=== PATIENT | female | born 1945 | race Caucasian/White ===

== ENCOUNTER 2020-05-13 07:32 | Outpatient (REF) | payer MEDICARE, SELFPAY ==
[2020-05-13 11:50] LABS: Alanine Aminotransferase 13 U/L (0-31); Aspartate Amino Transferase 20 U/L (5-31); Cholesterol 216 mg/dL; Glucose Fasting 92 mg/dL (60-99); HDL Cholesterol 52 mg/dL; LDL Cholesterol Calculated 129 mg/dl; Triglycerides 178 mg/dL
== END 2020-05-13 07:33 | disposition home or self-care (01) ==
LOC: HO.HMGCLDS 07:32
PROVIDERS: PCP Internal Medicine; Visit Provider Internal Medicine
DX: R73.01 Impaired fasting glucose (principal); E78.2 Mixed hyperlipidemia
CPT/HCPCS: 80061; 82550; 82947; 84450; 84460

== ENCOUNTER → 2020-09-23 15:00 | Outpatient (BNVA) | payer MEDICARE, SELFPAY | PROVIDERS: PCP Internal Medicine; Visit Provider Internal Medicine Gastroenterology | DX: Z13.89 Encounter for screening for other disorder (principal) | CPT/HCPCS: Q3014 ==

== ENCOUNTER 2020-10-18 08:41 | Outpatient (REF) | payer MEDICARE, SELFPAY ==
[2020-10-18 11:30] LABS: Blood Urea Nitrogen 16 mg/dL (9-16); Lipase 42 U/L (8-78)
[2020-10-18 12:03] LABS: Alanine Aminotransferase 11 U/L (0-31); Anion Gap 17 (12-20); Aspartate Amino Transferase 18 U/L (5-31); Blood Urea Nitrogen 16 mg/dL (9-16); C Reactive Protein 0.22 mg/dL (< or = 0.50); Calcium 9.9 mg/dL (8.4-10.2); Carbon Dioxide 30 mmol/L (22-29); Chloride 98 mmol/L (96-108); Cholesterol 197 mg/dL; Estimated Glomerular Filt Rate > 60; Glucose Fasting 96 mg/dL (60-99); HDL Cholesterol 55 mg/dL; LDL Cholesterol Calculated 111 mg/dl; Potassium 3.9 mmol/L (3.3-5.1); Sodium 141 mmol/L (135-145); Triglycerides 158 mg/dL
[2020-10-18 12:11] LABS: Vitamin D 25-OH Total 55.2 ng/mL (>30)
== END 2020-10-18 08:42 | disposition home or self-care (01) ==
LOC: HO.HMGCLDS 08:41
PROVIDERS: PCP Internal Medicine; Visit Provider Internal Medicine Gastroenterology
DX: R93.5 Abnormal findings on diagnostic imaging of other abdominal regions, including retroperitoneum (principal); R10.11 Right upper quadrant pain; E78.2 Mixed hyperlipidemia; I10 Essential (primary) hypertension; M81.0 Age-related osteoporosis without current pathological fracture; Z78.0 Asymptomatic menopausal state
CPT/HCPCS: 36415; 80048; 80061; 82306; 83690; 84450; 84460; 84520; 86140

== ENCOUNTER 2020-10-18 09:37 | Emergency (ER) | payer MEDICARE, SELFPAY ==
--- NOTE | 2020-10-18 | ECG_ITS ---
Test Reason : CP Blood Pressure : / mmHG Vent. Rate : 069 BPM Atrial Rate : 069 BPM P-R Int : 166 ms QRS Dur : 096 ms QT Int : 416 ms P-R-T Axes : 032 007 -10 degrees QTc Int : 445 ms Normal sinus rhythm ST & T wave abnormality, consider anterolateral ischemia Abnormal ECG When compared with ECG of 01-FEB-2006 09:32, Inverted T waves have replaced nonspecific T wave abnormality in Anterolateral leads Referred By: Generic ED Physician Electronically Signed By:HALI VALADEZ MD
--- NOTE | ~2020-10-18 | XR_ITS ---
EXAMINATION: XR CHEST CLINICAL INFORMATION: Chest pain COMPARISON: None TECHNIQUE: Frontal view of the chest was obtained. FINDINGS: The cardiac and mediastinal contours are normal. The lungs are clear. There is no pleural effusion or pneumothorax. There is curvature of the lower thoracic spine to the right. There are degenerative changes at the left shoulder. XR/XR chest 1V IMPRESSION: No evidence for acute disease in the chest.
[2020-10-18 10:01] VITALS: BP 180/79; PULSE 71; RESP 16; TEMP 36.7; O2SAT 99; BMI 26.4
--- NOTE | 2020-10-18 11:02 | ED_ITS ---
HPI - Chest Pain General Chief Complaint: Chest Pain Stated Complaint: chest pain Time Seen by Provider: 10/18/20 09:41 Source: patient Mode of arrival: ambulatory Limitations: no limitations History of Present Illness HPI narrative: 75 y/o female with history of HTN, HLD, IBD, anxiety, diverticulitis who presents to the ED from Urgent Care for evaluation of abnormal EKG and non-radiating, reproducible left sided chest pain that started last night. Patient states she was in the bathroom last night getting ready for a shower when she developed chest pains on the left side after getting undressed. She states it is aching in nature worse with palpation. No SOB, nausea, vomiting, diaphoresis, fever, chills. She was seen at the lab this morning for routine blood work and then went to Urgent care for a quick EKG. EKG there showed T-wave inversions that were not present on her prior EKG from 16 years prior. She was sent to the ER for further evaluation. MD complaint: chest pain Onset (ago): day(s) (1) Timing of current episode: constant Prior episodes: No Onset: during rest Pain location: left chest Pain radiation: none Severity: mild Quality: aching Relieving factors: nothing Exacerbating factors: palpation and movement Treatment prior to arrival: none Risk Factors Coronary artery disease risk factors: hyperlipidemia and hypertension Thoracic aortic dissection risk factors: none Related Data On Oral Contraceptives: No Home Medications Medication Instructions Recorded Confirmed cholecalciferol (vitamin D3) 50 50 mcg PO DAILY 05/15/20 09/23/20 mcg (2,000 unit) capsule coenzyme Q10 100 mg capsule 100 mg PO DAILY 05/15/20 09/23/20 naproxen 500 mg tablet mg PO 05/15/20 09/23/20 omega-3 fatty acids 1,000 mg 1,000 mg PO DAILY 05/15/20 09/23/20 capsule Previous Rx's Medication Instructions Recorded diclofenac sodium 1 % topical gel 2 g TOPICAL QID PRN #100 g 05/15/20 pravastatin 80 mg tablet 80 mg PO BEDTIME #90 tab 08/15/20 metoprolol tartrate 25 mg tablet 25 mg PO BID 90 Days #180 tab 09/10/20 triamterene 75 1 tab PO DAILY #90 tab 09/10/20 mg-hydrochlorothiazide 50 mg tablet Allergies Allergy/AdvReac Type Severity Reaction Status Date / Time No Known Allergies Allergy Verified 09/23/20 15:04 Review of Systems Review of Systems: Constitutional: No Fever, No Chills ENT/Mouth: No sore throat, No Rhinorrhea, No Swallowing Difficulty Cardiovascular: + Chest Pain, No SOB, No Orthopnea, No Edema Respiratory: No Cough, No Sputum, No Wheezing, No dyspnea Gastrointestinal: No Nausea, No Vomiting, No Diarrhea, No abdominal Pain Musculoskeletal: No joint pain, No Myalgias Skin: No Skin Lesions, No rash Neuro: No Weakness, No Numbness, No Dizziness, No Headache Psych: + Anxiety/Panic, No Depression Heme/Lymph: No Bruising, No Lymphadenopathy Endocrine: No Polyuria, No Polydipsia PMFSH Past Medical History Attestation statement: The following information was validated with the patient. Medical History Anxiety disorder Essential hypertension IBS (irritable bowel syndrome) Mixed dyslipidemia Osteoporosis Surgical History History of section History of laparoscopic cholecystectomy History of partial colectomy History of tonsillectomy Family History Family History Father No problems noted. Mother Depression HTN (hypertension) CHF (congestive heart failure) CVD (cardiovascular disease) Sister No problems noted. Sister No problems noted. Daughter No problems noted. Social History Social History (Updated 09/23/20 @ 15:03 by Valeria Anderson [facility]) Household Members: Spouse and Children Alcohol intake: never Smoking Status: Former smoker Advance Directives: No Advance Directives Information Provided: No Current occupational status: retired Physical Exam Vital Signs: Vital Signs: Last Vital Signs Temp 98.1 F 10/18/20 10:01 Pulse 61 10/18/20 12:00 Resp 18 10/18/20 12:00 BP 132/60 10/18/20 12:13 Pulse Ox 100 10/18/20 12:00 Body Mass Index 26.4 Appearance: Alert. Oriented X3. No acute distress. Eyes: Pupils equal, round and reactive to light. ENT: Pharynx normal. Neck: Normal inspection. Neck supple. CVS: Normal heart rate and rhythm. Pulses normal. Left sided chest wall tenderness Respiratory: No respiratory distress. Breath sounds normal. Abdomen: Soft and nontender. +BS x4 Skin: Skin warm and dry. Normal skin color. Normal skin turgor. No rashes. Extremities: No lower extremity edema. Negative Joana's sign Neuro: Oriented X 3. No motor deficit. No sensory deficit. Course Course Course Narrative: 75 y/o female presenting with reproducible left sided chest pain and abnormal EKG. Exam is reassuring. She appears well, pain only with palpation. Likely muscular in nature. Given her age and history of HTN and HLD will repeat EKG, get lab workup including troponin and electrolytes. Doubt ACS or PE. Reevaluation(s) Reevaluation #1: Lab workup is unremarkable. Troponin is negative. EKG reviewed and is unchanged from prior EKG in 2006. Very highly doubt that her chest discomfort is cardiac in etiology. Will refer to Cardiology for abnormal EKG. Will treat for muscular chest wall pain with NSAID. Results reviewed with patient who agrees with plan. Stable for discharge. MDM - Chest Pain Medical Records Data Attestation: I reviewed the patient's medical records. Lab Data Attestation: I reviewed the patient's lab results. Result diagrams: 10/18/20 11:37 10/18/20 11:37 Labs: Lab Results 10/18/20 10/18/20 10/18/20 Range/Units 11:36 11:36 11:37 WBC 6.1 (4.8-10.8) X10*3/uL RBC 5.07 (4.20-5.50) X10*6/uL Hgb 15.4 (12.0-16.0) g/dl Hct 45.9 (37-47) % MCV 90.5 (80-98) fL MCH 30.4 (27.0-33.0) pg MCHC 33.6 (31.0-35.0) g/dl RDW 13.2 (11.0-16.0) % Plt Count 257 (160-400) X10*3/uL MPV 10.4 (9.4-12.3) fL Immature Gran % (Auto) 0.3 (0.0-0.4) % Neut % (Auto) 62.3 (45-73) % Lymph % (Auto) 26.9 (20-40) % [place] % (Auto) 7.7 (2-11) % Eos % (Auto) 2.3 (0-4) % Baso % (Auto) 0.5 (0-2) % Lymph # (Auto) 1.6 (1.2-4.9) X10*3/uL [place] # (Auto) 0.5 (0.1-1.2) X10*3/uL Eos # (Auto) 0.1 (0.0-0.4) X10*3/uL Baso # (Auto) 0.0 (0.0-0.2) X10*3/uL Abs Immat Gran (auto) 0.02 (0.00-0.03) X10*3/uL Absolute Neuts (auto) 3.8 (2.0-8.3) X10*3/uL Absolute Nucleated RBC 0.000 (0.0-0.012) X10*3/uL Nucleated RBC % (auto) 0.0 (0.0-0.2) /100WBC Hold Blue Top Sodium (135-145) mmol/L Potassium (3.3-5.1) mmol/L Chloride (96-108) mmol/L Carbon Dioxide (22-29) mmol/L Anion Gap (12-20) BUN (9-16) mg/dL Creatinine (0.5-1.4) mg/dL Estim Creat Clear Calc Estimated GFR Random Glucose (60-115) mg/dL Calcium (8.4-10.2) mg/dL Magnesium (1.6-2.6) mg/dL Total Bilirubin (0.0-1.0) mg/dL Direct Bilirubin (0.0-0.5) mg/dL AST (5-31) U/L ALT (0-31) U/L Alkaline Phosphatase (39-117) U/L Troponin I High Sens (<3.5-17.0) ng/L Total Protein (6.5-8.0) g/dL Albumin (3.5-5.0) g/dL TSH 2.98 (0.32-4.0) uIU/mL Urine Color YELLOW Urine Appearance CLEAR Urine pH 6.0 (5.0-8.0) Ur Specific [place] <= 1.005 (1.005-1.025) Urine Protein NEG (NEG-TRACE) MG/DL Urine Glucose (UA) NEG (NEG) MG/DL Urine Ketones NEG (NEG) MG/DL Urine Blood NEG (NEG) Urine Nitrite NEG (NEG) Ur Leukocyte Esterase NEG (NEG) 10/18/20 10/18/20 10/18/20 Range/Units 11:37 11:37 11:37 WBC (4.8-10.8) X10*3/uL RBC (4.20-5.50) X10*6/uL Hgb (12.0-16.0) g/dl Hct (37-47) % MCV (80-98) fL MCH (27.0-33.0) pg MCHC (31.0-35.0) g/dl RDW (11.0-16.0) % Plt Count (160-400) X10*3/uL MPV (9.4-12.3) fL Immature Gran % (Auto) (0.0-0.4) % Neut % (Auto) (45-73) % Lymph % (Auto) (20-40) % [place] % (Auto) (2-11) % Eos % (Auto) (0-4) % Baso % (Auto) (0-2) % Lymph # (Auto) (1.2-4.9) X10*3/uL [place] # (Auto) (0.1-1.2) X10*3/uL Eos # (Auto) (0.0-0.4) X10*3/uL Baso # (Auto) (0.0-0.2) X10*3/uL Abs Immat Gran (auto) (0.00-0.03) X10*3/uL Absolute Neuts (auto) (2.0-8.3) X10*3/uL Absolute Nucleated RBC (0.0-0.012) X10*3/uL Nucleated RBC % (auto) (0.0-0.2) /100WBC Hold Blue Top SEE NOTE Sodium 140 (135-145) mmol/L Potassium 4.0 (3.3-5.1) mmol/L Chloride 99 (96-108) mmol/L Carbon Dioxide 30 H (22-29) mmol/L Anion Gap 15 (12-20) BUN 16 (9-16) mg/dL Creatinine 0.81 (0.5-1.4) mg/dL Estim Creat Clear Calc 44.9 Estimated GFR > 60 Random Glucose 103 (60-115) mg/dL Calcium 10.0 (8.4-10.2) mg/dL Magnesium 2.3 (1.6-2.6) mg/dL Total Bilirubin 0.3 (0.0-1.0) mg/dL Direct Bilirubin 0.2 (0.0-0.5) mg/dL AST 20 (5-31) U/L ALT 14 (0-31) U/L Alkaline Phosphatase 91 (39-117) U/L Troponin I High Sens 3.6 (<3.5-17.0) ng/L Total Protein 7.8 (6.5-8.0) g/dL Albumin 4.9 (3.5-5.0) g/dL TSH (0.32-4.0) uIU/mL Urine Color Urine Appearance Urine pH (5.0-8.0) Ur Specific [place] (1.005-1.025) Urine Protein (NEG-TRACE) MG/DL Urine Glucose (UA) (NEG) MG/DL Urine Ketones (NEG) MG/DL Urine Blood (NEG) Urine Nitrite (NEG) Ur Leukocyte Esterase (NEG) ECG Data ECG #1: Attestation: I personally reviewed and interpreted this ECG as follows: ECG interpretation date: 10/18/20 ECG interpretation time: 12:52 Prior ECG tracings: available for review Interpretation: normal sinus rhythm, HR 69 bpm, normal VA interval, normal QTC, t-wave inversions in leads III, V1-V6. no significant change from 2006 Scores Heart Score History: -0- slightly suspicious ECG: -1- non specific repolarization disturbance Age: -2- > or = 65 Risk factory: -1- 1 or 2 risk factors Troponin: -0- < or = normal limit Score: 4 Risk: 16.6% Critical Care Time Critical Care Time Critical Care Time: No Discharge Plan Discharge Clinical Impression: Anterior chest wall pain Patient Disposition: Home, Self-Care Instructions: Chest Wall Pain (ED) Additional Instructions: Your lab workup today was unremarkable. Your chest x-ray was normal. Your EKG was unchanged from 2006. Your blood work did not show any evidence of acute stress on your heart. Recommend following up with your primary care doctor. Follow up with Cardiology for evaluation of abnormal EKG. If you develop worsening or change in your chest discomfort call 911 or come back to the ER for further evaluation. Prescriptions: No Action pravastatin 80 mg tablet 80 mg PO BEDTIME Qty: 90 RF: 1 triamterene-hydrochlorothiazid 75-50 mg tablet 1 tab PO DAILY Qty: 90 RF: 1 metoprolol tartrate 25 mg tablet 25 mg PO BID 90 Days Qty: 180 RF: 1 naproxen 500 mg tablet PO RF: 0 omega-3 fatty acids [Fish Oil Concentrate] 1,000 mg capsule 1,000 mg PO DAILY RF: 0 cholecalciferol (vitamin D3) 50 mcg (2,000 unit) capsule 50 mcg PO DAILY RF: 0 coenzyme Q10 [CoQ-10] 100 mg capsule 100 mg PO DAILY RF: 0 diclofenac sodium 1 % gel 2 g topical QID PRN (Reason: joint pain) Qty: 100 RF: 0 Referrals: Ivan Schuster MD [Physician] - 2 days (abnormal EKG)
[2020-10-18 11:47] LABS: MANUAL DIFF FLAG NO
[2020-10-18 11:52] LABS: Basophils Percent Auto 0.5 % (0-2); Eosinophils Absolute Auto 0.1 X10*3/uL (0.0-0.4); Eosinophils Percent Auto 2.3 % (0-4); Hematocrit 45.9 % (37-47); Hemoglobin 15.4 g/dl (12.0-16.0); Imm Gran Abs Auto 0.02 X10*3/uL (0.00-0.03); Imm Gran Pct Auto 0.3 % (0.0-0.4); Lymphocytes Absolute Auto 1.6 X10*3/uL (1.2-4.9); Lymphocytes Percent Auto 26.9 % (20-40); Mean Corpuscular HGB Conc 33.6 g/dl (31.0-35.0); Mean Corpuscular Hemoglobin 30.4 pg (27.0-33.0); Mean Corpuscular Volume 90.5 fL (80-98); Mean Platelet Volume 10.4 fL (9.4-12.3); Monocytes Absolute Auto 0.5 X10*3/uL (0.1-1.2); Monocytes Percent Auto 7.7 % (2-11); Neutrophils Absolute Auto 3.8 X10*3/uL (2.0-8.3); Neutrophils Percent Auto 62.3 % (45-73); Platelet Count 257 X10*3/uL (160-400); Red Blood Count 5.07 X10*6/uL (4.20-5.50); Red Cell Distribution Width 13.2 % (11.0-16.0); White Blood Count 6.1 X10*3/uL (4.8-10.8)
[2020-10-18 11:54] LABS: Glucose Urine UA NEG (NEG); Leukocyte Esterase Urine NEG (NEG); Nitrite Urine NEG (NEG); Specific Gravity - Urine <= 1.005 (1.005-1.025); Urine Blood NEG (NEG); Urine Ketones NEG (NEG); Urine Protein NEG (NEG-TRACE)
[2020-10-18 11:56] LABS: Appearance Urine CLEAR; Color Urine YELLOW
[2020-10-18 12:00] VITALS: BP 171/68; PULSE 61; RESP 18; O2SAT 100
[2020-10-18 12:13] VITALS: BP 132/60
[2020-10-18 12:19] LABS: Alanine Aminotransferase 14 U/L (0-31); Albumin Level 4.9 g/dL (3.5-5.0); Alkaline Phosphatase 91 U/L (39-117); Anion Gap 15 (12-20); Aspartate Amino Transferase 20 U/L (5-31); Bilirubin Direct 0.2 mg/dL (0.0-0.5); Bilirubin Total 0.3 mg/dL (0.0-1.0); Blood Urea Nitrogen 16 mg/dL (9-16); Carbon Dioxide 30 mmol/L (22-29); Chloride 99 mmol/L (96-108); Creatinine Clr Calc Pharmacy 44.9; Estimated Glomerular Filt Rate > 60; Glucose Random 103 mg/dL (60-115); Magnesium 2.3 mg/dL (1.6-2.6); Sodium 140 mmol/L (135-145); Total Protein 7.8 g/dL (6.5-8.0)
[2020-10-18 12:24] LABS: Troponin-I High Sensitivity 3.6 ng/L (<3.5-17.0)
[2020-10-18 12:41] LABS: TSH reflex Free T4 2.98 uIU/mL (0.32-4.0)
== END 2020-10-18 12:57 | disposition home or self-care (01) ==
PROVIDERS: Physician Assistant; Emergency Provider Emergency Medicine; PCP Internal Medicine
DX: R07.89 Other chest pain (principal); I10 Essential (primary) hypertension; E78.5 Hyperlipidemia, unspecified; F41.9 Anxiety disorder, unspecified; Z87.891 Personal history of nicotine dependence; Z79.899 Other long term (current) drug therapy; Z79.02 Long term (current) use of antithrombotics/antiplatelets
CPT/HCPCS: 36415; 71045; 80048; 80076; 81003; 83735; 84443; 84484; 85025; 93005; 99283; 99284

== ENCOUNTER 2020-10-23 09:37 | Outpatient (REF) | payer MEDICARE, SELFPAY ==
--- NOTE | ~2020-10-23 | CT_ITS ---
EXAMINATION: CT ABDOMEN AND PELVIS WITH CONTRAST CLINICAL INFORMATION: Follow-up pancreas lesion COMPARISON: Previous CT scan of the abdomen and pelvis most recent May 2018 and abdominal MRI most recent January 2020 TECHNIQUE: Multidetector volumetric images were obtained from the superior aspect of the liver through the pubic symphysis following administration 85 mL of Omnipaque 350 intravenous contrast. Sagittal and coronal reformatted images were obtained on the technologist's workstation. Oral contrast: Yes This CT examination was performed using dose optimization techniques as appropriate, variously including the following: *Automated exposure control *Adjustment of mA and/or kV according to patient size (this includes techniques or standardized protocols for targeted exams where dose is matched to indication/reason for exam; i.e. extremities or head) *Use of iterative reconstruction technique DLP: 302 mGy-cm FINDINGS: LUNG BASES: The visualized lung bases are unremarkable. LIVER, GALLBLADDER, AND BILIARY TREE: The liver is normal in size and shape. The liver is slightly low in attenuation suggestive of mild fatty infiltration. No focal hepatic lesion or biliary ductal dilatation is present. The gallbladder has been removed. PANCREAS: There is a 7 mm fatty lesion in the body of the pancreas that is stable and likely represents a benign lipoma. The pancreas is otherwise unremarkable. SPLEEN: Unremarkable. ADRENAL GLANDS: Unremarkable. KIDNEYS AND URETERS: There is an 8 mm low-attenuation lesion in the lower pole of the left kidney probably representing a cyst. The kidneys are otherwise unremarkable. BLADDER: Unremarkable. GASTROINTESTINAL TRACT: There is been previous right colectomy. There is severe diverticulosis of the distal colon. Small and large bowel is otherwise unremarkable. The stomach is unremarkable. ABDOMINAL WALL: No there is a small umbilical hernia containing fat. LYMPH NODES: Normal. VASCULAR: There is evidence of severe atherosclerotic disease. No aneurysm is seen. PELVIC VISCERA: Unremarkable. OSSEOUS STRUCTURES: There is scoliosis and degenerative change of the spine. CT/CT abdomen pelvis w con IMPRESSION: Stable 7 mm fatty lesion in the pancreas suggestive of a benign lipoma. Postsurgical changes following right colectomy. Severe diverticulosis of the distal colon. No evidence of diverticulitis.
[2020-10-23] MEDS: Barium Sulfate Oral (Vanilla) 450 ML ORAL.SUSP 900 ML PO (15:45)
== END 2020-10-23 09:38 | disposition home or self-care (01) ==
LOC: HO.CT 09:37
PROVIDERS: Visit Provider Internal Medicine Gastroenterology
DX: R10.11 Right upper quadrant pain (principal); R93.5 Abnormal findings on diagnostic imaging of other abdominal regions, including retroperitoneum
CPT/HCPCS: 74177; Q9967

== ENCOUNTER 2020-10-30 08:31 | Outpatient (REF) | payer MEDICARE, SELFPAY ==
--- NOTE | ~2020-10-30 | MM_ITS ---
EXAMINATION: MM SCREENING DIGITAL BREAST TOMOSYNTHESIS, BILATERAL CLINICAL INFORMATION: Screening. Asymptomatic. The lifetime risk of breast cancer based on the Tyrer-Cuzick Model is 2.8%. COMPARISON: Mammography: September 07, 2019 and studies dating back to March 27, 2010 TECHNIQUE: Digital breast tomosynthesis is performed in both the craniocaudal and mediolateral oblique views along with computer-aided detection (CAD). Synthesized 2D images are generated from the tomosynthesis. FINDINGS: The breasts are heterogeneously dense, which may obscure small masses (ACR BI-RADS breast composition Category c). There are no significant masses, abnormal calcifications, or other abnormalities. MM/MM tomosynthesis screening BI IMPRESSION: There are no significant changes from prior study. ASSESSMENT: BI-RADS 1: Negative RECOMMENDATION: Routine annual mammography screening. This patient's information was entered into a reminder system with a target due date for their next mammogram.
== END 2020-10-30 08:32 | disposition home or self-care (01) ==
LOC: HO.MAMMO 08:31
PROVIDERS: Visit Provider Internal Medicine
DX: Z12.31 Encounter for screening mammogram for malignant neoplasm of breast (principal)
CPT/HCPCS: 77063; 77067

== ENCOUNTER → 2020-11-07 09:13 | Outpatient (BNVA) | payer MEDICARE, SELFPAY | PROVIDERS: PCP Internal Medicine; Visit Provider Internal Medicine Gastroenterology | CPT/HCPCS: Q3014 ==

== ENCOUNTER → 2021-05-01 10:33 | Outpatient (BNVA) | payer MEDICARE, SELFPAY | PROVIDERS: Referring Provider Internal Medicine; Visit Provider Internal Medicine Gastroenterology | DX: K57.92 Diverticulitis of intestine, part unspecified, without perforation or abscess without bleeding (principal); K58.2 Mixed irritable bowel syndrome; R93.5 Abnormal findings on diagnostic imaging of other abdominal regions, including retroperitoneum; R10.11 Right upper quadrant pain; E03.9 Hypothyroidism, unspecified; E78.2 Mixed hyperlipidemia; I10 Essential (primary) hypertension; M85.80 Other specified disorders of bone density and structure, unspecified site; Z90.49 Acquired absence of other specified parts of digestive tract; Z79.899 Other long term (current) drug therapy | CPT/HCPCS: 99212; Q3014 ==

== ENCOUNTER 2021-11-04 08:14 | Outpatient (REF) | payer MEDICARE, SELFPAY ==
[2021-11-04 12:30] LABS: Alanine Aminotransferase 9 U/L (0-31); Anion Gap 17 (12-20); Aspartate Amino Transferase 20 U/L (5-31); Blood Urea Nitrogen 16 mg/dL (9-16); Calcium 9.7 mg/dL (8.4-10.2); Carbon Dioxide 23 mmol/L (22-29); Chloride 102 mmol/L (96-108); Cholesterol 180 mg/dL; Estimated Glomerular Filt Rate > 60; Glucose Fasting 98 mg/dL (60-99); HDL Cholesterol 47 mg/dL; LDL Cholesterol Calculated 100 mg/dl; Potassium 4.3 mmol/L (3.3-5.1); Sodium 138 mmol/L (135-145); Triglycerides 166 mg/dL
== END 2021-11-04 08:15 | disposition home or self-care (01) ==
LOC: HO.HMGCLDS 08:14
PROVIDERS: PCP Internal Medicine; Visit Provider Internal Medicine
DX: Z00.01 Encounter for general adult medical examination with abnormal findings (principal); E78.2 Mixed hyperlipidemia; F41.1 Generalized anxiety disorder; I10 Essential (primary) hypertension; K58.2 Mixed irritable bowel syndrome; M81.0 Age-related osteoporosis without current pathological fracture; Z78.0 Asymptomatic menopausal state
CPT/HCPCS: 36415; 80048; 80061; 82306; 84450; 84460

== ENCOUNTER → 2022-01-29 08:58 | Outpatient (BNVA) | payer MEDICARE, SELFPAY | PROVIDERS: PCP Internal Medicine; Visit Provider Internal Medicine Gastroenterology | DX: K57.90 Diverticulosis of intestine, part unspecified, without perforation or abscess without bleeding (principal); R93.5 Abnormal findings on diagnostic imaging of other abdominal regions, including retroperitoneum; K52.9 Noninfective gastroenteritis and colitis, unspecified; K58.2 Mixed irritable bowel syndrome | CPT/HCPCS: 99212 ==

== ENCOUNTER 2022-03-17 06:26 | Outpatient (REF) | payer MEDICARE, SELFPAY ==
[2022-03-17 11:28] LABS: MANUAL DIFF FLAG NO
[2022-03-17 11:44] LABS: Hematocrit 46.1 % (37.0-47.0); Hemoglobin 15.5 g/dl (12.0-16.0); Mean Corpuscular HGB Conc 33.6 g/dl (31.0-35.0); Mean Corpuscular Hemoglobin 30.5 pg (27.0-33.0); Mean Corpuscular Volume 90.6 fL (80.0-98.0); Red Blood Count 5.09 X10*6/uL (4.20-5.50); White Blood Count 6.6 X10*3/uL (4.8-10.8)
[2022-03-17 11:45] LABS: Basophils Percent Auto 0.6 % (0-2); Eosinophils Absolute Auto 0.2 X10*3/uL (0.0-0.4); Eosinophils Percent Auto 2.6 % (0-4); Imm Gran Abs Auto 0.02 X10*3/uL (0.00-0.03); Imm Gran Pct Auto 0.3 % (0.0-0.4); Lymphocytes Absolute Auto 1.5 X10*3/uL (1.2-4.9); Lymphocytes Percent Auto 22.1 % (20-40); Mean Platelet Volume 10.8 fL (9.4-12.3); Monocytes Absolute Auto 0.6 X10*3/uL (0.1-1.2); Monocytes Percent Auto 9.1 % (2-11); Neutrophils Absolute Auto 4.3 x10*3/uL (2.0-8.3); Neutrophils Percent Auto 65.3 % (45-73); Platelet Count 297 X10*3/uL (160-400)
[2022-03-17 12:18] LABS: Alanine Aminotransferase 11 U/L (0-31); Albumin Level 4.5 g/dL (3.5-5.0); Alkaline Phosphatase 95 U/L (39-117); Anion Gap 16 (12-20); Aspartate Amino Transferase 18 U/L (5-31); Bilirubin Total 0.6 mg/dL (0.0-1.0); Blood Urea Nitrogen 14 mg/dL (9-16); Calcium 9.9 mg/dL (8.4-10.2); Carbon Dioxide 28 mmol/L (22-29); Chloride 100 mmol/L (96-108); Estimated Glomerular Filt Rate 59; Glucose Fasting 107 mg/dL (60-99); Potassium 3.5 mmol/L (3.3-5.1); Sodium 140 mmol/L (135-145); Total Protein 7.3 g/dL (6.5-8.0)
== END 2022-03-17 06:27 | disposition home or self-care (01) ==
LOC: HO.HMGCLDS 06:26
PROVIDERS: PCP Internal Medicine; Visit Provider Nurse Practitioner Family
DX: K57.90 Diverticulosis of intestine, part unspecified, without perforation or abscess without bleeding (principal)
CPT/HCPCS: 36415; 80053; 85025

== ENCOUNTER 2022-06-02 | Outpatient (REF) | payer MEDICARE, SELFPAY ==
--- NOTE | ~2022-06-02 | XR_ITS ---
EXAMINATION: XR SHOULDER, RIGHT XR SHOULDER, LEFT CLINICAL INFORMATION: Bilateral shoulder pain COMPARISON: Radiographs right shoulder 03/31/2016, left shoulder 12/10/2015 TECHNIQUE: Each shoulder is imaged in 3 views. There are a total of 6 views. FINDINGS: Right: No fracture, dislocation, destructive process. No visible rotator cuff calcifications. There is minor subcortical cystic changes greater tuberosity which may be associated with rotator cuff degeneration. The glenohumeral joint is normal. There are mild to moderate degenerative changes acromioclavicular joint. No acromioclavicular separation. Left: No fracture, dislocation, destructive process. There is some mineralization in distal anterior superior rotator cuff which may related to calcific tendinosis. There are minor cystic changes in the greater tuberosity and mild elevation of the humeral head which may be associated with rotator cuff degeneration. There are moderate degenerative changes acromioclavicular joint. Superior lateral spurring acromium is present. No acromioclavicular separation. XR/XR shoulder LT min 2V IMPRESSION: Right: -Degenerative changes acromioclavicular joint. -No visible rotator cuff calcifications. Left: -Degenerative changes acromioclavicular joint. Superolateral spurring acromium. -Probable calcification distal superior rotator cuff consistent with calcific tendinosis. -Mild elevation humeral head which may be associated with rotator cuff degeneration.
--- NOTE | ~2022-06-02 | XR_ITS ---
EXAMINATION: XR SHOULDER, RIGHT XR SHOULDER, LEFT CLINICAL INFORMATION: Bilateral shoulder pain COMPARISON: Radiographs right shoulder 03/31/2016, left shoulder 12/10/2015 TECHNIQUE: Each shoulder is imaged in 3 views. There are a total of 6 views. FINDINGS: Right: No fracture, dislocation, destructive process. No visible rotator cuff calcifications. There is minor subcortical cystic changes greater tuberosity which may be associated with rotator cuff degeneration. The glenohumeral joint is normal. There are mild to moderate degenerative changes acromioclavicular joint. No acromioclavicular separation. Left: No fracture, dislocation, destructive process. There is some mineralization in distal anterior superior rotator cuff which may related to calcific tendinosis. There are minor cystic changes in the greater tuberosity and mild elevation of the humeral head which may be associated with rotator cuff degeneration. There are moderate degenerative changes acromioclavicular joint. Superior lateral spurring acromium is present. No acromioclavicular separation. XR/XR shoulder RT min 2V IMPRESSION: Right: -Degenerative changes acromioclavicular joint. -No visible rotator cuff calcifications. Left: -Degenerative changes acromioclavicular joint. Superolateral spurring acromium. -Probable calcification distal superior rotator cuff consistent with calcific tendinosis. -Mild elevation humeral head which may be associated with rotator cuff degeneration.
== END 2022-06-02 00:01 | disposition home or self-care (01) ==
LOC: HO.HOSX
PROVIDERS: Visit Provider Physician Assistant
DX: M19.011 Primary osteoarthritis, right shoulder (principal); M19.012 Primary osteoarthritis, left shoulder
CPT/HCPCS: 20610; 73030; 99202; J1040

== ENCOUNTER → 2022-06-15 07:17 | Outpatient (BNVA) | payer MEDICARE, SELFPAY | PROVIDERS: PCP Internal Medicine; Referring Provider Internal Medicine; Visit Provider Internal Medicine Gastroenterology | DX: K57.90 Diverticulosis of intestine, part unspecified, without perforation or abscess without bleeding (principal); K52.9 Noninfective gastroenteritis and colitis, unspecified; K58.2 Mixed irritable bowel syndrome; R93.5 Abnormal findings on diagnostic imaging of other abdominal regions, including retroperitoneum | CPT/HCPCS: 99212 ==

== ENCOUNTER 2022-08-11 07:47 | Outpatient (REF) | payer MEDICARE, SELFPAY ==
[2022-08-11 12:31] LABS: Alanine Aminotransferase 12 U/L (0-31); Anion Gap 15 (12-20); Aspartate Amino Transferase 18 U/L (5-31); Blood Urea Nitrogen 15 mg/dL (9-16); Calcium 9.7 mg/dL (8.4-10.2); Carbon Dioxide 30 mmol/L (22-29); Chloride 102 mmol/L (96-108); Cholesterol 225 mg/dL; Estimated Glomerular Filt Rate > 60; Glucose Fasting 90 mg/dL (60-99); HDL Cholesterol 48 mg/dL; LDL Cholesterol Calculated 133 mg/dl; Potassium 4.1 mmol/L (3.3-5.1); Sodium 143 mmol/L (135-145); Triglycerides 221 mg/dL
[2022-08-11 12:46] LABS: Vitamin D 25-OH Total 27.5 ng/mL (>30)
== END 2022-08-11 07:48 | disposition home or self-care (01) ==
LOC: HO.HMGCLDS 07:47
PROVIDERS: PCP Internal Medicine; Visit Provider Internal Medicine
DX: M81.0 Age-related osteoporosis without current pathological fracture (principal); N95.9 Unspecified menopausal and perimenopausal disorder; I10 Essential (primary) hypertension
CPT/HCPCS: 36415; 80048; 80061; 82306; 84450; 84460

== ENCOUNTER 2022-08-14 12:26 | Observation (INO) | payer MEDICARE, SELFPAY ==
[2022-08-14] VITALS (9 sets, daily range): BP systolic 140–224; BP diastolic 64–110; PULSE 51–70; RESP 16–20; TEMP 36.4–36.8; O2SAT 96–100; BMI 25.4
--- NOTE | ~2022-08-14 | XR_ITS ---
EXAMINATION: XR CHEST CLINICAL INFORMATION: Chest pain COMPARISON: 10/18/2020 TECHNIQUE: 2 views of the chest were obtained. FINDINGS: Cardiac leads overlie the chest. The lungs are well expanded. There is no focal consolidation, edema, or effusion. No pneumothorax. The cardiomediastinal silhouette is within normal limits. No acute osseous abnormality. XR/XR chest 2V IMPRESSION: Clear lungs.
--- NOTE | ~2022-08-14 | CT_ITS ---
EXAMINATION: CT ANGIOGRAM CHEST CLINICAL INFORMATION: Chest pain radiating to the back/shoulder. Hypertension. COMPARISON: Chest radiograph from today. TECHNIQUE: Multiple axial images were obtained through the chest after the administration of 70 mL of Omnipaque 350 intravenous contrast. Coronal, sagittal, and three-dimensional/MIP reformatted images were obtained on the technologist workstation under concurrent radiologist supervision. This CT examination was performed using dose optimization techniques as appropriate, variously including the following: *Automated exposure control *Adjustment of mA and/or kV according to patient size (this includes techniques or standardized protocols for targeted exams where dose is matched to indication/reason for exam; i.e. extremities or head) *Use of iterative reconstruction technique DLP: 239 mGy-cm FINDINGS: Vascular: 1. 3 cusped aortic valve. Normal origins of the coronary arteries. Mild coronary artery calcification. 2. The ascending thoracic aorta is normal in course and caliber without dissection. 3. Normal caliber aortic arch without dissection. Normal 3 vessel branching configuration. 4. The descending thoracic aorta is normal in course and caliber without dissection. Mild atherosclerotic disease. 5. The visualized portion of the abdominal aorta shows moderate atherosclerotic disease. Normal caliber without dissection. 6. Although not tailored for evaluation of the pulmonary arteries, there is no central or segmental pulmonary embolism seen. LUNG: The central airways are patent. Linear atelectasis/scarring of the left upper lobe anteriorly. No consolidation. No pleural effusion. PLEURA: No pleural effusion or pneumothorax. MEDIASTINUM: Normal heart size. No pericardial effusion. No hilar or mediastinal lymphadenopathy. VASCULAR: No thoracic aortic aneurysm or dissection. Central pulmonary arteries opacify normally. CHEST WALL/AXILLA: No axillary or internal mammary lymphadenopathy. UPPER ABDOMEN: Cholecystectomy. No acute abnormalities. OSSEOUS STRUCTURES: No acute or suspicious osseous abnormality. Mild degenerative change of the spine. CT/CT angio chest aorta IMPRESSION: 1. No acute vascular abnormality. No aortic dissection. 2. No acute pulmonary finding. Fleischner guidelines were followed.
--- NOTE | 2022-08-14 12:50 | ECG_ITS ---
Test Reason : CP Blood Pressure : / mmHG Vent. Rate : 059 BPM Atrial Rate : 059 BPM P-R Int : 178 ms QRS Dur : 098 ms QT Int : 424 ms P-R-T Axes : 024 004 000 degrees QTc Int : [address] & T wave abnormality, consider anterior ischemia Abnormal ECG When compared with ECG of 18-OCT-2020 09:49, No significant change was found Referred By: Elisa Andrew Electronically Signed By:BRENDA CARRILLO
--- NOTE | 2022-08-14 13:01 | ED_ITS ---
HPI - Chest Pain General Chief Complaint: Chest Pain Stated Complaint: Chest pain per EMS Time Seen by Provider: 08/14/22 12:49 Source: patient Mode of arrival: ambulatory Limitations: no limitations History of Present Illness HPI narrative: Patient is a 76-year-old female presents to the emergency department via EMS from urgent care for evaluation of chest pain. Patient states that this morning she awoke with lower midbsternal chest/ epigastric pain. This resolved on its own after a few minutes. She states that she went to the grocery store, when she began developing pain again in the center of her chest, reportedly 8/10, radiating into her back in the bilateral shoulders. She went home, states that she had her daughter check her blood pressure which was elevated, and her daughter recommended that she go to the urgent care. Currently, she reports that she is pain free. She received aspirin from EMS. Denies headache, dizziness, lightheadedness, shortness of breath, difficulty breathing, nausea, vomiting, abdominal pain, weakness. Related Data Previous Rx's Medication Instructions Recorded pravastatin 80 mg tablet 80 mg PO BEDTIME #90 tabs 03/05/22 metoprolol tartrate 25 mg tablet 25 mg PO BID 90 days #180 tabs 03/24/22 naproxen 500 mg tablet 500 mg PO DAILY PRN pain #60 tabs 05/13/22 polyethylene glycol 3350 17 17 g PO DAILY 30 days #510 grams 06/15/22 gram/dose oral powder (Miralax) triamterene 75 1 tab PO DAILY #90 tabs 07/24/22 mg-hydrochlorothiazide 50 mg tablet Allergies Allergy/AdvReac Type Severity Reaction Status Date / Time sulfamethoxazole Allergy Mild upset Verified 08/14/22 11:46 [From Bactrim] stomach trimethoprim [From Bactrim] Allergy Mild upset Verified 08/14/22 11:46 stomach Review of Systems Review of Systems: Constitutional : No Weight loss, No Fever, No Chills ENT/Mouth :? No sore throat, No Rhinorrhea Eyes: No Eye Pain, No Swelling Cardiovascular : pos intermittent Chest Pain, no SOB, no Dyspnea on Exertion, No Orthopnea, No Edema, No Palpitations Respiratory : No Cough, No Sputum Gastrointestinal : No Nausea, No Vomiting, No Diarrhea, No abdominal Pain, No Hematochezia, No Melena Genitourinary : No Dysuria, No Urinary Frequency Musculoskeletal : No joint pain, No Myalgias, No Joint Swelling Skin : No Skin Lesions, No rash Neuro : No Weakness, No Numbness, No Dizziness, No Headache Psych : No Anxiety/Panic, No Depression Heme/Lymph: No Bruising, No Lymphadenopathy Endocrine : No Polyuria, No Polydipsia Yes all other systems are reviewed and are negative [facility] Past Medical History Attestation statement: The following information was validated with the patient. Source: old records reviewed Medical History Anxiety disorder Chronic pain of both shoulders Compound nevus Essential hypertension IBS (irritable bowel syndrome) Mixed dyslipidemia Osteoporosis Vaccination declined Surgical History History of section History of laparoscopic cholecystectomy History of partial colectomy History of tonsillectomy Family History Family History Father No problems noted. Mother Depression HTN (hypertension) CHF (congestive heart failure) CVD (cardiovascular disease) Sister No problems noted. Sister No problems noted. Daughter No problems noted. Social History Social History Household Members: Spouse and Children Housing: House Alcohol intake: never Patient Tobacco Use Status: Former Tobacco user Smoked in Last 30 Days: No e-Cigarette/Vaping Use: Never Used Advance Directives: No Advance Directives Information Provided: No service: No Current occupational status: retired Cognitive needs: No Hearing needs: No Vision needs: No Physical Exam Vital Signs: Vital Signs: Last Vital Signs Temp 98.2 F 08/14/22 12:44 Pulse 62 08/14/22 12:44 Resp 16 08/14/22 12:44 BP 178/66 H 08/14/22 16:39 Pulse Ox 100 08/14/22 12:44 O2 Del Method 08/14/22 12:44 BMI result Body Mass Index 25.4 Appearance: Alert.?Oriented to person, place and time. No acute distress.?Normal affect. Eyes: Pupils equal, round and reactive to light.? ENT: Pharynx normal.?? Neck: Normal inspection.? Neck supple.?? CVS: Heart sounds normal. Normal heart rate and rhythm.? Pulses normal.?? Respiratory: No respiratory distress.? Lung sounds clear to auscultation bilaterally?? Abdomen: Soft and non-tender. Normoactive bowel sounds. No pulsatile mass.?? Skin: Skin warm and dry.? Normal skin color.? Extremities: No lower extremity edema.? Neuro: Moves all extremities spontaneously. Sensation intact bilaterally. CN II- XII intact. No focal neuro deficits. Ambulates with normal steady gait. Course Course Course Narrative: No ST elevation, no ST depression, T-wave inversion in V1-V5 which appears consistent with prior EKG in October 2020 although more prominent in V5? Reevaluation(s) Reevaluation #1: CBC and CMP are overall unremarkable. Troponin <3.5, EKG revealing sinus bradycardia, no ST segment abnormality, T-wave inversions are present in V1-V5 she appears consistent with prior EKG in October 2020, will obtain delta troponin to evaluate for ACS. Chest x-ray without acute cardiopulmonary process. CT angio of the chest revealing no acute vascular abnormality/aortic dissection, and no acute pulmonary findings. Patient's pain has been intermittent, brief episodes. Currently she is reporting 3/10 pain, which she believes may be a hunger pain at this time. BP responded to IV labetalol currently 178/66. Given onset of symptoms, will obtain delta troponin. Time: 16:00 Reevaluation #2: Repeat troponin is 5.2. Consult with Cardiology, Dr. Jurado - recommend at this time management of hypertension with metoprolol 50 mg p.o., and trial of sublingual nitroglycerin morphine is necessary and admit to medicine service, will enter orders for complete echo to be performed, and additionally recommends repeat troponin in a few hours. Spoke with hospitalist, Dr. Bright for admission to medicine service for ACS r/o, agrees to admit patient at this time. Per cardiology if repeat troponin at 21:00 increases then patient is to be initiated on heparin drip at that time. Patient updated on plan of care. All questions answered. Time: 17:55 Medications Administered Discontinued Medications Generic Name Dose Route Start Last Admin Trade Name Freq PRN Reason Stop Dose Admin Iohexol 70 ml 08/14/22 15:47 08/14/22 15:47 Iohexol 350 Mg/Ml 75 Ml Infus..Btl IV 08/14/22 15:48 70 ml ONCE ONE Administration Labetalol HCl 5 mg 08/14/22 13:25 08/14/22 14:14 Labetalol Hcl 100 Mg/20 Ml Vial IVPUSH 08/14/22 13:26 5 mg ONCE ONE Administration Labetalol HCl 10 mg 08/14/22 15:48 08/14/22 16:04 Labetalol Hcl 100 Mg/20 Ml Vial IVPUSH 08/14/22 15:49 10 mg ONCE ONE Administration Procedures EJ/Peripheral Line Arm R: Time Out Performed: Yes Skin Cleansed in Sterile Fashion: Yes Size (gauge): 18 IV Secured and Dressing Applied: Yes Patient Tolerated Procedure: well Additional Comments: 18 gauge peripheral IV access with ultrasound guidance inserted, patient tolerated procedure well. Medical Decision Making Medical Decision Making [facility] Narrative: Patient is a 76-year-old female with past medical history of anxiety, chronic shoulder pain, hypertension, IBS, dyslipidemia presenting to emergency department for evaluation of chest pain as noted in HPI. At the time of my examination she has no chest pain or back pain. She is hypertensive, blood pressure and pulses are equal in the bilateral upper extremities. She is without tachycardia, tachypnea, or hypoxia. She is in no respiratory distress. Will obtain CBC to evaluate for leukocytosis/ anemia, CMP and lipase to evaluate for abnormal electrolytes /abnormal renal function/ abnormal hepatic/biliary function, EKG and troponin to evaluate for ischemia/ACS. Chest x-ray to evaluate for consolidation/ infiltrate/ mass/ pulmonary congestion. Will obtain CT angio of the aorta to rule out dissection, and patient to receive labetalol IV Differential Diagnosis Differential Diagnoses: The differential diagnosis associated with the p resentation includes (ACS, aortic dissection, hypertensive urgency, pulmonary embolism, chest wall pain, pulmonary embolism, pneumonia, gastritis, acid reflux) Lab Data [facility] Lab Attestation statement: I reviewed the patient's lab results. 08/14/22 13:55 08/14/22 14:20 Labs: Lab Results 08/14/22 08/14/22 08/14/22 Range/Units 13:40 13:40 13:55 WBC 6.3 (4.8-10.8) X10*3/uL RBC 5.16 (4.20-5.50) X10*6/uL Hgb 15.5 (12.0-16.0) g/dl Hct 46.0 (37.0-47.0) % MCV 89.1 (80.0-98.0) fL MCH 30.0 (27.0-33.0) pg MCHC 33.7 (31.0-35.0) g/dl RDW 13.3 (11.0-16.0) % Plt Count 276 (160-400) X10*3/uL MPV 10.1 (9.4-12.3) fL Immature Gran % (Auto) 0.3 (0.0-0.4) % Neut % (Auto) 61.8 (45-73) % Lymph % (Auto) 26.6 (20-40) % [place] % (Auto) 9.1 (2-11) % Eos % (Auto) 1.7 (0-4) % Baso % (Auto) 0.5 (0-2) % Lymph # (Auto) 1.7 (1.2-4.9) X10*3/uL [place] # (Auto) 0.6 (0.1-1.2) X10*3/uL Eos # (Auto) 0.1 (0.0-0.4) X10*3/uL Baso # (Auto) 0.0 (0.0-0.2) X10*3/uL Abs Immat Gran (auto) 0.02 (0.00-0.03) X10*3/uL Absolute Neuts (auto) 3.9 (2.0-8.3) x10*3/uL Absolute Nucleated RBC 0.000 (0.0-0.012) X10*3/uL Nucleated RBC % (auto) 0.0 (0.0-0.2) /100WBC Sodium (135-145) mmol/L Potassium (3.3-5.1) mmol/L Chloride (96-108) mmol/L Carbon Dioxide (22-29) mmol/L Anion Gap (12-20) BUN (9-16) mg/dL Creatinine (0.5-1.4) mg/dL Estim Creat Clear Calc Estimated GFR Random Glucose (60-115) mg/dL Calcium (8.4-10.2) mg/dL Magnesium (1.6-2.6) mg/dL Total Bilirubin (0.0-1.0) mg/dL AST (5-31) U/L ALT (0-31) U/L Alkaline Phosphatase (39-117) U/L Troponin I High Sens (<3.5-17.0) ng/L Total Protein (6.5-8.0) g/dL Albumin (3.5-5.0) g/dL Lipase (8-78) U/L Urine Color Urine Appearance Urine pH (5.0-9.0) Ur Specific [place] (1.005-1.025) Urine Protein (Neg-Trace) mg/dL Urine Glucose (UA) (Negative) mg/dL Urine Ketones (Negative) mg/dL Urine Blood (Negative) Urine Nitrite (Negative) Ur Leukocyte Esterase (Negative) COVID-19 (KARAN) Negative (Negative) COVID-19 Clin Com See Note Influenza Type A (DELANO) Negative (Negative) Influenza Type B (DELANO) Negative (Negative) Influenza A & B Note See Note 08/14/22 08/14/22 08/14/22 Range/Units 13:55 14:20 16:11 WBC (4.8-10.8) X10*3/uL RBC (4.20-5.50) X10*6/uL Hgb (12.0-16.0) g/dl Hct (37.0-47.0) % MCV (80.0-98.0) fL MCH (27.0-33.0) pg MCHC (31.0-35.0) g/dl RDW (11.0-16.0) % Plt Count (160-400) X10*3/uL MPV (9.4-12.3) fL Immature Gran % (Auto) (0.0-0.4) % Neut % (Auto) (45-73) % Lymph % (Auto) (20-40) % [place] % (Auto) (2-11) % Eos % (Auto) (0-4) % Baso % (Auto) (0-2) % Lymph # (Auto) (1.2-4.9) X10*3/uL [place] # (Auto) (0.1-1.2) X10*3/uL Eos # (Auto) (0.0-0.4) X10*3/uL Baso # (Auto) (0.0-0.2) X10*3/uL Abs Immat Gran (auto) (0.00-0.03) X10*3/uL Absolute Neuts (auto) (2.0-8.3) x10*3/uL Absolute Nucleated RBC (0.0-0.012) X10*3/uL Nucleated RBC % (auto) (0.0-0.2) /100WBC Sodium 143 (135-145) mmol/L Potassium 3.7 (3.3-5.1) mmol/L Chloride 104 (96-108) mmol/L Carbon Dioxide 29 (22-29) mmol/L Anion Gap 14 (12-20) BUN 17 H (9-16) mg/dL Creatinine 0.81 (0.5-1.4) mg/dL Estim Creat Clear Calc 45.5 Estimated GFR > 60 Random Glucose 93 (60-115) mg/dL Calcium 10.1 (8.4-10.2) mg/dL Magnesium 2.0 (1.6-2.6) mg/dL Total Bilirubin 0.6 (0.0-1.0) mg/dL AST 19 (5-31) U/L ALT 11 (0-31) U/L Alkaline Phosphatase 85 (39-117) U/L Troponin I High Sens < 3.5 (<3.5-17.0) ng/L Total Protein 6.3 L (6.5-8.0) g/dL Albumin 4.0 (3.5-5.0) g/dL Lipase 24 (8-78) U/L Urine Color Yellow Urine Appearance Clear Urine pH 7.5 (5.0-9.0) Ur Specific [place] <= 1.005 (1.005-1.025) Urine Protein Negative (Neg-Trace) mg/dL Urine Glucose (UA) Negative (Negative) mg/dL Urine Ketones Negative (Negative) mg/dL Urine Blood Negative (Negative) Urine Nitrite Negative (Negative) Ur Leukocyte Esterase Negative (Negative) COVID-19 (KARAN) (Negative) COVID-19 Clin Com Influenza Type A (DELANO) (Negative) Influenza Type B (DELANO) (Negative) Influenza A & B Note 08/14/22 Range/Units 16:59 WBC (4.8-10.8) X10*3/uL RBC (4.20-5.50) X10*6/uL Hgb (12.0-16.0) g/dl Hct (37.0-47.0) % MCV (80.0-98.0) fL MCH (27.0-33.0) pg MCHC (31.0-35.0) g/dl RDW (11.0-16.0) % Plt Count (160-400) X10*3/uL MPV (9.4-12.3) fL Immature Gran % (Auto) (0.0-0.4) % Neut % (Auto) (45-73) % Lymph % (Auto) (20-40) % [place] % (Auto) (2-11) % Eos % (Auto) (0-4) % Baso % (Auto) (0-2) % Lymph # (Auto) (1.2-4.9) X10*3/uL [place] # (Auto) (0.1-1.2) X10*3/uL Eos # (Auto) (0.0-0.4) X10*3/uL Baso # (Auto) (0.0-0.2) X10*3/uL Abs Immat Gran (auto) (0.00-0.03) X10*3/uL Absolute Neuts (auto) (2.0-8.3) x10*3/uL Absolute Nucleated RBC (0.0-0.012) X10*3/uL Nucleated RBC % (auto) (0.0-0.2) /100WBC Sodium (135-145) mmol/L Potassium (3.3-5.1) mmol/L Chloride (96-108) mmol/L Carbon Dioxide (22-29) mmol/L Anion Gap (12-20) BUN (9-16) mg/dL Creatinine (0.5-1.4) mg/dL Estim Creat Clear Calc Estimated GFR Random Glucose (60-115) mg/dL Calcium (8.4-10.2) mg/dL Magnesium (1.6-2.6) mg/dL Total Bilirubin (0.0-1.0) mg/dL AST (5-31) U/L ALT (0-31) U/L Alkaline Phosphatase (39-117) U/L Troponin I High Sens 5.2 (<3.5-17.0) ng/L Total Protein (6.5-8.0) g/dL Albumin (3.5-5.0) g/dL Lipase (8-78) U/L Urine Color Urine Appearance Urine pH (5.0-9.0) Ur Specific [place] (1.005-1.025) Urine Protein (Neg-Trace) mg/dL Urine Glucose (UA) (Negative) mg/dL Urine Ketones (Negative) mg/dL Urine Blood (Negative) Urine Nitrite (Negative) Ur Leukocyte Esterase (Negative) COVID-19 (KARAN) (Negative) COVID-19 Clin Com Influenza Type A (DELANO) (Negative) Influenza Type B (DELANO) (Negative) Influenza A & B Note Independent Interpretation I performed an independent interpretation of an: EKG and Plain X-Ray (I have personally interpreted chest x-ray and agree with radiologist impression) Interpretation: EKG Rate: 59 Rhythm: Sinus bradycardia? [place]:? Normal Normal P waves.? Normal KARMEN.?? Normal QRS complex.?? ST T wave :? No ST elevation, no ST depression, T-wave inversion in V1-V5 which appears consistent with prior EKG in October 2020 although more prominent in V5? qTC: 419 prior studies:? October 2020 The study has been interpreted contemporaneously by me. Radiology Impression Discussion of test interpretation with radiology: I have reviewed the radiologist's reading. Radiologist Impression: XR/XR chest 2V IMPRESSION: Clear lungs. CT/CT angio chest aorta IMPRESSION: 1.? No acute vascular abnormality. No aortic dissection. 2.? No acute pulmonary finding. Critical Care Time Critical Care Time Critical Care Time: Yes Total Critical Care Time: 45 Attestation: I personally attest to this critical care time spent taking care of the patient exclusive of all other billable procedures was approximately 45 minutes including initial evaluation of patient, ordering tests, x-ray interpretation, EKG interpretation, medical consultation, documentation, re-evaluation. Discharge Plan Discharge Clinical Impression: Chest pain, Essential hypertension Patient Disposition: Admitted As Inpatient
[2022-08-14 14:02] LABS: MANUAL DIFF FLAG NO
[2022-08-14 14:05] LABS: Basophils Percent Auto 0.5 % (0-2); Eosinophils Absolute Auto 0.1 X10*3/uL (0.0-0.4); Eosinophils Percent Auto 1.7 % (0-4); Hemoglobin 15.5 g/dl (12.0-16.0); Imm Gran Abs Auto 0.02 X10*3/uL (0.00-0.03); Imm Gran Pct Auto 0.3 % (0.0-0.4); Lymphocytes Absolute Auto 1.7 X10*3/uL (1.2-4.9); Lymphocytes Percent Auto 26.6 % (20-40); Mean Corpuscular HGB Conc 33.7 g/dl (31.0-35.0); Mean Corpuscular Volume 89.1 fL (80.0-98.0); Mean Platelet Volume 10.1 fL (9.4-12.3); Monocytes Absolute Auto 0.6 X10*3/uL (0.1-1.2); Monocytes Percent Auto 9.1 % (2-11); Neutrophils Absolute Auto 3.9 x10*3/uL (2.0-8.3); Neutrophils Percent Auto 61.8 % (45-73); Platelet Count 276 X10*3/uL (160-400); Red Blood Count 5.16 X10*6/uL (4.20-5.50); Red Cell Distribution Width 13.3 % (11.0-16.0); White Blood Count 6.3 X10*3/uL (4.8-10.8)
[2022-08-14] MEDS: Labetalol HCL 100 MG/20 ML VIAL IVPUSH (14:14)
[2022-08-14 14:16] LABS: COVID-19 Test Negative (Negative); IDNOW Serial# 6674DD1D; IDNOW Serial# 9DB6401D; Influenza A Negative (Negative); Influenza B2 Negative (Negative)
[2022-08-14 14:28] LABS: Troponin-I High Sensitivity < 3.5 ng/L (<3.5-17.0)
[2022-08-14 14:58] LABS: Alanine Aminotransferase 11 U/L (0-31); Alkaline Phosphatase 85 U/L (39-117); Anion Gap 14 (12-20); Aspartate Amino Transferase 19 U/L (5-31); Bilirubin Total 0.6 mg/dL (0.0-1.0); Blood Urea Nitrogen 17 mg/dL (9-16); Calcium 10.1 mg/dL (8.4-10.2); Carbon Dioxide 29 mmol/L (22-29); Chloride 104 mmol/L (96-108); Creatinine Clr Calc Pharmacy 45.5; Estimated Glomerular Filt Rate > 60; Glucose Random 93 mg/dL (60-115); Lipase 24 U/L (8-78); Potassium 3.7 mmol/L (3.3-5.1); Sodium 143 mmol/L (135-145); Total Protein 6.3 g/dL (6.5-8.0)
[2022-08-14] MEDS: iohexoL 350 MG/ML 75 ML INFUS..BTL 70 ML IV (15:47)
[2022-08-14] MEDS: Labetalol HCL 100 MG/20 ML VIAL 10 MG IVPUSH (16:04)
[2022-08-14 16:16] LABS: Appearance Urine Clear; Color Urine Yellow; Glucose Urine UA Negative (Negative); Leukocyte Esterase Urine Negative (Negative); Nitrite Urine Negative (Negative); PH 7.5 (5.0-9.0); Specific Gravity - Urine <= 1.005 (1.005-1.025); Urine Blood Negative (Negative); Urine Ketones Negative (Negative); Urine Protein Negative (Neg-Trace)
[2022-08-14 17:48] LABS: Troponin-I High Sensitivity 5.2 ng/L (<3.5-17.0)
--- NOTE | 2022-08-14 18:46 | PHA.MEDREC ---
MED REC COMPLETE, NO ISSUES Pharmacy Consult ? Medication Reconciliation Pharmacy has completed the medication reconciliation.
--- NOTE | 2022-08-14 18:50 | PM.IMHP ---
History of Present Illness Date of Service: 08/14/22 Attending physician on admission: Alfonzo Bright Chief Complaint: unconrtolled htn ,chest pain 76 y/o F with history of hypertension and hypercholesteremia, anxiety- came to ED from urgent care for evaluation of chest pain.? Patient states that this morning she awoke with lower midbsternal chest/ epigastric pain.? She said the pain was crampy type when she woke up this morning, intermittent, 7/10 intensity, got better with walking and drinking coffee-subsequently she went to the grocery store, when she began developing pain again in the center of her chest, reportedly 8/10, radiating into her back in the bilateral shoulders, again crampy type, intermittent resolved spontaneously.? She went home, states that she had her daughter check her blood pressure which was elevated, and her daughter recommended that she go to the urgent care.? Currently, she reports that she is pain free. In addition patient on the background also has anxiety issues she says nothing crazy but staying at home and home work makes her anxious. Denies any new complaint of chest pain or shortness of breath or abdominal pain or fever or chills or nausea or vomiting Denies any cough Denies any weakness or numbness. She received aspirin from EMS.? In the emergency room patient received metoprolol, labetalol, nitroglycerin:(initial blood pressure was 200/90) Currently not complaining of any chest pain or any new symptoms. Blood pressure is also improving 170s now Lab imaging EKG reviewed: CBC and BMP seems fine, EKG has anterior lateral T-wave inversions. Troponin x2 negative CT/CT angio chest aorta IMPRESSION: 1.? No acute vascular abnormality. No aortic dissection. 2.? No acute pulmonary finding. Chest x-ray clear lungs. Review of Systems Review of Systems: As above. Yes all other systems are reviewed and are negative [facility] Medical History Anxiety disorder Chronic pain of both shoulders Compound nevus Essential hypertension IBS (irritable bowel syndrome) Mixed dyslipidemia Osteoporosis Vaccination declined Functional capacity: independent ambulation Family History Father No problems noted. Mother Depression HTN (hypertension) CHF (congestive heart failure) CVD (cardiovascular disease) Sister No problems noted. Sister No problems noted. Daughter No problems noted. Surgical History History of section History of laparoscopic cholecystectomy History of partial colectomy History of tonsillectomy Social History Household Members: Spouse and Children Housing: House Alcohol intake: never Patient Tobacco Use Status: Former Tobacco user Smoked in Last 30 Days: No e-Cigarette/Vaping Use: Never Used Advance Directives: No Advance Directives Information Provided: No service: No Current occupational status: retired Cognitive needs: No Hearing needs: No Vision needs: No Meds Allergies Allergy/AdvReac Type Severity Reaction Status Date / Time sulfamethoxazole Allergy Mild upset Verified 08/14/22 11:46 [From Bactrim] stomach trimethoprim [From Bactrim] Allergy Mild upset Verified 08/14/22 11:46 stomach Active Medications: Current Medications Aspirin (Aspirin Enteric Coated 81 Mg Tablet.Dr) 81 mg PO DAILY ELA Enoxaparin Sodium (Enoxaparin Sodium 40 Mg/0.4 Ml Syringe) 40 mg SUBCUT Q24H ELA Metoprolol Tartrate (Metoprolol Tartrate 50 Mg Tablet) 50 mg PO DAILY ELA; Protocol Nitroglycerin (Nitroglycerin 0.4 Mg Tab.Subl) 0.4 mg SUBLINGUAL Q5MX3 PRN PRN Reason: Chest Pain Pharmacy Consult (Consult Rx Perform Med Rec) 1 each MISCELLANE ONCE PRN PRN Reason: Consult order Sodium Chloride (0.9 % Sodium Chloride Flush 3 Ml Syringe) 3 ml IVFLUSH QSHIFT ELA Physical Exam Vital Signs and Narrative: Vital Signs: Last Vital Signs Temp 98.2 F 08/14/22 12:44 Pulse 62 08/14/22 12:44 Resp 16 08/14/22 12:44 BP 178/66 H 08/14/22 16:39 Pulse Ox 100 08/14/22 12:44 O2 Del Method 08/14/22 12:44 BMI result Body Mass Index 25.4 Appearance: Alert.? Oriented X3.? not in distress.? Eyes: Pupils equal, round and reactive to light.? Sclera nonicteric.? ENT: Pharynx normal.? Moist mucous membranes. cvs: rrr, [id number] . res: clear to auscultation ,no rhonchii or wheezing abd: no rebound or guarding ,nt, bs present. ext pulses present , no cyanosis ,Gait well balanced well coordinated. neuro: axo3 , nonfocal. Results Labs 08/14/22 13:55 08/14/22 14:20 Labs: Laboratory Results - last 24 hr 08/14/22 08/14/22 08/14/22 13:40 13:40 13:55 MCV 89.1 MCH 30.0 MCHC 33.7 RDW 13.3 Plt Count 276 MPV 10.1 Immature Gran % (Auto) 0.3 Neut % (Auto) 61.8 Lymph % (Auto) 26.6 [place] % (Auto) 9.1 Eos % (Auto) 1.7 Baso % (Auto) 0.5 Lymph # (Auto) 1.7 [place] # (Auto) 0.6 Eos # (Auto) 0.1 Baso # (Auto) 0.0 Abs Immat Gran (auto) 0.02 Absolute Neuts (auto) 3.9 Absolute Nucleated RBC 0.000 Nucleated RBC % (auto) 0.0 Anion Gap Estim Creat Clear Calc Estimated GFR Random Glucose Calcium Magnesium Total Bilirubin AST ALT Alkaline Phosphatase Troponin I High Sens Total Protein Albumin Lipase Urine Color Urine Appearance Urine pH Ur Specific [place] Urine Protein Urine Glucose (UA) Urine Ketones Urine Blood Urine Nitrite Ur Leukocyte Esterase COVID-19 (KARAN) Negative COVID-19 Clin Com See Note Influenza Type A (DELANO) Negative Influenza Type B (DELANO) Negative Influenza A & B Note See Note 08/14/22 08/14/22 08/14/22 13:55 14:20 16:11 MCV MCH MCHC RDW Plt Count MPV Immature Gran % (Auto) Neut % (Auto) Lymph % (Auto) [place] % (Auto) Eos % (Auto) Baso % (Auto) Lymph # (Auto) [place] # (Auto) Eos # (Auto) Baso # (Auto) Abs Immat Gran (auto) Absolute Neuts (auto) Absolute Nucleated RBC Nucleated RBC % (auto) Anion Gap 14 Estim Creat Clear Calc 45.5 Estimated GFR > 60 Random Glucose 93 Calcium 10.1 Magnesium 2.0 Total Bilirubin 0.6 AST 19 ALT 11 Alkaline Phosphatase 85 Troponin I High Sens < 3.5 Total Protein 6.3 L Albumin 4.0 Lipase 24 Urine Color Yellow Urine Appearance Clear Urine pH 7.5 Ur Specific [place] <= 1.005 Urine Protein Negative Urine Glucose (UA) Negative Urine Ketones Negative Urine Blood Negative Urine Nitrite Negative Ur Leukocyte Esterase Negative COVID-19 (KARAN) COVID-19 Clin Com Influenza Type A (DELANO) Influenza Type B (DELANO) Influenza A & B Note 08/14/22 16:59 MCV MCH MCHC RDW Plt Count MPV Immature Gran % (Auto) Neut % (Auto) Lymph % (Auto) [place] % (Auto) Eos % (Auto) Baso % (Auto) Lymph # (Auto) [place] # (Auto) Eos # (Auto) Baso # (Auto) Abs Immat Gran (auto) Absolute Neuts (auto) Absolute Nucleated RBC Nucleated RBC % (auto) Anion Gap Estim Creat Clear Calc Estimated GFR Random Glucose Calcium Magnesium Total Bilirubin AST ALT Alkaline Phosphatase Troponin I High Sens 5.2 Total Protein Albumin Lipase Urine Color Urine Appearance Urine pH Ur Specific [place] Urine Protein Urine Glucose (UA) Urine Ketones Urine Blood Urine Nitrite Ur Leukocyte Esterase COVID-19 (KARAN) COVID-19 Clin Com Influenza Type A (DELANO) Influenza Type B (DELANO) Influenza A & B Note ECG Attestation: I personally reviewed and interpreted this ECG as follows: (NSR with the T-wave inversion in anterior lateral leads.) Imaging Radiologist's Impressions: Impressions Chest X-Ray 08/14/22 12:59 IMPRESSION: Clear lungs. Chest CTA 08/14/22 15:51 IMPRESSION: 1. No acute vascular abnormality. No aortic dissection. 2. No acute pulmonary finding. Fleischner guidelines were followed. Assessment and Plan (1) Chest pain: Status: Acute (2) Uncontrolled hypertension: Status: Acute Plan 76 y/o F with history of hypertension and hypercholesteremia, anxiety- came to ED from urgent care for evaluation of chest pain in settin of uncontrolled htn. 1. Chest pain-Unclear etiology cta -neg, has mild coronary calcifications Troponin flat, EKG has T-wave inversions in anterolateral leads. Next troponin at 21:00 Patient already received aspirin, metoprolol, continue statin,ntg. If next troponin elevated may need IV heparin If patient has chest pain again -repeat ekg also. Cardiology evaluation and echo. Telemetry monitoring 2. Uncontrolled hypertension: Continue started on metoprolol, home medical reconciliation still pending. 3.hlp: Will start atorvastatin 4. Anxiety: Currently does not want any medication, if needed we will add. DVT prophylaxis: SubQ Lovenox Above management discussed with the patient in detail length she understand and in agreement with the above plan, time spent 70 min, considering patient uncontrolled hypertension requiring IV medications intially , as well as blood pressure monitoring, in addition also need troponin and tele monitoring as well as cardiac workup and cardiology eval ,will admit . patient is full code. Time Spent With Patient Time: Total time managing care of this patient today ____ minutes. Quality Stroke Does the patient have a stroke diagnosis?: No VTE Prior VTE?: No VTE Risk Level:: Medical - moderate - high VTE Device Contraindication: N/A - Device Ordered VTE Drug Contraindication: N/A - Med Ordered
[2022-08-14] MEDS: Nitroglycerin 0.4 MG TAB.SUBL SUBLINGUAL (18:59)
[2022-08-14] MEDS: Metoprolol Tartrate 50 MG TABLET PO (19:00)
[2022-08-14] MEDS: Atorvastatin Calcium 80 MG TABLET PO (19:25)
--- NOTE | 2022-08-14 19:25 | PC.NURSE ---
assumed care of pt a&O resting quietly, visitor at bedside no apparent distress
--- NOTE | 2022-08-14 19:37 | PC.NURSE ---
called to give report at [facility] [place], RN to c/b shortly
[2022-08-14 22:31] LABS: Troponin-I High Sensitivity 4.1 ng/L (<3.5-17.0)
[2022-08-14] MEDS: Enoxaparin Sodium 40 MG/0.4 ML SYRINGE SUBCUT (22:41)
[2022-08-14] MEDS: 0.9 % Sodium Chloride Flush 3 ML SYRINGE IVFLUSH (22:42)
[2022-08-15 02:44] VITALS: BP 182/68; PULSE 50; RESP 18; TEMP 36.7; O2SAT 98
[2022-08-15 05:38] VITALS: BP 168/68
--- NOTE | 2022-08-15 07:00 | CA_ITS ---
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 The calculated ejection fraction is 70% by biplane method. - No obvious valvular pathology seen on this study. Findings Left Ventricle Normal left ventricular cavity size. There is moderately increased left ventricular wall thickness. The left ventricular systolic function is normal. The calculated ejection fraction is 70% by biplane method. There is no evidence of regional wall motion abnormalities. Diastolic function is normal for age. LV peak GLS -18.8%. Right Ventricle Normal right ventricular cavity size and systolic function. Aortic Valve There is a normal trileaflet aortic valve. There is mild calcification of the aortic valve. There is no aortic valve stenosis. There is no aortic valve regurgitation. Mitral Valve The mitral valve appears normal. There is no mitral valve regurgitation. There is no mitral valve stenosis. Pulmonic Valve The pulmonic valve is likely normal. Tricuspid Valve Normal tricuspid valve structure. There is trace tricuspid valve regurgitation. There is no evidence of pulmonary hypertension. Great Vessels The asc aorta is normal in size. Venous The inferior vena cava is normal in size and collapses greater than 50% with inspiration. Pericardium/Pleural There is a trivial pericardial effusion. Prior Study Comparison No significant change compared to prior study dated: 02/22/2004. Recommendations, Care & Conclusions No obvious valvular pathology seen on this study. Measurements 2D Linear Measurements IVSd: 1.28 0.6-0.9/0.6-1.0 cm LVIDd: 3.83 3.9-5.3/4.2-5.9 cm LVIDd Index: 2.52 2.4-3.2/2.2-3.1 cm/m2 LVIDs: 2.18 2.0-3.6 cm LVPWd: 1.25 0.7-1.1 cm LA Diam: 3.30 2.7-3.8/3.0-4.0 cm LAIDs Index: 2.17 1.5-2.3 cm/m2 LV Mass: 209.12 67-162/88-224 g LV Mass Index: 137.58 43-95/49-115 g/m2 LVOT Diam: 1.90 3.0+(-)1.3 cm 2D Systolic Function EF 4C: 64.70 >55% EF 2C: 75.40 >55% EF BiP: 70.40 >55% Mitral Valve MV Pk E: 0.60 MV PK A: 0.94 MV Decel Time: 254.00 E/A: 0.60 E'Lateral: 5.44 E'Medial: 5.00 E/E' Med: 12.00 E/E' Lat: 11.00 PHT: 74.00 MVA PHT: 2.97 Decel [place]ward: 2.37 Aortic Valve AoV Pk Mk: 1.43 AoV Pk Grad: 8.00 HEBER: 2.40 LVOT LVOT Pk Mk: 1.09 LVOT Mn Mk: 0.76 LVOT VTI: 0.25 LVOT Pk Grad: 5.00 LVOT Mn Grad: 3.00 LVOT Diam: 1.90 LVOT Area: 2.84 Diastolic Function MV Pk E: 0.60 MV Pk A: 0.94 E/A: 0.60 E'Medial: 5.00 E/E' Med: 12.00 E' Laterial: 5.44 E/E' Lat: 11.00 Right Ventricle TAPSE (mm): 17.70 TVS' Mk: 11.00 Tricuspid Valve TR Pk Mk: 2.27 TR Pk Grad: 21.00 RA Press: 8.00 RVSP: 29.00 Great Vessels Aorta Sinus of Valsalva: 2.60 2.0-3.5 cm Ao Asc: 3.20 2.1-3.4 cm Pulmonary Valve PV Pk Mk: 1.05 Peak PV Grad: 4.00 Updated in Other Vendor System with Status of Final Ethan Jurado MD electronically signed on 08/15/2022 9:01:23 AM with status of Final
[2022-08-15 07:16] LABS: Cholesterol 197 mg/dL; HDL Cholesterol 44 mg/dL; LDL Cholesterol Calculated 123 mg/dl; Triglycerides 153 mg/dL
[2022-08-15 08:00] VITALS: BP 130/60; PULSE 80; RESP 16; TEMP 36.9; O2SAT 96
--- NOTE | 2022-08-15 10:07 | PM.DS ---
DS: Providers Provider Date of Service: 08/15/22 Date of admission: 08/14/22 18:42 Date of discharge: 08/15/22 Primary care physician: Tri Richter MD Consults: 08/14/22 19:39 Consult to Cardiology Routine Consulting Provider: Ethan Jurado Reason for consultation: Uncontrolled HTN, chest pain DS: Diagnosis Discharge Diagnosis (1) Chest pain: Status: Acute (2) Uncontrolled hypertension: Status: Acute DS: Summary Hospital Course Hospital Course: 76 y/o F with history of hypertension and hypercholesteremia, anxiety- came to ED? from urgent care for evaluation of chest pain.? Patient states that this morning she awoke with lower midbsternal chest/ epigastric pain.? She said the pain was crampy type when she woke up this morning, intermittent, 7/10 intensity, got better with walking and drinking coffee-subsequently she went to the grocery store, when she began developing pain again in the center of her chest, reportedly 8/10, radiating into her back in the bilateral shoulders, again crampy type, intermittent resolved spontaneously.? She went home, states that she had her daughter check her blood pressure which was elevated, and her daughter recommended that she go to the urgent care.? Currently, she reports that she is pain free. In addition patient on the background also has anxiety issues she says nothing crazy but staying at home and home work makes her anxious. Denies any new complaint of chest pain or shortness of breath or abdominal pain or fever or chills or nausea or vomiting Denies any cough Denies any weakness or numbness. ?She received aspirin from EMS.? In the emergency room patient received metoprolol, labetalol, nitroglycerin:(initial blood pressure was 200/90) Currently not complaining of any chest pain or any new symptoms. Blood pressure is also improving 170s now. Hospital curse: Patient was admitted for chest pain and uncontrolled hypertension-patient monitor on telemetry, troponin negative, echo seems fine also, seen by Cardiology: Added amlodipine to home hypertension medication regimen for uncontrolled hypertension, and chest pain was thought to be likely GI origin possible GERD so PPI added, patient was advised to consider outpatient GI evaluation with PCP. Cardio may arrange their own appointment if needed. Above management discussed with the patient in detail length she understand and in agreement with the above plan, time spent 50 minutes and 50% time spent on counseling. Time Spent with Patient Time attestation: Total time managing care of this patient today ____ minutes. Discharge coordination time: Greater than 30 minutes Quality: Safe Use of Opioids Does Pt have an Active Cancer Diagnosis on the Problem List?: No Quality: Stroke Does the patient have a stroke diagnosis?: No Physical Exam Vital Signs: Vital Signs: Last Vital Signs Temp 98.5 F 08/15/22 08:00 Pulse 80 08/15/22 08:00 Resp 16 08/15/22 08:00 BP 130/60 08/15/22 08:00 Pulse Ox 96 08/15/22 08:00 O2 Del Method 08/15/22 08:00 BMI result Body Mass Index 25.4 ? Appearance: Alert.? Oriented X3.? not in distress.? Eyes: Pupils equal, round and reactive to light.? Sclera nonicteric.? ENT: Pharynx normal.? Moist mucous membranes. cvs: rrr, [id number] . res: clear to auscultation ,no rhonchii or wheezing abd: no rebound or guarding ,nt, bs present. ext pulses present , no cyanosis ,Gait well balanced well coordinated. neuro: axo3 , nonfocal.? DS: Data Data Completed and Pending Labs on day of discharge: Laboratory Results - last 24 hr 08/14/22 08/14/22 08/14/22 13:40 13:40 13:55 WBC 6.3 RBC 5.16 Hgb 15.5 Hct 46.0 MCV 89.1 MCH 30.0 MCHC 33.7 RDW 13.3 Plt Count 276 MPV 10.1 Immature Gran % (Auto) 0.3 Neut % (Auto) 61.8 Lymph % (Auto) 26.6 Mitchell % (Auto) 9.1 Eos % (Auto) 1.7 Baso % (Auto) 0.5 Lymph # (Auto) 1.7 Mitchell # (Auto) 0.6 Eos # (Auto) 0.1 Baso # (Auto) 0.0 Abs Immat Gran (auto) 0.02 Absolute Neuts (auto) 3.9 Absolute Nucleated RBC 0.000 Nucleated RBC % (auto) 0.0 Sodium Potassium Chloride Carbon Dioxide Anion Gap BUN Creatinine Estim Creat Clear Calc Estimated GFR Random Glucose Calcium Magnesium Total Bilirubin AST ALT Alkaline Phosphatase Troponin I High Sens Total Protein Albumin Triglycerides Cholesterol LDL Cholesterol, Calc HDL Cholesterol Lipase Urine Color Urine Appearance Urine pH Ur Specific [place] Urine Protein Urine Glucose (UA) Urine Ketones Urine Blood Urine Nitrite Ur Leukocyte Esterase COVID-19 (KARAN) Negative COVID-19 Clin Com See Note Influenza Type A (DELANO) Negative Influenza Type B (DELANO) Negative Influenza A & B Note See Note 08/14/22 08/14/22 08/14/22 13:55 14:20 16:11 WBC RBC Hgb Hct MCV MCH MCHC RDW Plt Count MPV Immature Gran % (Auto) Neut % (Auto) Lymph % (Auto) Mitchell % (Auto) Eos % (Auto) Baso % (Auto) Lymph # (Auto) Mitchell # (Auto) Eos # (Auto) Baso # (Auto) Abs Immat Gran (auto) Absolute Neuts (auto) Absolute Nucleated RBC Nucleated RBC % (auto) Sodium 143 Potassium 3.7 Chloride 104 Carbon Dioxide 29 Anion Gap 14 BUN 17 H Creatinine 0.81 Estim Creat Clear Calc 45.5 Estimated GFR > 60 Random Glucose 93 Calcium 10.1 Magnesium 2.0 Total Bilirubin 0.6 AST 19 ALT 11 Alkaline Phosphatase 85 Troponin I High Sens < 3.5 Total Protein 6.3 L Albumin 4.0 Triglycerides Cholesterol LDL Cholesterol, Calc HDL Cholesterol Lipase 24 Urine Color Yellow Urine Appearance Clear Urine pH 7.5 Ur Specific [place] <= 1.005 Urine Protein Negative Urine Glucose (UA) Negative Urine Ketones Negative Urine Blood Negative Urine Nitrite Negative Ur Leukocyte Esterase Negative COVID-19 (KARAN) COVID-19 Clin Com Influenza Type A (DELANO) Influenza Type B (DELANO) Influenza A & B Note 08/14/22 08/14/22 08/15/22 16:59 21:45 06:25 WBC RBC Hgb Hct MCV MCH MCHC RDW Plt Count MPV Immature Gran % (Auto) Neut % (Auto) Lymph % (Auto) Mitchell % (Auto) Eos % (Auto) Baso % (Auto) Lymph # (Auto) Mitchell # (Auto) Eos # (Auto) Baso # (Auto) Abs Immat Gran (auto) Absolute Neuts (auto) Absolute Nucleated RBC Nucleated RBC % (auto) Sodium Potassium Chloride Carbon Dioxide Anion Gap BUN Creatinine Estim Creat Clear Calc Estimated GFR Random Glucose Calcium Magnesium Total Bilirubin AST ALT Alkaline Phosphatase Troponin I High Sens 5.2 4.1 Total Protein Albumin Triglycerides 153 Cholesterol 197 LDL Cholesterol, Calc 123 HDL Cholesterol 44 Lipase Urine Color Urine Appearance Urine pH Ur Specific [place] Urine Protein Urine Glucose (UA) Urine Ketones Urine Blood Urine Nitrite Ur Leukocyte Esterase COVID-19 (KARAN) COVID-19 Clin Com Influenza Type A (DELANO) Influenza Type B (DELANO) Influenza A & B Note Imaging Chest x-ray: Radiologist's impression: ITS Impressions Chest X-Ray 08/14/22 12:59 IMPRESSION: Clear lungs. Chest CTA 08/14/22 15:51 IMPRESSION: 1. No acute vascular abnormality. No aortic dissection. 2. No acute pulmonary finding. Fleischner guidelines were followed. Additional Comments Additional comments: Conclusions: - The left ventricular systolic function is normal.? The ? calculated ejection fraction is 70% by biplane method. ? - No obvious valvular pathology seen on this study.? Findings Left Ventricle Normal left ventricular cavity size.? There is moderately increased left ventricular wall thickness.? The left ventricular systolic function is normal.? The calculated ejection fraction is 70% by biplane method.? There is no evidence of regional wall motion abnormalities.? Diastolic function is normal for age.? LV peak GLS -18.8%. Right Ventricle Normal right ventricular cavity size and systolic function. Aortic Valve There is a normal trileaflet aortic valve.? There is mild calcification of the aortic valve.? There is no aortic valve stenosis.? There is no aortic valve regurgitation. Mitral Valve The mitral valve appears normal.? There is no mitral valve regurgitation. There is no mitral valve stenosis. Pulmonic Valve The pulmonic valve is likely normal. Tricuspid Valve Normal tricuspid valve structure.? There is trace tricuspid valve regurgitation.? There is no evidence of pulmonary hypertension. Great Vessels The asc aorta is normal in size. Venous The inferior vena cava is normal in size and collapses greater than 50% with inspiration. Pericardium/Pleural There is a trivial pericardial effusion. Prior Study Comparison No significant change compared to prior study dated:? 02/22/2004. Recommendations, Care & Conclusions No obvious valvular pathology seen on this study. Discharge Plan Discharge Patient Disposition: Home, Self-Care Discharge Diagnosis: uncontrolled htn,chest pain -less likely cardiac, possible gerd Referrals: Tri Richter MD [Primary Care Provider] - 1 Week Discharge Medications: New omeprazole 20 mg capsule,delayed release(DR/EC) 20 mg PO BID Qty: 60 0RF amlodipine 5 mg tablet 5 mg PO DAILY Qty: 30 0RF Continued pravastatin 80 mg tablet 80 mg PO BEDTIME Qty: 90 1RF metoprolol tartrate 25 mg tablet 25 mg PO BID 90 Days Qty: 180 1RF triamterene-hydrochlorothiazid 75-50 mg tablet 1 tab PO DAILY Qty: 90 0RF Discontinued naproxen 500 mg tablet 500 mg PO DAILY PRN (Reason: pain) Qty: 60 0RF Discharge Orders: Discharge Order (Routine); Ordered 08/15/22 Ordered By: Alfonzo Bright Diet: Advance to usual diet Activity on Discharge: As tolerated Stand Alone Forms: Patient Portal Discharge page Care Plan Goals: Patient was admitted for chest pain and uncontrolled hypertension-patient monitor on telemetry, troponin negative, echo seems fine also, seen by Cardiology: Added amlodipine to home hypertension medication regimen for uncontrolled hypertension, and chest pain was thought to be likely GI origin possible GERD so PPI added, patient was advised to consider outpatient GI evaluation with PCP. Cardio may arrange their own appointment if needed. Above management discussed with the patient in detail length she understand and in agreement with above plan. Health Concerns: As above. Plan of Treatment: As above. Assessment: As above. Patient Instructions: Gastroesophageal Reflux Disease (DC)
--- NOTE | 2022-08-15 10:34 | MHC.CM.PN ---
CM met with Patient at bedside and addressed ARAUZ with her(Original given to Patient and a copy placed on the chart). Patient lives in a house with her and Daughter and she required no services nor DME [employer]. Home/self care is the goal and CM has initiated and will follow for dc planning. Patient has received no covid vax and her PCP is DR. Richter.
[2022-08-15] MEDS: Metoprolol Succinate ER 50 MG TAB.ER.24H PO (10:36)
[2022-08-15] MEDS: Aspirin Enteric Coated 81 MG TABLET.DR PO (10:36)
[2022-08-15] MEDS: Atorvastatin Calcium 80 MG TABLET PO (10:36)
[2022-08-15] MEDS: 0.9 % Sodium Chloride Flush 3 ML SYRINGE IVFLUSH (10:42)
--- NOTE | 2022-08-15 10:58 | P.CONCA_ITS ---
History of Present Illness History of Present Illness Date of Service: 08/15/22 Chief complaint: Chest pain - possible ACS Narrative: This is a cardiology consultation regarding chest pain. Patient states that she does not have any known cardiac issues. No history of any coronary artery disease or myocardial infarction or cardiomyopathy or in fact any cardiac issues whatsoever in the past. Couple of days ago, she apparently had some Pretzels with sauce. The following day, she started noticing discomfort in the epigastric area but that went all the way to her back as well as the shoulders. Then it got better but recurred. However, whenever she was walking it did not get worse. In fact with exertion no changes whatsoever. Otherwise, she states she is fairly active without any limitations. She generally does not check home blood pressures but when it was checked this time it was high. She thinks it is generally not well controlled. Review of Systems Review of Systems: Yes all other systems are reviewed and are negative Constitutional: Constitutional: Reports as per HPI Eyes: Eyes: Reports as per HPI ENT: Reports as per HPI Cardiovascular: Cardiovascular: Reports as per HPI, Denies acrocyanosis, Denies cool extremities, Denies chest pain, Denies leg edema, Denies lightheadedness, Denies palpitations and Denies dyspnea Respiratory: Respiratory: Reports as per HPI, Reports no additional respiratory complaints and Denies dyspnea Gastrointestinal: Gastrointestinal: Reports as per HPI and Reports no additional gastrointestinal complaints Genitourinary: Genitourinary: Reports as per HPI Musculoskeletal: Musculoskeletal: Reports no additional musculoskeletal complaints and Reports as per HPI Integumentary/Breasts: Skin/Breast: Reports system reviewed and no additional complaints, except as docu Neurologic: Reports system reviewed and no additional complaints, except as documented and Reports as per HPI Psychiatric: Psychiatric: Reports no additional psychiatric complaints and Reports as per HPI Endocrine: Endocrine: Reports no additional endocrine complaints, Reports as per HPI and Denies palpitations Hematologic/Lymphatic: Hematologic/Lymphatic: Reports no additional hematologic/lymphatic complaints and Reports as per HPI Allergic/Immunologic: Allergic/Immunologic: Reports no additional allergic/immunologic complaints and Reports as per HPI [facility] Past Medical History Medical History Anxiety disorder Chronic pain of both shoulders Compound nevus Essential hypertension IBS (irritable bowel syndrome) Mixed dyslipidemia Osteoporosis Vaccination declined Functional capacity: independent ambulation Family History Family History Father No problems noted. Mother Depression HTN (hypertension) CHF (congestive heart failure) CVD (cardiovascular disease) Sister No problems noted. Sister No problems noted. Daughter No problems noted. Surgical History Surgical History History of section History of laparoscopic cholecystectomy History of partial colectomy History of tonsillectomy Social History Social History Household Members: Family Housing: House Do you presently have visiting nurse or other home services: No Alcohol intake: never Patient Tobacco Use Status: Former Tobacco user e-Cigarette/Vaping Use: Never Used service: No Current occupational status: retired Cognitive needs: No Hearing needs: No Vision needs: No Meds Allergies Allergy/AdvReac Type Severity Reaction Status Date / Time sulfamethoxazole Allergy Mild upset Verified 08/14/22 11:46 [From Bactrim] stomach trimethoprim [From Bactrim] Allergy Mild upset Verified 08/14/22 11:46 stomach Active Medications: Current Medications Aspirin (Aspirin Enteric Coated 81 Mg Tablet.Dr) 81 mg PO DAILY [facility] Last Admin: 08/15/22 10:36 Dose: 81 mg Atorvastatin Calcium (Atorvastatin Calcium 80 Mg Tablet) 80 mg PO DAILY [facility] Last Admin: 08/15/22 10:36 Dose: 80 mg Enoxaparin Sodium (Enoxaparin Sodium 40 Mg/0.4 Ml Syringe) 40 mg SUBCUT Q24H [facility] Last Admin: 08/14/22 22:41 Dose: 40 mg Metoprolol Succinate (Metoprolol Succinate Er 50 Mg Tab.Er.24h) 50 mg PO DAILY [facility]; Protocol Last Admin: 08/15/22 10:36 Dose: 50 mg Nitroglycerin (Nitroglycerin 0.4 Mg Tab.Subl) 0.4 mg SUBLINGUAL [id number] PRN PRN Reason: Chest Pain Pharmacy Consult (Consult Rx Perform Med Rec) 1 each MISCELLANE ONCE PRN PRN Reason: Consult order Sodium Chloride (0.9 % Sodium Chloride Flush 3 Ml Syringe) 3 ml IVFLUSH QSHIFT [facility] Last Admin: 08/15/22 10:42 Dose: 3 ml Triamterene/Hydrochlorothiazide (Triamterene/Hctz 75/50 Tablet) 1 tab PO DAILY [facility]; Protocol Last Admin: 08/15/22 10:53 Dose: Not Given Physical Exam Vital Signs: Vital Signs: Last Vital Signs Temp 98.5 F 08/15/22 08:00 Pulse 80 08/15/22 08:00 Resp 16 08/15/22 08:00 BP 130/60 08/15/22 08:00 Pulse Ox 96 08/15/22 08:00 O2 Del Method 08/15/22 08:00 BMI result Body Mass Index 25.4 Const: General: comfortable and no acute distress Orientation/consciousness: patient oriented x3 HEENT: Other: Unremarkable Head: Yes normal to inspection Neck: Neck: Yes normal visual inspection Chest: Chest palpation & inspection: normal inspection of the chest Resp: Auscultation: clear to auscultation bilaterally Cardio: Palpation: normal PMI Heart sounds: S1 normal heart sound present, S2 normal heart sound present, no gallops, no murmurs and no rubs GI: Palpation (GI): Soft to palpation Back/Spine/Pelvis: Other: unremarkable Skin: General skin exam: no rashes or lesions noted Neuro: General: patient oriented x3 Extrem: General: Yes normal to inspection Psych: Mental Status: mental status grossly normal Objective Labs and Meds 08/14/22 13:55 08/14/22 14:20 Lab results: Laboratory Results - last 24 hr 08/14/22 08/14/22 08/14/22 13:40 13:40 13:55 WBC 6.3 RBC 5.16 Hgb 15.5 Hct 46.0 MCV 89.1 MCH 30.0 MCHC 33.7 RDW 13.3 Plt Count 276 MPV 10.1 Immature Gran % (Auto) 0.3 Neut % (Auto) 61.8 Lymph % (Auto) 26.6 Holt % (Auto) 9.1 Eos % (Auto) 1.7 Baso % (Auto) 0.5 Lymph # (Auto) 1.7 Holt # (Auto) 0.6 Eos # (Auto) 0.1 Baso # (Auto) 0.0 Abs Immat Gran (auto) 0.02 Absolute Neuts (auto) 3.9 Absolute Nucleated RBC 0.000 Nucleated RBC % (auto) 0.0 Sodium Potassium Chloride Carbon Dioxide Anion Gap BUN Creatinine Estim Creat Clear Calc Estimated GFR Random Glucose Calcium Magnesium Total Bilirubin AST ALT Alkaline Phosphatase Troponin I High Sens Total Protein Albumin Triglycerides Cholesterol LDL Cholesterol, Calc HDL Cholesterol Lipase Urine Color Urine Appearance Urine pH Ur Specific Morganza Urine Protein Urine Glucose (UA) Urine Ketones Urine Blood Urine Nitrite Ur Leukocyte Esterase COVID-19 (KARAN) Negative COVID-19 Clin Com See Note Influenza Type A (DELANO) Negative Influenza Type B (DELANO) Negative Influenza A & B Note See Note 08/14/22 08/14/22 08/14/22 13:55 14:20 16:11 WBC RBC Hgb Hct MCV MCH MCHC RDW Plt Count MPV Immature Gran % (Auto) Neut % (Auto) Lymph % (Auto) Holt % (Auto) Eos % (Auto) Baso % (Auto) Lymph # (Auto) Holt # (Auto) Eos # (Auto) Baso # (Auto) Abs Immat Gran (auto) Absolute Neuts (auto) Absolute Nucleated RBC Nucleated RBC % (auto) Sodium 143 Potassium 3.7 Chloride 104 Carbon Dioxide 29 Anion Gap 14 BUN 17 H Creatinine 0.81 Estim Creat Clear Calc 45.5 Estimated GFR > 60 Random Glucose 93 Calcium 10.1 Magnesium 2.0 Total Bilirubin 0.6 AST 19 ALT 11 Alkaline Phosphatase 85 Troponin I High Sens < 3.5 Total Protein 6.3 L Albumin 4.0 Triglycerides Cholesterol LDL Cholesterol, Calc HDL Cholesterol Lipase 24 Urine Color Yellow Urine Appearance Clear Urine pH 7.5 Ur Specific Morganza <= 1.005 Urine Protein Negative Urine Glucose (UA) Negative Urine Ketones Negative Urine Blood Negative Urine Nitrite Negative Ur Leukocyte Esterase Negative COVID-19 (KARAN) COVID-19 Clin Com Influenza Type A (DELANO) Influenza Type B (DELANO) Influenza A & B Note 08/14/22 08/14/22 08/15/22 16:59 21:45 06:25 WBC RBC Hgb Hct MCV MCH MCHC RDW Plt Count MPV Immature Gran % (Auto) Neut % (Auto) Lymph % (Auto) Holt % (Auto) Eos % (Auto) Baso % (Auto) Lymph # (Auto) Holt # (Auto) Eos # (Auto) Baso # (Auto) Abs Immat Gran (auto) Absolute Neuts (auto) Absolute Nucleated RBC Nucleated RBC % (auto) Sodium Potassium Chloride Carbon Dioxide Anion Gap BUN Creatinine Estim Creat Clear Calc Estimated GFR Random Glucose Calcium Magnesium Total Bilirubin AST ALT Alkaline Phosphatase Troponin I High Sens 5.2 4.1 Total Protein Albumin Triglycerides 153 Cholesterol 197 LDL Cholesterol, Calc 123 HDL Cholesterol 44 Lipase Urine Color Urine Appearance Urine pH Ur Specific Morgan[place] Urine Protein Urine Glucose (UA) Urine Ketones Urine Blood Urine Nitrite Ur Leukocyte Esterase COVID-19 (KARAN) COVID-19 Clin Com Influenza Type A (DELANO) Influenza Type B (DELANO) Influenza A & B Note ECG Interpretation: EKG with sinus rhythm at 59/Min; downsloping ST segments with T inversions in the anterolateral leads and nonspecific changes in the inferior leads. Similar to prior EKG from 2020. In fact subtle changes are seen even in 2005. Imaging Radiologist's impression: Impressions Chest X-Ray 08/14/22 12:59 IMPRESSION: Clear lungs. Chest CTA 08/14/22 15:51 IMPRESSION: 1. No acute vascular abnormality. No aortic dissection. 2. No acute pulmonary finding. Fleischner guidelines were followed. Assessment and Plan (1) Hypertensive emergency: Status: Acute (2) Chest pain: Status: Acute (3) Abnormal EKG: Status: Acute Plan Admission blood pressure was as much as 224/93 mm Hg. Currently at 130/60 mm Hg. Several blood pressures through the night are quite high. Several in the 200s. Even the prior recordings from the last 2-3 years there are high readings. Hence probably has poorly controlled hypertension. Unremarkable troponins and has been done 3 times. Chest CTA shows no acute findings and no dissection. Echocardiogram with LVEF of 70%. Normal global longitudinal strain. Otherwise, fairly unremarkable. With regard to the epigastric discomfort going to the back as well as shoulders, possible peptic ulcer disease or gastritis/esophagitis. Do not believe this part is cardiac. With regard to the elevated blood pressure, could have been brought on by the pain. She likely has baseline uncontrolled hypertension. Home meds are listed as metoprolol, triamterene/hydrochlorothiazide. Can add amlodipine to that regime. Can also treat for gastritis. Discharge planning. Outpatient stress test. Follow-up in the clinic. Time Spent With Patient Time: Total time managing care of this patient today 75 minutes. Procedures Date of Service Date of Service: 08/15/22
--- NOTE | 2022-08-15 11:22 | MHC.CM.PN ---
Patient has been medically cleared for dc to home today, self care.
[2022-08-15 11:29] VITALS: BP 137/65; PULSE 62; RESP 16; TEMP 36.4; O2SAT 97
== END 2022-08-15 13:32 | disposition home or self-care (01) ==
LOC: HO.ED 18:32 → HO.EDOVER 18:47 → HO.IMC 19:00
PROVIDERS: Nurse Practitioner Family; Admitting Provider Internal Medicine; Emergency Provider Student in an Organized Health Care Education/Training Program; PCP Internal Medicine; Visit Provider Internal Medicine
DX: R07.9 Chest pain, unspecified (principal); I10 Essential (primary) hypertension; E78.00 Pure hypercholesterolemia, unspecified; F41.9 Anxiety disorder, unspecified
CPT/HCPCS: 36415; 71046; 71275; 80053; 80061; 81003; 83690; 83735; 84484; 85025; 87502; 87635; 93005; 93306; 93356; 96372; 96374; 96376; 99222; 99285; J1650; Q9957; Q9967

== ENCOUNTER → 2022-08-31 09:42 | Outpatient (BNVA) | payer MEDICARE, SELFPAY | PROVIDERS: PCP Internal Medicine; Visit Provider Internal Medicine | DX: R94.31 Abnormal electrocardiogram [ECG] [EKG] (principal); I10 Essential (primary) hypertension; R10.13 Epigastric pain | CPT/HCPCS: 99212 ==

== ENCOUNTER → 2022-09-01 07:50 | Outpatient (REF) | payer MEDICARE, SELFPAY ==
--- NOTE | ~2022-09-01 | NM_ITS ---
Exercise Myocardial perfusion study Indication: Precordial chest pain to evaluate for myocardial ischemia Technique: The patient was brought in for an exercise perfusion study on 09/01/2022. Patient performed exercise as per [place] protocol and was injected 25 mCi of sestamibi was given intravenously one target HR was achieved. Images were obtained using the SPECT gamma camera interlaced with the gating device. Images were obtained in supine position. Resting perfusion study was performed on 09/02/2022. Patient was administered 25 mCi of sestamibi intravenously at rest. Images were then obtained in supine position. Images obtained with and without CT attenuation. Total DLP 65 mGy-cm. Images were processed with the software and compared side to side in short axis, horizontal long axis and vertical long axis views. Findings: The stress perfusion study showed non attenuated images show overall normal uptake of radiotracer in all segments of LV myocardium. There is suggestion of left ventricle hypertrophy. Attenuation corrected images also show overall normal uptake of radiotracer in all segments of LV myocardium. The gated study shows normal LV systolic function with visually estimated LVEF of greater than 50%. LV cavity is normal in size. The gated study shows normal systolic wall thickening and contraction of all segments. There is no transient ischemic dilation. Resting study shows no change in perfusion pattern compared to stress perfusion study. Gating at rest reveals normal systolic wall motion with ejection fraction at 53%. The findings are consistent with likely normal myocardial perfusion. NM/NM cardiolite stress test Impression: 1. Normal myocardial perfusion 2. Gated LVEF is 53% 3. Transient ischemic dilatation not present Stress EKG is nondiagnostic for ischemia due to baseline EKG abnormality
--- NOTE | 2022-09-01 07:53 | CA_ITS ---
Acquisition Time: 2022-09-01 07:58:03 Total Exercise Time: 00:05:00 Test Indications: Abnormal ECG HTN Medications: METOPROLOL OMEPRAZOLE PRAVASTATIN TRIAMTERINE/HCTZ Protocol: FRANK Max HR: 142 BPM 98% of Pred: 144 BPM Max BP: 168/066 mmHG Max Work Load: 7.0 METS Exercise stress test with exercise 5 min of Frank protocol, achieving 98% MPHR, with fatigue and thirst, no sob or chest discomfort, without arrythmia, with normotensive response to exercise, with nondiagnostic EKG for ischemia due to baseline ST/ T wave abnormality. Nuclear images pending. Test reviewed with Dr Schuster. Referred By: Ethan Jurado Overread By: PAXTON MAYES
== END ==
LOC: HO.CARD 07:50
PROVIDERS: PCP Internal Medicine; Visit Provider Internal Medicine
DX: R07.2 Precordial pain (principal); I16.1 Hypertensive emergency
CPT/HCPCS: 78452; 93017; A9500

== ENCOUNTER → 2022-10-29 08:45 | Outpatient (BNVA) | payer MEDICARE, SELFPAY | PROVIDERS: PCP Internal Medicine; Visit Provider Internal Medicine Gastroenterology | DX: K52.9 Noninfective gastroenteritis and colitis, unspecified (principal); K58.2 Mixed irritable bowel syndrome; R10.13 Epigastric pain; R93.5 Abnormal findings on diagnostic imaging of other abdominal regions, including retroperitoneum | CPT/HCPCS: 99212 ==

== ENCOUNTER 2022-11-11 09:52 | Outpatient (AMB) | payer MEDICARE, SELFPAY ==
[2022-11-11 10:07] VITALS: BP 134/86; PULSE 57; O2SAT 99; BMI 26.1
--- NOTE | 2022-11-11 10:07 | MHC.PC.OV ---
Vital Signs 11/11/22 10:07 Height 4 ft 11 in Weight 129 lb 3 oz BMI 26.1 BP 134/86 Blood Pressure Location Rt brachial Position Sitting Pulse 57 Pulse Source Pulse Oximeter Pulse Oximetry (%) 99 Oxygen Delivery Method Room Air Intake Visit Reasons: PE Intake Note: Pt is here today for her PE Allergies sulfamethoxazole [From Bactrim] Allergy (Mild, Verified 03/25/23 02:18) upset stomach trimethoprim [From Bactrim] Allergy (Mild, Verified 03/25/23 02:18) upset stomach Medication List - Last Reconciled 03/25/23 by Tri Richter MD metoprolol tartrate 25 mg PO BID 90 days omeprazole 20 mg PO DAILY 90 days pravastatin 80 mg PO BEDTIME triamterene-hydrochlorothiazid 75-50 mg 1 tab PO DAILY Tobacco use date assessed: 11/11/22 Fall risk assessment: 1 Fall in past year Last assessed Fall Risk: 11/11/22 HPI PE HPI Details 77-year-old lady here today for her physical exam. She has GERD controlled with omeprazole, history of diverticulitis s/p partial colectomy 1979 due to perforated diverticulum, Hypothyroidism, hyperlipidemia, hypertension, history of cholelithiasis s/p cholecystectomy . She had a screening colonoscopy in 2013 which showed presence of diverticulosis, and is scheduled for a screening colonoscopy on 03/15/[address] Benson.. Had a bone density scan done in 2015 which showed presence of osteoporosis in her lumbar spine, unable to tolerate alendronate, patient refusing further treatment. She had a mammogram in 2020 with benign findings, declined further testing. Patient also does not want to get any vaccinations [facility] Medical History (Updated 03/25/23 @ 02:50 by Tri Richter MD) Abnormal MRI of abdomen Anxiety disorder Chronic pain of both shoulders Compound nevus Essential hypertension GERD (gastroesophageal reflux disease) IBS (irritable bowel syndrome) Mixed dyslipidemia Osteoporosis Vaccination declined Surgical History History of section History of laparoscopic cholecystectomy History of partial colectomy History of tonsillectomy Hx of colonoscopy Family History Father No problems noted. Mother Depression HTN (hypertension) CHF (congestive heart failure) CVD (cardiovascular disease) Sister No problems noted. Sister No problems noted. Daughter No problems noted. Social History Household Members: Family Housing: House Do you presently have visiting nurse or other home services: No Alcohol intake: never Patient Tobacco Use Status: Former Tobacco user e-Cigarette/Vaping Use: Never Used service: No Current occupational status: retired Cognitive needs: No Hearing needs: No Vision needs: No Questionnaire PHQ-9 Over the last 2 weeks, how often have you been bothered by any of the following problems? 87059 - PHQ-9 Billing: Patient declined-do not bill Source: Developed by Drs. Wally Ryan, Ashwini Tovar, Fransisco Munroe and colleagues, with an educational beto from [employer]. AUDIT C Alcohol Use Questionnaire (AUDIT-C) 1. How often do you have a drink containing alcohol?: Never Total Score: 0 MARGUERITE-7 AMB Questionnaire MARGUERITE-7 Date MARGUERITE - 7 assessed: 11/11/22 Source: Developed by Drs. Wally Ryan, Ashwini Tovar, Fransisco Munroe and colleagues, with an educational beto from [employer]. MARGUERITE-7 Assessment Billing MARGUERITE-7 Assessment Tool: pt declined-do not bill Review of Systems Const Denies fatigue, Denies fever(s), Denies headache(s), Denies malaise and Denies weakness Eyes Denies change in vision ENT Reports Normal hearing present, Denies dysphagia, Denies dizziness and Denies headache(s) Card Denies chest pain, Denies leg edema and Denies dyspnea on exertion Resp Denies cough and Denies dyspnea on exertion GI Denies abdominal pain, Denies change in bowel habits and Denies dysphagia Denies difficulty voiding and Denies dysuria Musc Denies back pain, Reports arthralgias ( shoulder) and Reports stiffness Skin/Breast Denies rash Neuro Reports Normal hearing present, Denies Abnormal speech present, Denies dizziness, Denies headache(s), Denies seizure-like activity and Denies weakness Psych Denies anxiety, Denies depression and Denies panic attacks Endo Denies cold intolerance, Denies fatigue, Denies flushing and Denies heat intolerance Augie/Lymph Denies easy bleeding and Denies easy bruising Aller/Immun Reports no additional complaints Physical exam (Primary Care) Vital Signs: Last Vital Signs Pulse 57 11/11/22 10:07 BP 134/86 11/11/22 10:07 Pulse Ox 99 11/11/22 10:07 Oxygen Delivery Method Room Air 11/11/22 10:07 BMI result Body Mass Index 26.1 Tobacco/Smoking Status: Tobacco use Status Tobacco use date assessed 11/11/22 11/11/22 10:14 Patient Tobacco Use Status Former Tobacco user 11/11/22 10:14 e-Cigarette/Vaping Use Never Used 11/11/22 10:14 Const General: comfortable, no acute distress and alert Orientation/consciousness: patient oriented x3 HENMT Ears: hearing grossly normal bilaterally General nose exam: Normal external nose present and No nasal discharge present Face and sinus: Yes face symmetric Mouth: moist mucous membranes Eyes General: appearance normal, both eyes and all related structures Neck Neck: Yes full ROM, Yes no lymphadenopathy and Yes supple Chest Breast/axilla palpation: normal palpation of the breasts Resp Auscultation: clear to auscultation bilaterally Cardio Rate: regular rate Rhythm: regular rhythm Heart sounds: S1 normal heart sound present and S2 normal heart sound present GI Palpation (GI): Soft to palpation and no guarding Auscultation: normal bowel sounds General: Yes no CVA tenderness Back/Spine/Pelvis Back: no CVA tenderness and No back tenderness Skin General skin exam: no rashes or lesions noted Neuro General: patient oriented x3, gait normal, moves all extremities, Normal light touch and pain sensation and no focal motor deficits Cranial nerves: Yes Normal hearing present Speech: No Abnormal speech present Extrem General: Yes full ROM, Yes no joint enlargement, Yes no clubbing, cyanosis or edema, Yes no pedal edema and Yes normal gait Psych Appearance: grossly normal and well kempt Speech and movement: Normal speech and movement present Affect: normal affect Attitude: cooperative Results Reviewed Results Reviewed: ENTERED: 08/14/22-1251 OTHR CALVO: ORDERED: CBC Auto Diff Test Result Flag Reference Site WBC 6.3 4.8-10.8 X10*3/uL RBC 5.16 4.20-5.50 X10*6/uL HGB 15.5 12.0-16.0 g/dl HCT 46.0 37.0-47.0 % MCV 89.1 80.0-98.0 fL MCH 30.0 27.0-33.0 pg MCHC 33.7 31.0-35.0 g/dl RDW 13.3 11.0-16.0 % PLT 276 160-400 X10*3/uL ENTERED: 08/15/22-[address]: Tri Richter MD ORDERED: Lipid Panel Test Result Flag Reference Site Triglyceride 153 mg/dL Desirable Triglyceride: less than 150 mg/dL Borderline High Triglyceride 150-199 mg/dL High Triglyceride: 200-499 mg/dL Very High Triglyceride: greater than or equal to 5OO mg/dL Chol 197 mg/dL Desirable Cholesterol: less than 200 mg/dL Borderline High Cholesterol: 200-239 mg/dL High Cholesterol: greater than 239 mg/dL LDL Calculated 123 mg/dl Desirable LDL: less than 100 mg/dL Near Optimal/Above Optimal LDL: 110-129 mg/dL Borderline High LDL: 130-159 mg/dL High LDL: 160-189 mg/dL Very High LDL: greater than or equal to 190 mg/dL HDL 44 mg/dL Desirable HDL: greater than 40 mg/dL NTERED: 08/14/22-[address]: ORDERED: CMP, MG, Lip COMMENTS: HEMOLYZED Test Result Flag Reference Site Sodium 143 135-145 mmol/L Potassium 3.7 3.3-5.1 mmol/L Slight Hemolysis CL 104 96-108 mmol/L CO2 29 22-29 mmol/L Gap 14 12-20 BUN 17 H 9-16 mg/dL Creat 0.81 0.5-1.4 mg/dL Estimated CrCl 45.5 Provided height and weight: 149.86 cm, 57.153 kg. eGFR (calculated from the MDRD study equation) and eCrCl (calculated from the Cockcroft-Gault equation) are based on different parameters and may not yield comparable results. If eCrCl result is absurd, please check patient's height/weight. EGFR > 60 NOTE: For -Turkmen individuals, multiply the result by 1.210. Chronic Kidney Disease: Estimated GFR < 60 mL/min/1.73m2 Severe Kidney Disease: Estimated GFR < 15 mL/min/1.73m2 Glucose, Random 93 60-115 mg/dL CA 10.1 8.4-10.2 mg/dL Magnesium 2.0 1.6-2.6 mg/dL Total Bili 0.6 0.0-1.0 mg/dL AST (GOT) 19 5-31 U/L Slight Hemolysis ALT (GPT) 11 0-31 U/L Protein, Total 6.3 L 6.5-8.0 g/dL Alb 4.0 3.5-5.0 g/dL Alk Phos 85 39-117 U/L Lipase 24 8-78 U/L Assessment and Plan Assessment & Plan (1) Annual visit for general adult medical examination with abnormal findings: Code(s): Z00.01 - Encounter for general adult medical examination with abnormal findings Plan: Reminded to get her fasting labs done, already ordered. Continue with regular dental visit every 6 months and regular eye exams, at least every 2 years. Take adequate calcium in diet and vitamin-D 3 at 2000 IU per cap once a day, in addition to weight-bearing exercises to help maintain good muscle tone and weight control. Has osteoporosis as seen on bone density scan 2015 , unable to tolerate alendronate, declines further treatment. Last mammogram was in 2020 with this, patient was further testing. She is scheduled for is repeat screening colonoscopy with Dr. Benson in February 2023. Patient declines getting vaccinations (2) Vaccination declined: Code(s): Z28.21 - Immunization not carried out because of patient refusal (3) IBS (irritable bowel syndrome): Code(s): K58.9 - Irritable bowel syndrome without diarrhea Qualifiers: Irritable bowel syndrome type: with both diarrhea and constipation Qualified Code(s): K58.2 - Mixed irritable bowel syndrome Plan: Continue with healthy eating habits, and increase dietary fiber intake. (4) Mixed dyslipidemia: Comment: Code(s): E78.2 - Mixed hyperlipidemia Plan: Get fasting labs done, already ordered. Last fasting labs in July 2022 showed lipids within normal limits. Currently on pravastatin 80 mg at bedtime (5) Essential hypertension: Code(s): I10 - Essential (primary) hypertension Plan: Blood pressure at goal of less than 130/80. Continue with metoprolol tartrate 25 mg twice a day. Reinforced importance of following a low sodium diet, getting regular exercise, and lowering stress levels. (6) Osteoporosis: Code(s): M81.0 - Age-related osteoporosis without current pathological fracture Qualifiers: Osteoporosis type: unspecified Presence of current pathological fracture: without current pathological fracture Qualified Code(s): M81.0 - Age-related osteoporosis without current pathological fracture Plan: Advised doing regular weight-bearing exercises, take an adequate calcium from dietary sources and [id number] vitamin-D 3 at least 2000 units daily. She declines any further treatment (7) GERD (gastroesophageal reflux disease): Code(s): K21.9 - Gastro-esophageal reflux disease without esophagitis Plan: Continue omeprazole 20 mg daily Coding Level of Care Code Est Pt Prev Care >65y(14103) Diagnoses Annual visit for general adult medical examination with abnormal findings Z00.01 Vaccination declined Z28.21 IBS (irritable bowel syndrome) K58.2 Irritable bowel syndrome type: with both diarrhea and constipation Mixed dyslipidemia E78.2 Essential hypertension I10 Osteoporosis M81.0 Osteoporosis type: unspecified Presence of current pathological fracture: without current pathological fracture GERD (gastroesophageal reflux disease) K21.9
== END 2022-11-11 11:14 | disposition home or self-care (01) ==
LOC: HO.HMGC 09:52
PROVIDERS: PCP Internal Medicine; Visit Provider Internal Medicine
DX: Z00.01 Encounter for general adult medical examination with abnormal findings (principal); K58.2 Mixed irritable bowel syndrome; I10 Essential (primary) hypertension; K21.9 Gastro-esophageal reflux disease without esophagitis; Z28.21 Immunization not carried out because of patient refusal; E78.2 Mixed hyperlipidemia; M81.0 Age-related osteoporosis without current pathological fracture
CPT/HCPCS: 99397

== ENCOUNTER 2023-02-18 08:44 | Outpatient (AMB) | payer MEDICARE, SELFPAY ==
--- NOTE | 2023-02-18 08:53 | A.OFFVIS_ITS ---
Intake Vital Signs 02/18/23 08:57 Height 4 ft 11 in Weight 127 lb BMI 25.6 BP 146/67 H Blood Pressure Location Lt brachial Position Sitting Pulse 54 Intake Visit Reasons: 3 month follow up Intake Note: Patient follow up for IBS. Patient cc: LLQ pain come and go, and between diarrhea and constipation. Patient Services Representative Required: No Accompanied by: Self / Same As Patient Allergies sulfamethoxazole [From Bactrim] Allergy (Mild, Verified 02/18/23 08:53) upset stomach trimethoprim [From Bactrim] Allergy (Mild, Verified 02/18/23 08:53) upset stomach Medication List - Last Reconciled 02/18/23 by Coy Benson MD bisacodyl (Dulcolax (bisacodyl)) 10 mg (2 x 5 mg) PO ONCE 1 day metoprolol tartrate 25 mg PO BID 90 days omeprazole 20 mg PO DAILY 90 days polyethylene glycol 3350 (Miralax) 17 grams PO DAILY 1 day pravastatin 80 mg PO BEDTIME triamterene-hydrochlorothiazid 75-50 mg 1 tab PO DAILY HPI 3 month follow up HPI Details GI clinic visit for this 77-YEAR-OLD FEMALE FOR FOLLOW-UP OF POSTPRANDIAL DIARRHEA AND A PANCREATIC LESION.? PATIENT IS STATUS POST CHOLECYSTECTOMY AND PARTIAL COLECTOMY DUE TO DIVERTICULITIS. CHRONIC ILLNESSES:?GERD-diet controlled, osteopenia, diverticulitis c h/o surgery, Hypothyroidism, hyperlipidemia, hypertension, Ulcerative colitis- quiescent, Partial colectomy 1979 due to diverticulitis, Colon polyps, Scoliosis and Neck pain ?LABS:?11/06 Reviewed. ?IMAGING STUDIES:? 10/23/[address] SCAN SHOWED: ? Stable 7 mm fatty lesion in the pancreas suggestive of a benign lipoma. Postsurgical changes following right colectomy. Severe diverticulosis of the distal colon. No evidence of diverticulitis. ?02/07/20? MRI SHOWED: ? Stable 7 x 8 mm fatty lesion at the junction of the body and tail of ? the pancreas suggestive of a lipoma. Diverticulosis of the colon. ? Stable small probable complex left renal cyst. ? TODAY'S VISIT Has diarrhea alternating with constipation. Notes intermittent LLQ pain and resolves after she has a BM. Thinks pain is related to her diet. Can have 1-3 BMs a day and once in a great while, she does not go at all and then gets into trouble. Eats a lot of fruits and vegetables which helps with constipation Notes intermittent heartburn associated with certain foods Takes Omeprazole when she has abd pain and it helps. Wakes up with a dry mouth in the morning and mouth feels bitter. PAST VISITS: End of Jul, she had upper abdominal pain and BP was elevated to 200 systolic. [facility] and admitted to the hospital with chest pain and abnormal EKG Continues to have upper abd/lower chest pain depending on what she eats - a dull, hurting pain. Pain radiated to the back. Noted nausea and a lot of bitter taste in her mouth and dry mouth Has not been taking Omeprazole - keeps forgetting to take it. Gets dehydrated and drinks quite a bit of water. Has gained 5 lbs and planning to loose it. Continues to have intermittent diarrhea since GB surgery - its getting better. ? related to cabbage and pretzels Has a PHAN every single day for the past 3 weeks - also has a problem with one of her upper teeth. Urgent FU appt scheduled since pt called on 05/28/22: pt called in and stated that her diverticulitis is acting up she is having consistent abdominal pain all over. She is a bit worried and wants to make sure everything is ok . Had cortisone injection in both shoulders and had a severe reaction with nausea and vomiting. Has been doing Ok - gets twinges and lower abdominal pain. Feels better after she has a BM. Has a BM daily - depends on what she eats. Has a lot of anxiety. Also notes pain in the RUQ and epigastric and lower chest area. Eats only one meal a day, likes to snack in between. Eats fruits and vegetables. Likes sweets. Has intermittent RUQ pain which is pinching in character. Has pain once in a while ? Has abdominal pain off and on which is manageable. ? Pain is not too bad. ? Gets pain when she gets constipated. Has diarrhea related to some foods. ? There is one antibiotic she does not want to take which caused her to be dep ressed for a week - she will check in her portal and send me a message with the name of the antibiotic. ? ? ? Noted some pain under her right breast - not effected by breathing and coughing. ? ? ? Stopped taking her vitamins and supplements and GERD symptoms have improved - advised to resume taking vitamin-D every other day. ?? ? To resume supplements 1 medicine at a time ? Staying home mostly ? Does not want to get the COVID vaccine yet ? ? ? I have been getting a dull pain which radiates to the lower back. Sometimes gets pain on the left side and sometimes on the right side. Pain feels a little bit different. ? ? ? Can have a dull pain after taking MVI, CQ10 ?? ? Denies problems with diarrhea or constipation [facility] Medical History (Updated 08/18/22 @ 12:32 by Tri Richter MD) Anxiety disorder Chronic pain of both shoulders Compound nevus Epigastric abdominal pain Essential hypertension IBS (irritable bowel syndrome) Mixed dyslipidemia Osteoporosis Vaccination declined Surgical History History of section History of laparoscopic cholecystectomy History of partial colectomy History of tonsillectomy Family History Father No problems noted. Mother Depression HTN (hypertension) CHF (congestive heart failure) CVD (cardiovascular disease) Sister No problems noted. Sister No problems noted. Daughter No problems noted. Social History Household Members: Family Housing: House Do you presently have visiting nurse or other home services: No Alcohol intake: never Patient Tobacco Use Status: Former Tobacco user e-Cigarette/Vaping Use: Never Used service: No Current occupational status: retired Cognitive needs: No Hearing needs: No Vision needs: No Review of Systems Const All systems reviewed & are unremarkable except as noted in HPI and below Physical Exam Vital Signs: Last Vital Signs Pulse 54 02/18/23 08:57 BP 146/67 H 02/18/23 08:57 BMI result Body Mass Index 25.6 Const General: healthy appearing and no acute distress Nutritional Appearance: overweight Orientation/consciousness: patient oriented x3 Limitations: no limitations HEENT Head: Yes normal to inspection Ears: hearing grossly normal bilaterally Eyes Sclerae: sclerae normal Pupils: Equal, round and reactive pupils present Neck Neck: Yes normal visual inspection Chest Chest palpation & inspection: normal inspection of the chest Resp Effort & Inspection: normal respiratory effort Auscultation: clear to auscultation bilaterally Cardio Palpation: normal PMI Rate: regular rate Rhythm: regular rhythm Heart sounds: S1 normal heart sound present, S2 normal heart sound present and no murmurs GI Palpation (GI): Soft to palpation, nontender and No hepatosplenomegaly present Auscultation: normal bowel sounds Rectal Exam - Female: deferred Skin General skin exam: no rashes or lesions noted Neuro General: patient oriented x3, gait normal and moves all extremities Cranial nerves: Yes Equal, round and reactive pupils present Psych Appearance: grossly normal Mental Status: mental status grossly normal Assessment & Plan Assessment & Plan (1) Epigastric abdominal pain: Code(s): R10.13 - Epigastric pain (2) Diverticulosis: Code(s): K57.90 - Diverticulosis of intestine, part unspecified, without perforation or abscess without bleeding (3) Abnormal MRI of abdomen: Comment: Abnormal MRI of abdomen - MRCP showed a 7-8 mm Lipoma in body of pancreas stable over the past 2 years and no further workup advised. 10/[address] scan showed a stable 7 mm fatty lesion in the pancreas suggestive of a benign lipoma, postsurgical changes following right colectomy. Code(s): R93.5 - Abnormal findings on diagnostic imaging of other abdominal regions, including retroperitoneum (4) IBS (irritable bowel syndrome): Code(s): K58.9 - Irritable bowel syndrome without diarrhea Qualifiers: Irritable bowel syndrome type: with both diarrhea and constipation Qualified Code(s): K58.2 - Mixed irritable bowel syndrome (5) Postprandial diarrhea: Code(s): K52.9 - Noninfective gastroenteritis and colitis, unspecified Plan 77 YF with GERD-diet controlled, osteopenia, diverticulitis c h/o surgery, Hypothyroidism, hyperlipidemia, hypertension, Partial colectomy 1979 due to perforated diverticulum, Colon polyps, Scoliosis and Neck pain Pt had Gallbladder surgery in May- feeling better but still having loose stools, aware that it is a side effect of surgery. Pt is aware that Citrucel can be helpful for management of loose stools. Residual diverticulosis noted on 2013 colonoscopy. Feels slight discomfort in LLQ- no pain or bleeding- aware of diverticulosis finding and advised to take Citrucel daily. Abnormal MRI of abdomen - MRCP showed a 7-8 mm Lipoma in body of pancreas stable over the past 2 years and no further workup advised. Pt complains of a dull abdominal pain radiating to the lower back (sometimes on the right and sometimes on the left side) 10/[address] scan showed a stable 7 mm fatty lesion in the pancreas suggestive of a benign lipoma, postsurgical changes following right colectomy. Severe diverticulosis of the distal colon without evidence of diverticulitis. Pt was advised to take Miralax twice a week for constipation and monitor her symptoms. She prefers to have all the labs drawn on a single visit since she has a difficult IV stick. 02/16/23 Pt is scheduled for a screening colonoscopy (last colon was in 2013) on 03/15/23. If colon is negative, pt can stop having additional colonoscopies in the future FU in 4 weeks ? ? ? Medications: Refilled polyethylene glycol 3350 (Miralax) Mix Miralax with 64 oz(8 cups) of Crystal light. Take 2 tablets of Dulcolax qt 12 pm. Wait to have your 1st bowel movement, then begin drinking Miralax. Drink a glass of Miralax every 10-15 minutes until you are finished. You will drink at least another 4 cups of clear liquid of your choice over the next 2 hours. Please drink as many clear liquids as possible You may have clear liquids up to four hours before your procedure 17 grams PO DAILY 238 grams 0RF 1 day Coding Level of Care Code Est Pt Level 4 (35552) Diagnoses Epigastric abdominal pain R10.13 Diverticulosis K57.90 Abnormal MRI of abdomen R93.5 IBS (irritable bowel syndrome) K58.2 Irritable bowel syndrome type: with both diarrhea and constipation Postprandial diarrhea K52.9 Time Spent (min) 24
[2023-02-18 08:57] VITALS: BP 146/67; PULSE 54; BMI 25.6
== END 2023-02-18 10:18 | disposition home or self-care (01) ==
PROVIDERS: Visit Provider Internal Medicine Gastroenterology
DX: R10.13 Epigastric pain (principal); K57.90 Diverticulosis of intestine, part unspecified, without perforation or abscess without bleeding; R93.5 Abnormal findings on diagnostic imaging of other abdominal regions, including retroperitoneum; K58.2 Mixed irritable bowel syndrome; K52.9 Noninfective gastroenteritis and colitis, unspecified
CPT/HCPCS: 99214

== ENCOUNTER → 2023-02-18 08:44 | Outpatient (BNVA) | payer MEDICARE, SELFPAY | PROVIDERS: Visit Provider Internal Medicine Gastroenterology | DX: K57.90 Diverticulosis of intestine, part unspecified, without perforation or abscess without bleeding (principal); K58.2 Mixed irritable bowel syndrome; K52.9 Noninfective gastroenteritis and colitis, unspecified; R10.13 Epigastric pain; R93.5 Abnormal findings on diagnostic imaging of other abdominal regions, including retroperitoneum | CPT/HCPCS: 99212 ==

== ENCOUNTER 2023-03-15 07:26 | Day surgery (SDC) | payer MEDICARE, SELFPAY ==
[2023-03-11 14:56] VITALS: BMI 25.6
--- NOTE | 2023-03-12 10:48 | HO.ANESPROP2 ---
Documented by User: María Tilmlan NP 03/12/23 10:52 HPI - Anesthesia Eval Consult details Narrative: 77yo F for Colonoscopy 08/2022 ischemic w/u for atypical CP/abn EKG was WNL PMFSH Active Problems Active Problems: All Active Problems (Updated 08/18/22 @ 12:32 by Tri Richter MD) Epigastric abdominal pain (Acute) Abnormal EKG (Acute) Hypertensive emergency (Acute) Uncontrolled hypertension (Acute) Chest pain (Acute) Osteoarthritis of left glenohumeral joint (Acute) Osteoarthritis of left acromioclavicular joint (Acute) Osteoarthritis of right shoulder (Acute) Chronic pain of both shoulders (Acute) Vaccination declined (Acute) Compound nevus (Acute) Diverticulosis (Acute) Abnormal MRI of abdomen (Acute) Postprandial diarrhea (Acute) IBS (irritable bowel syndrome) (Acute) Mixed dyslipidemia (Acute) Essential hypertension (Acute) Osteoporosis (Acute) Anxiety disorder (Acute) Past Medical History Medical History Anxiety disorder Chronic pain of both shoulders Compound nevus Epigastric abdominal pain Essential hypertension IBS (irritable bowel syndrome) Mixed dyslipidemia Osteoporosis Vaccination declined Family History Family History Father No problems noted. Mother Depression HTN (hypertension) CHF (congestive heart failure) CVD (cardiovascular disease) Sister No problems noted. Sister No problems noted. Daughter No problems noted. Surgical History Surgical History History of section History of laparoscopic cholecystectomy History of partial colectomy History of tonsillectomy Social History Social History Household Members: Family Housing: House Do you presently have visiting nurse or other home services: No Alcohol intake: never Patient Tobacco Use Status: Former Tobacco user e-Cigarette/Vaping Use: Never Used Are you DNR?: No Advance Directives: No Advance Directives Information Provided: Yes Nutrition Risks: No Nutritional Risk service: No Current occupational status: retired Cognitive needs: No Hearing needs: No Vision needs: No Meds Allergies Allergy/AdvReac Type Severity Reaction Status Date / Time sulfamethoxazole Allergy Mild upset Verified 03/15/23 08:00 [From Bactrim] stomach trimethoprim [From Bactrim] Allergy Mild upset Verified 03/15/23 08:00 stomach Exam Exam Date and Time: March 12, 2023 1048 Height,Weight and Vital Signs: Height 4 ft 11 in Weight 57.606 kg Narrative Narrative: EKG 07/2022 Vent. Rate : 059 BPM ? ? Atrial Rate : 059 BPM ?? P-R Int : 178 ms? QRS Dur : 098 ms ? ? QT Int : 424 ms ? ? ? P-R-T Axes : 024 004 000 degrees ?? QTc Int : 419 ms ? Sinus bradycardia ST & T wave abnormality, consider anterior ischemia Abnormal ECG When compared with ECG of 18-OCT-2020 09:49, No significant change was found ECHO 08/2022 Conclusions: - The left ventricular systolic function is normal.? The ? calculated ejection fraction is 70% by biplane method. ? - No obvious valvular pathology seen on this study. NM cardiolite stress test 08/2022 Impression: ? 1.? Normal myocardial perfusion 2.? Gated LVEF is 53% 3. Transient ischemic dilatation not present ? Stress EKG is nondiagnostic for ischemia due to baseline EKG abnormality CT angio chest aorta 07/2022 IMPRESSION: 1.? No acute vascular abnormality. No aortic dissection. 2.? No acute pulmonary finding. Assessment and Plan Assessment Anesthesia Assessment: Chart Reviewed Documented by User: Karin Hobbs MD 03/15/23 08:18 [facility] Active Problems Active Problems: All Active Problems (Updated 03/15/23 @ 08:01 by Karin Hobbs MD) Epigastric abdominal pain (Acute) Abnormal EKG (Acute) 07/2022. Cardiac w/u negative Hypertensive emergency (Acute) Uncontrolled hypertension (Acute) Chest pain (Acute) Osteoarthritis of left glenohumeral joint (Acute) Osteoarthritis of left acromioclavicular joint (Acute) Osteoarthritis of right shoulder (Acute) Chronic pain of both shoulders (Acute) Vaccination declined (Acute) Compound nevus (Acute) Diverticulosis (Acute) Abnormal MRI of abdomen (Acute) Postprandial diarrhea (Acute) IBS (irritable bowel syndrome) (Acute) Mixed dyslipidemia (Acute) Essential hypertension (Acute) Osteoporosis (Acute) Anxiety disorder (Acute) Nausea Past Medical History Medical History Anxiety disorder Chronic pain of both shoulders Compound nevus Epigastric abdominal pain Essential hypertension IBS (irritable bowel syndrome) Mixed dyslipidemia Osteoporosis Vaccination declined Family History Family History Father No problems noted. Mother Depression HTN (hypertension) CHF (congestive heart failure) CVD (cardiovascular disease) Sister No problems noted. Sister No problems noted. Daughter No problems noted. Family history of problems with anesthesia: No Surgical History Surgical History History of section History of laparoscopic cholecystectomy History of partial colectomy History of tonsillectomy History of Problems with Anesthesia: No Social History Social History Household Members: Family Housing: House Do you presently have visiting nurse or other home services: No Alcohol intake: never Patient Tobacco Use Status: Former Tobacco user e-Cigarette/Vaping Use: Never Used Are you DNR?: No Advance Directives: No Advance Directives Information Provided: Yes Nutrition Risks: No Nutritional Risk service: No Current occupational status: retired Cognitive needs: No Hearing needs: No Vision needs: No Meds Allergies Allergy/AdvReac Type Severity Reaction Status Date / Time sulfamethoxazole Allergy Mild upset Verified 03/15/23 08:00 [From Bactrim] stomach trimethoprim [From Bactrim] Allergy Mild upset Verified 03/15/23 08:00 stomach Exam Height,Weight and Vital Signs: Height 4 ft 11 in Weight 57.606 kg Vital Signs Temp Pulse Resp BP Pulse Ox O2 Del Method 03/15/23 07:59 97.9 F 80 18 182/68 H 98 Room Air Airway Mallampati Class: II TM Dist: >3cm Neck ROM: Full Loose/Missing/Broken Teeth: No (Denies broken, loose, missing teeth) Heart: RRR Lungs: CTAB Assessment and Plan Assessment Anesthesia Assessment: Anesthesia Plan Discussed Final Anesthetic Review Family History of Problems with Anesthesia: No History of Problems with Anesthesia: No NPO: Yes (Nausea and vomiting this morning. Mostly resolved.) ASA Class: III Final Preanesthetic Review: No Changes in Pt Med Stat, Meds/Allgs Chart Reviewed, Consent Obtained/Reviewed and Anes Risks/Benef Reviewed Patient Risk: Intermediate Procedure Risk: Low Assessment/Block/Sedation in SS: Assess/Block/Sedation-SS Anesthetic Plan Anesthetic Plan: MAC: Disposition: Standard PACU
--- NOTE | 2023-03-15 07:31 | MHC.SHP ---
Pre-Procedural Eval Section A Date of Service: 03/15/23 The patient is an INPATIENT: No Changes since office visit: Yes Patient answered all questions; No Cold of Flu in the past 2 weeks, No New Medical Problems and No Changes in Medication The History & Physical has been completed within 30 days and I have reviewed it.: Yes Section B Chief Complaint: Colon cancer screening, diarrhea and constipation Present Medications: see Short Stay Collaborative assessment Allergies: Allergies Allergy/AdvReac Type Severity Reaction Status Date / Time sulfamethoxazole Allergy Mild upset Verified 02/18/23 08:53 [From Bactrim] stomach trimethoprim [From Bactrim] Allergy Mild upset Verified 02/18/23 08:53 stomach Plan I have reviewed the history and physical and performed a pertinent physical examination on my patient. No changes have occurred unless specified. Time Spent With Patient Time: Total time managing care of this patient today ____ minutes.
[2023-03-15] MEDS: Lactated Ringers 1,000 ML 100 ML IVCONT (07:48)
[2023-03-15 07:59] VITALS: BP 182/68; PULSE 80; RESP 18; TEMP 36.6; O2SAT 98
--- NOTE | 2023-03-15 08:08 | PC.NURSE ---
patient has hx diff. IV attempts. IV inserted by Dr. Hobbs
[2023-03-15] MEDS: Metoclopramide HCl 10 MG/2 ML VIAL IVPUSH (08:18)
--- NOTE | 2023-03-15 08:49 | W.PM.OPN ---
Operative Note Operative Note Date of Service: 03/15/23 Narrative: COLONOSCOPY TILL ILEO-COLIC ANASTOMOSIS WITH BIOPSIES Pre-op diagnosis: Colon cancer screening, diarrhea alternating with constipation Pt is status post right colon resection for severe diverticulosis in the Post-op diagnosis:? Diverticulosis, hemorrhoid Endoscopist:? Coy Benson MD Anesthesia:?MAC Consent: Indications for the procedure and potential complications of bleeding, perforation, reaction to medications and missed diagnosis were discussed with the patient and informed consent was obtained. Instrument: Olympus PCF H 190 L variable stiffness pediatric colonoscope Monitoring: Vital signs and clinical assessment, intermittent blood pressure monitoring, continuous EKG monitoring, Pulse oximetry and Carbon Dioxide monitoring were done throughout the procedure. Please see anesthesia flowsheet. Colon withdrawl time was 10 minutes. Procedure: The patient was placed in the left lateral decubitis position and pre-procedure medications were administered. After a digital rectal examination of the ano-rectum, the video colonoscope was inserted into the rectum and advanced through the colon to ileo-colic anastomosis at 75 cms (in the proximal transverse colon). The colonoscope was slowly withdrawn in a retrograde panoramic fashion and the colon mucosa was carefully examined including a retroflexed view of the rectum. Findings and interventions are described below. Procedure Difficulty: There was narrowing from 25-30 cms in the sigmoid colon due to severe diverticulosis which was navigated with some difficulty Findings: Terminal Ileum: Von-terminal ileum appeared normal Transverse Colon: Moderate diverticulosis throughout the colon Descending Colon: Moderate diverticulosis throughout the colon Sigmoid Colon: Severe diverticulosis with luminal narrowing Rectum: Normal Ano-rectum: Moderate internal hemorrhoids and hypertrophied anal papillae Colon preparation: Good Impression and Post Procedure Diagnosis: Colonoscopy Findings: No polyps were detected Random biopsies were obtained from right and left colon to check for microscopic colitis Moderate to severe diverticulosis seen in the entire colon Moderate hemorrhoids on retroflexed exam. Plan: Await pathology results Patient has an appointment on 03/26/23 in the GI Clinic with Coy Benson M.D. Given advanced age and negative colonoscopies, colon cancer screening can be discontinued unless patient has lower GI symptoms Above findings were reviewed with the patient and diverticulosis handout was given in the discharge area
[2023-03-15 09:21] VITALS: BP 116/52; PULSE 63; RESP 19; TEMP 36.1; O2SAT 97
[2023-03-15 09:35] VITALS: BP 126/45; PULSE 70; RESP 16; O2SAT 98
[2023-03-15 09:50] VITALS: BP 170/65; PULSE 68; RESP 15; TEMP 36.3; O2SAT 97
== END 2023-03-15 10:23 | disposition home or self-care (01) ==
PROVIDERS: PCP Internal Medicine; Visit Provider Internal Medicine Gastroenterology
PROC: 0DJD8ZZ Inspection of Lower Intestinal Tract, Via Natural or Artificial Opening Endoscopic (ICD-10-PCS; CPT 45378; principal; 2023-03-15 08:30)
DX: Z12.11 Encounter for screening for malignant neoplasm of colon (principal); K57.30 Diverticulosis of large intestine without perforation or abscess without bleeding; K64.8 Other hemorrhoids; K58.2 Mixed irritable bowel syndrome; K62.89 Other specified diseases of anus and rectum; Z90.49 Acquired absence of other specified parts of digestive tract; Z98.0 Intestinal bypass and anastomosis status; I10 Essential (primary) hypertension; E78.2 Mixed hyperlipidemia; M81.0 Age-related osteoporosis without current pathological fracture; Z79.899 Other long term (current) drug therapy; F41.9 Anxiety disorder, unspecified; Z88.2 Allergy status to sulfonamides; Z88.1 Allergy status to other antibiotic agents; Z87.891 Personal history of nicotine dependence
CPT/HCPCS: 45380; 88305; J2405; J2765

== ENCOUNTER → 2023-03-15 07:26 | Outpatient (BNV) | payer MEDICARE, SELFPAY | PROVIDERS: PCP Internal Medicine; Visit Provider Internal Medicine Gastroenterology | DX: Z12.11 Encounter for screening for malignant neoplasm of colon (principal); K57.90 Diverticulosis of intestine, part unspecified, without perforation or abscess without bleeding; K64.8 Other hemorrhoids | CPT/HCPCS: 45380 ==

== ENCOUNTER 2023-03-26 07:41 | Outpatient (AMB) | payer MEDICARE, SELFPAY ==
--- NOTE | 2023-03-26 07:47 | A.OFFVIS_ITS ---
Intake Vital Signs 03/26/23 07:48 Height 4 ft 11 in Weight 127 lb 13.89 oz BMI 25.8 BP 152/76 H Blood Pressure Location Lt brachial Position Sitting Intake Visit Reasons: S/p colon Intake Note: Marva presents in the office as a follow up colonoscopy. CC: She is here today for results to her colonoscopy. She has heartburn and takes omeprazole prn. She was doing a probiotic drink that seemed to help her but she noticed she was having burps that stuff came up. Allergies sulfamethoxazole [From Bactrim] Allergy (Mild, Verified 03/26/23 07:49) upset stomach trimethoprim [From Bactrim] Allergy (Mild, Verified 03/26/23 07:49) upset stomach Medication List - Last Reconciled 03/26/23 by Coy Benson MD metoprolol tartrate 25 mg PO BID 90 days naproxen 500 mg PO DAILY PRN omeprazole 20 mg PO DAILY 90 days pravastatin 80 mg PO BEDTIME triamterene-hydrochlorothiazid 75-50 mg 1 tab PO DAILY HPI S/p colon HPI Details GI clinic visit for this 77-YEAR-OLD FEMALE FOR FOLLOW-UP OF POSTPRANDIAL DIARRHEA AND A PANCREATIC LESION.? PATIENT IS STATUS POST CHOLECYSTECTOMY AND PARTIAL COLECTOMY DUE TO DIVERTICULITIS. CHRONIC ILLNESSES:?GERD-diet controlled, osteopenia, diverticulitis c h/o surgery, Hypothyroidism, hyperlipidemia, hypertension, Ulcerative colitis- quiescent, Partial colectomy 1979 due to diverticulitis, Colon polyps, Scoliosis and Neck pain ?LABS:?11/06 Reviewed. ?IMAGING STUDIES:? 10/23/[address] SCAN SHOWED: ? Stable 7 mm fatty lesion in the pancreas suggestive of a benign lipoma. Postsurgical changes following right colectomy. Severe diverticulosis of the distal colon. No evidence of diverticulitis. ?02/07/20? MRI SHOWED: ? Stable 7 x 8 mm fatty lesion at the junction of the body and tail of ? the pancreas suggestive of a lipoma. Diverticulosis of the colon. ? Stable small probable complex left renal cyst. 03/15/23 COLONOSCOPY SHOWED: No polyps were detected Random biopsies were obtained from right and left colon to check for microscopic colitis Moderate to severe diverticulosis seen in the entire colon Moderate hemorrhoids on retroflexed exam. Plan: Given advanced age and negative colonoscopies, colon cancer screening can be discontinued unless patient has lower GI symptoms ? TODAY'S VISIT Colonoscopy results reviewed. Has diarrhea alternating with constipation. Takes Omeprazole prn Started taking a probiotic drink from [employer] Notes some burping after drinking it and advised to take 1/2 twice a day PAST VISITS: Notes intermittent LLQ pain and resolves after she has a BM. Thinks pain is related to her diet. Can have 1-3 BMs a day and once in a great while, she does not go at all and then gets into trouble. Eats a lot of fruits and vegetables which helps with constipation Notes intermittent heartburn associated with certain foods Takes Omeprazole when she has abd pain and it helps. Wakes up with a dry mouth in the morning and mouth feels bitter. End of Jul, she had upper abdominal pain and BP was elevated to 200 systolic. [facility]en at [facility] and admitted to the hospital with chest pain and abnormal EKG Continues to have upper abd/lower chest pain depending on what she eats - a dull, hurting pain. Pain radiated to the back. Noted nausea and a lot of bitter taste in her mouth and dry mouth Has not been taking Omeprazole - keeps forgetting to take it. Gets dehydrated and drinks quite a bit of water. Has gained 5 lbs and planning to loose it. Continues to have intermittent diarrhea since GB surgery - its getting better. ? related to cabbage and pretzels Has a PHAN every single day for the past 3 weeks - also has a problem with one of her upper teeth. Urgent FU appt scheduled since pt called on 05/28/22: pt called in and stated that her diverticulitis is acting up she is having consistent abdominal pain all over. She is a bit worried and wants to make sure everything is ok . Had cortisone injection in both shoulders and had a severe reaction with nausea and vomiting. Has been doing Ok - gets twinges and lower abdominal pain. Feels better after she has a BM. Has a BM daily - depends on what she eats. Has a lot of anxiety. Also notes pain in the RUQ and epigastric and lower chest area. Eats only one meal a day, likes to snack in between. Eats fruits and vegetables. Likes sweets. Has intermittent RUQ pain which is pinching in character. Has pain once in a while ? Has abdominal pain off and on which is manageable. ? Pain is not too bad. ? Gets pain when she gets constipated. Has diarrhea related to some foods. ? There is one antibiotic she does not want to take which caused her to be depressed for a week - she will check in her portal and send me a message with the name of the antibiotic. ? ? ? Noted some pain under her right breast - not effected by breathing and coughing. ? ? ? Stopped taking her vitamins and supplements and GERD symptoms have improved - advised to resume taking vitamin-D every other day. ?? ? To resume supplements 1 medicine at a time ? Staying home mostly ? Does not want to get the COVID vaccine yet ? ? ? I have been getting a dull pain which radiates to the lower back. Sometimes gets pain on the left side and sometimes on the right side. Pain feels a little bit different. ? ? ? Can have a dull pain after taking MVI, CQ10 ?? ? Denies problems with diarrhea or constipation [facility] Medical History GERD (gastroesophageal reflux disease) Chronic pain of both shoulders Vaccination declined Compound nevus Abnormal MRI of abdomen IBS (irritable bowel syndrome) Mixed dyslipidemia Osteoporosis Essential hypertension Anxiety disorder Surgical History Hx of colonoscopy History of laparoscopic cholecystectomy History of tonsillectomy History of section History of partial colectomy Family History Father No problems noted. Mother Depression HTN (hypertension) CHF (congestive heart failure) CVD (cardiovascular disease) Sister No problems noted. Sister No problems noted. Daughter No problems noted. Social History Household Members: Family Housing: House Do you presently have visiting nurse or other home services: No Alcohol intake: never Patient Tobacco Use Status: Former Tobacco user e-Cigarette/Vaping Use: Never Used service: No Current occupational status: retired Cognitive needs: No Hearing needs: No Vision needs: No Review of Systems Const All systems reviewed & are unremarkable except as noted in HPI and below Physical Exam Vital Signs: Last Vital Signs BP 152/76 H 03/26/23 07:48 BMI result Body Mass Index 25.8 Const General: healthy appearing and no acute distress Nutritional Appearance: average body habitus Orientation/consciousness: patient oriented x3 Limitations: no limitations HEENT Head: Yes normal to inspection Ears: hearing grossly normal bilaterally Mouth: Normal oral and palatal mucosa present Eyes Sclerae: sclerae normal Pupils: Equal, round and reactive pupils present Neck Neck: Yes normal visual inspection Chest Chest palpation & inspection: normal inspection of the chest Resp Effort & Inspection: normal respiratory effort Auscultation: clear to auscultation bilaterally Cardio Palpation: normal PMI Rate: regular rate Rhythm: regular rhythm Heart sounds: S1 normal heart sound present, S2 normal heart sound present and no murmurs GI Palpation (GI): Soft to palpation, nontender and No hepatosplenomegaly present Auscultation: normal bowel sounds Rectal Exam - Female: deferred Skin General skin exam: no rashes or lesions noted Neuro General: patient oriented x3, gait normal and moves all extremities Cranial nerves: Yes Equal, round and reactive pupils present Psych Appearance: grossly normal Mental Status: mental status grossly normal Assessment & Plan Assessment & Plan (1) GERD (gastroesophageal reflux disease): Code(s): K21.9 - Gastro-esophageal reflux disease without esophagitis (2) IBS (irritable bowel syndrome): Code(s): K58.9 - Irritable bowel syndrome without diarrhea Qualifiers: Irritable bowel syndrome type: with both diarrhea and constipation Qualified Code(s): K58.2 - Mixed irritable bowel syndrome Plan 77 YF with GERD-diet controlled, osteopenia, diverticulitis c h/o surgery, Hypothyroidism, hyperlipidemia, hypertension, Partial colectomy 1979 due to perforated diverticulum, Colon polyps, Scoliosis and Neck pain Pt had Gallbladder surgery in May- feeling better but still having loose stools, aware that it is a side effect of surgery. Pt is aware that Citrucel can be helpful for management of loose stools. Residual diverticulosis noted on 2013 colonoscopy. Feels slight discomfort in LLQ- no pain or bleeding- aware of diverticulosis finding and advised to take Citrucel daily. Abnormal MRI of abdomen - MRCP showed a 7-8 mm Lipoma in body of pancreas stable over the past 2 years and no further workup advised. Pt complains of a dull abdominal pain radiating to the lower back (sometimes on the right and sometimes on the left side) 10/[address] scan showed a stable 7 mm fatty lesion in the pancreas suggestive of a benign lipoma, postsurgical changes following right colectomy. Severe diverticulosis of the distal colon without evidence of diverticulitis. Pt was advised to take Miralax twice a week for constipation and monitor her symptoms. She prefers to have all the labs drawn on a single visit since she has a difficult IV stick. 03/15/23 colonoscopy (last colon was in 2013) was performed and results as noted above Pt can stop having additional colonoscopies in the future FU in 8 months - pt will call to schedule her Fu appt Medications: Changed From triamterene-hydrochlorothiazid 75-50 mg 1 tab PO DAILY 90 tabs 1RF To triamterene-hydrochlorothiazid 75-50 mg 1 tab PO DAILY Coding Level of Care Code Est Pt Level 3 (95076) Diagnoses GERD (gastroesophageal reflux disease) K21.9 Irritable bowel syndrome with both constipation and diarrhea K58.2 Irritable bowel syndrome type: with both diarrhea and constipation Time Spent (min) 19
[2023-03-26 07:48] VITALS: BP 152/76; BMI 25.8
== END 2023-03-26 08:30 | disposition home or self-care (01) ==
PROVIDERS: PCP Internal Medicine; Visit Provider Internal Medicine Gastroenterology
DX: K21.9 Gastro-esophageal reflux disease without esophagitis (principal); K58.2 Mixed irritable bowel syndrome
CPT/HCPCS: 99213

== ENCOUNTER → 2023-03-26 07:41 | Outpatient (BNVA) | payer MEDICARE, SELFPAY | PROVIDERS: PCP Internal Medicine; Visit Provider Internal Medicine Gastroenterology | DX: K21.9 Gastro-esophageal reflux disease without esophagitis (principal); K58.2 Mixed irritable bowel syndrome; Z98.890 Other specified postprocedural states | CPT/HCPCS: 99212 ==

== ENCOUNTER 2023-04-13 06:30 | Outpatient (REF) | payer MEDICARE, SELFPAY ==
[2023-04-13 11:58] LABS: Alanine Aminotransferase 11 U/L (0-31); Anion Gap 14 (12-20); Aspartate Amino Transferase 18 U/L (5-31); Blood Urea Nitrogen 18 mg/dL (9-16); Calcium 10.1 mg/dL (8.4-10.2); Carbon Dioxide 28 mmol/L (22-29); Chloride 102 mmol/L (96-108); Cholesterol 194 mg/dL (<200); Estimated Glomerular Filt Rate > 60; Glucose Fasting 101 mg/dL (60-99); HDL Cholesterol 55 mg/dL (>40); LDL Cholesterol Calculated 114 mg/dL (<100); Potassium 3.5 mmol/L (3.3-5.1); Sodium 140 mmol/L (135-145); Triglycerides 126 mg/dL (<150)
[2023-04-13 12:17] LABS: Vitamin D 25-OH Total 37.8 ng/mL (>30)
== END 2023-04-13 06:31 | disposition home or self-care (01) ==
LOC: HO.HMGCLDS 06:30
PROVIDERS: PCP Internal Medicine; Visit Provider Internal Medicine
DX: R10.13 Epigastric pain (principal); E78.2 Mixed hyperlipidemia; I10 Essential (primary) hypertension; M81.0 Age-related osteoporosis without current pathological fracture; N95.9 Unspecified menopausal and perimenopausal disorder
CPT/HCPCS: 36415; 80048; 80061; 82306; 84450; 84460

== ENCOUNTER 2023-05-10 08:05 | Outpatient (AMB) | payer MEDICARE, SELFPAY ==
--- NOTE | 2023-05-10 08:37 | AM.OFFWIN_ITS ---
Intake Vital Signs 05/10/23 08:38 Height 4 ft 11 in Weight 129 lb BMI 26.1 BP 130/70 Blood Pressure Location Lt brachial Position Sitting Pulse 85 Pulse Source Pulse Oximeter Temp 97.1 F Pulse Oximetry (%) 98 Intake Visit Reasons: EP Heart Palpitation Intake Note: pt is here today for heart palpitation Patient Tobacco Use Status: Former Tobacco user Allergies sulfamethoxazole [From Bactrim] Allergy (Mild, Verified 05/10/23 09:29) upset stomach trimethoprim [From Bactrim] Allergy (Mild, Verified 05/10/23 09:29) upset stomach Medication List - Last Reconciled 05/10/23 by Cody Lagunas MD metoprolol tartrate 25 mg PO BID 90 days naproxen 500 mg PO DAILY PRN omeprazole 20 mg PO DAILY 90 days pravastatin 80 mg PO BEDTIME triamterene-hydrochlorothiazid 75-50 mg 1 tab PO DAILY Do you need a note to return to daycare/school/sports/work: No HPI EP Heart Palpitation HPI Details 77-year-old female [facility] sick [facility]. Patient is reporting palpitations. She describes them as extra beats. Not associated with any shortness of breath or diaphoresis. No fevers or chills. No nausea or vomiting. Symptoms disappeared while sleeping and she had a few extra beats again this morning. [facility] Medical History GERD (gastroesophageal reflux disease) Chronic pain of both shoulders Vaccination declined Compound nevus Abnormal MRI of abdomen IBS (irritable bowel syndrome) Mixed dyslipidemia Osteoporosis Essential hypertension Anxiety disorder Surgical History Hx of colonoscopy History of laparoscopic cholecystectomy History of tonsillectomy History of section History of partial colectomy Family History Father No problems noted. Mother Depression HTN (hypertension) CHF (congestive heart failure) CVD (cardiovascular disease) Sister No problems noted. Sister No problems noted. Daughter No problems noted. Social History Household Members: Family Housing: House Do you presently have visiting nurse or other home services: No Alcohol intake: never Patient Tobacco Use Status: Former Tobacco user e-Cigarette/Vaping Use: Never Used service: No Current occupational status: retired Cognitive needs: No Hearing needs: No Vision needs: No Physical Exam Vital Signs: Last Vital Signs Temp 97.1 F 05/10/23 08:38 Pulse 85 05/10/23 08:38 BP 130/70 05/10/23 08:38 Pulse Ox 98 05/10/23 08:38 BMI result Body Mass Index 26.1 Const General: cooperative and healthy appearing Nutritional Appearance: well nourished Orientation/consciousness: patient oriented x3 Limitations: no limitations HEENT Head: Yes normal to inspection Eyes General: appearance normal, both eyes and all related structures Neck Neck: Yes normal visual inspection Chest Chest palpation & inspection: normal palpation of entire chest wall Resp Effort & Inspection: normal respiratory effort Neuro General: patient oriented x3 Office Procedures EKG Details: Normal sinus rhythm. T-wave inversions. Not new compared to EKG done earlier this year. [id number], Complete Assessment & Plan Assessment & Plan (1) Palpitation: Code(s): R00.2 - Palpitations Plan EKG shows no changes compared to the 1 done in July of this year. She subsequently had a full workup including a stress test. Patient was reassured. No extra beats were recorded on the EKG or during examination of her pulse. Patient was advised to restart her beta-feli. Orders: Orders AMB EKG-In Office Today R07.9 - Chest pain, unspecified Coding Level of Care Code Est Pt Level 4 (02975) Diagnoses Palpitation R00.2 CPT Codes EKG - CPT: 50377-[id number], Complete ([id number])
[2023-05-10 08:38] VITALS: BP 130/70; PULSE 85; TEMP 36.2; O2SAT 98; BMI 26.1
== END 2023-05-10 09:34 | disposition home or self-care (01) ==
PROVIDERS: PCP Internal Medicine; Visit Provider Internal Medicine
DX: R00.2 Palpitations (principal)
CPT/HCPCS: 93000; 99214

== ENCOUNTER 2023-07-27 12:57 | Outpatient (AMB) | payer MEDICARE, SELFPAY ==
[2023-07-27 13:19] VITALS: BP 160/78; PULSE 59; O2SAT 99; BMI 26.8
--- NOTE | 2023-07-27 13:19 | A.OFFPC_ITS ---
Vital Signs 07/27/23 13:19 Height 4 ft 11 in Weight 132 lb 8 oz BMI 26.8 BP 160/78 H Blood Pressure Location Lt brachial Position Sitting Pulse 59 Pulse Source Pulse Oximeter Pulse Oximetry (%) 99 Oxygen Delivery Method Room Air Intake Visit Reasons: Palpitations x 2 months Intake Note: pt is here for palpitations off and on for a few months she says she feels something heavy in her stomach and she has a sinus like mucus that comes up with this Allergies sulfamethoxazole [From Bactrim] Allergy (Mild, Verified 08/11/23 02:58) upset stomach trimethoprim [From Bactrim] Allergy (Mild, Verified 08/11/23 02:58) upset stomach Medication List - Last Reconciled 08/11/23 by Tri Richter MD metoprolol tartrate 25 mg PO BID 90 days naproxen 500 mg PO DAILY PRN omeprazole 20 mg PO DAILY 90 days pravastatin 80 mg PO BEDTIME triamterene-hydrochlorothiazid 75-50 mg 1 tab PO DAILY Tobacco use date assessed: 07/27/23 Fall risk assessment: No Falls in past year Last assessed Fall Risk: 07/27/23 Dental Screening Dental Screen Date: 07/27/23 Did you have a dental visit in the last 12 months?: Yes Did you have a dental problem in the last 6 months where you did not have access to dental care?: No Was dental information given to patient?: Patient has dentist HPI Palpitations x 2 months HPI Details 77-year-old lady here today having of mclaughlin ving intermittent episodes of palpitations , which usually lost several seconds to a minute, happening now for the last 2 months. Denies any accompanying chest pain or lightheadedness or shortness of breath. She however does complain dyspepsia and occasional epigastric tightness, usually after eating heavy meals. She was seen and evaluated by Cardiology last year and had an Exercise stress test with exercise 5 min of [place] protocol, achieving 98% MPHR, with fatigue and thirst, no sob or chest discomfort, without arrythmia, with normotensive response to exercise, with nondiagnostic EKG for ischemia. An echocardiogram was also done July 2022 which showed normal findings, with no valvular pathology and normal LVEF. [facility] Medical History GERD (gastroesophageal reflux disease) Chronic pain of both shoulders Vaccination declined Compound nevus Abnormal MRI of abdomen IBS (irritable bowel syndrome) Mixed dyslipidemia Osteoporosis Essential hypertension Anxiety disorder Surgical History Hx of colonoscopy History of laparoscopic cholecystectomy History of tonsillectomy History of section History of partial colectomy Family History Father No problems noted. Mother Depression HTN (hypertension) CHF (congestive heart failure) CVD (cardiovascular disease) Sister No problems noted. Sister No problems noted. Daughter No problems noted. Social History Household Members: Family Housing: House Do you presently have visiting nurse or other home services: No Alcohol intake: never Patient Tobacco Use Status: Former Tobacco user e-Cigarette/Vaping Use: Never Used service: No Current occupational status: retired Cognitive needs: No Hearing needs: No Vision needs: No Questionnaire MARGUERITE-7 AMB Questionnaire MARGUERITE-7 Date MARGUERITE - 7 assessed: 11/11/22 Source: Developed by Drs. Wally Ryan, Ashwini Tovar, Fransisco Munroe and colleagues, with an educational beto from [employer]. Review of Systems Const All systems reviewed & are unremarkable except as noted in HPI and below Physical exam (Primary Care) Vital Signs: Last Vital Signs Pulse 59 07/27/23 13:19 BP 160/78 H 07/27/23 13:19 Pulse Ox 99 07/27/23 13:19 Oxygen Delivery Method Room Air 07/27/23 13:19 BMI result Body Mass Index 26.8 Tobacco/Smoking Status: Tobacco use Status Tobacco use date assessed 07/27/23 07/27/23 13:26 Patient Tobacco Use Status Former Tobacco user 07/27/23 13:26 e-Cigarette/Vaping Use Never Used 07/27/23 13:26 Const Other: Alert oriented x3, no acute distress noted ambulatory normal gait Orientation/consciousness: patient oriented x3 HENWI General nose exam: Normal external nose present and No nasal discharge present Face and sinus: Yes face symmetric Mouth: moist mucous membranes Neck Neck: Yes full ROM, Yes no lymphadenopathy and Yes supple Resp Auscultation: clear to auscultation bilaterally Cardio Rate: regular rate Rhythm: regular rhythm Heart sounds: S1 normal heart sound present and S2 normal heart sound present GI Palpation (GI): Soft to palpation and no guarding Auscultation: normal bowel sounds Skin General skin exam: no rashes or lesions noted Neuro General: patient oriented x3, gait normal, moves all extremities, Normal light touch and pain sensation and no focal motor deficits Extrem General: Yes full ROM, Yes no joint enlargement, Yes no clubbing, cyanosis or edema, Yes no pedal edema and Yes normal gait Assessment and Plan Assessment & Plan (1) GERD (gastroesophageal reflux disease): Code(s): K21.9 - Gastro-esophageal reflux disease without esophagitis Plan: Continue with omeprazole 20 mg per capsule to take once a day an hour before eating for at least 2 months. Advised to let us know if symptoms persists despite taking omeprazole Coding Level of Care Code Est Pt Level 3 (07292) Diagnoses GERD (gastroesophageal reflux disease) K21.9
== END 2023-07-27 13:51 | disposition home or self-care (01) ==
PROVIDERS: PCP Internal Medicine; Visit Provider Internal Medicine
DX: K21.9 Gastro-esophageal reflux disease without esophagitis (principal)
CPT/HCPCS: 99213

== ENCOUNTER 2023-08-23 11:53 | Outpatient (AMB) | payer MEDICARE, SELFPAY ==
--- NOTE | 2023-08-23 12:38 | MHC.PC.OV ---
Vital Signs 08/23/23 12:41 Height 4 ft 11 in Weight 132 lb 6 oz BMI 26.7 BP 142/68 H Blood Pressure Location Lt brachial Position Sitting Pulse 56 Pulse Source Pulse Oximeter Pulse Oximetry (%) 95 Oxygen Delivery Method Room Air Intake Visit Reasons: 1 M follow up Intake Note: Pt is here today for 1 month f/u. Allergies sulfamethoxazole [From Bactrim] Allergy (Mild, Verified 08/23/23 12:54) upset stomach trimethoprim [From Bactrim] Allergy (Mild, Verified 08/23/23 12:54) upset stomach Medication List - Last Reconciled 08/23/23 by Tri Richter MD metoprolol tartrate 25 mg PO BID 90 days naproxen 500 mg PO DAILY PRN omeprazole 20 mg PO DAILY 90 days pravastatin 80 mg PO BEDTIME triamterene-hydrochlorothiazid 75-50 mg 1 tab PO DAILY Tobacco use date assessed: 08/23/23 Fall risk assessment: No Falls in past year Last assessed Fall Risk: 08/23/23 Dental Screening Dental Screen Date: 08/23/23 Did you have a dental visit in the last 12 months?: No Did you have a dental problem in the last 6 months where you did not have access to dental care?: No Was dental information given to patient?: No HPI 1 M follow up HPI Details 77-year-old lady here today for follow-up on her hypertension. She is currently taking metoprolol tartrate 25 mg 1 tablet twice a day and triamterene hydrochlorothiazide 75-50 mg once daily in a.m.. She has been trying to follow us low-salt diet and has cut back on her sweets, but admits to not getting much exercise lately. She still has been having intermittent episodes of palpitations despite taking metoprolol. These are short-lived and last several seconds and resolved spontaneously. [facility] Medical History (Updated 08/23/23 @ 13:02 by Tri Richter MD) Intermittent palpitations GERD (gastroesophageal reflux disease) Chronic pain of both shoulders Vaccination declined Compound nevus Abnormal MRI of abdomen IBS (irritable bowel syndrome) Mixed dyslipidemia Osteoporosis Essential hypertension Anxiety disorder Surgical History Hx of colonoscopy History of laparoscopic cholecystectomy History of tonsillectomy History of section History of partial colectomy Family History Father No problems noted. Mother Depression HTN (hypertension) CHF (congestive heart failure) CVD (cardiovascular disease) Sister No problems noted. Sister No problems noted. Daughter No problems noted. Social History Household Members: Family Housing: House Do you presently have visiting nurse or other home services: No Alcohol intake: never Patient Tobacco Use Status: Former Tobacco user e-Cigarette/Vaping Use: Never Used service: No Current occupational status: retired Cognitive needs: No Hearing needs: No Vision needs: No Questionnaire AUDIT C Alcohol Use Questionnaire (AUDIT-C) 1. How often do you have a drink containing alcohol?: Never 3. How often do you have six or more drinks on one occasion?: Never Total Score: 0 Score Reviewed/Action Taken: Yes MARGUERITE-7 AMB Questionnaire MARGUEIRTE-7 Date MARGUERITE - 7 assessed: 11/11/22 Source: Developed by Drs. Wally Ryan, Ashwini Tovar, Fransisco Munroe and colleagues, with an educational beto from [employer]. Review of Systems Const All systems reviewed & are unremarkable except as noted in HPI and below Denies fever(s), Denies headache(s), Denies malaise and Denies weakness Eyes Denies change in vision ENT Denies dysphagia, Denies dizziness and Denies headache(s) Card Denies chest pain, Denies leg edema and Denies dyspnea on exertion Resp Denies cough and Denies dyspnea on exertion GI Denies abdominal pain, Denies change in bowel habits and Denies dysphagia Denies difficulty voiding and Denies dysuria Musc Denies back pain, Reports arthralgias ( shoulder) and Reports stiffness Neuro Denies Abnormal speech present, Denies dizziness, Denies headache(s), Denies seizure-like activity and Denies weakness Psych Denies anxiety, Denies depression and Denies panic attacks Endo Denies cold intolerance, Denies flushing and Denies heat intolerance Augie/Lymph Denies easy bleeding and Denies easy bruising Aller/Immun Reports no additional complaints Physical exam (Primary Care) Vital Signs: Last Vital Signs Pulse 56 08/23/23 12:41 BP 142/68 H 08/23/23 12:41 Pulse Ox 95 08/23/23 12:41 Oxygen Delivery Method Room Air 08/23/23 12:41 BMI result Body Mass Index 26.7 Tobacco/Smoking Status: Tobacco use Status Tobacco use date assessed 08/23/23 08/23/23 12:44 Patient Tobacco Use Status Former Tobacco user 08/23/23 12:44 e-Cigarette/Vaping Use Never Used 08/23/23 12:44 Const Other: Alert oriented x3, no acute distress noted ambulatory normal gait Orientation/consciousness: patient oriented x3 [facility] General nose exam: Normal external nose present Face and sinus: Yes face symmetric Mouth: moist mucous membranes Neck Neck: Yes full ROM, Yes no lymphadenopathy and Yes supple Resp Auscultation: clear to auscultation bilaterally Cardio Rate: regular rate Rhythm: regular rhythm Heart sounds: S1 normal heart sound present and S2 normal heart sound present GI Palpation (GI): Soft to palpation and no guarding Auscultation: normal bowel sounds Skin General skin exam: no rashes or lesions noted Neuro General: patient oriented x3, gait normal, moves all extremities, Normal light touch and pain sensation and no focal motor deficits Speech: No Abnormal speech present Extrem General: Yes full ROM, Yes no joint enlargement, Yes no clubbing, cyanosis or edema, Yes no pedal edema and Yes normal gait Assessment and Plan Assessment & Plan (1) Intermittent palpitations: Code(s): R00.2 - Palpitations Plan: Referred to cardiology for further evaluation, continue with metoprolol tartrate 25 mg twice a day. CBC and TSH and free T4 ordered (2) Essential hypertension: Code(s): I10 - Essential (primary) hypertension Plan: Continue with current medication. Reinforced importance of following a low sodium diet, getting regular exercise, and lowering stress levels. Fasting lipid panel , basic metabolic panel, vitamin-D level ordered Orders: Orders Lipid Panel 10/18/23 E78.2 - Mixed hyperlipidemia, I10 - Essential (primary) hypertension, M81.0 - Age-related osteoporosis without current pathological fracture, R00.2 - Palpitations Hemoglobin and Hematocrit 10/18/23 E78.2 - Mixed hyperlipidemia, I10 - Essential (primary) hypertension, M81.0 - Age-related osteoporosis without current pathological fracture, R00.2 - Palpitations Basic Metabolic Panel Fasting 10/18/23 E78.2 - Mixed hyperlipidemia, I10 - Essential (primary) hypertension, M81.0 - Age-related osteoporosis without current pathological fracture, R00.2 - Palpitations Vitamin D 25-OH Total 10/18/23 E78.2 - Mixed hyperlipidemia, I10 - Essential (primary) hypertension, M81.0 - Age-related osteoporosis without current pathological fracture, R00.2 - Palpitations TSH reflex Free T4 10/18/23 E78.2 - Mixed hyperlipidemia, I10 - Essential (primary) hypertension, M81.0 - Age-related osteoporosis without current pathological fracture, R00.2 - Palpitations Alanine Aminotransferase 10/18/23 E78.2 - Mixed hyperlipidemia, I10 - Essential (primary) hypertension, M81.0 - Age-related osteoporosis without current pathological fracture, R00.2 - Palpitations Aspartate Amino Transferase 10/18/23 E78.2 - Mixed hyperlipidemia, I10 - Essential (primary) hypertension, M81.0 - Age-related osteoporosis without current pathological fracture, R00.2 - Palpitations Referrals Cardiology Referral R00.2 - Palpitations Coding Level of Care Code Est Pt Level 3 (15004) Diagnoses Intermittent palpitations R00.2 Essential hypertension I10
[2023-08-23 12:41] VITALS: BP 142/68; PULSE 56; O2SAT 95; BMI 26.7
== END 2023-08-23 13:14 | disposition home or self-care (01) ==
PROVIDERS: PCP Internal Medicine; Visit Provider Internal Medicine
DX: R00.2 Palpitations (principal); I10 Essential (primary) hypertension
CPT/HCPCS: 99213

== ENCOUNTER 2023-09-14 13:55 | Outpatient (AMB) | payer MEDICARE, SELFPAY ==
[2023-09-14 14:42] VITALS: BP 140/68; PULSE 68; BMI 26.6
--- NOTE | 2023-09-14 14:42 | MHC.OFFVIS ---
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 She reports over the last few weeks she has had random intermittent episodes of feeling like her heart is racing fast. Happens for a few minutes and resolves. They occur daily. She denies shortness of breath, chest pains, or dizziness. She drinks one cup of coffee a day and reports high stress at home. She has a history of HTN which she reports to always be high. [facility] Medical History (Updated 08/23/23 @ 13:02 by Tri Richter MD) Intermittent palpitations GERD (gastroesophageal reflux disease) Chronic pain of both shoulders Vaccination declined Compound nevus Abnormal MRI of abdomen IBS (irritable bowel syndrome) Mixed dyslipidemia Osteoporosis Essential hypertension Anxiety disorder Surgical History Hx of colonoscopy History of laparoscopic cholecystectomy History of tonsillectomy History of section History of partial colectomy Family History Father No problems noted. Mother Depression HTN (hypertension) CHF (congestive heart failure) CVD (cardiovascular disease) Sister No problems noted. Sister No problems noted. Daughter No problems noted. Social History Household Members: Family Housing: House Do you presently have visiting nurse or other home services: No Alcohol intake: never Patient Tobacco Use Status: Former Tobacco user e-Cigarette/Vaping Use: Never Used service: No Current occupational status: retired Cognitive needs: No Hearing needs: No Vision needs: No Review of Systems Const Denies weakness ENT Denies dizziness Card Denies chest pain, Denies chest pain with activity, Denies syncope, Denies rapid heart rate, Denies pedal edema, Denies edema, Denies leg edema, Denies lightheadedness, Denies palpitations, Denies dyspnea, Denies dyspnea on exertion and Denies orthopnea Resp Denies cough, Denies dyspnea and Denies dyspnea on exertion GI Denies hematochezia and Denies change in stool character Musc Denies abnormal gait, Denies muscle cramps, Denies muscle weakness, Denies numbness, Denies radiating pain into limb and Denies tingling Neuro Denies abnormal gait, Denies dizziness, Denies syncope, Denies numbness, Denies tingling and Denies weakness Endo Denies palpitations Physical Exam Vital Signs: Last Vital Signs Pulse 68 09/14/23 14:42 BP 140/70 H 09/14/23 15:04 BMI result Body Mass Index 26.6 Assessment & Plan Assessment & Plan (1) Intermittent palpitations: Code(s): R00.2 - Palpitations (2) Essential hypertension: Code(s): I10 - Essential (primary) hypertension Plan Patient with history of blood pressures being elevated. Reports today reading is higher then her usual but she was upset due to the wait. She is going to check the pressures at home and bring the log in for next appointment. Will check holter for assessment of arrhythmias. Any sustained arrhythmias ED care. Stress reduction, avoidance of caffeine, and sleep hygiene discussed. Will follow-up after holter. Orders: Orders ECG 3 day holter monitor 09/14/23 R00.2 - Palpitations Coding Level of Care Code Est Pt Level 3 (00942) Diagnoses Intermittent palpitations R00.2 Essential hypertension I10
[2023-09-14 15:04] VITALS: BP 140/70
== END 2023-09-14 15:06 | disposition home or self-care (01) ==
PROVIDERS: PCP Internal Medicine; Visit Provider Nurse Practitioner
DX: R00.2 Palpitations (principal); I10 Essential (primary) hypertension
CPT/HCPCS: 99213

== ENCOUNTER → 2023-09-14 13:55 | Outpatient (BNVA) | payer MEDICARE, SELFPAY | PROVIDERS: PCP Internal Medicine; Visit Provider Nurse Practitioner | DX: R00.2 Palpitations (principal); I10 Essential (primary) hypertension | CPT/HCPCS: 99212 ==

== ENCOUNTER → 2023-09-24 09:46 | Outpatient (REF) | payer MEDICARE, SELFPAY ==
--- NOTE | 2023-09-24 09:52 | HM_ITS ---
Conclusion: 1. Patient was monitored for total period of 2 days and 23 hours 2. Baseline was normal sinus rhythm with average heart of 68 beats per minute 3. No significant pauses or arrhythmias noted 4. No patient reported events MTDD
== END ==
LOC: HO.CARD 09:46
PROVIDERS: Visit Provider Nurse Practitioner
DX: R00.2 Palpitations (principal)
CPT/HCPCS: 93242

== ENCOUNTER → 2023-09-24 09:52 | Outpatient (BNV) | payer MEDICARE, SELFPAY | PROVIDERS: Visit Provider Internal Medicine Cardiovascular Disease | DX: R00.2 Palpitations (principal) | CPT/HCPCS: 93244 ==

== ENCOUNTER 2023-11-15 11:19 | Outpatient (AMB) | payer MEDICARE, SELFPAY ==
--- NOTE | 2023-11-15 11:51 | A.OFFPC_ITS ---
Vital Signs 11/15/23 12:20 11/15/23 14:02 Height 4 ft 11 in Weight 128 lb BMI 25.9 BP 150/80 H 140/80 H Blood Pressure Location Lt brachial Rt brachial Position Sitting Sitting Pulse 60 Pulse Source Pulse Oximeter Pulse Oximetry (%) 97 Oxygen Delivery Method Room Air Intake Visit Reasons: PE/OK per Dr. Richter Intake Note: Pt is here today for her PE: Last mammogram 10/30/20, bone density scan 09/19/15, colonoscopy 03/15/23 Allergies sulfamethoxazole [From Bactrim] Allergy (Mild, Verified 11/15/23 12:36) upset stomach trimethoprim [From Bactrim] Allergy (Mild, Verified 11/15/23 12:36) upset stomach Medication List - Last Reconciled 11/15/23 by Tri Richter MD metoprolol tartrate 25 mg PO BID 90 days naproxen 500 mg PO DAILY PRN pravastatin 80 mg PO BEDTIME triamterene-hydrochlorothiazid 75-50 mg 1 tab PO DAILY Tobacco use date assessed: 11/15/23 Fall risk assessment: No Falls in past year Last assessed Fall Risk: 11/15/23 Dental Screening Dental Screen Date: 11/15/23 Did you have a dental visit in the last 12 months?: Yes Did you have a dental problem in the last 6 months where you did not have access to dental care?: Yes Was dental information given to patient?: Patient has dentist HPI PE/OK per Dr. Richter HPI Details 78 year old lady here today for her physical exam. S he has GERD , but still gets intermi ttent episodes of epigastric pain ac companied by diffi culty swallowing h er pills. She was given a prescript ion for omeprazole , but takes it on ly as needed. She has history of di verticulitis s/p p artial colectomyin 1979 due to perf orated diverticulu m, up-to-date with her screening col onoscopy done by Tino Benson, with no further testing in dicated. She has Hypothyroidis m, Hyperlipidemia, Hypertension,with blood pressure t will slightly elev ated. Denies any chest pain, headac he, no lightheaded ness or shortness of breath. She is overdue for breas t cancer screening , last mammogram w as done in 2020 an d her bone density scan done in 2016 showed presence of osteoporosis in her lumbar spine. She has tried a lendronate in the past but was unabl e to tolerate it d ue to severe nause a and abdominal pa in. She does not want further bone density scan testi ng as she does not want to start any treatment for thi s . She also does not want to get a ny vaccinations. [facility] Medical History (Updated 11/15/23 @ 14:24 by Tri Richter MD) Difficulty swallowing solids Intermittent palpitations GERD (gastroesophageal reflux disease) Chronic pain of both shoulders Vaccination declined Compound nevus Abnormal MRI of abdomen IBS (irritable bowel syndrome) Mixed dyslipidemia Osteoporosis Essential hypertension Anxiety disorder Surgical History Hx of colonoscopy History of laparoscopic cholecystectomy History of tonsillectomy History of section History of partial colectomy Family History Father No problems noted. Mother Depression HTN (hypertension) CHF (congestive heart failure) CVD (cardiovascular disease) Sister No problems noted. Sister No problems noted. Daughter No problems noted. Social History Household Members: Family Housing: House Do you presently have visiting nurse or other home services: No Alcohol intake: never Patient Tobacco Use Status: Former Tobacco user e-Cigarette/Vaping Use: Never Used service: No Current occupational status: retired Cognitive needs: No Hearing needs: No Vision needs: No Questionnaire PHQ-9 Over the last 2 weeks, how often have you been bothered by any of the following problems? 1. Little interest or pleasure in doing things: not at all 2. Feeling down, depressed, or hopeless: not at all 3. Trouble falling or staying asleep, or sleeping too much: not at all 4. Feeling tired or having little energy: not at all 5. Poor appetite or overeating: not at all 6. Feeling bad about yourself - or that you are a failure or have let yourself or your family down: not at all 7. Trouble concentrating on things, such as reading the newspaper or watching television: not at all 8. Moving or speaking so slowly that other people could have noticed. Or the opposite - being so fidgety or restless that you have been moving around a lot more than usual: not at all 9. Thoughts that you would be better off or of hurting yourself in some way: not at all Total score: 0 Depression Screening Interpretation: Negative Depression Screening Done: Yes 81724 - PHQ-9 Billing: Yes Source: Developed by Drs. Wally Ryan, Ashwini Tovar, Fransisco Munroe and colleagues, with an educational beto from [email or web address]. Thrive Questionnaire Date Thrive assessed: 11/15/23 I am a: Patient What is your living situation today?: I have a steady place to live Within the past 12 months, did the food you bought not last and you didn't have the money to get more?: Never true Within the past 12 months, did you worry whether your food would run out before you got money to buy more?: Never true Do you have trouble paying for medicines?: No Do you have trouble getting transportation to medical appointments?: No Do you have trouble paying your heating and electricity bill?: No Do you have trouble taking care of your child, family member or friend?: No Do you have trouble with day-to-day activities such as bathing, preparing meals, shopping, managing finances, etc.?: No Are you currently unemployed and looking for a job?: No Are you interested in more education?: No THRIVE Score: 0 AUDIT C Alcohol Use Questionnaire (AUDIT-C) 1. How often do you have a drink containing alcohol?: Never Total Score: 0 MARGUERITE-7 AMB Questionnaire MARGUERITE-7 Date MARGUERITE - 7 assessed: 11/15/23 Feeling nervous, anxious, or on edge: 0 = Not at all Not being able to stop or control worryin = Not at all Worrying too much about different things: 0 = Not at all Trouble relaxin = Not at all Being so restless that it is hard to sit still: 0 = Not at all Becoming easily annoyed or irritable: 0 = Not at all Feeling afraid as if something awful might happen: 0 = Not at all Total MARGUERITE-7 score (0-4 normal; 5-9 mild; 10-14 moderate; 15-21 severe): 0 Source: Developed by Drs. Wally Ryan, Ashwini Tovar, Fransisco Munroe and colleagues, with an educational beto from [email or web address]. Review of Systems Const Denies fever(s), Denies headache(s), Denies malaise and Denies weakness Eyes Details: Goes to [facility] eye care Denies change in vision ENT Denies dizziness and Denies headache(s) Card Denies chest pain, Denies leg edema and Denies dyspnea on exertion Resp Denies cough and Denies dyspnea on exertion GI Denies change in bowel habits Denies difficulty voiding and Denies dysuria Musc Denies back pain, Reports arthralgias ( shoulder) and Reports stiffness Skin/Breast Denies breast swelling, Denies breast skin changes, Denies breast pain and Denies rash Neuro Denies Abnormal speech present, Denies dizziness, Denies headache(s), Denies seizure-like activity and Denies weakness Psych Denies anxiety and Denies depression Endo Denies cold intolerance, Denies flushing and Denies heat intolerance Augie/Lymph Denies easy bleeding and Denies easy bruising Aller/Immun Reports no additional complaints Physical exam (Primary Care) Vital Signs: Last Vital Signs Pulse 60 11/15/23 12:20 BP 150/80 H 11/15/23 12:20 Pulse Ox 97 11/15/23 12:20 Oxygen Delivery Method Room Air 11/15/23 12:20 BMI result Body Mass Index 25.9 Tobacco/Smoking Status: Tobacco use Status Tobacco use date assessed 11/15/23 11/15/23 11:55 Patient Tobacco Use Status Former Tobacco user 11/15/23 11:55 e-Cigarette/Vaping Use Never Used 11/15/23 11:55 PHQ-9: PHQ-9 Score PHQ-9: Total score 0 11/15/23 13:04 Depression Screening Interpretation: Negative Thrive Assessment: Date of Thrive Assessment Date Thrive assessed 11/15/23 11/15/23 12:25 Advance Care Planning discussion: Completed/Scanned Date of discussion: 11/15/23 Who was present: Patient Forms completed: Health Care Proxy Time spent: 16-45 minutes Actual minutes spent: 16 Const Other: Alert oriented x3, no acute distress noted ambulatory normal gait HENMT Head: Yes normocephalic Ears: hearing grossly normal bilaterally, external ears normal, TM's normal bilaterally and EAC's normal General nose exam: Normal external nose present Face and sinus: Yes face symmetric Mouth: moist mucous membranes Eyes Other: [facility] eye care General: appearance normal, both eyes and all related structures Neck Neck: Yes full ROM, Yes no lymphadenopathy and Yes supple Chest Chest palpation & inspection: normal inspection of the chest Breast/axilla palpation: normal palpation of the breasts Resp Auscultation: clear to auscultation bilaterally Cardio Rate: regular rate Rhythm: regular rhythm Heart sounds: S1 normal heart sound present and S2 normal heart sound present GI Palpation (GI): Soft to palpation and no guarding Auscultation: normal bowel sounds General: Yes CVA tenderness and Yes deferred Back/Spine/Pelvis Back: CVA tenderness Skin General skin exam: no rashes or lesions noted Neuro General: gait normal, moves all extremities, Normal light touch and pain sensation and no focal motor deficits Speech: No Abnormal speech present Extrem Other: Slight tenderness on palpation over right AC joint, no gross bone deformity or joint swelling General: Yes full ROM, Yes no joint enlargement, Yes no clubbing, cyanosis or edema, Yes no pedal edema and Yes normal gait Psych Appearance: grossly normal and well kempt Mental Status: mental status grossly normal Speech and movement: Normal speech and movement present Affect: normal affect Thought process: Normal thought process present Assessment and Plan Assessment & Plan (1) Annual visit for general adult medical examination with abnormal findings: Code(s): Z00.01 - Encounter for general adult medical examination with abnormal findings Plan: Will check appropriate labs. Recommended dental visit every 6 months and regular eye exams, goes to [facility] eye [facility]. Take adequate calcium in diet and vitamin-D 3 at 2000 IU per cap once a day, in addition to weight-bearing exercises to help maintain good muscle tone and weight control. Declined getting bone density scan repeated Instructed to do self-breast exam, and recommended to get yearly mammogram, schedule today. Patient does not want to get any vaccinations. Up-to-date with her screening colonoscopy, no need to repeat (2) GERD (gastroesophageal reflux disease): Code(s): K21.9 - Gastro-esophageal reflux disease without esophagitis Plan: Advised to take omeprazole 20 mg daily (3) Essential hypertension: Code(s): I10 - Essential (primary) hypertension Plan: . Continue with current medication. Reinforced importance of following a low sodium diet, getting regular exercise, and lowering stress levels. (4) Mixed dyslipidemia: Comment: Code(s): E78.2 - Mixed hyperlipidemia Plan: Fasting lipid panel were, continue with pravastatin 80 mg at bedtime and reinforced importance of following a low-cholesterol diet and getting regular exercise (5) Osteoporosis: Code(s): M81.0 - Age-related osteoporosis without current pathological fracture Qualifiers: Osteoporosis type: unspecified Presence of current pathological fracture: without current pathological fracture Qualified Code(s): M81.0 - Age- related osteoporosis without current pathological fracture Plan: Patient declines getting any further bone density scan. Has tried alendronate unable to tolerate, does not want to get any further treatment. Reinforced importance of doing regular weight-bearing exercise, take adequate calcium and vitamin-D supper (6) Osteoarthritis of right shoulder: Code(s): M19.011 - Primary osteoarthritis, right shoulder Qualifiers: Osteoarthritis type: primary Qualified Code(s): M19.011 - Primary osteoarthritis, right shoulder Plan: Prescription sent for diclofenac 1%, to massaged to affected joint Dona 4 times a day as needed. Do not take together with any NSAIDs (7) Epigastric abdominal pain: Code(s): R10.13 - Epigastric pain Plan: Started back on omeprazole, to take as directed, ordered barium swallow with upper GI series (8) Difficulty swallowing solids: Code(s): R13.10 - Dysphagia, unspecified Plan: Upper GI with barium swallow ordered (9) Vaccination declined: Code(s): Z28.21 - Immunization not carried out because of patient refusal Orders: Orders Comprehensive [place]. Panel Fast Today E78.2 - Mixed hyperlipidemia, I10 - Essential (primary) hypertension, K21.9 - Gastro-esophageal reflux disease without esophagitis, K58.2 - Mixed irritable bowel syndrome, M19.011 - Primary osteoarthritis, right shoulder, M81.0 - Age-related osteoporosis without current pathological fracture Lipase Today E78.2 - Mixed hyperlipidemia, I10 - Essential (primary) hypertension, K21.9 - Gastro-esophageal reflux disease without esophagitis, K58.2 - Mixed irritable bowel syndrome, M19.011 - Primary osteoarthritis, right shoulder, M81.0 - Age-related osteoporosis without current pathological fracture MM tomosynthesis screening BI Today Z12.31 - Encounter for screening mammogram for malignant neoplasm of breast FL upper GI w Ba Swallow Today R10.13 - Epigastric pain, R13.10 - Dysphagia, unspecified Amylase Today E78.2 - Mixed hyperlipidemia, I10 - Essential (primary) hypertension, K21.9 - Gastro-esophageal reflux disease without esophagitis, K58.2 - Mixed irritable bowel syndrome, M19.011 - Primary osteoarthritis, right shoulder, M81.0 - Age-related osteoporosis without current pathological fracture Medications: New diclofenac sodium 1% apply to single knee, ankle, foot; for foot includes sole/toes/top of foot 4 grams topical QID 100 grams 0RF omeprazole 40 mg PO DAILY 30 caps 2RF Refilled triamterene-hydrochlorothiazid 75-50 mg 1 tab PO DAILY 90 tabs 4RF Coding Level of Care Code Est Pt Prev Care >65y(34296) Diagnoses Annual visit for general adult medical examination with abnormal findings Z00.01 GERD (gastroesophageal reflux disease) K21.9 Essential hypertension I10 Mixed dyslipidemia E78.2 Osteoporosis without current pathological fracture, unspecified osteoporosis type M81.0 Osteoporosis type: unspecified Presence of current pathological fracture: without current pathological fr acture Primary osteoarthritis of right shoulder M19.011 Osteoarthritis type: primary Epigastric abdominal pain R10.13 Difficulty swallowing solids R13.10 Vaccination declined Z28.21 Additional Codes Vital Signs *Quality* - Advance Care Planning discussion: Completed/Scanned ([id number]) Vital Signs *Quality* - Time spent: 16-45 minutes ([id number])
[2023-11-15 12:20] VITALS: BP 150/80; PULSE 60; O2SAT 97; BMI 25.9
[2023-11-15 14:02] VITALS: BP 140/80
== END 2023-11-15 13:10 | disposition home or self-care (01) ==
LOC: HO.HMGC 11:19
PROVIDERS: PCP Internal Medicine; Visit Provider Internal Medicine
DX: Z00.01 Encounter for general adult medical examination with abnormal findings (principal); K21.9 Gastro-esophageal reflux disease without esophagitis; I10 Essential (primary) hypertension; E78.2 Mixed hyperlipidemia; M81.0 Age-related osteoporosis without current pathological fracture; M19.011 Primary osteoarthritis, right shoulder; R10.13 Epigastric pain; R13.10 Dysphagia, unspecified; Z28.21 Immunization not carried out because of patient refusal; Z00.00 Encounter for general adult medical examination without abnormal findings
CPT/HCPCS: 1123F; 99214; 99397; 99497

== ENCOUNTER 2023-12-07 08:19 | Outpatient (REF) | payer MEDICARE, SELFPAY ==
--- NOTE | ~2023-12-07 | MM_ITS ---
EXAMINATION: MM SCREENING DIGITAL BREAST TOMOSYNTHESIS, BILATERAL CLINICAL INFORMATION: Screening. Asymptomatic. COMPARISON: Mammography: 09/07/2019, 05/23/2018, 04/20/2017, and 09/19/2015. TECHNIQUE: Digital breast tomosynthesis is performed in both the craniocaudal and mediolateral oblique views along with computer-aided detection (CAD). Synthesized 2D images are generated from the tomosynthesis. FINDINGS: The breasts are heterogeneously dense, which may obscure small masses (ACR BI-RADS breast composition Category c). There are vascular calcifications in both breasts. Mild nipple inversion bilaterally has been unchanged over many exams. There is an unchanged 4 mm circumscribed oval nodule in the direct retroareolar region of the right breast, benign. There are no suspicious masses, suspicious grouped calcifications, or areas of architectural distortion in either breast. The parenchymal pattern is stable from prior exams. No suspicious skin or axillary abnormality. MM/MM tomosynthesis screening BI IMPRESSION: No mammographic evidence of malignancy. No significant interval change. ASSESSMENT: BI-RADS BI-RADS 2 - Benign Findings RECOMMENDATION: Routine annual mammography screening. 1 year F/U This examination should not preclude the clinical evaluation of a suspicious palpable abnormality. This patient's information was entered into a reminder system with a target due date for their next mammogram.
== END 2023-12-07 08:20 | disposition home or self-care (01) ==
LOC: HO.MAMMO 08:19
PROVIDERS: PCP Internal Medicine; Visit Provider Internal Medicine
DX: Z12.31 Encounter for screening mammogram for malignant neoplasm of breast (principal)
CPT/HCPCS: 77063; 77067

== ENCOUNTER → 2023-12-07 08:30 | Outpatient (BNV) | payer MEDICARE, SELFPAY | PROVIDERS: PCP Internal Medicine; Visit Provider Radiology Diagnostic Radiology | DX: Z12.31 Encounter for screening mammogram for malignant neoplasm of breast (principal) | CPT/HCPCS: 77063; 77067 ==

== ENCOUNTER 2024-01-10 07:50 | Outpatient (REF) | payer MEDICARE, SELFPAY ==
[2024-01-10 12:08] LABS: Hematocrit 42.9 % (37.0-47.0); Hemoglobin 14.3 g/dl (12.0-16.0)
[2024-01-10 13:23] LABS: Alanine Aminotransferase 19 U/L (0-31); Albumin Level 4.2 g/dL (3.5-5.0); Alkaline Phosphatase 91 U/L (39-117); Anion Gap 14 (12-20); Aspartate Amino Transferase 25 U/L (5-31); Bilirubin Total 0.5 mg/dL (0.0-1.0); Blood Urea Nitrogen 15 mg/dL (9-16); Calcium 10.2 mg/dL (8.4-10.2); Carbon Dioxide 28 mmol/L (22-29); Chloride 103 mmol/L (96-108); Cholesterol 188 mg/dL (<200); Estimated Glomerular Filt Rate > 60; Glucose Fasting 96 mg/dL (60-99); HDL Cholesterol 50 mg/dL (>40); LDL Cholesterol Calculated 105 mg/dL (<100); Lipase 29 U/L (8-78); Potassium 3.8 mmol/L (3.3-5.1); Sodium 141 mmol/L (135-145); Total Protein 6.9 g/dL (6.5-8.0); Triglycerides 167 mg/dL (<150)
[2024-01-10 13:48] LABS: Amylase 118 U/L (28-100); TSH reflex Free T4 4.33 uIU/mL (0.32-4.0); Vitamin D 25-OH Total 25.1 ng/mL (>30)
[2024-01-10 16:53] LABS: Free T4 (Free Thyroxine) 0.82 ng/dL (0.71-1.85)
== END 2024-01-10 07:51 | disposition home or self-care (01) ==
LOC: HO.HMGCLDS 07:50
PROVIDERS: PCP Internal Medicine; Visit Provider Internal Medicine
DX: Z13.89 Encounter for screening for other disorder (principal)
CPT/HCPCS: 36415; 80053; 80061; 82150; 82306; 83690; 84439; 84443; 85014; 85018

== ENCOUNTER 2024-01-10 09:11 | Outpatient (REF) | payer MEDICARE, SELFPAY ==
--- NOTE | ~2024-01-10 | FL_ITS ---
EXAMINATION: XR FLUOROSCOPY UPPER GI WITH AIR CLINICAL INFORMATION: Epigastric pain. Dysphagia COMPARISON: None TECHNIQUE: Fluoroscopic air contrast upper GI examination was performed utilizing standard techniques with thin and thick barium and effervescent granules. Numerous spot images were obtained. FINDINGS: Lateral cine images of the oropharynx and hypopharynx demonstrate normal swallow mechanism with normal epiglottic inversion and soft palate elevation. No tracheal penetration, glottic or subglottic aspiration identified. No nasopharyngeal reflux present. A small anterior cervical web is present at the level of C6/C7. There is moderate cricopharyngeal achalasia present. Dual and single contrast images of the esophagus demonstrate normal caliber, contour, and mucosal pattern. No evidence of stricture, mass, or ulcerations identified. Esophageal peristalsis was mildly disorganized. Small type I hiatal hernia is present. No significant gastroesophageal reflux was seen during the course of the examination and on reflux views. Surgical clips are present in the right upper quadrant. Dual contrast and single contrast images of the stomach demonstrated normal contour. There are multiple tiny foci of contrast pooling in the fundus and body the stomach that may represent small superficial aphthous ulcers. No masses are seen. Contrast freely passed into the gastric antrum and duodenal bulb without delay. Single and air-contrast images of the duodenal bulb demonstrate no abnormality. The duodenal sweep has a normal appearance, course, and mucosal fold appearance. No malrotation. The imaged proximal jejunum has a normal fold pattern and caliber. FLUOROSCOPY TIME: 3 minutes 14 seconds Number of Spot Images: 10 Number of Cine: 14 DOSE AREA PRODUCT: 1740 uGy-m2 (microgray-meter squared) FL/FL upper GI w air w Ba Swallow IMPRESSION: 1. 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 This is unlikely contributing to the patient's symptoms. 2. Moderate cricopharyngeal achalasia 3. Mildly disorganized esophageal peristalsis 4. Small type I hiatal hernia 5. Multiple tiny foci of contrast pooling in the fundus and body the stomach that may represent small superficial aphthous ulcers. Recommend correlation with EGD. 6. Surgical clips present in the right upper quadrant consistent with prior history of cholecystectomy. This procedure was performed by Ashish Zuniga PA-C, and supervised by Dr. Velasquez
== END 2024-01-10 09:12 | disposition home or self-care (01) ==
LOC: HO.XRAY 09:11
PROVIDERS: PCP Internal Medicine; Visit Provider Internal Medicine
DX: Z13.6 Encounter for screening for cardiovascular disorders (principal); R10.13 Epigastric pain; R13.10 Dysphagia, unspecified
CPT/HCPCS: 36415; 74246; 80053; 80061; 82150; 82306; 83690; 84439; 84443; 85014; 85018

== ENCOUNTER → 2024-01-10 09:13 | Outpatient (BNV) | payer MEDICARE, SELFPAY | PROVIDERS: PCP Internal Medicine; Visit Provider Physician Assistant Surgical | DX: R13.10 Dysphagia, unspecified (principal); R10.13 Epigastric pain | CPT/HCPCS: 74246 ==

== ENCOUNTER 2024-02-11 07:19 | Outpatient (AMB) | payer MEDICARE, SELFPAY ==
--- NOTE | 2024-02-11 07:34 | A.OFFVIS_ITS ---
Vital Signs 02/11/24 07:48 Height 4 ft 11 in Weight 130 lb BMI 26.3 BP 118/80 Blood Pressure Location Lt brachial Position Sitting Pulse 76 Intake Visit Reasons: Gastric ulcer, dysphagia. Intake Note: Patient follow up for GERD. Patient cc: Nauseas in the morning, LLQ pain, difficulty swallowing solid and pills, a lot of burping and hiccup, GERD on and off,diarrhea with a hard hemorrhoid. [employer]ing [employer] Automatic Required: No Accompanied by: Self / Same As Patient Allergies sulfamethoxazole [From Bactrim] Allergy (Mild, Verified 02/11/24 07:39) upset stomach trimethoprim [From Bactrim] Allergy (Mild, Verified 02/11/24 07:39) upset stomach Medication List - Last Reconciled 02/11/24 by Coy Benson MD diclofenac sodium 1% 4 grams topical QID metoprolol tartrate 25 mg PO BID 90 days naproxen 500 mg PO DAILY PRN omeprazole 40 mg PO DAILY pravastatin 80 mg PO BEDTIME triamterene-hydrochlorothiazid 75-50 mg 1 tab PO DAILY HPI HPI Gastric ulcer, dysphagia. : Details: GI clinic visit for this 78-YEAR-OLD FEMALE FOR FOLLOW-UP OF POSTPRANDIAL DIARRHEA AND A PANCREATIC LESION.? PATIENT IS STATUS POST CHOLECYSTECTOMY AND PARTIAL COLECTOMY DUE TO DIVERTICULITIS. CHRONIC ILLNESSES:?GERD-diet controlled, osteopenia, diverticulitis c h/o surgery, Hypothyroidism, hyperlipidemia, hypertension, Ulcerative colitis- quiescent, Partial colectomy 1979 due to diverticulitis, Colon polyps, Scoliosis and Neck pain ?LABS:?11/06 Reviewed. IMAGING STUDIES:? 01/10/24 BARIUM SWALLOW WITH UGI SHOWED: 1. 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 This is unlikely contributing to the patient's symptoms. 2. Moderate cricopharyngeal achalasia 3. Mildly disorganized esophageal peristalsis 4. Small type I hiatal hernia 5. Multiple tiny foci of contrast pooling in the fundus and body the stomach that may represent small superficial aphthous ulcers. Recommend correlation with EGD. 6. Surgical clips present in the right upper quadrant consistent with prior history of cholecystectomy. 10/23/[address] SCAN SHOWED: ? Stable 7 mm fatty lesion in the pancreas suggestive of a benign lipoma. Postsurgical changes following right colectomy. Severe diverticulosis of the distal colon. No evidence of diverticulitis. ?02/07/20? MRI SHOWED: ? Stable 7 x 8 mm fatty lesion at the junction of the body and tail of ? the pancreas suggestive of a lipoma. Diverticulosis of the colon. ? Stable small probable complex left renal cyst. 03/15/23 COLONOSCOPY SHOWED: No polyps were detected Random biopsies were obtained from right and left colon to check for microscopic colitis Moderate to severe diverticulosis seen in the entire colon Moderate hemorrhoids on retroflexed exam. Plan: Given advanced age and negative colonoscopies, colon cancer screening can be discontinued unless patient has lower GI symptoms ? TODAY'S VISIT Patient cc: Nausea in the morning, LLQ pain, difficulty swallowing solid and pills, burping a lot, Notes intermittent dysphagia with pills - a few times a week. Has trouble swallowing large pills - pravastatin. Dysphagia to solid foods - does not happen very often. Sometimes it hurts to swallow - food gets stuck in the chest - ultimately goes down. Also notes 6/10 upper abdominal pain which radiates to the lower back - dull pain Pain comes and goes - worse with eating Also notes post prandial bloating. Notes diarrhea with 2-3 loose BMs per day Gained a few lbs - does not eat much Has been eating a lot of fruit PAST VISITS: Colonoscopy results reviewed. Has diarrhea alternating with constipation. Takes Omeprazole prn Started taking a probiotic drink from [employer] Notes some burping after drinking it and advised to take 1/2 twice a day Notes intermittent LLQ pain and resolves after she has a BM. Thinks pain is related to her diet. Can have 1-3 BMs a day and once in a great while, she does not go at all and then gets into trouble. Eats a lot of fruits and vegetables which helps with constipation Notes intermittent heartburn associated with certain foods Takes Omeprazole when she has abd pain and it helps. Wakes up with a dry mouth in the morning and mouth feels bitter. End of Jul, she had upper abdominal pain and BP was elevated to 200 systolic. [facility] and admitted to the hospital with chest pain and abnormal EKG Continues to have upper abd/lower chest pain depending on what she eats - a dull, hurting pain. Pain radiated to the back. Noted nausea and a lot of bitter taste in her mouth and dry mouth Has not been taking Omeprazole - keeps forgetting to take it. Gets dehydrated and drinks quite a bit of water. Has gained 5 lbs and planning to loose it. Continues to have intermittent diarrhea since GB surgery - its getting better. ? related to cabbage and pretzels Has a PHAN every single day for the past 3 weeks - also has a problem with one of her upper teeth. Urgent FU appt scheduled since pt called on 05/28/22: pt called in and stated that her diverticulitis is acting up she is having consistent abdominal pain all over. She is a bit worried and wants to make sure everything is ok . Had cortisone injection in both shoulders and had a severe reaction with nausea and vomiting. Has been doing Ok - gets twinges and lower abdominal pain. Feels better after she has a BM. Has a BM daily - depends on what she eats. Has a lot of anxiety. Also notes pain in the RUQ and epigastric and lower chest area. Eats only one meal a day, likes to snack in between. Eats fruits and vegetables. Likes sweets. Has intermittent RUQ pain which is pinching in character. Has pain once in a while ? Has abdominal pain off and on which is manageable. ? Pain is not too bad. ? Gets pain when she gets constipated. Has diarrhea related to some foods. ? There is one antibiotic she does not want to take which caused her to be depressed for a week - she will check in her portal and send me a message with the name of the antibiotic. ? ? ? Noted some pain under her right breast - not effected by breathing and coughing. ? ? ? Stopped taking her vitamins and supplements and GERD symptoms have improved - advised to resume taking vitamin-D every other day. ?? ? To resume supplements 1 medicine at a time ? Staying home mostly ? Does not want to get the COVID vaccine yet ? ? ? I have been getting a dull pain which radiates to the lower back. Sometimes gets pain on the left side and sometimes on the right side. Pain feels a little bit different. ? ? ? Can have a dull pain after taking MVI, CQ10 ?? ? Denies problems with diarrhea or constipation [facility] Medical History (Updated 02/11/24 @ 08:05 by Coy Benson MD) Stomach ulcer Cricopharyngeal achalasia Difficulty swallowing solids Intermittent palpitations GERD (gastroesophageal reflux disease) Chronic pain of both shoulders Vaccination declined Compound nevus Abnormal MRI of abdomen IBS (irritable bowel syndrome) Mixed dyslipidemia Osteoporosis Essential hypertension Anxiety disorder Surgical History Hx of colonoscopy History of laparoscopic cholecystectomy History of tonsillectomy History of section History of partial colectomy Family History Father No problems noted. Mother Depression HTN (hypertension) CHF (congestive heart failure) CVD (cardiovascular disease) Sister No problems noted. Sister No problems noted. Daughter No problems noted. Social History Household Members: Family Housing: House Do you presently have visiting nurse or other home services: No Alcohol intake: never Patient Tobacco Use Status: Former Tobacco user e-Cigarette/Vaping Use: Never Used service: No Current occupational status: retired Cognitive needs: No Hearing needs: No Vision needs: No Review of Systems Const Denies fever(s), Denies headache(s), Reports weight gain and Denies weight loss Eyes Denies eye discharge and Denies irritation ENT Reports Normal hearing present, Reports dysphagia (painful swallowing and food sticking), Denies dizziness and Denies headache(s) Card Denies chest pain, Denies leg edema and Denies dyspnea on exertion Resp Denies cough, Denies dyspnea on exertion and Denies wheezing GI Reports abdominal pain, Reports bloating, Denies change in bowel habits, Reports dysphagia (painful swallowing and food sticking), Reports heartburn, Reports diarrhea, Reports nausea and Reports other (early satiety) Denies difficulty voiding and Denies dysuria Musc Denies back pain and Denies arthralgias Skin/Breast Denies pruritus, Denies rash and Denies jaundice Neuro Reports Normal hearing present, Denies Abnormal speech present, Denies dizziness, Denies headache(s) and Denies seizure-like activity Psych Denies anxiety, Denies depression and Denies panic attacks Endo Denies cold intolerance, Denies flushing and Denies heat intolerance Augie/Lymph Denies easy bleeding and Denies easy bruising Aller/Immun Denies wheezing Physical Exam Vital Signs: Last Vital Signs Pulse 76 02/11/24 07:48 BP 118/80 02/11/24 07:48 BMI result Body Mass Index 26.3 Const General: healthy appearing and no acute distress Nutritional Appearance: average body habitus Orientation/consciousness: patient oriented x3 Limitations: no limitations HEENT Head: Yes normal to inspection Ears: hearing grossly normal bilaterally Mouth: Normal oral and palatal mucosa present Eyes Sclerae: sclerae normal Pupils: Equal, round and reactive pupils present Neck Neck: Yes normal visual inspection Chest Chest palpation & inspection: normal inspection of the chest Resp Effort & Inspection: normal respiratory effort Auscultation: clear to auscultation bilaterally Cardio Palpation: normal PMI Rate: regular rate Rhythm: regular rhythm Heart sounds: S1 normal heart sound present, S2 normal heart sound present and no murmurs GI Palpation (GI): Soft to palpation, nontender and No hepatosplenomegaly present Auscultation: normal bowel sounds Rectal Exam - Female: deferred Skin General skin exam: no rashes or lesions noted Neuro General: patient oriented x3, gait normal and moves all extremities Cranial nerves: Yes Equal, round and reactive pupils present and Yes Normal hearing present Speech: No Abnormal speech present Psych Appearance: grossly normal Mental Status: mental status grossly normal Assessment & Plan Assessment & Plan (1) IBS (irritable bowel syndrome): Code(s): K58.9 - Irritable bowel syndrome without diarrhea Category: Medical Qualifiers: Irritable bowel syndrome type: with both diarrhea and constipation Jluis lified Code(s): K58.2 - Mixed irritable bowel syndrome (2) Diverticulosis: Code(s): K57.90 - Diverticulosis of intestine, part unspecified, without perforation or abscess without bleeding Category: Medical (3) GERD (gastroesophageal reflux disease): Code(s): K21.9 - Gastro-esophageal reflux disease without esophagitis Category: Medical (4) Difficulty swallowing solids: Code(s): R13.10 - Dysphagia, unspecified Category: Medical (5) Cricopharyngeal achalasia: Code(s): K22.0 - Achalasia of cardia Category: Medical (6) Stomach ulcer: Code(s): K25.9 - Gastric ulcer, unspecified as acute or chronic, without hemorrhage or perforation Category: Medical (7) Upper abdominal pain: Code(s): R10.10 - Upper abdominal pain, unspecified Category: Medical (8) Elevated lipase: Code(s): R74.8 - Abnormal levels of other serum enzymes Category: Medical (9) Upper abdominal pain: Code(s): R10.10 - Upper abdominal pain, unspecified Category: Medical (10) Elevated lipase: Code(s): R74.8 - Abnormal levels of other serum enzymes Category: Medical Plan 78 YF with GERD-diet controlled, osteopenia, diverticulitis c h/o surgery, Hypothyroidism, hyperlipidemia, hypertension, Partial colectomy 1979 due to perforated diverticulum, Colon polyps, Scoliosis and Neck pain Pt had Gallbladder surgery in May- feeling better but still having loose stools, aware that it is a side effect of surgery. Pt is aware that Citrucel can be helpful for management of loose stools. Residual diverticulosis noted on 2013 colonoscopy. Feels slight discomfort in LLQ- no pain or bleeding- aware of diverticulosis finding and advised to take Citrucel daily. Abnormal MRI of abdomen - MRCP showed a 7-8 mm Lipoma in body of pancreas stable over the past 2 years and no further workup advised. Pt complains of a dull abdominal pain radiating to the lower back (sometimes on the right and sometimes on the left side) 10/[address] scan showed a stable 7 mm fatty lesion in the pancreas suggestive of a benign lipoma, postsurgical changes following right colectomy. Severe diverticulosis of the distal colon without evidence of diverticulitis. Pt was advised to take Miralax twice a week for constipation and monitor her symptoms. She prefers to have all the labs drawn on a single visit since she has a difficult IV stick. 03/15/23 colonoscopy (last colon was in 2013) was performed and results as noted above Pt can stop having additional colonoscopies in the future 02/11/24 Patient advised to schedule an upper endoscopy for further evaluation of abdominal pain and dysphagia - scheduled on 02/23/24 Also advised to schedule an Abd CT scan - pt would like to wait for EGD results prior to scheduling the CT FU in 6 weeks Orders: Orders Lipase 02/11/24 R10.10 - Upper abdominal pain, unspecified, R74.8 - Abnormal levels of other serum enzymes CT abdomen pelvis w IV con 02/11/24 R10.10 - Upper abdominal pain, unspecified, R74.8 - Abnormal levels of other serum enzymes Amylase 02/11/24 R10.10 - Upper abdominal pain, unspecified, R74.8 - Abnormal levels of other serum enzymes Medications: New sucralfate (Carafate) 1 g PO BID 30 days 60 tabs 1RF R10.10 - Upper abdominal pain, unspecified, R74.8 - Abnormal levels of other serum enzymes Coding Level of Care Code Est Pt Level 4 (35680) Diagnoses Irritable bowel syndrome with both constipation and diarrhea K58.2 Irritable bowel syndrome type: with both diarrhea and constipation Diverticulosis K57.90 GERD (gastroesophageal reflux disease) K21.9 Difficulty swallowing solids R13.10 Cricopharyngeal achalasia K22.0 Stomach ulcer K25.9 Upper abdominal pain R10.10 Elevated lipase R74.8 Time Spent (min) 23
[2024-02-11 07:48] VITALS: BP 118/80; PULSE 76; BMI 26.3
== END 2024-02-11 08:28 | disposition home or self-care (01) ==
PROVIDERS: PCP Internal Medicine; Visit Provider Internal Medicine Gastroenterology
DX: K58.2 Mixed irritable bowel syndrome (principal); K57.90 Diverticulosis of intestine, part unspecified, without perforation or abscess without bleeding; K21.9 Gastro-esophageal reflux disease without esophagitis; R13.10 Dysphagia, unspecified; K22.0 Achalasia of cardia; K25.9 Gastric ulcer, unspecified as acute or chronic, without hemorrhage or perforation; R10.10 Upper abdominal pain, unspecified; R74.8 Abnormal levels of other serum enzymes
CPT/HCPCS: 99214

== ENCOUNTER → 2024-02-11 07:19 | Outpatient (BNVA) | payer MEDICARE, SELFPAY | PROVIDERS: PCP Internal Medicine; Visit Provider Internal Medicine Gastroenterology | DX: K25.9 Gastric ulcer, unspecified as acute or chronic, without hemorrhage or perforation (principal); R13.10 Dysphagia, unspecified; K22.0 Achalasia of cardia; K21.9 Gastro-esophageal reflux disease without esophagitis; K57.90 Diverticulosis of intestine, part unspecified, without perforation or abscess without bleeding; K58.2 Mixed irritable bowel syndrome; R10.10 Upper abdominal pain, unspecified; R74.8 Abnormal levels of other serum enzymes | CPT/HCPCS: 99212 ==

== ENCOUNTER 2024-02-23 09:42 | Day surgery (SDC) | payer MEDICARE, SELFPAY ==
--- NOTE | 2024-02-22 09:12 | HO.ANESPROP2 ---
Documented by User: María Tillman NP 02/22/24 09:14 HPI - Anesthesia Eval Consult details Narrative: 78yo F for Upper Endoscopy Cricopharyngeal achalasia PMFSH Active Problems Active Problems: All Active Problems Elevated lipase (Acute) Upper abdominal pain (Acute) Stomach ulcer (Acute) Cricopharyngeal achalasia (Acute) Difficulty swallowing solids (Acute) Intermittent palpitations (Acute) GERD (gastroesophageal reflux disease) (Acute) Osteoarthritis of left glenohumeral joint (Acute) Osteoarthritis of left acromioclavicular joint (Acute) Osteoarthritis of right shoulder (Acute) Chronic pain of both shoulders (Acute) Vaccination declined (Acute) Diverticulosis (Acute) IBS (irritable bowel syndrome) (Acute) Mixed dyslipidemia (Acute) Essential hypertension (Acute) Osteoporosis (Acute) Past Medical History Medical History Stomach ulcer Cricopharyngeal achalasia Difficulty swallowing solids Intermittent palpitations GERD (gastroesophageal reflux disease) Chronic pain of both shoulders Vaccination declined Compound nevus Abnormal MRI of abdomen IBS (irritable bowel syndrome) Mixed dyslipidemia Osteoporosis Essential hypertension Anxiety disorder Family History Family History Father No problems noted. Mother Depression HTN (hypertension) CHF (congestive heart failure) CVD (cardiovascular disease) Sister No problems noted. Sister No problems noted. Daughter No problems noted. Family history of problems with anesthesia: No Surgical History Surgical History Hx of colonoscopy History of laparoscopic cholecystectomy History of tonsillectomy History of section History of partial colectomy History of Problems with Anesthesia: No Social History Social History Household Members: Family Housing: House Do you presently have visiting nurse or other home services: No Alcohol intake: never Patient Tobacco Use Status: Former Tobacco user e-Cigarette/Vaping Use: Never Used Use of substances other than those prescribed or required for medical reasons: No Are you DNR?: No Advance Directives: No Advance Directives Information Provided: Yes service: No Current occupational status: retired Cognitive needs: No Hearing needs: No Vision needs: No Meds Allergies Allergy/AdvReac Type Severity Reaction Status Date / Time sulfamethoxazole Allergy Mild upset Verified 02/11/24 07:39 [From Bactrim] stomach trimethoprim [From Bactrim] Allergy Mild upset Verified 02/11/24 07:39 stomach Exam Pertinent Lab Results Pertinent Lab Results: Laboratory Tests 08/14/22 01/10/24 13:55 07:53 WBC 6.3 Hgb 14.3 Hct 42.9 Plt Count 276 Sodium 141 Potassium 3.8 Chloride 103 Carbon Dioxide 28 BUN 15 Creatinine 0.79 Narrative Narrative: Holter 2023 1. Patient was monitored for total period of 2 days and 23 hours 2. Baseline was normal sinus rhythm with average heart of 68 beats per minute 3. No significant pauses or arrhythmias noted 4. No patient reported events Assessment and Plan Assessment Anesthesia Assessment: Chart Reviewed Final Anesthetic Review Family History of Problems with Anesthesia: No History of Problems with Anesthesia: No Documented by User: Karin Hobbs MD 02/23/24 13:05 [facility] Past Medical History Medical History Stomach ulcer Cricopharyngeal achalasia Difficulty swallowing solids Intermittent palpitations GERD (gastroesophageal reflux disease) Chronic pain of both shoulders Vaccination declined Compound nevus Abnormal MRI of abdomen IBS (irritable bowel syndrome) Mixed dyslipidemia Osteoporosis Essential hypertension Anxiety disorder Family History Family History Father No problems noted. Mother Depression HTN (hypertension) CHF (congestive heart failure) CVD (cardiovascular disease) Sister No problems noted. Sister No problems noted. Daughter No problems noted. Family history of problems with anesthesia: No Surgical History Surgical History Hx of colonoscopy History of laparoscopic cholecystectomy History of tonsillectomy History of section History of partial colectomy History of Problems with Anesthesia: No Social History Social History Household Members: Family Housing: House Do you presently have visiting nurse or other home services: No Alcohol intake: never Patient Tobacco Use Status: Former Tobacco user e-Cigarette/Vaping Use: Never Used Use of substances other than those prescribed or required for medical reasons: No Are you DNR?: No Advance Directives: No Advance Directives Information Provided: Yes service: No Current occupational status: retired Cognitive needs: No Hearing needs: No Vision needs: No Meds Allergies Allergy/AdvReac Type Severity Reaction Status Date / Time sulfamethoxazole Allergy Mild upset Verified 02/11/24 07:39 [From Bactrim] stomach trimethoprim [From Bactrim] Allergy Mild upset Verified 02/11/24 07:39 stomach Exam Height,Weight and Vital Signs: Height 4 ft 11 in Weight 58.967 kg Vital Signs Temp Pulse Resp BP Pulse Ox O2 Del Method 02/23/24 11:58 97.8 F 56 18 187/64 H 98 Room Air Airway Mallampati Class: II TM Dist: >3cm Neck ROM: Full Loose/Missing/Broken Teeth: No (Permanent bridge intact. Denies broken, loose, missing teeth) Heart: RRR Lungs: CTAB Assessment and Plan Assessment Anesthesia Assessment: Anesthesia Plan Discussed and Chart Reviewed Final Anesthetic Review Family History of Problems with Anesthesia: No History of Problems with Anesthesia: No NPO: Yes ASA Class: II Final Preanesthetic Review: No Changes in Pt Med Stat, Meds/Allgs Chart Reviewed, Consent Obtained/Reviewed and Anes Risks/Benef Reviewed Patient Risk: Intermediate Procedure Risk: Low Assessment/Block/Sedation in SS: Assess/Block/Sedation-SS Anesthetic Plan Anesthetic Plan: TIVA Disposition: Standard PACU
[2024-02-23 11:28] VITALS: BMI 26.3
[2024-02-23 11:58] VITALS: BP 187/64; PULSE 56; RESP 18; TEMP 36.6; O2SAT 98
--- NOTE | 2024-02-23 12:04 | MHC.SHP ---
Pre-Procedural Eval Section A - 24 Hr Update-Section A only Date of Service: 02/23/24 The patient is an INPATIENT: No Changes since office visit: Yes Patient answered all questions; No Cold of Flu in the past 2 weeks, No New Medical Problems and No Changes in Medication The patient has been examined within 24 hours of the surgical procedure. The History & Physical has been completed within 30 days and I have reviewed it.: Yes Section B - Complete if H&P > 30 days Chief Complaint: Gastric ulcer, unspecified as acute or chronic Allergies: Allergies Allergy/AdvReac Type Severity Reaction Status Date / Time sulfamethoxazole Allergy Mild upset Verified 02/11/24 07:39 [From Bactrim] stomach trimethoprim [From Bactrim] Allergy Mild upset Verified 02/11/24 07:39 stomach Plan Diagnosis/Plan: Unchanged I have reviewed the history and physical and performed a pertinent physical examination on my patient. No changes have occurred unless specified. Time Spent With Patient Time: Total time managing care of this patient today ____ minutes.
[2024-02-23] MEDS: Lactated Ringers 1,000 ML 100 ML IVCONT (12:56)
--- NOTE | 2024-02-23 14:31 | W.PM.OPN ---
Operative Note Operative Note Date of Service: 02/23/24 Narrative: FLEXIBLE TRANSORAL UPPER GASTROINTESTINAL ENDOSCOPY WITH BIOPSIES AND ESOPHAGEAL BALLOON DILATION Pre-op diagnosis: Dysphagia, abdominal pain, abnormal barium swallow Post-op diagnosis: Dysphagia, Gastritis, gastric polyp Endoscopist:? Coy Benson MD Anesthesia:?MAC UPPER ENDOSCOPY Consent: Indications for the procedure and potential complications of bleeding, perforation, reaction to medications and missed diagnosis were discussed with the patient and informed consent was obtained. Instrument: Olympus GIF H 190 mid size upper endoscope Monitoring: Vital signs and clinical assessment, continuous EKG monitoring, Pulse oximetry, Carbon Dioxide monitoring and blood pressure monitoring were done throughout the procedure. Procedure: The patient was placed in the left lateral decubitis position and pre-procedure medications were administered and a bite block was placed. The endoscope was inserted into the mouth and advanced under direct vision to the third part of duodenum. A careful inspection was made as the upper endoscope was withdrawn including a retroflexed examination of the proximal stomach; Findings and interventions are described below. Findings: Larynx: Normal Esophagus: GE junction at 36 cms. Mildly tortuous esophagus without stricture or ring Balloon dilation of the distal esophagus was performed with a 19 mm CRE balloon x 60 seconds Balloon dilation of proximal esophagus/cricopharyngeus was performed with an 18 mm CRE balloon x 60 seconds Stomach: A 4-5 mm benign appearing polyp in the gastric body - biopsied. Mild diffuse gastric erythema - biopsies were obtained from the body and antrum. Grade 2 flap valve on retroflexed examination of the cardia. Duodenum: Normal bulb and descending duodenum Impression and Post Procedure Diagnosis: Endoscopy Findings: ESOPHAGUS: Mildly tortuous esophagus without stricture or ring Balloon dilation of the distal esophagus was performed with a 19 mm CRE balloon x 60 seconds Balloon dilation of proximal esophagus/cricopharyngeus was performed with an 18 mm CRE balloon x 60 seconds STOMACH: Mild gastritis and benign appearing gastric polyp Plan: Pt has a FU appointment on 04/20/[address] Benson. Above findings were reviewed with the patient and relevant handouts were given and the discharge area.
[2024-02-23 14:32] VITALS: BP 97/48; PULSE 80; RESP 16; TEMP 36.1; O2SAT 97
[2024-02-23 14:47] VITALS: BP 162/70; PULSE 83; RESP 18; TEMP 36.2; O2SAT 96
== END 2024-02-23 15:19 | disposition home or self-care (01) ==
PROVIDERS: PCP Internal Medicine; Visit Provider Internal Medicine Gastroenterology
PROC: 0DJ08ZZ Inspection of Upper Intestinal Tract, Via Natural or Artificial Opening Endoscopic (ICD-10-PCS; CPT 43235; principal; 2024-02-23 12:20)
DX: K25.9 Gastric ulcer, unspecified as acute or chronic, without hemorrhage or perforation (principal); K22.0 Achalasia of cardia; R13.10 Dysphagia, unspecified; K29.50 Unspecified chronic gastritis without bleeding; K31.7 Polyp of stomach and duodenum; Z87.19 Personal history of other diseases of the digestive system; I10 Essential (primary) hypertension; E78.2 Mixed hyperlipidemia; K21.9 Gastro-esophageal reflux disease without esophagitis; M81.0 Age-related osteoporosis without current pathological fracture; Z79.1 Long term (current) use of non-steroidal anti-inflammatories (NSAID); Z79.899 Other long term (current) drug therapy; Z88.2 Allergy status to sulfonamides; Z90.49 Acquired absence of other specified parts of digestive tract; Z87.891 Personal history of nicotine dependence
CPT/HCPCS: 43249; 43239; 88305; 88313; 88342; C1726; J1596; J2704

== ENCOUNTER → 2024-02-23 09:42 | Outpatient (BNV) | payer MEDICARE, SELFPAY | PROVIDERS: PCP Internal Medicine; Visit Provider Internal Medicine Gastroenterology | DX: R13.10 Dysphagia, unspecified (principal); K29.70 Gastritis, unspecified, without bleeding; K31.7 Polyp of stomach and duodenum; K22.89 Other specified disease of esophagus | CPT/HCPCS: 43239; 43249 ==

== ENCOUNTER 2024-03-16 06:03 | Outpatient (REF) | payer MEDICARE, SELFPAY ==
--- NOTE | ~2024-03-16 | CT_ITS ---
EXAMINATION: CT ABDOMEN AND PELVIS WITH CONTRAST CLINICAL INFORMATION: Upper abdominal pain. Elevated lipase. COMPARISON: CT abdomen and pelvis 10/23/2020. MRI abdomen 02/07/2020. TECHNIQUE: Multidetector volumetric images were obtained from the superior aspect of the liver through the pubic symphysis following administration 85 mL of Omnipaque 350 intravenous contrast. Sagittal and coronal reformatted images were obtained on the technologist's workstation. Oral contrast: Yes This CT examination was performed using dose optimization techniques as appropriate, variously including the following: *Automated exposure control *Adjustment of mA and/or kV according to patient size (this includes techniques or standardized protocols for targeted exams where dose is matched to indication/reason for exam; i.e. extremities or head) *Use of iterative reconstruction technique DLP: 329 mGy-cm FINDINGS: LUNG BASES: No suspicious lung nodules. LIVER, GALLBLADDER, AND BILIARY TREE: The liver is normal in size, shape, and attenuation. No focal hepatic lesion or biliary ductal dilatation is present. Cholecystectomy. PANCREAS: No suspicion pancreatic mass. There is a 1 cm macroscopic fat density lesion in the inferior aspect of the pancreatic body consistent with a lipoma or invaginated retroperitoneal fat. No peripancreatic inflammatory changes. No pancreatic ductal dilatation. SPLEEN: The spleen appears normal. ADRENAL GLANDS: No adrenal mass. KIDNEYS AND URETERS: Symmetric nephrograms. Mild renal cortical thinning bilaterally. 1.3 cm indeterminate attenuation lesion in the lower pole the left kidney has increased in size from 7 mm on 10/23/2020. This images as a T2 dark lesion on MRI from 02/07/2020 measuring 6 mm. This is most likely a proteinaceous or hemorrhagic cyst, however a solid lesion cannot be excluded on this single phase CT scan. BLADDER: Compressed and not well evaluated but grossly normal. GASTROINTESTINAL TRACT: The small and large bowel are normal in caliber. No acute inflammatory changes appreciated. There is moderate left-sided colonic diverticulosis, most prominent in the sigmoid colon without evidence of acute diverticulitis. Areas of sigmoid colonic wall thickening are consistent with muscular hypertrophy in the setting of long-standing diverticulosis. The appearance is not significantly changed from 10/23/2020. ABDOMINAL WALL: Small fat-containing umbilical hernia. LYMPH NODES: No pathologically enlarged lymph nodes. VASCULAR: Moderate aortoiliac atherosclerotic disease. No aortic aneurysm. PELVIC VISCERA: Unremarkable. OSSEOUS STRUCTURES: No destructive osseous lesions. Degenerative changes are seen in the spine. CT/CT abdomen pelvis w IV con IMPRESSION: No CT evidence of acute pancreatitis. If clinical concern persists, consider short-term follow-up CT/MR as early pancreatitis may not manifest on imaging. Increasing 1.3 cm indeterminate lesion in the lower pole the left kidney may represent a proteinaceous/hemorrhagic cyst, but a solid lesion cannot be excluded on this single phase CT. Recommend further evaluation with renal ultrasound. Ultimately, renal mass specific CT or MRI may be necessary to characterize further. Other chronic and incidental findings as above. Fleischner guidelines were followed. Electronically signed by: Jose Miguel Youngblood MD 03/16/2024 12:20 PM EDT
[2024-03-16 06:50] LABS: Blood Urea Nitrogen 11 mg/dL (9-16); Estimated Glomerular Filt Rate > 60; Lipase 32 U/L (8-78)
[2024-03-16 06:51] LABS: Amylase 126 U/L (28-100)
[2024-03-16] MEDS: iohexoL 350 MG/ML 75 ML INFUS..BTL 85 ML IV (09:16)
[2024-03-16] MEDS: Barium Sulfate Oral (Vanilla) 450 ML ORAL.SUSP 900 ML PO (09:16)
== END 2024-03-16 06:04 | disposition home or self-care (01) ==
LOC: HO.CT 06:03
PROVIDERS: PCP Internal Medicine; Visit Provider Internal Medicine Gastroenterology
DX: R10.10 Upper abdominal pain, unspecified (principal); R74.8 Abnormal levels of other serum enzymes
CPT/HCPCS: 36415; 74177; 82150; 82565; 83690; 84520; Q9967

== ENCOUNTER 2024-04-03 13:13 | Outpatient (AMB) | payer MEDICARE, SELFPAY ==
--- NOTE | 2024-04-03 13:18 | A.OFFPC_ITS ---
Vital Signs 04/03/24 13:19 Height 4 ft 11 in Weight 130 lb BMI 26.3 BP 134/70 Blood Pressure Location Lt brachial Position Sitting Pulse 67 Pulse Source Pulse Oximeter Pulse Oximetry (%) 96 Oxygen Delivery Method Room Air Intake Visit Reasons: Discuss Ongoing Kidney concerns/wants in person Intake Note: Pt is here today to discuss ongoing GI concerns Allergies sulfamethoxazole [From Bactrim] Allergy (Mild, Verified 04/03/24 13:24) upset stomach trimethoprim [From Bactrim] Allergy (Mild, Verified 04/03/24 13:24) upset stomach Medication List - Last Reconciled 04/03/24 by Tri Richter MD diclofenac sodium 1% 4 grams topical QID metoprolol tartrate 25 mg PO BID 90 days naproxen 500 mg PO DAILY PRN omeprazole 40 mg PO DAILY pravastatin 80 mg PO BEDTIME sucralfate (Carafate) 1 g PO BID 30 days triamterene-hydrochlorothiazid 75-50 mg 1 tab PO DAILY Tobacco use date assessed: 04/03/24 Fall risk assessment: No Falls in past year Last assessed Fall Risk: 04/03/24 Dental Screening Dental Screen Date: 04/03/24 Did you have a dental visit in the last 12 months?: Yes Did you have a dental problem in the last 6 months where you did not have access to dental care?: No Was dental information given to patient?: Patient has dentist HPI Discuss Ongoing Kidney concerns/wants in person HPI Details 78-year-old lady here today complaining of recurrent dull aching pain on her lower sternum , occasionally occurring with food intake. She had an upper endoscopy done by Dr. Benson on 03/14/2024 which showed mildly tortuous esophagus without stricture or ring, Balloon dilation of the distal esophagus and of proximal esophagus/cricopharyngeus was performed . Biopsy of stomach showed mild gastritis and benign appearing gastric polyp. She had a Barium swallow showed: FL/FL upper GI w air w Ba Swallow IMPRESSION: 1. 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 This is unlikely contributing to the patient's symptoms. 2. Moderate cricopharyngeal achalasia 3. Mildly disorganized esophageal perist alsis 4. Small type I hiatal hernia 5. Multiple tiny foci of contrast poolin g in the fundus and body the stomach that may represent small superficial aphthous ulcers. Recommend correlation with EGD. 6. Surgical clips present in the right u pper quadrant consistent with prior history of cholecystectomy. She was prescribed omeprazole 20 mg 1 capsule twice a day, and sucralfate 1 g to be taken twice a day, but patient has not been taking any of these medications as directed. She has only been taking only on omeprazole irregularly and has not been taking sucralfate at all. [facility] Medical History (Updated 04/03/24 @ 13:54 by Tri Richter MD) Gastritis Stomach ulcer Cricopharyngeal achalasia Difficulty swallowing solids Intermittent palpitations GERD (gastroesophageal reflux disease) Chronic pain of both shoulders Vaccination declined Compound nevus Abnormal MRI of abdomen IBS (irritable bowel syndrome) Mixed dyslipidemia Osteoporosis Essential hypertension Anxiety disorder Surgical History History of esophagogastroduodenoscopy (EGD) Hx of colonoscopy History of laparoscopic cholecystectomy History of tonsillectomy History of section History of partial colectomy Family History Father No problems noted. Mother Depression HTN (hypertension) CHF (congestive heart failure) CVD (cardiovascular disease) Sister No problems noted. Sister No problems noted. Daughter No problems noted. Social History Household Members: Family Housing: House Do you presently have visiting nurse or other home services: No Alcohol intake: never Patient Tobacco Use Status: Former Tobacco user e-Cigarette/Vaping Use: Never Used service: No Current occupational status: retired Cognitive needs: No Hearing needs: No Vision needs: No Questionnaire Thrive Questionnaire Date Thrive assessed: 04/03/24 I am a: Patient What is your living situation today?: I have a steady place to live THRIVE Score: 0 MARGUERITE-7 AMB Questionnaire MARGUERITE-7 Date MARGUERITE - 7 assessed: 11/15/23 Source: Developed by Drs. Wally Ryan, Ashwini Tovar, Fransisco Munroe and colleagues, with an educational beto from [employer]. Review of Systems Const Denies fever(s) Eyes Denies eye discharge and Denies irritation ENT Denies odynophagia Card Denies chest pain and Denies dyspnea on exertion Resp Denies cough and Denies dyspnea on exertion GI Reports as per HPI, Denies melena, Denies bloating, Denies hematochezia, Denies change in bowel habits, Reports early satiety, Reports dyspepsia, Reports heartburn and Denies odynophagia Denies difficulty voiding and Denies dysuria Musc Denies back pain and Denies arthralgias Skin/Breast Denies pruritus, Denies rash and Denies jaundice Physical exam (Primary Care) Vital Signs: Last Vital Signs Pulse 67 04/03/24 13:19 BP 134/70 04/03/24 13:19 Pulse Ox 96 04/03/24 13:19 Oxygen Delivery Method Room Air 04/03/24 13:19 BMI result Body Mass Index 26.3 Tobacco/Smoking Status: Tobacco use Status Tobacco use date assessed 04/03/24 04/03/24 13:23 Patient Tobacco Use Status Former Tobacco user 04/03/24 13:23 e-Cigarette/Vaping Use Never Used 04/03/24 13:23 Thrive Assessment: Date of Thrive Assessment Date Thrive assessed 04/03/24 04/03/24 13:23 Const Other: Alert oriented x3, no acute distress noted ambulatory normal gait HENMT Face and sinus: Yes face symmetric Mouth: moist mucous membranes Neck Neck: Yes full ROM, Yes no lymphadenopathy and Yes supple Chest Chest palpation & inspection: normal inspection of the chest, no crepitus, no tenderness and No rash Resp Auscultation: clear to auscultation bilaterally Cardio Rate: regular rate Rhythm: regular rhythm Heart sounds: S1 normal heart sound present and S2 normal heart sound present GI Palpation (GI): Soft to palpation, nontender, no guarding and no masses Auscultation: normal bowel sounds Assessment and Plan Assessment & Plan (1) Gastritis: Code(s): K29.70 - Gastritis, unspecified, without bleeding Qualifiers: Chronicity: unspecified Gastritis bleeding: without bleeding Gastritis type: superficial Qualified Code(s): K29.30 - Chronic superficial gastritis without bleeding Plan: Patient advised that she needs to take her omeprazole daily, at least an hour before eating for at least 2 months, and then take it as needed afterwards., start taking sucralfate 1 g twice a day, at least an hour before eating anything or taking her medications or 2 hours after taking meds. avoid foods that wears her heartburn such as spicy foods, anything that is tomato based, caffeine, stay upright after eating, do not lie down right away (2) Cricopharyngeal achalasia: Code(s): K22.0 - Achalasia of cardia Plan: Take omeprazole as prescribed by her GI, Coding Level of Care Code Est Pt Level 4 (09362) Diagnoses Superficial gastritis without hemorrhage, unspecified chronicity K29.30 Chronicity: unspecified Gastritis bleeding: without bleeding Gastritis type: superficial Cricopharyngeal achalasia K22.0
[2024-04-03 13:19] VITALS: BP 134/70; PULSE 67; O2SAT 96; BMI 26.3
== END 2024-04-03 14:14 | disposition home or self-care (01) ==
PROVIDERS: PCP Internal Medicine; Visit Provider Internal Medicine
DX: K29.30 Chronic superficial gastritis without bleeding (principal); K22.0 Achalasia of cardia

== ENCOUNTER → 2024-04-03 13:13 | Outpatient (BNVA) | payer MEDICARE, SELFPAY | PROVIDERS: PCP Internal Medicine; Visit Provider Internal Medicine | DX: K29.30 Chronic superficial gastritis without bleeding (principal); K22.0 Achalasia of cardia | CPT/HCPCS: 99212 ==

== ENCOUNTER 2024-04-20 13:38 | Outpatient (AMB) | payer MEDICARE, SELFPAY ==
--- NOTE | 2024-04-20 13:48 | MHC.OFFVIS ---
Intake Visit Reasons: s/p egd Allergies sulfamethoxazole [From Bactrim] Allergy (Mild, Verified 04/20/24 13:48) upset stomach trimethoprim [From Bactrim] Allergy (Mild, Verified 04/20/24 13:48) upset stomach PFSH Medical History (Updated 04/03/24 @ 13:54 by Tri Richter MD) Gastritis Stomach ulcer Cricopharyngeal achalasia Difficulty swallowing solids Intermittent palpitations GERD (gastroesophageal reflux disease) Chronic pain of both shoulders Vaccination declined Compound nevus Abnormal MRI of abdomen IBS (irritable bowel syndrome) Mixed dyslipidemia Osteoporosis Essential hypertension Anxiety disorder Surgical History History of esophagogastroduodenoscopy (EGD) Hx of colonoscopy History of laparoscopic cholecystectomy History of tonsillectomy History of section History of partial colectomy Family History Father No problems noted. Mother Depression HTN (hypertension) CHF (congestive heart failure) CVD (cardiovascular disease) Sister No problems noted. Sister No problems noted. Daughter No problems noted. Social History Household Members: Family Housing: House Do you presently have visiting nurse or other home services: No Alcohol intake: never Patient Tobacco Use Status: Former Tobacco user e-Cigarette/Vaping Use: Never Used service: No Current occupational status: retired Cognitive needs: No Hearing needs: No Vision needs: No Coding
[2024-04-20 13:49] VITALS: BP 132/70; BMI 26.3
--- NOTE | 2024-04-20 13:49 | MHC.OFFVIS ---
Vital Signs 04/20/24 13:49 04/20/24 14:38 Height 4 ft 11 in Weight 130 lb BMI 26.3 26.3 BP 132/70 Blood Pressure Location Lt brachial Position Sitting Intake Visit Reasons: s/p egd Intake Note: Patient follow up for EGD results Patient denies any GI issues, just complaining on why she have to wait so long/2 months for results Counterintelligence Agent Required: No Accompanied by: Self / Same As Patient Allergies sulfamethoxazole [From Bactrim] Allergy (Mild, Verified 04/20/24 13:48) upset stomach trimethoprim [From Bactrim] Allergy (Mild, Verified 04/20/24 13:48) upset stomach Medication List - Last Reconciled 04/20/24 by Coy Benson MD diclofenac sodium 1% 4 grams topical QID metoprolol tartrate 25 mg PO BID 90 days naproxen 500 mg PO DAILY PRN omeprazole 40 mg PO DAILY pravastatin 80 mg PO BEDTIME sucralfate (Carafate) 1 g PO BID 30 days triamterene-hydrochlorothiazid 75-50 mg 1 tab PO DAILY HPI HPI s/p egd: Details: GI clinic visit for this 78-YEAR-OLD FEMALE FOR FOLLOW-UP OF POSTPRANDIAL DIARRHEA AND A PANCREATIC LESION.? PATIENT IS STATUS POST CHOLECYSTECTOMY AND PARTIAL COLECTOMY DUE TO DIVERTICULITIS. CHRONIC ILLNESSES:?GERD-diet controlled, osteopenia, diverticulitis c h/o surgery, Hypothyroidism, hyperlipidemia, hypertension, Ulcerative colitis-quiescent, Partial colectomy 1979 due to diverticulitis, Colon polyps, Scoliosis and Neck pain ? TODAY'S VISIT Patient denies any GI issues, just complaining on why she have to wait so long/2 months for results EGD results were reviewed. Continues to have dysphagia - no significant improvement post dilation. Notes a small hernia in her belly button which she has had for years. Eats one big meal a day in the middle of the afternoon. Has been having bad heartburn after eating (depends on what she eats) and takes TUMS or mints which help Taking Omeprazole a few times a week. Has not started taking the sucralfate yet due to concerns about timing PAST VISITS: Patient cc: Nausea in the morning, LLQ pain, difficulty swallowing solid and pills, burping a lot, Notes intermittent dysphagia with pills - a few times a week. Has trouble swallowing large pills - pravastatin. Dysphagia to solid foods - does not happen very often. Sometimes it hurts to swallow - food gets stuck in the chest - ultimately goes down. Also notes 6/10 upper abdominal pain which radiates to the lower back - dull pain Pain comes and goes - worse with eating Also notes post prandial bloating. Notes diarrhea with 2-3 loose BMs per day Gained a few lbs - does not eat much Has been eating a lot of fruit Colonoscopy results reviewed. Has diarrhea alternating with constipation. Takes Omeprazole prn Started taking a probiotic drink from [employer] Notes some burping after drinking it and advised to take 1/2 twice a day Notes intermittent LLQ pain and resolves after she has a BM. Thinks pain is related to her diet. Can have 1-3 BMs a day and once in a great while, she does not go at all and then gets into trouble. Eats a lot of fruits and vegetables which helps with constipation Notes intermittent heartburn associated with certain foods Takes Omeprazole when she has abd pain and it helps. Wakes up with a dry mouth in the morning and mouth feels bitter. End of Jul, she had upper abdominal pain and BP was elevated to 200 systolic. [facility] and admitted to the hospital with chest pain and abnormal EKG Continues to have upper abd/lower chest pain depending on what she eats - a dull, hurting pain. Pain radiated to the back. Noted nausea and a lot of bitter taste in her mouth and dry mouth Has not been taking Omeprazole - keeps forgetting to take it. Gets dehydrated and drinks quite a bit of water. Has gained 5 lbs and planning to loose it. Continues to have intermittent diarrhea since GB surgery - its getting better. ? related to cabbage and pretzels Has a PHAN every single day for the past 3 weeks - also has a problem with one of her upper teeth. Urgent FU appt scheduled since pt called on 05/28/22: pt called in and stated that her diverticulitis is acting up she is having consistent abdominal pain all over. She is a bit worried and wants to make sure everything is ok . Had cortisone injection in both shoulders and had a severe reaction with nausea and vomiting. Has been doing Ok - gets twinges and lower abdominal pain. Feels better after she has a BM. Has a BM daily - depends on what she eats. Has a lot of anxiety. Also notes pain in the RUQ and epigastric and lower chest area. Eats only one meal a day, likes to snack in between. Eats fruits and vegetables. Likes sweets. Has intermittent RUQ pain which is pinching in character. Has pain once in a while ? Has abdominal pain off and on which is manageable. ? Pain is not too bad. ? Gets pain when she gets constipated. Has diarrhea related to some foods. ? There is one antibiotic she does not want to take which caused her to be depressed for a week - she will check in her portal and send me a message with the name of the antibiotic. ? ? ? Noted some pain under her right breast - not effected by breathing and coughing. ? ? ? Stopped taking her vitamins and supplements and GERD symptoms have improved - advised to resume taking vitamin-D every other day. ?? ? To resume supplements 1 medicine at a time ? Staying home mostly ? Does not want to get the COVID vaccine yet ? ? ? I have been getting a dull pain which radiates to the lower back. Sometimes gets pain on the left side and sometimes on the right side. Pain feels a little bit different. ? ? ? Can have a dull pain after taking MVI, CQ10 ?? ? Denies problems with diarrhea or constipation LABS:?11/06 Reviewed. IMAGING STUDIES:? 03/16/[address] SCAN SHOWED: No CT evidence of acute pancreatitis. If clinical concern persists, consider short-term follow-up CT/MR as early pancreatitis may not manifest on imaging. Increasing 1.3 cm indeterminate lesion in the lower pole the left kidney may represent a proteinaceous/hemorrhagic cyst, but a solid lesion cannot be excluded on this single phase CT. Recommend further evaluation with renal ultrasound. Ultimately, renal mass specific CT or MRI may be necessary to characterize further. Other chronic and incidental findings as above. 01/10/24 BARIUM SWALLOW WITH UGI SHOWED: 1. 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 This is unlikely contributing to the patient's symptoms. 2. Moderate cricopharyngeal achalasia 3. Mildly disorganized esophageal peristalsis 4. Small type I hiatal hernia 5. Multiple tiny foci of contrast pooling in the fundus and body the stomach that may represent small superficial aphthous ulcers. Recommend correlation with EGD. 6. Surgical clips present in the right upper quadrant consistent with prior history of cholecystectomy. 10/23/[address] SCAN SHOWED: ? Stable 7 mm fatty lesion in the pancreas suggestive of a benign lipoma. Postsurgical changes following right colectomy. Severe diverticulosis of the distal colon. No evidence of diverticulitis. ?02/07/20? MRI SHOWED: ? Stable 7 x 8 mm fatty lesion at the junction of the body and tail of ? the pancreas suggestive of a lipoma. Diverticulosis of the colon. ? Stable small probable complex left renal cyst. 03/15/23 COLONOSCOPY SHOWED: No polyps were detected Random biopsies were obtained from right and left colon to check for microscopic colitis Moderate to severe diverticulosis seen in the entire colon Moderate hemorrhoids on retroflexed exam. Plan: Given advanced age and negative colonoscopies, colon cancer screening can be discontinued unless patient has lower GI symptoms [facility] Medical History (Updated 04/20/24 @ 14:23 by Coy Benson MD) Gastritis Stomach ulcer Cricopharyngeal achalasia Difficulty swallowing solids Intermittent palpitations GERD (gastroesophageal reflux disease) Chronic pain of both shoulders Vaccination declined Compound nevus Abnormal MRI of abdomen IBS (irritable bowel syndrome) Mixed dyslipidemia Osteoporosis Essential hypertension Anxiety disorder Surgical History History of esophagogastroduodenoscopy (EGD) Hx of colonoscopy History of laparoscopic cholecystectomy History of tonsillectomy History of section History of partial colectomy Family History Father No problems noted. Mother Depression HTN (hypertension) CHF (congestive heart failure) CVD (cardiovascular disease) Sister No problems noted. Sister No problems noted. Daughter No problems noted. Social History Household Members: Family Housing: House Do you presently have visiting nurse or other home services: No Alcohol intake: never Patient Tobacco Use Status: Former Tobacco user e-Cigarette/Vaping Use: Never Used service: No Current occupational status: retired Cognitive needs: No Hearing needs: No Vision needs: No Physical Exam Vital Signs: Last Vital Signs BP 132/70 04/20/24 13:49 BMI result Body Mass Index 26.3 Assessment & Plan Assessment & Plan (1) IBS (irritable bowel syndrome): Code(s): K58.9 - Irritable bowel syndrome, unspecified Category: Medical Qualifiers: Irritable bowel syndrome type: with both diarrhea and constipation Qualified Code(s): K58.2 - Mixed irritable bowel syndrome (2) Diverticulosis: Code(s): K57.90 - Diverticulosis of intestine, part unspecified, without perforation or abscess without bleeding Category: Medical (3) GERD (gastroesophageal reflux disease): Code(s): K21.9 - Gastro-esophageal reflux disease without esophagitis Category: Medical (4) Cricopharyngeal achalasia: Code(s): K22.0 - Achalasia of cardia Category: Medical (5) Gastritis: Code(s): K29.70 - Gastritis, unspecified, without bleeding Category: Medical Qualifiers: Chronicity: unspecified Gastritis bleeding: without bleeding Gastritis type: superficial Qualified Code(s): K29.30 - Chronic superficial gastritis without bleeding (6) Renal cyst: Code(s): N28.1 - Cyst of kidney, acquired Category: Medical Plan 78 YF with GERD-diet controlled, osteopenia, diverticulitis c h/o surgery, Hypothyroidism, hyperlipidemia, hypertension, Partial colectomy 1979 due to perforated diverticulum, Colon polyps, Scoliosis and Neck pain Pt had Gallbladder surgery in May- feeling better but still having loose stools, aware that it is a side effect of surgery. Pt is aware that Citrucel can be helpful for management of loose stools. Residual diverticulosis noted on 2013 colonoscopy. Feels slight discomfort in LLQ- no pain or bleeding- aware of diverticulosis finding and advised to take Citrucel daily. Abnormal MRI of abdomen - MRCP showed a 7-8 mm Lipoma in body of pancreas stable over the past 2 years and no further workup advised. Pt complains of a dull abdominal pain radiating to the lower back (sometimes on the right and sometimes on the left side) 10/[address] scan showed a stable 7 mm fatty lesion in the pancreas suggestive of a benign lipoma, postsurgical changes following right colectomy. Severe diverticulosis of the distal colon without evidence of diverticulitis. Pt was advised to take Miralax twice a week for constipation and monitor her symptoms. She prefers to have all the labs drawn on a single visit since she has a difficult IV stick. 03/15/23 colonoscopy (last colon was in 2013) was performed and results as noted above Pt can stop having additional colonoscopies in the future unless she has LGI symptoms 02/11/24 Patient advised to schedule an upper endoscopy for further evaluation of abdominal pain and dysphagia - scheduled on 02/23/24 Also advised to schedule an Abd CT scan - pt would like to wait for EGD results prior to scheduling the CT 02/23/24 EGD was performed and showed: ESOPHAGUS: Mildly tortuous esophagus without stricture or ring Balloon dilation of the distal esophagus was performed with a 19 mm CRE balloon x 60 seconds Balloon dilation of proximal esophagus/crico-pharyngeus was performed with an 18 mm CRE balloon x 60 seconds STOMACH: Mild gastritis and benign appearing gastric polyp 04/20/24 Has been having bad heartburn after eating (depends on what she eats) and takes TUMS or mints which help Taking Omeprazole a few times a week. Has not started taking the sucralfate yet due to concerns about timing - and advised to take it after her main meal of the day Schedule limited renal US to FU on indeterminate renal cyst in the lower pole of left kidney FU in 4 months Orders: Orders US abdomen limited Today N28.1 - Cyst of kidney, acquired Coding Level of Care Code Est Pt Level 4 (33440) Diagnoses Irritable bowel syndrome with both constipation and diarrhea K58.2 Irritable bowel syndrome type: with both diarrhea and constipation Diverticulosis K57.90 GERD (gastroesophageal reflux disease) K21.9 Cricopharyngeal achalasia K22.0 Superficial gastritis without hemorrhage, unspecified chronicity K29.30 Chronicity: unspecified Gastritis bleeding: without bleeding Gastritis type: superficial Renal cyst N28.1 Time Spent (min) 22
--- NOTE | 2024-04-20 13:56 | MHC.OFFVIS ---
Vital Signs 04/20/24 13:49 04/20/24 14:38 Height 4 ft 11 in Weight 130 lb BMI 26.3 26.3 BP 132/70 Blood Pressure Location Lt brachial Position Sitting Intake Visit Reasons: s/p egd Allergies sulfamethoxazole [From Bactrim] Allergy (Mild, Verified 04/20/24 13:48) upset stomach trimethoprim [From Bactrim] Allergy (Mild, Verified 04/20/24 13:48) upset stomach Medication List - Last Reconciled 04/20/24 by Coy Benson MD diclofenac sodium 1% 4 grams topical QID metoprolol tartrate 25 mg PO BID 90 days naproxen 500 mg PO DAILY PRN omeprazole 40 mg PO DAILY pravastatin 80 mg PO BEDTIME sucralfate (Carafate) 1 g PO BID 30 days triamterene-hydrochlorothiazid 75-50 mg 1 tab PO DAILY PFS Medical History (Updated 04/20/24 @ 14:23 by Coy Benson MD) Gastritis Stomach ulcer Cricopharyngeal achalasia Difficulty swallowing solids Intermittent palpitations GERD (gastroesophageal reflux disease) Chronic pain of both shoulders Vaccination declined Compound nevus Abnormal MRI of abdomen IBS (irritable bowel syndrome) Mixed dyslipidemia Osteoporosis Essential hypertension Anxiety disorder Surgical History History of esophagogastroduodenoscopy (EGD) Hx of colonoscopy History of laparoscopic cholecystectomy History of tonsillectomy History of section History of partial colectomy Family History Father No problems noted. Mother Depression HTN (hypertension) CHF (congestive heart failure) CVD (cardiovascular disease) Sister No problems noted. Sister No problems noted. Daughter No problems noted. Social History Household Members: Family Housing: House Do you presently have visiting nurse or other home services: No Alcohol intake: never Patient Tobacco Use Status: Former Tobacco user e-Cigarette/Vaping Use: Never Used service: No Current occupational status: retired Cognitive needs: No Hearing needs: No Vision needs: No Review of Systems Const No All systems reviewed & are unremarkable except as noted in HPI and below Denies fever(s), Denies headache(s) and Denies weight loss Eyes Denies eye discharge and Denies irritation ENT Reports Normal hearing present, Denies dysphagia and Denies headache(s) Card Denies chest pain, Denies leg edema and Denies dyspnea on exertion Resp Denies cough, Denies dyspnea on exertion and Denies wheezing GI Denies abdominal pain, Denies change in bowel habits, Denies dysphagia and Reports heartburn Denies difficulty voiding and Denies dysuria Musc Denies back pain and Denies arthralgias Skin/Breast Denies pruritus, Denies rash and Denies jaundice Neuro Reports Normal hearing present, Denies Abnormal speech present and Denies headache(s) Psych Reports anxiety, Denies depression and Denies panic attacks Endo Denies cold intolerance, Denies flushing and Denies heat intolerance Augie/Lymph Denies easy bleeding and Denies easy bruising Aller/Immun Denies wheezing Physical Exam Vital Signs: BMI result Body Mass Index 26.3 Const General: healthy appearing and no acute distress Nutritional Appearance: average body habitus Orientation/consciousness: patient oriented x3 Limitations: no limitations HEENT Head: Yes normal to inspection Ears: hearing grossly normal bilaterally Mouth: Normal oral and palatal mucosa present Eyes Sclerae: sclerae normal Pupils: Equal, round and reactive pupils present Neck Neck: Yes normal visual inspection Chest Chest palpation & inspection: normal inspection of the chest Resp Effort & Inspection: normal respiratory effort Auscultation: clear to auscultation bilaterally Cardio Palpation: normal PMI Rate: regular rate Rhythm: regular rhythm Heart sounds: S1 normal heart sound present, S2 normal heart sound present and no murmurs GI Palpation (GI): Soft to palpation, nontender and No hepatosplenomegaly present Auscultation: normal bowel sounds Rectal Exam - Female: deferred Skin General skin exam: no rashes or lesions noted Neuro General: patient oriented x3, gait normal and moves all extremities Cranial nerves: Yes Equal, round and reactive pupils present and Yes Normal hearing present Speech: No Abnormal speech present Psych Appearance: grossly normal Mental Status: mental status grossly normal Assessment & Plan Assessment & Plan (1) IBS (irritable bowel syndrome): Code(s): K58.9 - Irritable bowel syndrome, unspecified Category: Medical Qualifiers: Irritable bowel syndrome type: with both diarrhea and constipation Qualified Code(s): K58.2 - Mixed irritable bowel syndrome (2) Diverticulosis: Code(s): K57.90 - Diverticulosis of intestine, part unspecified, without perforation or abscess without bleeding Category: Medical (3) GERD (gastroesophageal reflux disease): Code(s): K21.9 - Gastro-esophageal reflux disease without esophagitis Category: Medical (4) Cricopharyngeal achalasia: Code(s): K22.0 - Achalasia of cardia Category: Medical (5) Gastritis: Code(s): K29.70 - Gastritis, unspecified, without bleeding Category: Medical Qualifiers: Chronicity: unspecified Gastritis bleeding: without bleeding Gastritis type: superficial Qualified Code(s): K29.30 - Chronic superficial gastritis without bleeding (6) Renal cyst: Code(s): N28.1 - Cyst of kidney, acquired Category: Medical Orders: Orders US abdomen limited Today N28.1 - Cyst of kidney, acquired Coding Level of Care Code Est Pt Level 4 (99509) Diagnoses Irritable bowel syndrome with both constipation and diarrhea K58.2 Irritable bowel syndrome type: with both diarrhea and constipation Diverticulosis K57.90 GERD (gastroesophageal reflux disease) K21.9 Cricopharyngeal achalasia K22.0 Superficial gastritis without hemorrhage, unspecified chronicity K29.30 Chronicity: unspecified Gastritis bleeding: without bleeding Gastritis type: superficial Renal cyst N28.1 Time Spent (min) 22
--- NOTE | 2024-04-20 14:37 | A.OFFVIS_ITS ---
Vital Signs 04/20/24 13:49 Height 4 ft 11 in Weight 130 lb BMI 26.3 BP 132/70 Blood Pressure Location Lt brachial Position Sitting Intake Visit Reasons: s/p egd Allergies sulfamethoxazole [From Bactrim] Allergy (Mild, Verified 04/20/24 13:48) upset stomach trimethoprim [From Bactrim] Allergy (Mild, Verified 04/20/24 13:48) upset stomach Medication List - Last Reconciled 04/20/24 by Coy Bensno MD diclofenac sodium 1% 4 grams topical QID metoprolol tartrate 25 mg PO BID 90 days naproxen 500 mg PO DAILY PRN omeprazole 40 mg PO DAILY pravastatin 80 mg PO BEDTIME sucralfate (Carafate) 1 g PO BID 30 days triamterene-hydrochlorothiazid 75-50 mg 1 tab PO DAILY PFSH Medical History (Updated 04/20/24 @ 14:23 by Coy Benson MD) Gastritis Stomach ulcer Cricopharyngeal achalasia Difficulty swallowing solids Intermittent palpitations GERD (gastroesophageal reflux disease) Chronic pain of both shoulders Vaccination declined Compound nevus Abnormal MRI of abdomen IBS (irritable bowel syndrome) Mixed dyslipidemia Osteoporosis Essential hypertension Anxiety disorder Surgical History History of esophagogastroduodenoscopy (EGD) Hx of colonoscopy History of laparoscopic cholecystectomy History of tonsillectomy History of section History of partial colectomy Family History Father No problems noted. Mother Depression HTN (hypertension) CHF (congestive heart failure) CVD (cardiovascular disease) Sister No problems noted. Sister No problems noted. Daughter No problems noted. Social History Household Members: Family Housing: House Do you presently have visiting nurse or other home services: No Alcohol intake: never Patient Tobacco Use Status: Former Tobacco user e-Cigarette/Vaping Use: Never Used service: No Current occupational status: retired Cognitive needs: No Hearing needs: No Vision needs: No Physical Exam Vital Signs: BMI result Body Mass Index 26.3 Quality Reporting (2019) Adult ([facility] 138/2/22/69) Body Mass Index: 26.3 Assessment & Plan Assessment & Plan (1) IBS (irritable bowel syndrome): Code(s): K58.9 - Irritable bowel syndrome, unspecified Category: Medical Qualifiers: Irritable bowel syndrome type: with both diarrhea and constipation Qualified Code(s): K58.2 - Mixed irritable bowel syndrome (2) Diverticulosis: Code(s): K57.90 - Diverticulosis of intestine, part unspecified, without perforation or abscess without bleeding Category: Medical (3) GERD (gastroesophageal reflux disease): Code(s): K21.9 - Gastro-esophageal reflux disease without esophagitis Category: Medical (4) Cricopharyngeal achalasia: Code(s): K22.0 - Achalasia of cardia Category: Medical (5) Gastritis: Code(s): K29.70 - Gastritis, unspecified, without bleeding Category: Medical Qualifiers: Gastritis type: superficial Chronicity: unspecified Gastritis bleeding: without bleeding Qualified Code(s): K29.30 - Chronic superficial gastritis without bleeding (6) Renal cyst: Code(s): N28.1 - Cyst of kidney, acquired Category: Medical Orders: Orders US abdomen limited Today N28.1 - Cyst of kidney, acquired Coding Diagnoses Irritable bowel syndrome with both constipation and diarrhea K58.2 Irritable bowel syndrome type: with both diarrhea and constipation Diverticulosis K57.90 GERD (gastroesophageal reflux disease) K21.9 Cricopharyngeal achalasia K22.0 Superficial gastritis without hemorrhage, unspecified chronicity K29.30 Gastritis type: superficial Chronicity: unspecified Gastritis bleeding: without bleeding Renal cyst N28.1
== END 2024-04-20 14:58 | disposition home or self-care (01) ==
PROVIDERS: PCP Internal Medicine; Visit Provider Internal Medicine Gastroenterology
DX: K58.2 Mixed irritable bowel syndrome (principal); K57.90 Diverticulosis of intestine, part unspecified, without perforation or abscess without bleeding; K21.9 Gastro-esophageal reflux disease without esophagitis; K22.0 Achalasia of cardia; K29.30 Chronic superficial gastritis without bleeding; N28.1 Cyst of kidney, acquired
CPT/HCPCS: 99214

== ENCOUNTER → 2024-04-20 13:38 | Outpatient (BNVA) | payer MEDICARE, SELFPAY | PROVIDERS: PCP Internal Medicine; Visit Provider Internal Medicine Gastroenterology | DX: K21.9 Gastro-esophageal reflux disease without esophagitis (principal); K57.90 Diverticulosis of intestine, part unspecified, without perforation or abscess without bleeding; K22.0 Achalasia of cardia; K29.70 Gastritis, unspecified, without bleeding; K29.30 Chronic superficial gastritis without bleeding; K51.90 Ulcerative colitis, unspecified, without complications; K58.2 Mixed irritable bowel syndrome; N28.1 Cyst of kidney, acquired | CPT/HCPCS: 99212 ==

== ENCOUNTER 2024-05-02 08:56 | Outpatient (REF) | payer MEDICARE, SELFPAY ==
--- NOTE | ~2024-05-02 | US_ITS ---
EXAMINATION: US RETROPERITONEAL LIMITED, LEFT (RENAL ONLY) CLINICAL INFORMATION: Cyst of kidney, acquired. Abdominal CT showed: Increasing 1.3 cm indeterminate lesion in the lower pole of left kidney may represent a proteinaceous/hemorrhagic cyst, but a solid lesion cannot be excluded on this single phase CT. Recommend further evaluation with renal ultrasound. COMPARISON: CT abdomen and pelvis 03/16/2024. MR abdomen without and with contrast 02/07/2020. Ultrasound abdomen complete 05/04/2018. TECHNIQUE: Real-time imaging of the left kidney. FINDINGS: LEFT KIDNEY: 7.4 x 3.3 x 3.6 cm (SAG x AP x TRV). The kidney is normal in size, contour, and echogenicity. Renal cortical thickness is normal. No renal calculi or hydronephrosis. At the lower pole, a 1.3 cm hypoechoic, circumscribed lesion is seen, without associated color Doppler flow. This shows no significant change in through sound transmission. US/US renal LT IMPRESSION: Corresponding with the accompanying CT abdomen and pelvis, a 1.3 solid hyperechoic lesion is seen, without associated color Doppler flow. Again, this could represent a complex cyst (for instance, a hemorrhagic/proteinaceous cyst) or a hypoechoic solid lesion. The lack of associated color Doppler flow favors a hemorrhagic proteinaceous cyst, although this cannot be asserted with certainty. Recommend further evaluation with MRI (renal mass protocol, contrast-enhanced). Urology evaluation and management may be considered. Electronically signed by: Jon Jones MD 06/05/2024 02:45 PM EST
== END 2024-05-02 08:57 | disposition home or self-care (01) ==
LOC: HO.HMGCX 08:56
PROVIDERS: PCP Internal Medicine; Visit Provider Internal Medicine Gastroenterology
DX: N28.1 Cyst of kidney, acquired (principal)
CPT/HCPCS: 76775

== ENCOUNTER 2024-05-18 08:09 | Outpatient (REF) | payer MEDICARE, SELFPAY ==
[2024-05-18 10:41] LABS: Alanine Aminotransferase 15 U/L (0-31); Anion Gap 11 (12-20); Aspartate Amino Transferase 24 U/L (5-31); Blood Urea Nitrogen 16 mg/dL (9-16); Calcium 10.5 mg/dL (8.4-10.2); Carbon Dioxide 32 mmol/L (22-29); Chloride 101 mmol/L (96-108); Cholesterol 175 mg/dL (<200); Estimated Glomerular Filt Rate > 60; Glucose Fasting 103 mg/dL (60-99); HDL Cholesterol 48 mg/dL (>40); LDL Cholesterol Calculated 88 mg/dL (<100); Potassium 3.8 mmol/L (3.3-5.1); Sodium 140 mmol/L (135-145); Triglycerides 196 mg/dL (<150)
[2024-05-18 10:56] LABS: Vitamin D 25-OH Total 34.3 ng/mL (>30)
== END 2024-05-18 08:10 | disposition home or self-care (01) ==
LOC: HO.HMGCLDS 08:09
PROVIDERS: PCP Internal Medicine; Visit Provider Internal Medicine
DX: E78.2 Mixed hyperlipidemia (principal); I10 Essential (primary) hypertension; M81.0 Age-related osteoporosis without current pathological fracture
CPT/HCPCS: 36415; 80048; 80061; 82306; 84450; 84460

== ENCOUNTER 2024-05-22 09:11 | Outpatient (AMB) | payer MEDICARE, SELFPAY ==
[2024-05-22 09:22] VITALS: BP 140/64; PULSE 60; O2SAT 98; BMI 26.3
--- NOTE | 2024-05-22 09:22 | A.OFFPC_ITS ---
Vital Signs 05/22/24 09:22 Height 4 ft 11 in Weight 130 lb BMI 26.3 BP 140/64 H Blood Pressure Location Rt brachial Position Sitting Pulse 60 Pulse Source Pulse Oximeter Pulse Oximetry (%) 98 Oxygen Delivery Method Room Air Intake Visit Reasons: 6 Month F/U Intake Note: Pt is here today for her 6 mo. f/u Allergies sulfamethoxazole [From Bactrim] Allergy (Mild, Verified 05/22/24 09:56) upset stomach trimethoprim [From Bactrim] Allergy (Mild, Verified 05/22/24 09:56) upset stomach Medication List - Last Reconciled 05/22/24 by Tri Richter MD diclofenac sodium 1% 4 grams topical QID metoprolol tartrate 25 mg PO BID 90 days naproxen 500 mg PO DAILY PRN omeprazole 40 mg PO DAILY pravastatin 80 mg PO BEDTIME sucralfate (Carafate) 1 g PO BID 30 days triamterene-hydrochlorothiazid 75-50 mg 1 tab PO DAILY Tobacco use date assessed: 05/22/24 Fall risk assessment: No Falls in past year Last assessed Fall Risk: 05/22/24 Dental Screening Dental Screen Date: 04/03/24 Did you have a dental visit in the last 12 months?: No Did you have a dental problem in the last 6 months where you did not have access to dental care?: No Was dental information given to patient?: Patient has dentist HPI 6 Month F/U HPI Details 78-year-old lady here today for follow-u p on her hypertension and mixed dyslipidemia. Currently taking metoprolol tartrate 25 mg 1 tablet twice a day, and triamterene hydrochlorothiazide 75-50 mg once daily as well as pravastatin 80 mg at bedtime. Has been compliant with taking her medications and following diet. Denies headache, no chest pain or palpitations, no lightheadedness or shortness of breath. She had recent fasting labs done which showed mildly elevated triglycerides with normal LDL cholesterol and total cholesterol, fasting blood sugar in the pre diabetic range at 103 mg/dL. [facility] Medical History (Updated 05/22/24 @ 10:09 by Tri Richter MD) History of basal cell cancer Gastritis Stomach ulcer Cricopharyngeal achalasia Difficulty swallowing solids Intermittent palpitations GERD (gastroesophageal reflux disease) Chronic pain of both shoulders Vaccination declined Compound nevus Abnormal MRI of abdomen IBS (irritable bowel syndrome) Mixed dyslipidemia Osteoporosis Essential hypertension Anxiety disorder Surgical History History of esophagogastroduodenoscopy (EGD) Hx of colonoscopy History of laparoscopic cholecystectomy History of tonsillectomy History of section History of partial colectomy Family History Father No problems noted. Mother Depression HTN (hypertension) CHF (congestive heart failure) CVD (cardiovascular disease) Sister No problems noted. Sister No problems noted. Daughter No problems noted. Social History Household Members: Family Housing: House Do you presently have visiting nurse or other home services: No Alcohol intake: never Patient Tobacco Use Status: Former Tobacco user e-Cigarette/Vaping Use: Never Used service: No Current occupational status: retired Cognitive needs: No Hearing needs: No Vision needs: Yes Questionnaire Thrive Questionnaire Date Thrive assessed: 04/03/24 I am a: Patient What is your living situation today?: I have a steady place to live THRIVE Score: 0 MARGUERITE-7 AMB Questionnaire MARGUERITE-7 Date MARGUERITE - 7 assessed: 11/15/23 Source: Developed by Drs. Wally Ryan, Ashwini Tovar, Fransisco Munroe and colleagues, with an educational beto from [employer]. Review of Systems Const Denies fever(s) ENT Reports no additional complaints Card Denies chest pain and Denies dyspnea on exertion Resp Denies cough and Denies dyspnea on exertion GI Denies melena, Denies bloating, Denies hematochezia, Denies change in bowel habits and Reports dyspepsia Reports no additional complaints Musc Denies back pain and Denies arthralgias Skin/Breast Denies pruritus, Denies rash and Denies jaundice Neuro Reports no additional complaints Augie/Lymph Reports no additional complaints Physical exam (Primary Care) Vital Signs: Last Vital Signs Pulse 60 05/22/24 09:22 BP 140/64 H 05/22/24 09:22 Pulse Ox 98 05/22/24 09:22 Oxygen Delivery Method Room Air 05/22/24 09:22 BMI result Body Mass Index 26.3 Tobacco/Smoking Status: Tobacco use Status Tobacco use date assessed 05/22/24 05/22/24 09:28 Patient Tobacco Use Status Former Tobacco user 05/22/24 09:28 e-Cigarette/Vaping Use Never Used 05/22/24 09:28 Thrive Assessment: Date of Thrive Assessment Date Thrive assessed 04/03/24 05/22/24 09:28 Const Other: Alert oriented x3, no acute distress noted ambulatory normal gait Orientation/consciousness: patient oriented x3 HENMT Face and sinus: Yes face symmetric Mouth: moist mucous membranes Eyes General: appearance normal, both eyes and all related structures Neck Neck: Yes full ROM, Yes no lymphadenopathy and Yes supple Resp Auscultation: clear to auscultation bilaterally Cardio Rate: regular rate Rhythm: regular rhythm Heart sounds: S1 normal heart sound present and S2 normal heart sound present GI Palpation (GI): Soft to palpation, nontender, no guarding and no masses Auscultation: normal bowel sounds Neuro General: patient oriented x3, gait normal, tone normal, moves all extremities, Normal light touch and pain sensation and no focal motor deficits Extrem General: Yes full ROM, Yes no joint enlargement and Yes no clubbing, cyanosis or edema Results Reviewed Results Reviewed: Name: Marva Davison Age/Sex: 78/F : 1945 Unit#: [id number] Attend Dr: Tri Richter MD Re05/18/24 Status: DEP REF Location: [facility] Disch: SPEC : [id number] GEMMA: 05/18/24 STATUS: COMP REQ : [id number] RECD: 05/18/[address]: Tri Richter MD COMP: 05/18/24 ENTERED: 05/18/[address]: ORDERED: Met Prof Fast, AST, ALT, Lipid Panel, Vitamin D 25-OH Test Result Flag Reference Sodium 140 135-145 mmol/L Potassium 3.8 3.3-5.1 mmol/L CL 101 96-108 mmol/L CO2 32 H 22-29 mmol/L Gap 11 L 12-20 BUN 16 9-16 mg/dL Creat 0.84 0.5-1.4 mg/dL EGFR > 60 NOTE: For -[place] individuals, multiply the result by 1.210. Chronic Kidney Disease: Estimated GFR < 60 mL/min/1.73m2 Severe Kidney Disease: Estimated GFR < 15 mL/min/1.73m2 FBS 103 H 60-99 mg/dL A fasting glucose from 100-125 mg/dl is considered impaired (pre-diabetes). CA 10.5 H 8.4-10.2 mg/dL AST (GOT) 24 5-31 U/L ALT (GPT) 15 0-31 U/L Triglyceride 196 H <150 mg/dL Desirable Triglyceride: less than 150 mg/dL Borderline High Triglyceride 150-199 mg/dL High Triglyceride: 200-499 mg/dL Very High Triglyceride: greater than or equal to 5OO mg/dL Cholesterol 175 <200 mg/dL Desirable Cholesterol: less than 200 mg/dL Borderline High Cholesterol: 200-239 mg/dL High Cholesterol: greater than 239 mg/dL LDL Calculated 88 <100 mg/dL Desirable LDL: less than 100 mg/dL Near Optimal/Above Optimal LDL: 110-129 mg/dL Borderline High LDL: 130-159 mg/dL High LDL: 160-189 mg/dL Very High LDL: greater than or equal to 190 mg/dL HDL 48 >40 mg/dL Desirable HDL: greater than 40 mg/dL Note: This HDL assay may give artificially low results in patients with liver disease. Vit D 25-OH Tot 34.3 >30 ng/mL Health Based Reference Values* < 20 ng/mL Deficient 20-30 ng/mL Insufficient > 30 ng/mL Sufficient Coding Level of Care Code Est Pt Level 4 (96707) Complex EM visit Add On G2211 Diagnoses Mixed dyslipidemia E78.2 Essential hypertension I10 Serum calcium elevated E83.52 Assessment & Plan Assessment & Plan (1) Mixed dyslipidemia: Comment: Code(s): E78.2 - Mixed hyperlipidemia Category: Medical Plan: Reviewed recent fasting lipid profile with patient with levels within normal limits except for mildly elevated triglycerides. . Continue pravastatin 80 mg at bedtime , in addition to adherence to low-cholesterol diet and regular exercise, at least 30 minutes 3 to 4 times a week. Advised patient to make healthy food choices, eat more fruits, vegetables, whole grains, wild caught fish and low-fat dairy. Limit amount of meat and fried or fatty food products, as well as processed foods and fast foods. Follow-up scheduled with repeat fasting lipid panel in 6 months. (2) Essential hypertension: Code(s): I10 - Essential (primary) hypertension Category: Medical Plan: Continue with metoprolol tartrate 25 mg 1 tablet twice a day, triamterene hydrochlorothiazide 75-50 mg 1 tablet daily in a.m. (3) Serum calcium elevated: Code(s): E83.52 - Hypercalcemia Plan: Mildly elevated serum calcium at 10.5 noted on recent labs. Will check serum ionized calcium to confirm Orders: Orders Vitamin D 25-OH Total 11/16/24 E78.2 - Mixed hyperlipidemia, I10 - Essential ( primary) hypertension, M81.0 - Age-related osteoporosis without current pathological fracture Calcium, Ionized 11/16/24 E78.2 - Mixed hyperlipidemia, E83.52 - Hypercalcemia, I10 - Essential (primary) hypertension, M81.0 - Age-related osteoporosis without current pathological fracture Basic Metabolic Panel Fasting 11/16/24 E78.2 - Mixed hyperlipidemia, I10 - Essential (primary) hypertension, M81.0 - Age-related osteoporosis without current pathological fracture Aspartate Amino Transferase 11/16/24 E78.2 - Mixed hyperlipidemia, I10 - Essential (primary) hypertension, M81.0 - Age-related osteoporosis without current pathological fracture Alanine Aminotransferase 11/16/24 E78.2 - Mixed hyperlipidemia, I10 - Essential (primary) hypertension, M81.0 - Age-related osteoporosis without current pathological fracture Lipid Panel 11/16/24 E78.2 - Mixed hyperlipidemia, I10 - Essential (primary) hypertension, M81.0 - Age-related osteoporosis without current pathological fracture
== END 2024-05-22 10:30 | disposition home or self-care (01) ==
LOC: HO.HMCC 09:11
PROVIDERS: PCP Internal Medicine; Visit Provider Internal Medicine
DX: E78.2 Mixed hyperlipidemia (principal); I10 Essential (primary) hypertension; E83.52 Hypercalcemia

== ENCOUNTER → 2024-05-22 09:11 | Outpatient (BNVA) | payer MEDICARE, SELFPAY | PROVIDERS: PCP Internal Medicine; Visit Provider Internal Medicine | DX: E78.2 Mixed hyperlipidemia (principal); I10 Essential (primary) hypertension; E83.52 Hypercalcemia | CPT/HCPCS: 99212 ==

== ENCOUNTER 2024-08-17 08:25 | Outpatient (AMB) | payer MEDICARE, SELFPAY ==
[2024-08-17 08:29] VITALS: BP 138/84; PULSE 76; TEMP 36.6; O2SAT 98
--- NOTE | 2024-08-17 08:29 | MHC.OFFWIV ---
Intake Vital Signs 08/17/24 08:29 Weight 132 lb BP 138/84 Blood Pressure Location Rt brachial Position Sitting Pulse 76 Pulse Source Pulse Oximeter Temp 97.9 F Temp Source Oral Pulse Oximetry (%) 98 Oxygen Delivery Method Room Air Intake Visit Reasons: EP Rt side of face swollen/painful Intake Note: Patient here for right sided face pain/swelling that has been present for about 3-4 days. Patient Tobacco Use Status: Former Tobacco user Allergies sulfamethoxazole [From Bactrim] Allergy (Mild, Verified 08/17/24 08:29) upset stomach trimethoprim [From Bactrim] Allergy (Mild, Verified 08/17/24 08:29) upset stomach Do you need a note to return to daycare/school/sports/work: No HPI HPI Comments History of Present Illness Details 78 y/o female patient who presents to the walk in clinic with c/o right sided facial swelling for few days now. Reports right ear pain. [facility] Medical History (Updated 05/22/24 @ 10:09 by Tri Richter MD) History of basal cell cancer Gastritis Stomach ulcer Cricopharyngeal achalasia Difficulty swallowing solids Intermittent palpitations GERD (gastroesophageal reflux disease) Chronic pain of both shoulders Vaccination declined Compound nevus Abnormal MRI of abdomen IBS (irritable bowel syndrome) Mixed dyslipidemia Osteoporosis Essential hypertension Anxiety disorder Surgical History History of esophagogastroduodenoscopy (EGD) Hx of colonoscopy History of laparoscopic cholecystectomy History of tonsillectomy History of section History of partial colectomy Family History Father No problems noted. Mother Depression HTN (hypertension) CHF (congestive heart failure) CVD (cardiovascular disease) Sister No problems noted. Sister No problems noted. Daughter No problems noted. Social History Household Members: Family Housing: House Do you presently have visiting nurse or other home services: No Alcohol intake: never Patient Tobacco Use Status: Former Tobacco user e-Cigarette/Vaping Use: Never Used service: No Current occupational status: retired Cognitive needs: No Hearing needs: No Vision needs: Yes Review of Systems Const All systems reviewed & are unremarkable except as noted in HPI and below Physical Exam Vital Signs: Last Vital Signs Temp 97.9 F 08/17/24 08:29 Pulse 76 08/17/24 08:29 BP 138/84 08/17/24 08:29 Pulse Ox 98 08/17/24 08:29 Oxygen Delivery Method Room Air 08/17/24 08:29 Const General: cooperative, comfortable and no acute distress Orientation/consciousness: patient oriented x3 HEENT Head: Yes normocephalic Ears: external ears normal and TM abnormal bulging, with fluid behind the TM on the left and obstructed by cerumen on the right General nose exam: Normal external nose present and No nasal discharge present Face and sinus: Yes normal facial exam, Yes sinuses nontender and Yes face symmetric Mouth: moist mucous membranes Throat: Yes uvula midline and Yes postnasal drainage Resp Effort & Inspection: normal respiratory effort and able to speak in complete sentences Auscultation: clear to auscultation bilaterally, no crackles, no rales, no rhonchi and no wheezes Cardio Heart sounds: S1 normal heart sound present and S2 normal heart sound present Neuro General: patient oriented x3 Assessment & Plan Assessment & Plan (1) Fluid level behind tympanic membrane of both ears: Code(s): H65.93 - Unspecified nonsuppurative otitis media, bilateral Plan: Ordered Zyrtec Facial exam WNL, no swelling, TMJ intact. No infection in both ears, just Fluid in TM. Medications: New cetirizine (Zyrtec) 10 mg PO DAILY 30 tabs 0RF H65.93 - Unspecified nonsuppurative otitis media, bilateral Refilled naproxen Take with food or milk only as needed for acute joint pains 500 mg PO DAILY PRN 30 tabs 0RF pain H65.93 - Unspecified nonsuppurative otitis media, bilateral Coding Level of Care Code Est Pt Level 3 (49236) Diagnoses Fluid level behind tympanic membrane of both ears H65.93 Time Spent (min) 15
== END 2024-08-17 09:02 | disposition home or self-care (01) ==
PROVIDERS: PCP Internal Medicine; Visit Provider Nurse Practitioner Family
DX: H65.93 Unspecified nonsuppurative otitis media, bilateral (principal)

== ENCOUNTER 2024-08-21 08:33 | Outpatient (AMB) | payer MEDICARE, SELFPAY ==
--- OUTSIDE RECORDS SUMMARY | 2024-08-21 08:37 | XMS_ITS | Encounter Summary ---
Author Organization [employer] Address [address] [place] [address] [address] [place] [address] Care Team Providers Care Head Golf Professional Name Role Phone Unavailable Primary Care Provider Unavailabl e Encounter Details Date Type Department Care Team (Latest Contact Info) Description 09/29/2018 Abstract [facility] CONVERSIONS Dental, Provider, DDS Social History Tobacco Use Types Packs/Day Years Used Date Smoking Tobacco: Never Assessed Comments Unknown Sex and Gender Information Value Date Recorded Sex Assigned at Female 05/18/2022 10:35 AM EDT Legal Sex Female 10:35 AM EDT Gender Identity Male 05/18/2022 10:35 AM EDT Sexual Orientation Choose not to disclose 2021 10:35 AM EDT documented as of this encounter Plan of Treatment Not on file documented as of this encounter Visit Diagnoses Not on filedocumented in this encounter
--- OUTSIDE RECORDS SUMMARY | 2024-08-21 08:38 | XMS_ITS | Encounter Summary ---
Author Organization [employer] Address [address] [place] [address] [address] [place] [address] Care Team Providers Care Pharmacy Consultant Name Role Phone Unavailable Primary Care Provider Unavailabl e Encounter Details Date Type Department Care Team (Latest Contact Info) Description 09/23/2021 Abstract [facility] CONVERSIONS Dental, Provider, DDS Social History [...]
--- OUTSIDE RECORDS SUMMARY | 2024-08-21 08:38 | XMS_ITS | Clinical Summary ---
Author Organization [employer] Address [address] [place] [address] [address] [place] [address] Care Team Providers Care Speeder Worker Name Role Phone Unavailable Primary Care Provider Unavailabl e Social History Tobacco Use Types Packs/Day Years Used Date Smoking Tobacco: Never Assessed Comments Unknown Sex and Gender Information Value Date Recorded Sex Assigned at Female 05/18/2022 10:35 AM EDT Legal Sex Female 10:35 AM EDT Gender Identity Male 05/18/2022 10:35 AM EDT Sexual Orientation Choose not to disclose 2021 10:35 AM EDT Plan of Treatment Health Maintenance Due Date Last Done Comments Depression Screening 1945 Lipid Panel 1945 Alcohol/Substance Use Screening 1957 Tobacco Screening 1957 DTaP/Tdap/Td Vaccines (1 - Tdap) 1964 Pneumococcal Vaccine: 50+ Ye ars (1 of 1 - PCV) 09/17/1995 Zoster Vaccines (1 of 2) 09/17/1995 RSV Patients and Pa tients Aged 60 years or older (1 - 1-dose 75+ series) 2020 COVID-19 Vaccine (2023-2 5 season) 2024 Influenza Vaccine (#1) 2024 HIB Vaccines Aged Out No longer eligi ble based on patient's age to complete this topic HPV Vaccines Aged Out No longer eligi ble based on patient's age to complete this topic Hepatitis A Vaccines Aged Out No long er eligible based on patient's age to complete this topic Hepatitis B Vaccines Aged Out No long er eligible based on patient's age to complete this topic IPV Vaccines Aged Out No longer eligi ble based on patient's age to complete this topic Meningococcal Vaccine Aged Out No mila antony eligible based on patient's age to complete this topic RSV under 20 months Aged Out No longe r eligible based on patient's age to complete this topic Rotavirus Vaccines Aged Out No longer eligible based on patient's age to complete this topic
--- OUTSIDE RECORDS SUMMARY | 2024-08-21 08:38 | XMS_ITS | Encounter Summary ---
Author Organization [employer] Address [address] [place] [address] [address] [place] [address] Care Team Providers Care Plumbing Mechanic Name Role Phone Unavailable Primary Care Provider Unavailabl e Encounter Details Date Type Department Care Team (Latest Contact Info) Description 10/10/2020 Abstract [facility] CONVERSIONS Dental, Provider, DDS Social History Tobacco [...]
--- NOTE | 2024-08-21 08:39 | MHC.OFFVIS ---
Intake Visit Reasons: renal cyst Intake Note: Patient is present for RENAL CYST Urology Medication:NONE Antibiotic Allergy:SULFA,BACTRIM Blood Thinner:NONE International Project Engineer Required: No Allergies sulfamethoxazole [From Bactrim] Allergy (Mild, Verified 08/21/24 08:41) upset stomach trimethoprim [From Bactrim] Allergy (Mild, Verified 08/21/24 08:41) upset stomach Medication List - Last Reconciled 08/21/24 by Deepti Cobos MD cetirizine (Zyrtec) 10 mg PO DAILY diclofenac sodium 1% 4 grams topical QID metoprolol tartrate 25 mg PO BID 90 days naproxen 500 mg PO DAILY PRN omeprazole 40 mg PO DAILY pravastatin 80 mg PO BEDTIME sucralfate (Carafate) 1 g PO BID 30 days triamterene-hydrochlorothiazid 75-50 mg 1 tab PO DAILY HPI Comments Details: Marva is here for new patient evaluation due to an indeterminate lesion in the left kidney. In review of the patient's chart she had a CT scan 10/2020 which noted a 7 mm cyst left kidney; recent imaging CTAPwIV contrast February and Renal US 05/02/2024 noted that this cystic lesion has increased in size to 1.3 mm. On renal ultrasound there is no Doppler enhancement. Per imaging evaluation the indeterminate lesion is likely a proteinaceous or hemorrhagic cyst. Further follow-up is recommended. MRI discussed with the patient at this time she declines MRI which I agree is reasonable and I will repeat renal ultrasound in 6 months. [facility] Medical History History of basal cell cancer Gastritis Stomach ulcer Cricopharyngeal achalasia Difficulty swallowing solids Intermittent palpitations GERD (gastroesophageal reflux disease) Chronic pain of both shoulders Vaccination declined Compound nevus Abnormal MRI of abdomen IBS (irritable bowel syndrome) Mixed dyslipidemia Osteoporosis Essential hypertension Anxiety disorder Surgical History History of esophagogastroduodenoscopy (EGD) Hx of colonoscopy History of laparoscopic cholecystectomy History of tonsillectomy History of section History of partial colectomy Family History Father No problems noted. Mother Depression HTN (hypertension) CHF (congestive heart failure) CVD (cardiovascular disease) Sister No problems noted. Sister No problems noted. Daughter No problems noted. Social History Household Members: Family Housing: House Do you presently have visiting nurse or other home services: No Alcohol intake: never Patient Tobacco Use Status: Former Tobacco user e-Cigarette/Vaping Use: Never Used service: No Current occupational status: retired Cognitive needs: No Hearing needs: No Vision needs: Yes Review of Systems Const All systems reviewed & are unremarkable except as noted in HPI and below Reports no additional complaints Eyes Reports no additional complaints ENT Reports no additional complaints Card Reports no additional complaints Resp Reports no additional complaints GI Reports no additional complaints Reports as per HPI Musc Reports no additional complaints Skin/Breast Reports system reviewed and no additional complaints, except as documented Neuro Reports no additional complaints Psych Reports no additional complaints Endo Reports no additional complaints Augie/Lymph Reports no additional complaints Aller/Immun Reports no additional complaints Physical Exam Const General: cooperative, healthy appearing and no acute distress Orientation/consciousness: patient oriented x3 HEENT Head: Yes normal to inspection, Yes normocephalic and Yes atraumatic Eyes Conjunctivae: conjunctivae normal Neck Neck: Yes normal visual inspection and Yes trachea midline Chest Chest palpation & inspection: normal inspection of the chest Resp Effort & Inspection: normal respiratory effort GI Inspection: Yes normal to inspection Neuro General: patient oriented x3 Extrem General: No edema Psych Appearance: grossly normal Results AMB Urinalysis, Automated UA Leukoctes 0 Froy/uL Last Edit by BAR Day on 08/21/24 08:49 UA Nitrite Negative Last Edit by BAR Day on 08/21/24 08:49 UA Urobilinogen 0.2 mg/dL Last Edit by BAR Day on 08/21/24 08:49 UA Protein 0 mg/dL Last Edit by BAR Day on 08/21/24 08:49 UA pH 6.0 Last Edit by BAR Day on 08/21/24 08:49 UA Blood 0 Paul/uL Last Edit by BAR Day on 08/21/24 08:49 UA Specific [place] 1.020 Last Edit by BAR Day on 08/21/24 08:49 UA Ketone Negative Last Edit by BAR Day on 08/21/24 08:49 UA Bilirubin 0 mg/dL Last Edit by BAR Day on 08/21/24 08:49 UA Glucose 0 mg/dL Last Edit by BAR Day on 08/21/24 08:49 Results Reviewed Results Reviewed: Laboratory Last Values Urine pH (Auto) 6.0 08/21/24 08:49 Specific [place] (Auto) 1.020 08/21/24 08:49 Urine Protein (Auto) 0 mg/dL 08/21/24 08:49 Glucose (UA)(Auto) 0 mg/dL 08/21/24 08:49 Urine Ketones (Auto) Negative 08/21/24 08:49 Urine Blood (Auto) 0 Paul/uL 08/21/24 08:49 Urine Nitrite (Auto) Negative 08/21/24 08:49 Urine Bilirubin (Auto) 0 mg/dL 08/21/24 08:49 Urine Urobilinogen (Auto) 0.2 mg/dL 08/21/24 08:49 Leukocyte Esterase (Auto) 0 Froy/uL 08/21/24 08:49 Date of Service: 05/02/24 US RETROPERITONEAL LIMITED, LEFT (RENAL ONLY) CLINICAL INFORMATION: Cyst of kidney, acquired. Abdominal CT showed: Increasing 1.3 cm indeterminate lesion in the lower pole of left kidney may represent a proteinaceous/hemorrhagic cyst, but a solid lesion cannot be excluded on this single phase CT. Recommend further evaluation with renal ultrasound. COMPARISON: CT abdomen and pelvis 03/16/2024. MR abdomen without and with contrast 02/07/2020. Ultrasound abdomen complete 05/04/2018. TECHNIQUE: Real-time imaging of the left kidney. FINDINGS: LEFT KIDNEY: 7.4 x 3.3 x 3.6 cm (SAG x AP x TRV). The kidney is normal in size, contour, and echogenicity. Renal cortical thickness is normal. No renal calculi or hydronephrosis. At the lower pole, a 1.3 cm hypoechoic, circumscribed lesion is seen, without associated color Doppler flow. This shows no significant change in through sound transmission. IMPRESSION: Corresponding with the accompanying CT abdomen and pelvis, a 1.3 solid hyperechoic lesion is seen, without associated color Doppler flow. Again, this could represent a complex cyst (for instance, a hemorrhagic/proteinaceous cyst) or a hypoechoic solid lesion. The lack of associated color Doppler flow favors a hemorrhagic proteinaceous cyst, although this cannot be asserted with certainty. Recommend further evaluation with MRI (renal mass protocol, contrast-enhanced). Urology evaluation and management may be considered. Date of Service: 03/16/24 CT ABDOMEN AND PELVIS WITH CONTRAST CLINICAL INFORMATION: Upper abdominal pain. Elevated lipase. COMPARISON: CT abdomen and pelvis 10/23/2020. MRI abdomen 02/07/2020. TECHNIQUE: Multidetector volumetric images were obtained from the superior aspect of the liver through the pubic symphysis following administration 85 mL of Omnipaque 350 intravenous contrast. Sagittal and coronal reformatted images were obtained on the technologist's workstation. Oral contrast: Yes This CT examination was performed using dose optimization techniques as appropriate, variously including the following: *Automated exposure control *Adjustment of mA and/or kV according to patient size (this includes techniques or standardized protocols for targeted exams where dose is matched to indication/reason for exam; i.e. extremities or head) *Use of iterative reconstruction technique DLP: 329 mGy-cm FINDINGS: LUNG BASES: No suspicious lung nodules. LIVER, GALLBLADDER, AND BILIARY TREE: The liver is normal in size, shape, and attenuation. No focal hepatic lesion or biliary ductal dilatation is present. Cholecystectomy. PANCREAS: No suspicion pancreatic mass. There is a 1 cm macroscopic fat density lesion in the inferior aspect of the pancreatic body consistent with a lipoma or invaginated retroperitoneal fat. No peripancreatic inflammatory changes. No pancreatic ductal dilatation. SPLEEN: The spleen appears normal. ADRENAL GLANDS: No adrenal mass. KIDNEYS AND URETERS: Symmetric nephrograms. Mild renal cortical thinning bilaterally. 1.3 cm indeterminate attenuation lesion in the lower pole the left kidney has increased in size from 7 mm on 10/23/2020. This images as a T2 dark lesion on MRI from 02/07/2020 measuring 6 mm. This is most likely a proteinaceous or hemorrhagic cyst, however a solid lesion cannot be excluded on this single phase CT scan. BLADDER: Compressed and not well evaluated but grossly normal. GASTROINTESTINAL TRACT: The small and large bowel are normal in caliber. No acute inflammatory changes appreciated. There is moderate left-sided colonic diverticulosis, most prominent in the sigmoid colon without evidence of acute diverticulitis. Areas of sigmoid colonic wall thickening are consistent with muscular hypertrophy in the setting of long-standing diverticulosis. The appearance is not significantly changed from 10/23/2020. ABDOMINAL WALL: Small fat-containing umbilical hernia. LYMPH NODES: No pathologically enlarged lymph nodes. VASCULAR: Moderate aortoiliac atherosclerotic disease. No aortic aneurysm. PELVIC VISCERA: Unremarkable. OSSEOUS STRUCTURES: No destructive osseous lesions. Degenerative changes are seen in the spine. IMPRESSION: No CT evidence of acute pancreatitis. If clinical concern persists, consider short-term follow-up CT/MR as early pancreatitis may not manifest on imaging. Increasing 1.3 cm indeterminate lesion in the lower pole the left kidney may represent a proteinaceous/hemorrhagic cyst, but a solid lesion cannot be excluded on this single phase CT. Recommend further evaluation with renal ultrasound. Ultimately, renal mass specific CT or MRI may be necessary to characterize further. Other chronic and incidental findings as above. Assessment & Plan Assessment & Plan (1) Complex renal cyst: Code(s): N28.1 - Cyst of kidney, acquired Category: Medical Plan REnal US in 6 months. Orders: Orders AMB Urinalysis Automated Today Z13.9 - Encounter for screening, unspecified US renal BI Today N28.1 - Cyst of kidney, acquired Patient Instructions: The patient had an opportunity to ask questions regarding treatment plan. The patient expressed understanding and agreement with the above treatment plan. The patient is aware they should contact our office by phone for worsening of their current condition or the appearance of new symptoms. Compliance is encouraged with any medications and followup testing that is ordered. It is a privilege to be allowed the opportunity to participate in the urologic care of your patient. If you have any questions or concerns regarding treatment for the above conditions please do not hesitate to contact me. The office telephone contact is [phone]. This note is constructed in part using voice recognition software. While every effort has been made to ensure accuracy product safety associate errors may have been included. Yours sincerely, Deepti Cobos MD Coding Level of Care Code New Pt Level 4 (80800) Diagnoses Complex renal cyst N28.1
== END 2024-08-21 09:20 | disposition home or self-care (01) ==
PROVIDERS: PCP Internal Medicine; Visit Provider Urology
DX: Z13.9 Encounter for screening, unspecified (principal); N28.1 Cyst of kidney, acquired
CPT/HCPCS: 99204

== ENCOUNTER → 2024-08-21 08:33 | Outpatient (BNVA) | payer MEDICARE, SELFPAY | PROVIDERS: PCP Internal Medicine; Visit Provider Urology | DX: N28.1 Cyst of kidney, acquired (principal) | CPT/HCPCS: 81003; 99202 ==

== ENCOUNTER 2024-11-23 07:21 | Outpatient (REF) | payer MEDICARE, SELFPAY ==
--- OUTSIDE RECORDS SUMMARY | 2024-11-23 07:24 | XMS_ITS | Encounter Summary ---
Author Organization [employer] Address [address] [place] [address] [address] [place] [address] Care Team Providers Care Rattle Leak And Squeak Repairer Name Role Phone Unavailable Primary Care Provider Unavailabl e Encounter Details Date Type Department Care Team (Latest Contact Info) Description 09/23/2021 Abstract [facility] Dental, Provider, DDS Social History Tobacco [...]
--- OUTSIDE RECORDS SUMMARY | 2024-11-23 07:24 | XMS_ITS | Encounter Summary ---
Author Organization [employer] Address [address] [place] [address] [address] [place] [address] Care Team Providers Care Stummel Selector Name Role Phone Unavailable Primary Care Provider Unavailabl e Encounter Details Date Type Department Care Team (Latest Contact Info) Description 10/10/2020 Abstract [facility] Dental, Provider, DDS Social History Tobacco [...]
--- OUTSIDE RECORDS SUMMARY | 2024-11-23 07:24 | XMS_ITS | Encounter Summary ---
Author Organization [employer] Address [address] [place] [address] [address] [place] [address] Care Team Providers Care Office Technology Professor Name Role Phone Unavailable Primary Care Provider Unavailabl e Encounter Details Date Type Department Care Team (Latest Contact Info) Description 09/29/2018 Abstract [facility] Dental, Provider, DDS Social History [...]
--- OUTSIDE RECORDS SUMMARY | 2024-11-23 07:24 | XMS_ITS | Clinical Summary ---
Author Organization [employer] Address [address] [place] [address] [address] [place] [address] Care Team Providers Care Residential Concierge Name Role Phone Unavailable Primary Care Provider [...] - 1-dose 75+ series) 2020 COVID-19 Vaccine ( - 2023-2 5 season) 2024 Influenza Vaccine (#1) 2024 [...]
[2024-11-23 10:59] LABS: Alanine Aminotransferase 13 U/L (0-31); Anion Gap 15 (12-20); Aspartate Amino Transferase 31 U/L (5-31); Blood Urea Nitrogen 19 mg/dL (9-16); Calcium 9.5 mg/dL (8.4-10.2); Carbon Dioxide 26 mmol/L (22-29); Chloride 104 mmol/L (96-108); Cholesterol 195 mg/dL (<200); Estimated Glomerular Filt Rate > 60; Glucose Fasting 98 mg/dL (60-99); HDL Cholesterol 46 mg/dL (>40); LDL Cholesterol Calculated 120 mg/dL (<100); Potassium 4.1 mmol/L (3.3-5.1); Sodium 141 mmol/L (135-145); Triglycerides 146 mg/dL (<150)
[2024-11-23 11:18] LABS: Vitamin D 25-OH Total 38.3 ng/mL (>30)
[2024-11-24 15:58] LABS: Calcium, Ionized 5.3 mg/dL (4.7-5.5)
== END 2024-11-23 07:22 | disposition home or self-care (01) ==
LOC: HO.HMGCLDS 07:21
PROVIDERS: PCP Internal Medicine; Visit Provider Internal Medicine
DX: E78.2 Mixed hyperlipidemia (principal); I10 Essential (primary) hypertension; M81.0 Age-related osteoporosis without current pathological fracture; E83.52 Hypercalcemia
CPT/HCPCS: 36415; 80048; 80061; 82306; 82330; 84450; 84460

== ENCOUNTER 2024-11-27 08:24 | Outpatient (AMB) | payer MEDICARE, SELFPAY ==
--- OUTSIDE RECORDS SUMMARY | 2024-11-27 08:28 | XMS_ITS | Encounter Summary ---
Author Organization [employer] Address [address] [place] [place] [address] [address] [place] [address] Care Team Providers Care Grain Mill Worker Name Role Phone Unavailable Primary Care Provider Unavailabl e Encounter Details Date Type Department Care Team (Latest Contact Info) Description 10/10/2020 Abstract [facility] Dental, Provider, DDS Social History Tobacco [...]
--- OUTSIDE RECORDS SUMMARY | 2024-11-27 08:28 | XMS_ITS | Clinical Summary ---
Author Organization [employer] Address [address] [place] [address] [address] [place] [address] Care Team Providers Care Short Order Fry Cook Name Role Phone Unavailable Primary Care Provider [...]
--- OUTSIDE RECORDS SUMMARY | 2024-11-27 08:28 | XMS_ITS | Encounter Summary ---
Author Organization [employer] Address [address] [place] [address] [address] [place] [address] Care Team Providers Care Self Storage Manager Name Role Phone Unavailable Primary Care Provider Unavailabl e Encounter Details Date Type Department Care Team (Latest Contact Info) Description 09/29/2018 Abstract [facility] Dental, Provider, DDS Social History [...]
--- OUTSIDE RECORDS SUMMARY | 2024-11-27 08:28 | XMS_ITS | Encounter Summary ---
Author Organization [employer] Address [address] [place] [address] [address] [place] [address] Care Team Providers Care Steamboat Inspector Name Role Phone Unavailable Primary Care Provider Unavailabl e Encounter Details Date Type Department Care Team (Latest Contact Info) Description 09/23/2021 Abstract [facility] Dental, Provider, DDS Social History Tobacco [...]
--- NOTE | 2024-11-27 08:48 | MHC.PC.OV ---
Vital Signs 11/27/24 08:57 11/27/24 09:31 Height 4 ft 11 in Weight 131 lb BMI 26.5 BP 148/70 H 135/80 Blood Pressure Location Lt brachial Lt brachial Position Sitting Sitting Respiration 16 Pulse 60 Pulse Source Pulse Oximeter Temp 98.3 F Temp Source Oral Pulse Oximetry (%) 97 Oxygen Delivery Method Room Air Intake Visit Reasons: PE/OK per Dr. Richter Intake Note: Pt is here today for her PE: last mammogram 12/07/23, bone density scan 09/19/15, colonoscopy 03/15/23 Allergies sulfamethoxazole [From Bactrim] Allergy (Mild, Verified 11/27/24 09:14) upset stomach trimethoprim [From Bactrim] Allergy (Mild, Verified 11/27/24 09:14) upset stomach Medication List - Last Reconciled 11/27/24 by Tri Richter MD cetirizine (Zyrtec) 10 mg PO DAILY diclofenac sodium 1% 4 grams topical QID metoprolol tartrate 25 mg PO BID 90 days naproxen 500 mg PO DAILY PRN omeprazole 40 mg PO DAILY pravastatin 80 mg PO BEDTIME sucralfate (Carafate) 1 g PO BID 30 days triamterene-hydrochlorothiazid 75-50 mg 1 tab PO DAILY Tobacco use date assessed: 11/27/24 Fall risk assessment: No Falls in past year Last assessed Fall Risk: 11/27/24 Dental Screening Dental Screen Date: 11/27/24 Did you have a dental visit in the last 12 months?: Yes Did you have a dental problem in the last 6 months where you did not have access to dental care?: Yes Was dental information given to patient?: Patient has dentist HPI PE/OK per Dr. Richter HPI Details 79 year-old lady with history of hypertension and mixed dyslipidemia, currently taking metoprolol tartrate 25 mg 1 tablet twice a day, and triamterene hydrochlorothiazide 75-50 mg once daily as well as pravastatin 80 mg at bedtime, here today for her physical exam.. She is overdue for screening mammogram at patient declined getting procedure done nor does she want to get bone density scan for osteoporosis screening. Patient also declined all recommended vaccinations. Her colon cancer screening is up-to-date, with the last colonoscopy done by Dr. Benson in 2022 showing sigmoid diverticulosis and internal hemorrhoids, repeat due again in 2032 Blood pressure stable controlled on present treatment. FOR[facility]LY [facility], [facility] Medical History (Updated 11/27/24 @ 09:44 by Tri Richter MD) Bone density scan declined Mammogram declined History of basal cell cancer Gastritis Stomach ulcer Cricopharyngeal achalasia Difficulty swallowing solids Intermittent palpitations GERD (gastroesophageal reflux disease) Chronic pain of both shoulders Vaccination declined Compound nevus Abnormal MRI of abdomen IBS (irritable bowel syndrome) Mixed dyslipidemia Osteoporosis Essential hypertension Anxiety disorder Surgical History History of esophagogastroduodenoscopy (EGD) Hx of colonoscopy History of laparoscopic cholecystectomy History of tonsillectomy History of section History of partial colectomy Family History Father No problems noted. Mother Depression HTN (hypertension) CHF (congestive heart failure) CVD (cardiovascular disease) Sister No problems noted. Sister No problems noted. Daughter No problems noted. Social History Household Members: Family Housing: House Do you presently have visiting nurse or other home services: No Alcohol intake: never Patient Tobacco Use Status: Former Tobacco user e-Cigarette/Vaping Use: Never Used service: No Current occupational status: retired Cognitive needs: No Hearing needs: No Vision needs: Yes Questionnaire PHQ-9 Over the last 2 weeks, how often have you been bothered by any of the following problems? 1. Little interest or pleasure in doing things: not at all 2. Feeling down, depressed, or hopeless: not at all 3. Trouble falling or staying asleep, or sleeping too much: not at all 4. Feeling tired or having little energy: not at all 5. Poor appetite or overeating: not at all 6. Feeling bad about yourself - or that you are a failure or have let yourself or your family down: not at all 7. Trouble concentrating on things, such as reading the newspaper or watching television: not at all 8. Moving or speaking so slowly that other people could have noticed. Or the opposite - being so fidgety or restless that you have been moving around a lot more than usual: not at all 9. Thoughts that you would be better off or of hurting yourself in some way: not at all Total score: 0 Depression Screening Interpretation: Negative Depression Screening Done: Yes 76757 - PHQ-9 Billing: Yes Source: Developed by Drs. Wally Ryan, Ashwini Tovar, Fransisco Munroe and colleagues, with an educational beto from [employer]. Thrive Questionnaire Date Thrive assessed: 11/24/24 I am a: Patient What is your living situation today?: I have a steady place to live THRIVE Score: 0 MARGUERITE-7 AMB Questionnaire MARGUERITE-7 Date MARGUERITE - 7 assessed: 11/27/24 Feeling nervous, anxious, or on edge: 0 = Not at all Not being able to stop or control worryin = Not at all Worrying too much about different things: 1 = Several days Trouble relaxin = Not at all Being so restless that it is hard to sit still: 0 = Not at all Becoming easily annoyed or irritable: 0 = Not at all Feeling afraid as if something awful might happen: 0 = Not at all Total MARGUERITE-7 score (0-4 normal; 5-9 mild; 10-14 moderate; 15-21 severe): 1 Source: Developed by Drs. Wally Ryan, Ashwini Tovar, Fransisco Munroe and colleagues, with an educational beto from [employer]. MARGUERITE-7 Assessment Billing MARGUERITE-7 Assessment Tool: MARGUERITE-7 Assessment 12497 Review of Systems Const Denies fever(s) Eyes Reports no additional complaints ENT Reports no additional complaints Card Denies chest pain and Denies dyspnea on exertion Resp Denies cough and Denies dyspnea on exertion GI Denies melena, Denies bloating, Denies hematochezia, Denies change in bowel habits and Reports dyspepsia Reports no additional complaints Musc Denies back pain and Denies arthralgias Skin/Breast Denies pruritus, Denies rash and Denies jaundice Neuro Reports no additional complaints Psych Reports no additional complaints Endo Reports no additional complaints Augie/Lymph Reports no additional complaints Aller/Immun Reports seasonal rhinorrhea Physical exam (Primary Care) Vital Signs: Last Vital Signs Temp 98.3 F 11/27/24 08:57 Pulse 60 11/27/24 08:57 Resp 16 11/27/24 08:57 BP 135/80 11/27/24 09:31 Pulse Ox 97 11/27/24 08:57 Oxygen Delivery Method Room Air 11/27/24 08:57 BMI result Body Mass Index 26.5 Tobacco/Smoking Status: Tobacco use Status Tobacco use date assessed 11/27/24 11/27/24 08:50 Patient Tobacco Use Status Former Tobacco user 11/27/24 08:50 e-Cigarette/Vaping Use Never Used 11/27/24 08:50 Depression Screening Interpretation: Negative Thrive Assessment: Date of Thrive Assessment Date Thrive assessed 11/24/24 11/27/24 08:50 Const Other: Alert oriented x3, no acute distress noted ambulatory normal gait Orientation/consciousness: patient oriented x3 HENMT Other: Mild erythema in left nostril, slight swelling over left nasal bridge Face and sinus: Yes face symmetric Mouth: moist mucous membranes Eyes General: appearance normal, both eyes and all related structures Neck Neck: Yes full ROM, Yes no lymphadenopathy and Yes supple Chest Other: Patient declined exam Resp Auscultation: clear to auscultation bilaterally Cardio Rate: regular rate Rhythm: regular rhythm Heart sounds: S1 normal heart sound present and S2 normal heart sound present GI Palpation (GI): Soft to palpation, nontender, no guarding and no masses Auscultation: normal bowel sounds General: Yes no CVA tenderness Back/Spine/Pelvis Back: no CVA tenderness and No back tenderness Skin General skin exam: no rashes or lesions noted Neuro General: patient oriented x3, gait normal, tone normal, moves all extremities, Normal light touch and pain sensation and no focal motor deficits Extrem General: Yes full ROM, Yes no joint enlargement and Yes no clubbing, cyanosis or edema Psych Appearance: grossly normal and well kempt Mental Status: mental status grossly normal Speech and movement: Normal speech and movement present Affect: normal affect Results Reviewed Results Reviewed: Name: Marva Davison Age/Sex: 79/F : 1945 Unit#: [id number] Attend Dr: Tri Richter MD Re11/23/24 Status: DEP REF Location: [facility] Disch: SPEC : [id number] GEMMA: 11/23/24 STATUS: COMP REQ : [id number] RECD: 11/23/[address]: Tri Richter MD COMP: 11/23/24 ENTERED: 11/23/24 [facility] DR: ORDERED: Met Prof Fast, AST, ALT, Lipid Panel, Vitamin D 25-OH Test Result Flag Reference Sodium 141 135-145 mmol/L Potassium 4.1 3.3-5.1 mmol/L Slight Hemolysis.Interpret result with caution. CL 104 96-108 mmol/L CO2 26 22-29 mmol/L Gap 15 12-20 BUN 19 H 9-16 mg/dL Creat 0.75 0.5-1.4 mg/dL eGFR > 60 Chronic Kidney Disease: Estimated GFR < 60 mL/min/1.73m2 Severe Kidney Disease: Estimated GFR < 15 mL/min/1.73m2 FBS 98 60-99 mg/dL CA 9.5 # 8.4-10.2 mg/dL AST (GOT) 31 5-31 U/L Slight Hemolysis.Interpret result with caution. ALT (GPT) 13 0-31 U/L Triglyceride 146 <150 mg/dL Desirable Triglyceride: less than 150 mg/dL Borderline High Triglyceride 150-199 mg/dL High Triglyceride: 200-499 mg/dL Very High Triglyceride: greater than or equal to 5OO mg/dL Cholesterol 195 <200 mg/dL Desirable Cholesterol: less than 200 mg/dL Borderline High Cholesterol: 200-239 mg/dL High Cholesterol: greater than 239 mg/dL LDL Calculated 120 H <100 mg/dL Desirable LDL: less than 100 mg/dL Near Optimal/Above Optimal LDL: 110-129 mg/dL Borderline High LDL: 130-159 mg/dL High LDL: 160-189 mg/dL Very High LDL: greater than or equal to 190 mg/dL HDL 46 >40 mg/dL Desirable HDL: greater than 40 mg/dL Note: This HDL assay may give artificially low results in patients with liver disease. Vitamin D 25-OH 38.3 >30 ng/mL Health Based Reference Values* < 20 ng/mL Deficient 20-30 ng/mL Insufficient > 30 ng/mL Sufficient Coding Level of Care Code Est Pt Prev Care >65y(55408) Diagnoses Annual visit for general adult medical examination with abnormal findings Z00.01 Essential hypertension I10 Osteoporosis without current pathological fracture, unspecified osteoporosis type M81.0 Osteoporosis type: unspecified Presence of current pathological fracture: without current pathological fracture Mixed dyslipidemia E78.2 Vaccination declined Cricopharyngeal achalasia K22.0 Superficial gastritis without hemorrhage, unspecified chronicity K29.30 Chronicity: unspecified Gastritis bleeding: without bleeding Gastritis type: superficial Renal cyst N28.1 History of basal cell cancer Z85.828 Sore in nose J34.89 Additional Codes MARGUERITE-7 Assessment Billing - MARGUERITE-7 Assessment Tool: MARGUERITE-7 Assessment 20569 ([id number]) PHQ-9 - 63792 - PHQ-9 Billing: Yes ([id number]) Assessment & Plan Assessment & Plan (1) Annual visit for general adult medical examination with abnormal findings: Code(s): Z00.01 - Encounter for general adult medical examination with abnormal findings Plan: Reviewed recent fasting lab results with patient. Recommended dental visit every 6 months and regular eye exams, at least every 2 years. Take adequate calcium in diet and vitamin-D 3 at 2000 IU per cap once a day, in addition to weight-bearing exercises to help maintain good muscle tone and weight control. Colonoscopies up-to-date but patient declines getting breast cancer screening, does not want to get a mammogram and does not want to get a bone density scan done. Patient also has refused all recommended vaccines (2) Essential hypertension: Code(s): I10 - Essential (primary) hypertension Category: Medical Plan: Blood pressure reading acceptable for age.. Continue with current medication. Reinforced importance of following a low sodium diet, getting regular exercise, and lowering stress levels. (3) Osteoporosis: Code(s): M81.0 - Age-related osteoporosis without current pathological fracture Category: Medical Qualifiers: Osteoporosis type: unspecified Presence of current pathological fracture: without current pathological fracture Qualified Code(s): M81.0 - Age-related osteoporosis without current pathological fracture Plan: Patient has declined getting further bone density scans or treatment for osteoporosis (4) Mixed dyslipidemia: Comment: Code(s): E78.2 - Mixed hyperlipidemia Category: Medical Plan: Fasting lipids are within normal limits on recent labs. Continued on pravastatin 80 mg at bedtime (5) Vaccination declined: Code(s): Z28. - Immunization not carried out because of patient refusal Category: Medical Plan: Patient has declined all recommended adult vaccines (6) Cricopharyngeal achalasia: Code(s): K22.0 - Achalasia of cardia Category: Medical Plan: Followed by GI, currently taking sucralfate 1 g twice a day, avoid taking it together with meals or medications. Continue omeprazole 40 mg daily (7) Gastritis: Code(s): K29.70 - Gastritis, unspecified, without bleeding Category: Medical Qualifiers: Chronicity: unspecified Gastritis bleeding: without bleeding Gastritis type: superficial Qualified Code(s): K29.30 - Chronic superficial gastritis without bleeding Plan: Has been prescribed sucralfate her GI specialist to take 1 g twice a day as needed (8) Renal cyst: Code(s): N28.1 - Cyst of kidney, acquired Category: Medical Plan: Currently followed by [facility] urology (9) History of basal cell cancer: Comment: Right leg Code(s): Z85.828 - Personal history of other malignant neoplasm of skin Category: Medical Plan: Currently sees user experience architect (10) Sore in nose: Code(s): J34.89 - Other specified disorders of nose and nasal sinuses Plan: Patient advised to avoid picking her nose, prescription was sent for mupirocin 5% topical ointment Orders: Orders Alanine Aminotransferase 05/19/25 E78.2 - Mixed hyperlipidemia, I10 - Essential (primary) hypertension, N28.1 - Cyst of kidney, acquired, Z00.01 - Encounter for general adult medical examination with abnormal findings Aspartate Amino Transferase 05/19/25 E78.2 - Mixed hyperlipidemia, I10 - Essential (primary) hypertension, N28.1 - Cyst of kidney, acquired, Z00.01 - Encounter for general adult medical examination with abnormal findings Basic Metabolic Panel Fasting 05/19/25 E78.2 - Mixed hyperlipidemia, I10 - Essential (primary) hypertension, N28.1 - Cyst of kidney, acquired, Z00.01 - Encounter for general adult medical examination with abnormal findings Lipid Panel 05/19/25 E78.2 - Mixed hyperlipidemia, I10 - Essential (primary) hypertension, N28.1 - Cyst of kidney, acquired, Z00.01 - Encounter for general adult medical examination with abnormal findings Medications: New mupirocin 2% 1 appl topical BID 5 days 15 grams 0RF
[2024-11-27 08:57] VITALS: BP 148/70; PULSE 60; RESP 16; TEMP 36.8; O2SAT 97; BMI 26.5
[2024-11-27 09:31] VITALS: BP 135/80
== END 2024-11-27 09:49 | disposition home or self-care (01) ==
LOC: HO.HMCC 08:24
PROVIDERS: PCP Internal Medicine; Visit Provider Internal Medicine
DX: Z00.01 Encounter for general adult medical examination with abnormal findings (principal); I10 Essential (primary) hypertension; M81.0 Age-related osteoporosis without current pathological fracture; E78.2 Mixed hyperlipidemia; Z28.21 Immunization not carried out because of patient refusal; K22.0 Achalasia of cardia; K29.30 Chronic superficial gastritis without bleeding; N28.1 Cyst of kidney, acquired; Z85.828 Personal history of other malignant neoplasm of skin; J34.89 Other specified disorders of nose and nasal sinuses

== ENCOUNTER → 2024-11-27 08:24 | Outpatient (BNVA) | payer MEDICARE, SELFPAY | PROVIDERS: PCP Internal Medicine; Visit Provider Internal Medicine | DX: Z00.01 Encounter for general adult medical examination with abnormal findings (principal); I10 Essential (primary) hypertension; M81.0 Age-related osteoporosis without current pathological fracture; E78.2 Mixed hyperlipidemia; K22.0 Achalasia of cardia; K29.30 Chronic superficial gastritis without bleeding; N28.1 Cyst of kidney, acquired; J34.89 Other specified disorders of nose and nasal sinuses; Z85.828 Personal history of other malignant neoplasm of skin; Z79.899 Other long term (current) drug therapy | CPT/HCPCS: 96127; 99397 ==

== ENCOUNTER 2025-01-22 08:48 | Outpatient (REF) | payer MEDICARE, SELFPAY ==
--- NOTE | ~2025-01-22 | US_ITS ---
CLINICAL HISTORY: N28.1 - Cyst of kidney, acquired --- Additional Notes or Special Instructions: 1.7 mm cystic lesion left kidney lower pole US retroperitoneum Comparison: None Findings: No hydronephrosis. Normal color flow. The right kidney measures 9.0 cm in length. Cortical thickness and echotexture is normal. Left kidney normal size and echotexture, 8.2 cm in length. No hydronephrosis. Normal color flow. Left kidney echotexture . There is lower pole left kidney nonvascular lobulation, described as 1.7 x 1.5 x 1.4 cm ???mass??? on the ultrasound worksheet. This lobulation contour correlates with thickening of the cortex but no exophytic invasion of surrounding tissue.. Urinary bladder is unremarkable. Prevoid volume mL. Postvoid volume mL. Ureteral jets are visualized bilaterally Impression: Prominent left kidney lower pole nonvascular focal cortical thickening or lobulation with some echogenicity. Differential diagnosis would favor renal cortical cyst containing debris. Less likely consideration would also be given to low-grade neoplasm Consider CT renal protocol for definitive diagnostic information. This document has been electronically signed by: Richy Cruz MD on 01/22/2025 16:54:17
--- OUTSIDE RECORDS SUMMARY | 2025-01-22 09:02 | XMS_ITS | Encounter Summary ---
Author Organization [employer] Address [address] [place] [address] [address] [place] [address] Care Team Providers Care Slabber [facility] Name Role Phone Unavailable Primary Care Provider Unavailabl e Encounter Details Date Type Department Care Team (Latest Contact Info) Description 09/29/2018 Abstract [facility] CONVERSIONS Dental, Provider, DDS Social History Tobacco [...]
== END 2025-01-22 08:49 | disposition home or self-care (01) ==
LOC: HO.HMGCX 08:48
PROVIDERS: PCP Internal Medicine; Visit Provider Urology
DX: N28.1 Cyst of kidney, acquired (principal)
CPT/HCPCS: 76775

== ENCOUNTER → 2025-01-22 09:05 | Outpatient (BNV) | payer MEDICARE, SELFPAY | PROVIDERS: PCP Internal Medicine; Visit Provider Radiology Diagnostic Radiology | DX: N28.1 Cyst of kidney, acquired (principal) | CPT/HCPCS: 76775 ==

== ENCOUNTER 2025-02-12 07:23 | Outpatient (AMB) | payer MEDICARE, SELFPAY ==
--- NOTE | 2025-02-12 07:30 | MHC.OFFVIS ---
Vital Signs 02/12/25 07:33 Height 4 ft 11 in Weight 132 lb 4.438 oz BMI 26.7 BP 150/78 H Blood Pressure Location Lt brachial Position Sitting Intake Visit Reasons: abdominal discomfort Intake Note: Marva presents in the office as a follow up for abdominal discomfort. CC: She states that she was having pains a few weeks ago. LLQ pains - She has not noticed any irregular bowel movements with it. 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 Allergies sulfamethoxazole (From Bactrim) Allergy (Mild, Verified 02/19/25 11:35) upset stomach trimethoprim (From Bactrim) Allergy (Mild, Verified 02/19/25 11:35) upset stomach Medication List - Last Reconciled 02/12/25 by Coy Benson MD diclofenac sodium 1% 4 grams topical QID metoprolol tartrate 25 mg PO BID 90 days mupirocin 2% 1 appl topical BID 5 days naproxen 500 mg PO DAILY PRN omeprazole 40 mg PO DAILY pravastatin 80 mg PO BEDTIME triamterene-hydrochlorothiazid 75-50 mg 1 tab PO DAILY HPI HPI abdominal discomfort: Details: 78-YEAR-OLD FEMALE FOR FOLLOW-UP OF POSTPRANDIAL DIARRHEA AND A PANCREATIC LESION.? PATIENT IS STATUS POST CHOLECYSTECTOMY AND PARTIAL COLECTOMY DUE TO DIVERTICULITIS. CHRONIC ILLNESSES:?GERD-diet controlled, osteopenia, diverticulitis c h/o surgery, Hypothyroidism, hyperlipidemia, hypertension, Ulcerative colitis-quiescent, Partial colectomy 1980 due to diverticulitis, Colon polyps, Scoliosis and Neck pain ? TODAY'S VISIT Marva presents in the office as a follow up for abdominal discomfort. CC: She states that she was having pains a few weeks ago. LLQ pains - She has not noticed any irregular bowel movements with it. Complains of LLQ pain - unsure if it is connected to her kidneys Pain is intermittent - just pain, not too bad and she can tolerate it - 01/25 Notes pain a few time a week Depends on what she eats - eats a lot of fruit in the summer time. Feels better after she has a BM Takes Omeprazole prn - usually before she eats any food which can cause pain. Denies fever or chills or urinary symptoms. Unsure if pain is similar to previous episode of divertiiculitis Has a BM every day - sometimes no BM for a few days. Not taking any medication for constipation. Continues intermittent dysphagia with solids and liquids - no significant improvement post dilation. PAST VISITS: Notes a small hernia in her belly button which she has had for years. Eats one big meal a day in the middle of the afternoon. Has been having bad heartburn after eating (depends on what she eats) and takes TUMS or mints which help Taking Omeprazole a few times a week. Has not started taking the sucralfate yet due to concerns about timing EGD results were reviewed. Patient cc: Nausea in the morning, LLQ pain, difficulty swallowing solid and pills, burping a lot, Notes intermittent dysphagia with pills - a few times a week. Has trouble swallowing large pills - pravastatin. Dysphagia to solid foods - does not happen very often. Sometimes it hurts to swallow - food gets stuck in the chest - ultimately goes down. Also notes 6/10 upper abdominal pain which radiates to the lower back - dull pain Pain comes and goes - worse with eating Also notes post prandial bloating. Notes diarrhea with 2-3 loose BMs per day Gained a few lbs - does not eat much Has been eating a lot of fruit Colonoscopy results reviewed. Has diarrhea alternating with constipation. Takes Omeprazole prn Started taking a probiotic drink from [employer] Notes some burping after drinking it and advised to take 1/2 twice a day Notes intermittent LLQ pain and resolves after she has a BM. Thinks pain is related to her diet. Can have 1-3 BMs a day and once in a great while, she does not go at all and then gets into trouble. Eats a lot of fruits and vegetables which helps with constipation Notes intermittent heartburn associated with certain foods Takes Omeprazole when she has abd pain and it helps. Wakes up with a dry mouth in the morning and mouth feels bitter. End of Jul, she had upper abdominal pain and BP was elevated to 200 systolic. [facility] and admitted to the hospital with chest pain and abnormal EKG Continues to have upper abd/lower chest pain depending on what she eats - a dull, hurting pain. Pain radiated to the back. Noted nausea and a lot of bitter taste in her mouth and dry mouth Has not been taking Omeprazole - keeps forgetting to take it. Gets dehydrated and drinks quite a bit of water. Has gained 5 lbs and planning to loose it. Continues to have intermittent diarrhea since GB surgery - its getting better. ? related to cabbage and pretzels Has a PHAN every single day for the past 3 weeks - also has a problem with one of her upper teeth. Urgent FU appt scheduled since pt called on 05/28/22: pt called in and stated that her diverticulitis is acting up she is having consistent abdominal pain all over. She is a bit worried and wants to make sure everything is ok . Had cortisone injection in both shoulders and had a severe reaction with nausea and vomiting. Has been doing Ok - gets twinges and lower abdominal pain. Feels better after she has a BM. Has a BM daily - depends on what she eats. Has a lot of anxiety. Also notes pain in the RUQ and epigastric and lower chest area. Eats only one meal a day, likes to snack in between. Eats fruits and vegetables. Likes sweets. Has intermittent RUQ pain which is pinching in character. Has pain once in a while ? Has abdominal pain off and on which is manageable. ? Pain is not too bad. ? Gets pain when she gets constipated. Has diarrhea related to some foods. ? There is one antibiotic she does not want to take which caused her to be depressed for a week - she will check in her portal and send me a message with the name of the antibiotic. ? ? ? Noted some pain under her right breast - not effected by breathing and coughing. ? ? ? Stopped taking her vitamins and supplements and GERD symptoms have improved - advised to resume taking vitamin-D every other day. ?? ? To resume supplements 1 medicine at a time ? Staying home mostly ? Does not want to get the COVID vaccine yet ? ? ? I have been getting a dull pain which radiates to the lower back. Sometimes gets pain on the left side and sometimes on the right side. Pain feels a little bit different. ? ? ? Can have a dull pain after taking MVI, CQ10 ?? ? Denies problems with diarrhea or constipation LABS:?11/06 Reviewed. IMAGING STUDIES:? 03/16/[address] SCAN SHOWED: No CT evidence of acute pancreatitis. If clinical concern persists, consider short-term follow-up CT/MR as early pancreatitis may not manifest on imaging. Increasing 1.3 cm indeterminate lesion in the lower pole the left kidney may represent a proteinaceous/hemorrhagic cyst, but a solid lesion cannot be excluded on this single phase CT. Recommend further evaluation with renal ultrasound. Ultimately, renal mass specific CT or MRI may be necessary to characterize further. Other chronic and incidental findings as above. 01/10/24 BARIUM SWALLOW WITH UGI SHOWED: 1. 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 This is unlikely contributing to the patient's symptoms. 2. Moderate cricopharyngeal achalasia 3. Mildly disorganized esophageal peristalsis 4. Small type I hiatal hernia 5. Multiple tiny foci of contrast pooling in the fundus and body the stomach that may represent small superficial aphthous ulcers. Recommend correlation with EGD. 6. Surgical clips present in the right upper quadrant consistent with prior history of cholecystectomy. 10/23/[address] SCAN SHOWED: ? Stable 7 mm fatty lesion in the pancreas suggestive of a benign lipoma. Postsurgical changes following right colectomy. Severe diverticulosis of the distal colon. No evidence of diverticulitis. ?02/07/20? MRI SHOWED: ? Stable 7 x 8 mm fatty lesion at the junction of the body and tail of ? the pancreas suggestive of a lipoma. Diverticulosis of the colon. ? Stable small probable complex left renal cyst. 03/15/23 COLONOSCOPY SHOWED: No polyps were detected Random biopsies were obtained from right and left colon to check for microscopic colitis Moderate to severe diverticulosis seen in the entire colon Moderate hemorrhoids on retroflexed exam. Plan: Given advanced age and negative colonoscopies, colon cancer screening can be discontinued unless patient has lower GI symptoms [facility], LAT[facility] Medical History Bone density scan declined Mammogram declined History of basal cell cancer Gastritis Stomach ulcer Cricopharyngeal achalasia Difficulty swallowing solids Intermittent palpitations GERD (gastroesophageal reflux disease) Chronic pain of both shoulders Vaccination declined Compound nevus Abnormal MRI of abdomen IBS (irritable bowel syndrome) Mixed dyslipidemia Osteoporosis Essential hypertension Anxiety disorder Surgical History History of esophagogastroduodenoscopy (EGD) Hx of colonoscopy History of laparoscopic cholecystectomy History of tonsillectomy History of section History of partial colectomy Family History Father No problems noted. Mother Depression HTN (hypertension) CHF (congestive heart failure) CVD (cardiovascular disease) Sister No problems noted. Sister No problems noted. Daughter No problems noted. Social History Household Members: Family Housing: House Do you presently have visiting nurse or other home services: No Alcohol intake: never Patient Tobacco Use Status: Former Tobacco user e-Cigarette/Vaping Use: Never Used service: No Current occupational status: retired Cognitive needs: No Hearing needs: No Vision needs: Yes Physical Exam Vital Signs: Last Vital Signs BP 150/78 H 02/12/25 07:33 BMI result Body Mass Index 26.7 Const General: healthy appearing and no acute distress Nutritional Appearance: overweight Orientation/consciousness: patient oriented x3 Limitations: no limitations HEENT Head: Yes normal to inspection Ears: hearing grossly normal bilaterally Mouth: Normal oral and palatal mucosa present Eyes Sclerae: sclerae normal Pupils: Equal, round and reactive pupils present Neck Neck: Yes normal visual inspection Chest Chest palpation & inspection: normal inspection of the chest Resp Effort & Inspection: normal respiratory effort Auscultation: clear to auscultation bilaterally Cardio Palpation: normal PMI Rate: regular rate Rhythm: regular rhythm Heart sounds: S1 normal heart sound present, S2 normal heart sound present and no murmurs GI Palpation (GI): Soft to palpation, nontender and No hepatosplenomegaly present Auscultation: normal bowel sounds Rectal Exam - Female: deferred Skin General skin exam: no rashes or lesions noted Neuro General: patient oriented x3, gait normal and moves all extremities Cranial nerves: Yes Equal, round and reactive pupils present Psych Appearance: grossly normal Mental Status: mental status grossly normal Assessment & Plan Assessment & Plan (1) Cricopharyngeal achalasia: Code(s): K22.0 - Achalasia of cardia Category: Medical (2) GERD (gastroesophageal reflux disease): Code(s): K21.9 - Gastro-esophageal reflux disease without esophagitis Category: Medical (3) IBS (irritable bowel syndrome): Code(s): K58.9 - Irritable bowel syndrome, unspecified Category: Medical Qualifiers: Irritable bowel syndrome type: with both diarrhea and constipation Qualified Code(s): K58.2 - Mixed irritable bowel syndrome (4) Diverticulosis: Code(s): K57.90 - Diverticulosis of intestine, part unspecified, without perforation or abscess without bleeding Category: Medical Plan 79 YF with GERD-diet controlled, osteopenia, diverticulitis c h/o surgery, Hypothyroidism, hyperlipidemia, hypertension, Partial colectomy 1979 due to perforated diverticulum, Colon polyps, Scoliosis and Neck pain Pt had Gallbladder surgery in May- feeling better but still having loose stools, aware that it is a side effect of surgery. Pt is aware that Citrucel can be helpful for management of loose stools. Residual diverticulosis noted on 2013 colonoscopy. Feels slight discomfort in LLQ- no pain or bleeding- aware of diverticulosis finding and advised to take Citrucel daily. Abnormal MRI of abdomen - MRCP showed a 7-8 mm Lipoma in body of pancreas stable over the past 2 years and no further workup advised. Pt complains of a dull abdominal pain radiating to the lower back (sometimes on the right and sometimes on the left side) 10/[address] scan showed a stable 7 mm fatty lesion in the pancreas suggestive of a benign lipoma, postsurgical changes following right colectomy. Severe diverticulosis of the distal colon without evidence of diverticulitis. Pt was advised to take Miralax twice a week for constipation and monitor her symptoms. She prefers to have all the labs drawn on a single visit since she has a difficult IV stick. 03/15/23 colonoscopy (last colon was in 2013) was performed and results as noted above Pt can stop having additional colonoscopies in the future unless she has LGI symptoms 02/11/24 Patient advised to schedule an upper endoscopy for further evaluation of abdominal pain and dysphagia - scheduled on 02/23/24 Also advised to schedule an Abd CT scan - pt would like to wait for EGD results prior to scheduling the CT 02/23/24 EGD was performed and showed: ESOPHAGUS: Mildly tortuous esophagus without stricture or ring Balloon dilation of the distal esophagus was performed with a 19 mm CRE balloon x 60 seconds Balloon dilation of proximal esophagus/crico-pharyngeus was performed with an 18 mm CRE balloon x 60 seconds STOMACH: Mild gastritis and benign appearing gastric polyp 04/20/24 Has been having bad heartburn after eating (depends on what she eats) and takes TUMS or mints which help Taking Omeprazole a few times a week. Has not started taking the sucralfate yet due to concerns about timing - and advised to take it after her main meal of the day Schedule limited renal US to FU on indeterminate renal cyst in the lower pole of left kidney 02/12/25 Pain is intermittent - just pain, not too bad and she can tolerate it - 01/25 Notes pain a few time a week Depends on what she eats - eats a lot of fruit in the summer time. Feels better after she has a BM Takes Omeprazole prn - usually before she eats any food which can cause pain. Pt advised to take Miralax three times a week and monitor her symptoms FU in 8 weeks Medications: New polyethylene glycol 3350 (Miralax) Take three times a week 17 grams PO DAILY 510 grams 3RF 30 days K59.09 - Other constipation Coding Level of Care Code Est Pt Level 4 (11617) Diagnoses Cricopharyngeal achalasia K22.0 GERD (gastroesophageal reflux disease) K21.9 Irritable bowel syndrome with both constipation and diarrhea K58.2 Irritable bowel syndrome type: with both diarrhea and constipation Diverticulosis K57.90 Time Spent (min) 21
[2025-02-12 07:33] VITALS: BP 150/78; BMI 26.7
== END 2025-02-12 10:51 | disposition home or self-care (01) ==
LOC: HO.HGI 07:23
PROVIDERS: PCP Internal Medicine; Visit Provider Internal Medicine Gastroenterology
DX: K22.0 Achalasia of cardia (principal); K21.9 Gastro-esophageal reflux disease without esophagitis; K58.2 Mixed irritable bowel syndrome; K57.90 Diverticulosis of intestine, part unspecified, without perforation or abscess without bleeding
CPT/HCPCS: 99214

== ENCOUNTER → 2025-02-12 07:23 | Outpatient (BNVA) | payer MEDICARE, SELFPAY | PROVIDERS: PCP Internal Medicine; Visit Provider Internal Medicine Gastroenterology | DX: K21.9 Gastro-esophageal reflux disease without esophagitis (principal); K22.0 Achalasia of cardia; K58.2 Mixed irritable bowel syndrome; K57.90 Diverticulosis of intestine, part unspecified, without perforation or abscess without bleeding | CPT/HCPCS: 99212 ==

== ENCOUNTER 2025-02-19 11:28 | Outpatient (AMB) | payer MEDICARE, SELFPAY ==
--- NOTE | 2025-02-19 11:33 | A.OFFVIS_ITS ---
Intake Visit Reasons: 6m/US Intake Note: Patient is present for 6m/US follow up * 01/22 Renal US Urology Medication:NONE Antibiotic Allergy:SULFA,BACTRIM Blood Thinner:NONE Stained Glass Glazier Helper Required: No Allergies sulfamethoxazole (From Bactrim) Allergy (Mild, Verified 02/19/25 11:35) upset stomach trimethoprim (From Bactrim) Allergy (Mild, Verified 02/19/25 11:35) upset stomach HPI Comments Details: 02/19/25--Marva is a 79-year-old female who is here in follow-up due to indeterminate lesion in the left kidney. She had a CT with IV contrast 03/16/2024 noting a 1.3 indeterminate lesion follow-up ultrasound 05/02/2024 noted a 1.3 indeterminate lesion she presents to discuss recent follow-up imaging done on 01/22/2025 reporting slightly increase in size 1.7 x 1.4 indeterminate lesion. The patient declined MRI in August I will order a CT abdomen with and without IV contrast. History of Present Illness - The patient is a 79-year-old female presenting with a follow-up of an indeterminate lesion in the left kidney. - The lesion was initially identified on a CT scan with IV contrast on March 16, 2024, measuring 1.3 cm. - A follow-up ultrasound on May 02, 2024, confirmed the lesion size as 1.3 cm. - Recent imaging on January 22, 2025, indicated a slight increase in size to 1.7 x 1.4 cm. - The patient declined an MRI Results - CT scan with IV contrast on March 16, 2024: 1.3 cm indeterminate lesion in the left kidney. - Ultrasound on May 02, 2024: 1.3 cm indeterminate lesion in the left kidney. - Imaging on January 22, 2025: Slight increase in lesion size to 1.7 x 1.4 cm. Plan - Order a CT abdomen with and without IV contrast to further evaluate the indeterminate lesion. - Discuss potential treatment options if the lesion is solid, including radiological intervention for cryoablation. 08/21/24--Marva is here for new patient evaluation due to an indeterminate lesion in the left kidney. In review of the patient's chart she had a CT scan 10/2020 which noted a 7 mm cyst left kidney; recent imaging CTAPwIV contrast February and Renal US 05/02/2024 noted that this cystic lesion has increased in size to 1.3 mm. On renal ultrasound there is no Doppler enhancement. Per imaging evaluation the indeterminate lesion is likely a proteinaceous or hemorrhagic cyst. Further follow-up is recommended. MRI discussed with the patient at this time she declines MRI which I agree is reasonable and I will repeat renal ultrasound in 6 months. [facility] Medical History Bone density scan declined Mammogram declined History of basal cell cancer Gastritis Stomach ulcer Cricopharyngeal achalasia Difficulty swallowing solids Intermittent palpitations GERD (gastroesophageal reflux disease) Chronic pain of both shoulders Vaccination declined Compound nevus Abnormal MRI of abdomen IBS (irritable bowel syndrome) Mixed dyslipidemia Osteoporosis Essential hypertension Anxiety disorder Surgical History History of esophagogastroduodenoscopy (EGD) Hx of colonoscopy History of laparoscopic cholecystectomy History of tonsillectomy History of section History of partial colectomy Family History Father No problems noted. Mother Depression HTN (hypertension) CHF (congestive heart failure) CVD (cardiovascular disease) Sister No problems noted. Sister No problems noted. Daughter No problems noted. Social History Household Members: Family Housing: House Do you presently have visiting nurse or other home services: No Alcohol intake: never Patient Tobacco Use Status: Former Tobacco user e-Cigarette/Vaping Use: Never Used service: No Current occupational status: retired Cognitive needs: No Hearing needs: No Vision needs: Yes Review of Systems Const All systems reviewed & are unremarkable except as noted in HPI and below Reports no additional complaints Eyes Reports no additional complaints ENT Reports no additional complaints Card Reports no additional complaints Resp Reports no additional complaints GI Reports no additional complaints Reports as per HPI Musc Reports no additional complaints Skin/Breast Reports system reviewed and no additional complaints, except as documented Neuro Reports no additional complaints Psych Reports no additional complaints Endo Reports no additional complaints Augie/Lymph Reports no additional complaints Aller/Immun Reports no additional complaints Results Reviewed Results Reviewed: Date of Service: 01/22/25 US retroperitoneum Comparison: None Findings: No hydronephrosis. Normal color flow. The right kidney measures 9.0 cm in length. Cortical thickness and echotexture is normal. Left kidney normal size and echotexture, 8.2 cm in length. No hydronephrosis. Normal color flow. Left kidney echotexture . There is lower pole left kidney nonvascular lobulation, described as 1.7 x 1.5 x 1.4 cm ???mass??? on the ultrasound worksheet. This lobulation contour correlates with thickening of the cortex but no exophytic invasion of surrounding tissue.. Urinary bladder is unremarkable. Prevoid volume mL. Postvoid volume mL. Ureteral jets are visualized bilaterally Impression: Prominent left kidney lower pole nonvascular focal cortical thickening or lobulation with some echogenicity. Differential diagnosis would favor renal cortical cyst containing debris. Less likely consideration would also be given to low-grade neoplasm Consider CT renal protocol for definitive diagnostic information. Date of Service: 05/02/24 US RETROPERITONEAL LIMITED, LEFT (RENAL ONLY) CLINICAL INFORMATION: Cyst of kidney, acquired. Abdominal CT showed: Increasing 1.3 cm indeterminate lesion in the lower pole of left kidney may represent a proteinaceous/hemorrhagic cyst, but a solid lesion cannot be excluded on this single phase CT. Recommend further evaluation with renal ultrasound. COMPARISON: CT abdomen and pelvis 03/16/2024. MR abdomen without and with contrast 02/07/2020. Ultrasound abdomen complete 05/04/2018. TECHNIQUE: Real-time imaging of the left kidney. FINDINGS: LEFT KIDNEY: 7.4 x 3.3 x 3.6 cm (SAG x AP x TRV). The kidney is normal in size, contour, and echogenicity. Renal cortical thickness is normal. No renal calculi or hydronephrosis. At the lower pole, a 1.3 cm hypoechoic, circumscribed lesion is seen, without associated color Doppler flow. This shows no significant change in through sound transmission. IMPRESSION: Corresponding with the accompanying CT abdomen and pelvis, a 1.3 solid hyperechoic lesion is seen, without associated color Doppler flow. Again, this could represent a complex cyst (for instance, a hemorrhagic/proteinaceous cyst) or a hypoechoic solid lesion. The lack of associated color Doppler flow favors a hemorrhagic proteinaceous cyst, although this cannot be asserted with certainty. Recommend further evaluation with MRI (renal mass protocol, contrast-enhanced). Urology evaluation and management may be considered. Date of Service: 03/16/24 CT ABDOMEN AND PELVIS WITH CONTRAST CLINICAL INFORMATION: Upper abdominal pain. Elevated lipase. COMPARISON: CT abdomen and pelvis 10/23/2020. MRI abdomen 02/07/2020. TECHNIQUE: Multidetector volumetric images were obtained from the superior aspect of the liver through the pubic symphysis following administration 85 mL of Omnipaque 350 intravenous contrast. Sagittal and coronal reformatted images were obtained on the technologist's workstation. Oral contrast: Yes This CT examination was performed using dose optimization techniques as appropriate, variously including the following: *Automated exposure control *Adjustment of mA and/or kV according to patient size (this includes techniques or standardized protocols for targeted exams where dose is matched to indication/reason for exam; i.e. extremities or head) *Use of iterative reconstruction technique DLP: 329 mGy-cm FINDINGS: LUNG BASES: No suspicious lung nodules. LIVER, GALLBLADDER, AND BILIARY TREE: The liver is normal in size, shape, and attenuation. No focal hepatic lesion or biliary ductal dilatation is present. Cholecystectomy. PANCREAS: No suspicion pancreatic mass. There is a 1 cm macroscopic fat density lesion in the inferior aspect of the pancreatic body consistent with a lipoma or invaginated retroperitoneal fat. No peripancreatic inflammatory changes. No pancreatic ductal dilatation. SPLEEN: The spleen appears normal. ADRENAL GLANDS: No adrenal mass. KIDNEYS AND URETERS: Symmetric nephrograms. Mild renal cortical thinning bilaterally. 1.3 cm indeterminate attenuation lesion in the lower pole the left kidney has increased in size from 7 mm on 10/23/2020. This images as a T2 dark lesion on MRI from 02/07/2020 measuring 6 mm. This is most likely a proteinaceous or hemorrhagic cyst, however a solid lesion cannot be excluded on this single phase CT scan. BLADDER: Compressed and not well evaluated but grossly normal. GASTROINTESTINAL TRACT: The small and large bowel are normal in caliber. No acute inflammatory changes appreciated. There is moderate left-sided colonic diverticulosis, most prominent in the sigmoid colon without evidence of acute diverticulitis. Areas of sigmoid colonic wall thickening are consistent with muscular hypertrophy in the setting of long-standing diverticulosis. The appearance is not significantly changed from 10/23/2020. ABDOMINAL WALL: Small fat-containing umbilical hernia. LYMPH NODES: No pathologically enlarged lymph nodes. VASCULAR: Moderate aortoiliac atherosclerotic disease. No aortic aneurysm. PELVIC VISCERA: Unremarkable. OSSEOUS STRUCTURES: No destructive osseous lesions. Degenerative changes are seen in the spine. IMPRESSION: No CT evidence of acute pancreatitis. If clinical concern persists, consider short-term follow-up CT/MR as early pancreatitis may not manifest on imaging. Increasing 1.3 cm indeterminate lesion in the lower pole the left kidney may represent a proteinaceous/hemorrhagic cyst, but a solid lesion cannot be excluded on this single phase CT. Recommend further evaluation with renal ultrasound. Ultimately, renal mass specific CT or MRI may be necessary to characterize further. Other chronic and incidental findings as above. Assessment & Plan Assessment & Plan (1) Complex renal cyst: Code(s): N28.1 - Cyst of kidney, acquired Category: Medical (2) Renal mass of unknown nature: Code(s): N28.89 - Other specified disorders of kidney and ureter Category: Medical Plan Plan - Order a CT abdomen with and without IV contrast to further evaluate the indeterminate lesion. - Discuss potential treatment options if the lesion is solid, including radiological intervention for cryoablation. Patient Instructions: The patient had an opportunity to ask questions regarding treatment plan. The patient expressed understanding and agreement with the above treatment plan. The patient is aware they should contact our office by phone for worsening of their current condition or the appearance of new symptoms. Compliance is encouraged with any medications and followup testing that is ordered. It is a privilege to be allowed the opportunity to participate in the urologic care of your patient. If you have any questions or concerns regarding treatment for the above conditions please do not hesitate to contact me. The office telephone contact is [phone]. This note is constructed in part using voice recognition software. While every effort has been made to ensure accuracy glass or mirror inspector errors may have been included. Yours sincerely, Deepti Cobos MD Scribe Plan - Not visible on output: Patient was informed and verbally consented to the use of an ambient scribe for clinic note documentation during this visit. Coding Level of Care Code Est Pt Level 3 (19664) Diagnoses Complex renal cyst N28.1 Renal mass of unknown nature N28.89
--- OUTSIDE RECORDS SUMMARY | 2025-02-19 12:21 | XMS_ITS | Encounter Summary ---
Author Organization [employer] Address [address] [place] [address] [address] [place] [address] Care Team Providers Care Bowling Ball Engraver Name Role Phone Unavailable Primary Care Provider Unavailabl e Encounter Details Date Type Department Care Team (Latest Contact Info) Description 09/29/2018 Abstract [facility] CONVERSIONS Dental, Provider, DDS Social [...]
== END 2025-02-19 11:58 | disposition home or self-care (01) ==
LOC: HO.HUSH 11:29
PROVIDERS: PCP Internal Medicine; Visit Provider Urology
DX: N28.1 Cyst of kidney, acquired (principal); N28.89 Other specified disorders of kidney and ureter
CPT/HCPCS: 99213

== ENCOUNTER → 2025-02-19 11:28 | Outpatient (BNVA) | payer MEDICARE, SELFPAY | PROVIDERS: PCP Internal Medicine; Visit Provider Urology | DX: N28.1 Cyst of kidney, acquired (principal); N28.89 Other specified disorders of kidney and ureter | CPT/HCPCS: 99212 ==

== ENCOUNTER 2025-04-10 07:49 | Outpatient (REF) | payer MEDICARE, SELFPAY ==
--- OUTSIDE RECORDS SUMMARY | 2025-04-10 07:52 | XMS_ITS | Clinical Summary ---
Author Organization [employer] Address [address] [place] [address] [address] [place] [address] Care Team Providers Care Lead Javascript Engineer Name Role Phone Unavailable Primary Care Provider [...] COVID-19 Vaccine ( - 2023-2 5 season) 2025 Influenza Vaccine (#1) 2025 HIB Vaccines Aged Out No longer eligi [...] patient's age to complete this topic Meningococcal B Vaccine Aged Out No l onger eligible based on patient's age to complete [...]
--- OUTSIDE RECORDS SUMMARY | 2025-04-10 07:52 | XMS_ITS | Encounter Summary ---
Author Organization [employer] Address [address] [place] [address] [address] [place] [address] Care Team Providers Care Software Analyst Name Role Phone Unavailable Primary Care Provider Unavailabl e Encounter Details Date Type Department Care Team (Latest Contact Info) Description 10/10/2020 Abstract [facility] CONVERSIONS Dental, Provider, DDS Social History [...]
--- OUTSIDE RECORDS SUMMARY | 2025-04-10 07:52 | XMS_ITS | Encounter Summary ---
Author Organization [employer] Address [address] [place] [address] [address] [place] [address] Care Team Providers Care Corporate Accounting Manager Name Role Phone Unavailable Primary Care Provider Unavailabl e Encounter Details Date Type Department Care Team (Latest Contact Info) Description 09/23/2021 Abstract [facility] CONVERSIONS Dental, Provider, DDS Social History Tobacco [...]
--- OUTSIDE RECORDS SUMMARY | 2025-04-10 07:52 | XMS_ITS | Encounter Summary ---
Author Organization [employer] Address [address] [place] [address] [address] [place] [address] Care Team Providers Care Deaf Teacher Name Role Phone Unavailable Primary Care Provider Unavailabl e Encounter Details Date Type Department Care Team (Latest Contact Info) Description 09/29/2018 Abstract [facility] CONVERSIONS Dental, Provider, DDS Social History [...]
[2025-04-10 11:44] LABS: Blood Urea Nitrogen 18 mg/dL (9-16); Estimated Glomerular Filt Rate > 60
== END 2025-04-10 07:50 | disposition home or self-care (01) ==
LOC: HO.HMGCLDS 07:49
PROVIDERS: PCP Internal Medicine; Visit Provider Urology
DX: N28.1 Cyst of kidney, acquired (principal)
CPT/HCPCS: 36415; 82565; 84520

== ENCOUNTER 2025-04-12 07:49 | Outpatient (REF) | payer MEDICARE, SELFPAY ==
--- NOTE | ~2025-04-12 | CT_ITS ---
CLINICAL HISTORY: N28.1 - Cyst of kidney, acquired CT abdomen and pelvis with and without contrast Comparison: CT/REG/OH/SR - CT ABDOMEN PELVIS WITH IV CONTRAST - 03/16/24 08:48 EDT Findings: No consolidation or effusion. Mild intrahepatic biliary ductal dilation postcholecystectomy, unchanged. Nonenhancing lesion in the left lateral inferior pole of the kidney measures 1.7 cm on the current exam (previously measured 1.3 cm). This measures 59 Hounsfield units on precontrast images and 59 Hounsfield units on postcontrast images. Nonenhancing 1.7 cm (previously measured 1.3 cm) lesion in the inferolateral pole of the left kidney likely represents a hemorrhagic or proteinaceous cyst. No bowel obstruction, pneumoperitoneum, or pneumatosis. Severe atherosclerotic vascular disease. Severe diverticulosis without evidence of diverticulitis. Appendix is not visualized. No acute fracture. Severe degenerative changes of the spine. Scoliosis. IMPRESSION: Nonenhancing 1.7 cm (previously measured 1.3 cm) lesion in the inferolateral pole of the left kidney likely represents a hemorrhagic or proteinaceous cyst. However, attention on follow-up imaging is recommended due to the increased size. This document has been electronically signed by: Ulises Aguayo DO on 04/13/2025 10:03:31
--- OUTSIDE RECORDS SUMMARY | 2025-04-12 07:51 | XMS_ITS | Encounter Summary ---
Author Organization [employer] Address [address] [place] [address] [address] [place] [address] Care Team Providers Care Dry Heat Room Attendant Name Role Phone Unavailable Primary Care Provider Unavailabl e Encounter Details Date Type Department Care Team (Latest Contact Info) Description 09/29/2018 Abstract [facility] CONVERSIONS Dental, Provider, DDS Social History [...]
--- OUTSIDE RECORDS SUMMARY | 2025-04-12 07:51 | XMS_ITS | Encounter Summary ---
Author Organization [employer] Address [address] [place] [address] [address] [place] [address] Care Team Providers Care Door Builder Name Role Phone Unavailable Primary Care Provider Unavailabl e Encounter Details Date Type Department Care Team (Latest Contact Info) Description 10/10/2020 Abstract [facility] CONVERSIONS Dental, Provider, DDS Social History [...]
--- OUTSIDE RECORDS SUMMARY | 2025-04-12 07:51 | XMS_ITS | Clinical Summary ---
Author Organization [employer] Address [address] [place] [address] [address] [place] [address] Care Team Providers Care Fish Hatchery Laborer Name Role Phone Unavailable Primary Care Provider [...]
--- OUTSIDE RECORDS SUMMARY | 2025-04-12 07:51 | XMS_ITS | Encounter Summary ---
Author Organization [employer] Address [address] [place] [address] [address] [place] [address] Care Team Providers Care Administrative Services Specialist Name Role Phone Unavailable Primary Care Provider Unavailabl e Encounter Details Date Type Department Care Team (Latest Contact Info) Description 09/23/2021 Abstract [facility] CONVERSIONS Dental, Provider, DDS Social [...]
[2025-04-12] MEDS: iohexoL 350 MG/ML 100 ML INFUS..BTL IV (08:38)
== END 2025-04-12 07:50 | disposition home or self-care (01) ==
LOC: HO.CT 07:49
PROVIDERS: PCP Internal Medicine; Visit Provider Urology
DX: N28.1 Cyst of kidney, acquired (principal)
CPT/HCPCS: 74178; Q9967

== ENCOUNTER → 2025-04-12 07:51 | Outpatient (BNV) | payer MEDICARE, SELFPAY | PROVIDERS: PCP Internal Medicine; Visit Provider Family Medicine | DX: N28.9 Disorder of kidney and ureter, unspecified (principal) | CPT/HCPCS: 74178 ==

== ENCOUNTER 2025-04-26 11:18 | Outpatient (AMB) | payer MEDICARE, SELFPAY ==
--- NOTE | 2025-04-26 11:21 | MHC.OFFVIS ---
Vital Signs 04/26/25 11:22 Height 4 ft 11 in Weight 128 lb BMI 25.9 BP 146/78 H Blood Pressure Location Lt brachial Position Sitting Pulse 75 Pulse Oximetry (%) 98 Oxygen Delivery Method Room Air Intake Visit Reasons: abd pain, concerned about diverticulitis gastrits Intake Note: Patient follow up for Cricopharyngeal achalasia Patient cc: abd pain, concerned about diverticulitis gastritis, Urology order a CT scan and patient wanted you to read it, and between diarrhea and constipation. 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 Accompanied by: Self / Same As Patient Allergies sulfamethoxazole (From Bactrim) Allergy (Mild, Verified 04/26/25 11:21) upset stomach trimethoprim (From Bactrim) Allergy (Mild, Verified 04/26/25 11:21) upset stomach Medication List - Last Reconciled 04/26/25 by Coy Benson MD diclofenac sodium 1% 4 grams topical QID metoprolol tartrate 25 mg PO BID 90 days mupirocin 2% 1 appl topical BID 5 days naproxen 500 mg PO DAILY PRN omeprazole 40 mg PO DAILY polyethylene glycol 3350 (Miralax) 17 grams PO DAILY 30 days pravastatin 80 mg PO BEDTIME triamterene-hydrochlorothiazid 75-50 mg 1 tab PO DAILY HPI HPI abd pain, concerned about diverticulitis gastrits: Details: 79-YEAR-OLD FEMALE FOR FOLLOW-UP OF POSTPRANDIAL DIARRHEA AND A PANCREATIC LESION.? PATIENT IS STATUS POST CHOLECYSTECTOMY AND PARTIAL COLECTOMY DUE TO DIVERTICULITIS. CHRONIC ILLNESSES:?GERD-diet controlled, osteopenia, diverticulitis c h/o surgery, Hypothyroidism, hyperlipidemia, hypertension, Ulcerative colitis-quiescent, Partial colectomy 1979 due to diverticulitis, Colon polyps, Scoliosis and Neck pain TODAY'S VISIT Patient complains of abd pain, concerned about diverticulitis gastritis, Continues to have abd pain off and on and improves after a BM Taking Probiotic tea a few times a week. Abd CT results were reviewed PAST VISITS: LLQ pains - She has not noticed any irregular bowel movements with it. Complains of LLQ pain - unsure if it is connected to her kidneys Pain is intermittent - just pain, not too bad and she can tolerate it - 01/25 Notes pain a few time a week Depends on what she eats - eats a lot of fruit in the summer time. Feels better after she has a BM Takes Omeprazole prn - usually before she eats any food which can cause pain. Denies fever or chills or urinary symptoms. Unsure if pain is similar to previous episode of divertiiculitis Has a BM every day - sometimes no BM for a few days. Not taking any medication for constipation. Continues intermittent dysphagia with solids and liquids - no significant improvement post dilation. Notes a small hernia in her belly button which she has had for years. Eats one big meal a day in the middle of the afternoon. Has been having bad heartburn after eating (depends on what she eats) and takes TUMS or mints which help Taking Omeprazole a few times a week. Has not started taking the sucralfate yet due to concerns about timing EGD results were reviewed. Patient cc: Nausea in the morning, LLQ pain, difficulty swallowing solid and pills, burping a lot, Notes intermittent dysphagia with pills - a few times a week. Has trouble swallowing large pills - pravastatin. Dysphagia to solid foods - does not happen very often. Sometimes it hurts to swallow - food gets stuck in the chest - ultimately goes down. Also notes 6/10 upper abdominal pain which radiates to the lower back - dull pain Pain comes and goes - worse with eating Also notes post prandial bloating. Notes diarrhea with 2-3 loose BMs per day Gained a few lbs - does not eat much Has been eating a lot of fruit Colonoscopy results reviewed. Has diarrhea alternating with constipation. Takes Omeprazole prn Started taking a probiotic drink from Director Of Quality Mike Notes some burping after drinking it and advised to take 1/2 twice a day Notes intermittent LLQ pain and resolves after she has a BM. Thinks pain is related to her diet. Can have 1-3 BMs a day and once in a great while, she does not go at all and then gets into trouble. Eats a lot of fruits and vegetables which helps with constipation Notes intermittent heartburn associated with certain foods Takes Omeprazole when she has abd pain and it helps. Wakes up with a dry mouth in the morning and mouth feels bitter. End of Jul, she had upper abdominal pain and BP was elevated to 200 systolic. [facility]en [facility] and admitted to the hospital with chest pain and abnormal EKG Continues to have upper abd/lower chest pain depending on what she eats - a dull, hurting pain. Pain radiated to the back. Noted nausea and a lot of bitter taste in her mouth and dry mouth Has not been taking Omeprazole - keeps forgetting to take it. Gets dehydrated and drinks quite a bit of water. Has gained 5 lbs and planning to loose it. Continues to have intermittent diarrhea since GB surgery - its getting better. ? related to cabbage and pretzels Has a PHAN every single day for the past 3 weeks - also has a problem with one of her upper teeth. Urgent FU appt scheduled since pt called on 05/28/22: pt called in and stated that her diverticulitis is acting up she is having consistent abdominal pain all over. She is a bit worried and wants to make sure everything is ok . Had cortisone injection in both shoulders and had a severe reaction with nausea and vomiting. Has been doing Ok - gets twinges and lower abdominal pain. Feels better after she has a BM. Has a BM daily - depends on what she eats. Has a lot of anxiety. Also notes pain in the RUQ and epigastric and lower chest area. Eats only one meal a day, likes to snack in between. Eats fruits and vegetables. Likes sweets. Has intermittent RUQ pain which is pinching in character. Has pain once in a while ? Has abdominal pain off and on which is manageable. ? Pain is not too bad. ? Gets pain when she gets constipated. Has diarrhea related to some foods. ? There is one antibiotic she does not want to take which caused her to be depressed for a week - she will check in her portal and send me a message with the name of the antibiotic. ? ? ? Noted some pain under her right breast - not effected by breathing and coughing. ? ? ? Stopped taking her vitamins and supplements and GERD symptoms have improved - advised to resume taking vitamin-D every other day. ?? ? To resume supplements 1 medicine at a time ? Staying home mostly ? Does not want to get the COVID vaccine yet ? ? ? I have been getting a dull pain which radiates to the lower back. Sometimes gets pain on the left side and sometimes on the right side. Pain feels a little bit different. ? ? ? Can have a dull pain after taking MVI, CQ10 ?? ? Denies problems with diarrhea or constipation LABS:?11/06 Reviewed. IMAGING STUDIES:? 03/16/[address] SCAN SHOWED: No CT evidence of acute pancreatitis. If clinical concern persists, consider short-term follow-up CT/MR as early pancreatitis may not manifest on imaging. Increasing 1.3 cm indeterminate lesion in the lower pole the left kidney may represent a proteinaceous/hemorrhagic cyst, but a solid lesion cannot be excluded on this single phase CT. Recommend further evaluation with renal ultrasound. Ultimately, renal mass specific CT or MRI may be necessary to characterize further. Other chronic and incidental findings as above. 01/10/24 BARIUM SWALLOW WITH UGI SHOWED: 1. 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 This is unlikely contributing to the patient's symptoms. 2. Moderate cricopharyngeal achalasia 3. Mildly disorganized esophageal peristalsis 4. Small type I hiatal hernia 5. Multiple tiny foci of contrast pooling in the fundus and body the stomach that may represent small superficial aphthous ulcers. Recommend correlation with EGD. 6. Surgical clips present in the right upper quadrant consistent with prior history of cholecystectomy. 10/23/[address] SCAN SHOWED: ? Stable 7 mm fatty lesion in the pancreas suggestive of a benign lipoma. Postsurgical changes following right colectomy. Severe diverticulosis of the distal colon. No evidence of diverticulitis. ?02/07/20? MRI SHOWED: ? Stable 7 x 8 mm fatty lesion at the junction of the body and tail of ? the pancreas suggestive of a lipoma. Diverticulosis of the colon. ? Stable small probable complex left renal cyst. 03/15/23 COLONOSCOPY SHOWED: No polyps were detected Random biopsies were obtained from right and left colon to check for microscopic colitis Moderate to severe diverticulosis seen in the entire colon Moderate hemorrhoids on retroflexed exam. Plan: Given advanced age and negative colonoscopies, colon cancer screening can be discontinued unless patient has lower GI symptoms [facility] Medical History Bone density scan declined Mammogram declined History of basal cell cancer Gastritis Stomach ulcer Cricopharyngeal achalasia Difficulty swallowing solids Intermittent palpitations GERD (gastroesophageal reflux disease) Chronic pain of both shoulders Vaccination declined Compound nevus Abnormal MRI of abdomen IBS (irritable bowel syndrome) Mixed dyslipidemia Osteoporosis Essential hypertension Anxiety disorder Surgical History History of esophagogastroduodenoscopy (EGD) Hx of colonoscopy History of laparoscopic cholecystectomy History of tonsillectomy History of section History of partial colectomy Family History Father No problems noted. Mother Depression HTN (hypertension) CHF (congestive heart failure) CVD (cardiovascular disease) Sister No problems noted. Sister No problems noted. Daughter No problems noted. Social History Household Members: Family Housing: House Do you presently have visiting nurse or other home services: No Alcohol intake: never Patient Tobacco Use Status: Former Tobacco user e-Cigarette/Vaping Use: Never Used service: No Current occupational status: retired Cognitive needs: No Hearing needs: No Vision needs: Yes Review of Systems Const All systems reviewed & are unremarkable except as noted in HPI and below Physical Exam Vital Signs: Last Vital Signs Pulse 75 04/26/25 11:22 BP 146/78 H 04/26/25 11:22 Pulse Ox 98 04/26/25 11:22 Oxygen Delivery Method Room Air 04/26/25 11:22 BMI result Body Mass Index 25.9 Const General: healthy appearing and no acute distress Nutritional Appearance: overweight Orientation/consciousness: patient oriented x3 Limitations: no limitations HEENT Head: Yes normal to inspection Ears: hearing grossly normal bilaterally Mouth: Normal oral and palatal mucosa present Eyes Sclerae: sclerae normal Pupils: Equal, round and reactive pupils present Neck Neck: Yes normal visual inspection Chest Chest palpation & inspection: normal inspection of the chest Resp Effort & Inspection: normal respiratory effort Auscultation: clear to auscultation bilaterally Cardio Palpation: normal PMI Rate: regular rate Rhythm: regular rhythm Heart sounds: S1 normal heart sound present, S2 normal heart sound present and no murmurs GI Palpation (GI): Soft to palpation, nontender and No hepatosplenomegaly present Auscultation: normal bowel sounds Rectal Exam - Female: deferred Skin General skin exam: no rashes or lesions noted Neuro General: patient oriented x3, gait normal and moves all extremities Cranial nerves: Yes Equal, round and reactive pupils present Psych Appearance: grossly normal Mental Status: mental status grossly normal Assessment & Plan Assessment & Plan (1) IBS (irritable bowel syndrome): Code(s): K58.9 - Irritable bowel syndrome, unspecified Category: Medical Qualifiers: Irritable bowel syndrome type: with both diarrhea and constipation Qualified Code(s): K58.2 - Mixed irritable bowel syndrome (2) Diverticulosis: Code(s): K57.90 - Diverticulosis of intestine, part unspecified, without perforation or abscess without bleeding Category: Medical (3) GERD (gastroesophageal reflux disease): Code(s): K21.9 - Gastro-esophageal reflux disease without esophagitis Category: Medical (4) Cricopharyngeal achalasia: Code(s): K22.0 - Achalasia of cardia Category: Medical (5) Abdominal pain: Code(s): R10.9 - Unspecified abdominal pain Category: Medical Plan 79 YF with GERD-diet controlled, osteopenia, diverticulitis c h/o surgery, Hypothyroidism, hyperlipidemia, hypertension, Partial colectomy 1979 due to perforated diverticulum, Colon polyps, Scoliosis and Neck pain Pt had Gallbladder surgery in May- feeling better but still having loose stools, aware that it is a side effect of surgery. Pt is aware that Citrucel can be helpful for management of loose stools. Residual diverticulosis noted on 2013 colonoscopy. Feels slight discomfort in LLQ- no pain or bleeding- aware of diverticulosis finding and advised to take Citrucel daily. Abnormal MRI of abdomen - MRCP showed a 7-8 mm Lipoma in body of pancreas stable over the past 2 years and no further workup advised. Pt complains of a dull abdominal pain radiating to the lower back (sometimes on the right and sometimes on the left side) 10/[address] scan showed a stable 7 mm fatty lesion in the pancreas suggestive of a benign lipoma, postsurgical changes following right colectomy. Severe diverticulosis of the distal colon without evidence of diverticulitis. Pt was advised to take Miralax twice a week for constipation and monitor her symptoms. She prefers to have all the labs drawn on a single visit since she has a difficult IV stick. 03/15/23 colonoscopy (last colon was in 2013) was performed and results as noted above Pt can stop having additional colonoscopies in the future unless she has LGI symptoms 02/11/24 Patient advised to schedule an upper endoscopy for further evaluation of abdominal pain and dysphagia - scheduled on 02/23/24 Also advised to schedule an Abd CT scan - pt would like to wait for EGD results prior to scheduling the CT 02/23/24 EGD was performed and showed: ESOPHAGUS: Mildly tortuous esophagus without stricture or ring Balloon dilation of the distal esophagus was performed with a 19 mm CRE balloon x 60 seconds Balloon dilation of proximal esophagus/crico-pharyngeus was performed with an 18 mm CRE balloon x 60 seconds STOMACH: Mild gastritis and benign appearing gastric polyp 04/20/24 Has been having bad heartburn after eating (depends on what she eats) and takes TUMS or mints which help Taking Omeprazole a few times a week. Has not started taking the sucralfate yet due to concerns about timing - and advised to take it after her main meal of the day Schedule limited renal US to FU on indeterminate renal cyst in the lower pole of left kidney 02/12/25 Pain is intermittent - just pain, not too bad and she can tolerate it - 01/25 Notes pain a few time a week Depends on what she eats - eats a lot of fruit in the summer time. Feels better after she has a BM Takes Omeprazole prn - usually before she eats any food which can cause pain. 04/26/25 Continues to have abd pain off and on and improves after a BM - advised to take Miralax 1-2 times a week and monitor her symptoms Taking Probiotic tea a few times a week and advised to take probiotics daily FU in 6 months Orders: Orders C Reactive Protein 05/19/25 R10.9 - Unspecified abdominal pain Complete Blood Count Auto Diff 05/19/25 R10.9 - Unspecified abdominal pain Lipase 05/19/25 R10.9 - Unspecified abdominal pain Amylase 05/19/25 R10.9 - Unspecified abdominal pain Coding Level of Care Code Est Pt Level 4 (89745) Diagnoses Irritable bowel syndrome with both constipation and diarrhea K58.2 Irritable bowel syndrome type: with both diarrhea and constipation Diverticulosis K57.90 GERD (gastroesophageal reflux disease) K21.9 Cricopharyngeal achalasia K22.0 Abdominal pain R10.9 Time Spent (min) 23
[2025-04-26 11:22] VITALS: BP 146/78; PULSE 75; O2SAT 98; BMI 25.9
== END 2025-04-26 12:10 | disposition home or self-care (01) ==
LOC: HO.HGI 11:19
PROVIDERS: PCP Internal Medicine; Visit Provider Internal Medicine Gastroenterology
DX: K58.2 Mixed irritable bowel syndrome (principal); K57.90 Diverticulosis of intestine, part unspecified, without perforation or abscess without bleeding; K21.9 Gastro-esophageal reflux disease without esophagitis; K22.0 Achalasia of cardia; R10.9 Unspecified abdominal pain
CPT/HCPCS: 99214

== ENCOUNTER → 2025-04-26 11:18 | Outpatient (BNVA) | payer MEDICARE, SELFPAY | PROVIDERS: PCP Internal Medicine; Visit Provider Internal Medicine Gastroenterology | DX: K58.2 Mixed irritable bowel syndrome (principal); K57.90 Diverticulosis of intestine, part unspecified, without perforation or abscess without bleeding; K21.9 Gastro-esophageal reflux disease without esophagitis; K22.0 Achalasia of cardia; R10.9 Unspecified abdominal pain | CPT/HCPCS: 99212 ==

== ENCOUNTER 2025-05-07 11:02 | Outpatient (AMB) | payer MEDICARE, SELFPAY ==
--- NOTE | 2025-05-07 11:03 | MHC.OFFVIS ---
Intake Visit Reasons: 11w/CT Intake Note: Patient is presents via telehealth for 11w/CT follow up 04/13 Abdomen/Pelvis CT Urology Medication:NONE Antibiotic Allergy:SULFA,BACTRIM Blood Thinner:NONE Pipe And Test Supervisor Required: No Allergies sulfamethoxazole (From Bactrim) Allergy (Mild, Verified 05/07/25 11:03) upset stomach trimethoprim (From Bactrim) Allergy (Mild, Verified 05/07/25 11:03) upset stomach HPI Comments Details: 05/07/2025--Marva presents as a telehealth follow up. Review of follow up CT scan. 04/12/25-- CTAP w/wo IV contrast--IMPRESSION: Nonenhancing 1.7 cm (previously measured 1.3 cm) lesion in the inferolateral pole of the left kidney likely represents a hemorrhagic or proteinaceous cyst. However, attention on follow-up imaging is recommended due to the increased size. Plan - Cont to Monitor 02/19/25--Marva is a 79-year-old female who is here in follow-up due to indeterminate lesion in the left kidney. She had a CT with IV contrast 03/16/2024 noting a 1.3 indeterminate lesion follow-up ultrasound 05/02/2024 noted a 1.3 indeterminate lesion she presents to discuss recent follow-up imaging done on 01/22/2025 reporting slightly increase in size 1.7 x 1.4 indeterminate lesion. The patient declined MRI in August I will order a CT abdomen with and without IV contrast. History of Present Illness - The patient is a 79-year-old female presenting with a follow-up of an indeterminate lesion in the left kidney. - The lesion was initially identified on a CT scan with IV contrast on March 16, 2024, measuring 1.3 cm. - A follow-up ultrasound on May 02, 2024, confirmed the lesion size as 1.3 cm. - Recent imaging on January 22, 2025, indicated a slight increase in size to 1.7 x 1.4 cm. - The patient declined an MRI Results - CT scan with IV contrast on March 16, 2024: 1.3 cm indeterminate lesion in the left kidney. - Ultrasound on May 02, 2024: 1.3 cm indeterminate lesion in the left kidney. - Imaging on January 22, 2025: Slight increase in lesion size to 1.7 x 1.4 cm. Plan - Order a CT abdomen with and without IV contrast to further evaluate the indeterminate lesion. - Discuss potential treatment options if the lesion is solid, including radiological intervention for cryoablation. 08/21/24--Marva is here for new patient evaluation due to an indeterminate lesion in the left kidney. In review of the patient's chart she had a CT scan 10/2020 which noted a 7 mm cyst left kidney; recent imaging CTAPwIV contrast February and Renal US 05/02/2024 noted that this cystic lesion has increased in size to 1.3 mm. On renal ultrasound there is no Doppler enhancement. Per imaging evaluation the indeterminate lesion is likely a proteinaceous or hemorrhagic cyst. Further follow-up is recommended. MRI discussed with the patient at this time she declines MRI which I agree is reasonable and I will repeat renal ultrasound in 6 months. COUNTS INCLUDE 234 BEDS AT THE [facility] Medical History Bone density scan declined Mammogram declined History of basal cell cancer Gastritis Stomach ulcer Cricopharyngeal achalasia Difficulty swallowing solids Intermittent palpitations GERD (gastroesophageal reflux disease) Chronic pain of both shoulders Vaccination declined Compound nevus Abnormal MRI of abdomen IBS (irritable bowel syndrome) Mixed dyslipidemia Osteoporosis Essential hypertension Anxiety disorder Surgical History History of esophagogastroduodenoscopy (EGD) Hx of colonoscopy History of laparoscopic cholecystectomy History of tonsillectomy History of section History of partial colectomy Family History Father No problems noted. Mother Depression HTN (hypertension) CHF (congestive heart failure) CVD (cardiovascular disease) Sister No problems noted. Sister No problems noted. Daughter No problems noted. Social History Household Members: Family Housing: House Do you presently have visiting nurse or other home services: No Alcohol intake: never Patient Tobacco Use Status: Former Tobacco user e-Cigarette/Vaping Use: Never Used service: No Current occupational status: retired Cognitive needs: No Hearing needs: No Vision needs: Yes Telehealth Telehealth Telehealth Platform: Telephone Location of provider rendering services: practice address Location of patient: address on file Patient Identification confirmed using: Name, : Yes Telehealth method: voice only Patient verbally consented to treatment: Yes Patient verbally consented to billing insurance company: Yes Patient informed of any privacy concerns related to visit: Yes Minutes spent on Phone/Video with Pt.: 13 Results Reviewed Results Reviewed: Date of Service: 04/12/25 Reason for Exam: N28.1 - Cyst of kidney, acquired CLINICAL HISTORY: N28.1 - Cyst of kidney, acquired CT abdomen and pelvis with and without contrast Comparison: CT/REG/NY/SR - CT ABDOMEN PELVIS WITH IV CONTRAST - 03/16/24 08:48 EDT Findings: No consolidation or effusion. Mild intrahepatic biliary ductal dilation postcholecystectomy, unchanged. Nonenhancing lesion in the left lateral inferior pole of the kidney measures 1.7 cm on the current exam (previously measured 1.3 cm). This measures 59 Hounsfield units on precontrast images and 59 Hounsfield units on postcontrast images. Nonenhancing 1.7 cm (previously measured 1.3 cm) lesion in the inferolateral pole of the left kidney likely represents a hemorrhagic or proteinaceous cyst. No bowel obstruction, pneumoperitoneum, or pneumatosis. Severe atherosclerotic vascular disease. Severe diverticulosis without evidence of diverticulitis. Appendix is not visualized. No acute fracture. Severe degenerative changes of the spine. Scoliosis. IMPRESSION: Nonenhancing 1.7 cm (previously measured 1.3 cm) lesion in the inferolateral pole of the left kidney likely represents a hemorrhagic or proteinaceous cyst. However, attention on follow-up imaging is recommended due to the increased size. Date of Service: 01/22/25 US retroperitoneum Comparison: None Findings: No hydronephrosis. Normal color flow. The right kidney measures 9.0 cm in length. Cortical thickness and echotexture is normal. Left kidney normal size and echotexture, 8.2 cm in length. No hydronephrosis. Normal color flow. Left kidney echotexture . There is lower pole left kidney nonvascular lobulation, described as 1.7 x 1.5 x 1.4 cm ???mass??? on the ultrasound worksheet. This lobulation contour correlates with thickening of the cortex but no exophytic invasion of surrounding tissue.. Urinary bladder is unremarkable. Prevoid volume mL. Postvoid volume mL. Ureteral jets are visualized bilaterally Impression: Prominent left kidney lower pole nonvascular focal cortical thickening or lobulation with some echogenicity. Differential diagnosis would favor renal cortical cyst containing debris. Less likely consideration would also be given to low-grade neoplasm Consider CT renal protocol for definitive diagnostic information. Date of Service: 05/02/24 US RETROPERITONEAL LIMITED, LEFT (RENAL ONLY) CLINICAL INFORMATION: Cyst of kidney, acquired. Abdominal CT showed: Increasing 1.3 cm indeterminate lesion in the lower pole of left kidney may represent a proteinaceous/hemorrhagic cyst, but a solid lesion cannot be excluded on this single phase CT. Recommend further evaluation with renal ultrasound. COMPARISON: CT abdomen and pelvis 03/16/2024. MR abdomen without and with contrast 02/07/2020. Ultrasound abdomen complete 05/04/2018. TECHNIQUE: Real-time imaging of the left kidney. FINDINGS: LEFT KIDNEY: 7.4 x 3.3 x 3.6 cm (SAG x AP x TRV). The kidney is normal in size, contour, and echogenicity. Renal cortical thickness is normal. No renal calculi or hydronephrosis. At the lower pole, a 1.3 cm hypoechoic, circumscribed lesion is seen, without associated color Doppler flow. This shows no significant change in through sound transmission. IMPRESSION: Corresponding with the accompanying CT abdomen and pelvis, a 1.3 solid hyperechoic lesion is seen, without associated color Doppler flow. Again, this could represent a complex cyst (for instance, a hemorrhagic/proteinaceous cyst) or a hypoechoic solid lesion. The lack of associated color Doppler flow favors a hemorrhagic proteinaceous cyst, although this cannot be asserted with certainty. Recommend further evaluation with MRI (renal mass protocol, contrast-enhanced). Urology evaluation and management may be considered. Date of Service: 03/16/24 CT ABDOMEN AND PELVIS WITH CONTRAST CLINICAL INFORMATION: Upper abdominal pain. Elevated lipase. COMPARISON: CT abdomen and pelvis 10/23/2020. MRI abdomen 02/07/2020. TECHNIQUE: Multidetector volumetric images were obtained from the superior aspect of the liver through the pubic symphysis following administration 85 mL of Omnipaque 350 intravenous contrast. Sagittal and coronal reformatted images were obtained on the technologist's workstation. Oral contrast: Yes This CT examination was performed using dose optimization techniques as appropriate, variously including the following: *Automated exposure control *Adjustment of mA and/or kV according to patient size (this includes techniques or standardized protocols for targeted exams where dose is matched to indication/reason for exam; i.e. extremities or head) *Use of iterative reconstruction technique DLP: 329 mGy-cm FINDINGS: LUNG BASES: No suspicious lung nodules. LIVER, GALLBLADDER, AND BILIARY TREE: The liver is normal in size, shape, and attenuation. No focal hepatic lesion or biliary ductal dilatation is present. Cholecystectomy. PANCREAS: No suspicion pancreatic mass. There is a 1 cm macroscopic fat density lesion in the inferior aspect of the pancreatic body consistent with a lipoma or invaginated retroperitoneal fat. No peripancreatic inflammatory changes. No pancreatic ductal dilatation. SPLEEN: The spleen appears normal. ADRENAL GLANDS: No adrenal mass. KIDNEYS AND URETERS: Symmetric nephrograms. Mild renal cortical thinning bilaterally. 1.3 cm indeterminate attenuation lesion in the lower pole the left kidney has increased in size from 7 mm on 10/23/2020. This images as a T2 dark lesion on MRI from 02/07/2020 measuring 6 mm. This is most likely a proteinaceous or hemorrhagic cyst, however a solid lesion cannot be excluded on this single phase CT scan. BLADDER: Compressed and not well evaluated but grossly normal. GASTROINTESTINAL TRACT: The small and large bowel are normal in caliber. No acute inflammatory changes appreciated. There is moderate left-sided colonic diverticulosis, most prominent in the sigmoid colon without evidence of acute diverticulitis. Areas of sigmoid colonic wall thickening are consistent with muscular hypertrophy in the setting of long-standing diverticulosis. The appearance is not significantly changed from 10/23/2020. ABDOMINAL WALL: Small fat-containing umbilical hernia. LYMPH NODES: No pathologically enlarged lymph nodes. VASCULAR: Moderate aortoiliac atherosclerotic disease. No aortic aneurysm. PELVIC VISCERA: Unremarkable. OSSEOUS STRUCTURES: No destructive osseous lesions. Degenerative changes are seen in the spine. IMPRESSION: No CT evidence of acute pancreatitis. If clinical concern persists, consider short-term follow-up CT/MR as early pancreatitis may not manifest on imaging. Increasing 1.3 cm indeterminate lesion in the lower pole the left kidney may represent a proteinaceous/hemorrhagic cyst, but a solid lesion cannot be excluded on this single phase CT. Recommend further evaluation with renal ultrasound. Ultimately, renal mass specific CT or MRI may be necessary to characterize further. Other chronic and incidental findings as above. Assessment & Plan Assessment & Plan (1) Complex renal cyst: Code(s): N28.1 - Cyst of kidney, acquired Category: Medical Plan 04/12/25-- CT imaging--Nonenhancing 1.7 cm (previously measured 1.3 cm) lesion in the inferolateral pole of the left kidney likely represents a hemorrhagic or proteinaceous cyst. However, attention on follow-up imaging is recommended due to the increased size. Plan - Cont to Monitor Orders: Orders US renal BI 11 Months N28.1 - Cyst of kidney, acquired Patient Instructions: The patient had an opportunity to ask questions regarding treatment plan. The patient expressed understanding and agreement with the above treatment plan. The patient is aware they should contact our office by phone for worsening of their current condition or the appearance of new symptoms. Compliance is encouraged with any medications and followup testing that is ordered. It is a privilege to be allowed the opportunity to participate in the urologic care of your patient. If you have any questions or concerns regarding treatment for the above conditions please do not hesitate to contact me. The office telephone contact is [phone]. This note is constructed in part using voice recognition software. While every effort has been made to ensure accuracy colloid mill operator errors may have been included. Yours sincerely, Deepti Cobos MD Coding Level of Care Code Tele Est Pt Level 3 (05592) Diagnoses Complex renal cyst N28.1
--- OUTSIDE RECORDS SUMMARY | 2025-05-07 13:24 | XMS_ITS | Encounter Summary ---
Author Organization [employer] Address [address] [place] [address] [address] [place] [address] Care Team Providers Care Associate Chief Nurse Name Role Phone Unavailable Primary Care Provider [...]
--- OUTSIDE RECORDS SUMMARY | 2025-05-07 13:24 | XMS_ITS | Encounter Summary ---
Author Organization [employer] Address [address] [place] [address] 7 [place] [address] Care Team Providers Care Process Engineer Name Role Phone Unavailable Primary Care Provider Unavailabl e Encounter Details Date Type Department Care Team (Latest Contact Info) Description 10/10/2020 Abstract [facility] CONVERSIONS Dental, Provider, DDS Social History [...]
--- OUTSIDE RECORDS SUMMARY | 2025-05-07 13:24 | XMS_ITS | Encounter Summary ---
Author Organization [employer] Address [address] [place] [address] [address] [place] [address] Care Team Providers Care Machine Clothing Worker Name Role Phone Unavailable Primary Care Provider Unavailabl e Encounter Details Date Type Department Care Team (Latest Contact Info) Description 09/23/2021 Abstract [facility] CONVERSIONS Dental, Provider, DDS Social History Tobacco [...]
--- OUTSIDE RECORDS SUMMARY | 2025-05-07 13:24 | XMS_ITS | Clinical Summary ---
Author Organization [facility] [employer] [facility] [employer] Address [address] [place] [address] [address] [place] [address] Care Team Providers Care Oliving Machine Operator Name Role Phone Unavailable Primary Care Provider [...]
== END 2025-05-07 16:30 | disposition home or self-care (01) ==
LOC: HO.HUSH 11:02
PROVIDERS: PCP Internal Medicine; Visit Provider Urology
DX: N28.1 Cyst of kidney, acquired (principal)
CPT/HCPCS: 99213

== ENCOUNTER 2025-05-25 06:06 | Outpatient (REF) | payer MEDICARE, SELFPAY ==
--- OUTSIDE RECORDS SUMMARY | 2025-05-25 06:09 | XMS_ITS | Encounter Summary ---
Author Organization [employer] Address [address] [place] [address] [address] [place] [address] Care Team Providers Care Procedure Analyst Name Role Phone Unavailable Primary Care Provider Unavailabl e Encounter Details Date Type Department Care Team (Latest Contact Info) Description 09/29/2018 Abstract [facility] CONVERSIONS Dental, Provider, DDS Social History [...]
--- OUTSIDE RECORDS SUMMARY | 2025-05-25 06:09 | XMS_ITS | Encounter Summary ---
Author Organization [employer] Address [address] [place] [address] [address] [place] [address] Care Team Providers Care Forest Nursery Supervisor Name Role Phone Unavailable Primary Care Provider Unavailabl e Encounter Details Date Type Department Care Team (Latest Contact Info) Description 10/10/2020 Abstract [facility] CONVERSIONS Dental, Provider, DDS Social [...]
--- OUTSIDE RECORDS SUMMARY | 2025-05-25 06:09 | XMS_ITS | Encounter Summary ---
Author Organization [employer] Address [address] [place] [address] [address] [place] [address] Care Team Providers Care Clothing Designer Name Role Phone Unavailable Primary Care Provider Unavailabl e Encounter Details Date Type Department Care Team (Latest Contact Info) Description 09/23/2021 Abstract [facility] CONVERSIONS Dental, Provider, DDS Social [...]
--- OUTSIDE RECORDS SUMMARY | 2025-05-25 06:09 | XMS_ITS | Clinical Summary ---
Author Organization [employer] Address [address] [place] [address] [address] [place] [address] Care Team Providers Care Predator Control Trapper Name Role Phone Unavailable Primary Care Provider [...]
[2025-05-25 10:23] LABS: MANUAL DIFF FLAG NO
[2025-05-25 10:38] LABS: Hematocrit 44.4 % (37.0-47.0); Hemoglobin 14.4 g/dl (12.0-16.0); Imm Gran Abs Auto 0.02 X10*3/uL (0.00-0.03); Imm Gran Pct Auto 0.3 % (0.0-0.4); Lymphocytes Absolute Auto 1.3 X10*3/uL (1.2-4.9); Mean Corpuscular HGB Conc 32.4 g/dl (31.0-35.0); Mean Corpuscular Hemoglobin 29.8 pg (27.0-33.0); Mean Corpuscular Volume 91.7 fL (80.0-98.0); NRBC Abs Auto 0.000 X10*3/uL (0.0-0.012); NRBC Pct Auto 0.0 /100WBC (0.0-0.2); Platelet Count 254 X10*3/uL (160-400); Red Blood Count 4.84 X10*6/uL (4.20-5.50); White Blood Count 6.4 X10*3/uL (4.8-10.8)
[2025-05-25 10:49] LABS: Alanine Aminotransferase 16 U/L (0-31); Anion Gap 12 (12-20); Aspartate Amino Transferase 27 U/L (5-31); Blood Urea Nitrogen 16 mg/dL (9-16); Calcium 9.7 mg/dL (8.4-10.2); Carbon Dioxide 30 mmol/L (22-29); Chloride 102 mmol/L (96-108); Cholesterol 217 mg/dL (<200); Estimated Glomerular Filt Rate > 60; HDL Cholesterol 50 mg/dL (>40); Lipase 34 U/L (8-78); Potassium 4.1 mmol/L (3.3-5.1); Sodium 140 mmol/L (135-145); Triglycerides 189 mg/dL (<150)
[2025-05-25 10:50] LABS: Amylase 120 U/L (28-100)
== END 2025-05-25 06:07 | disposition home or self-care (01) ==
LOC: HO.HMGCLDS 06:06
PROVIDERS: Absent Provider Internal Medicine Gastroenterology; PCP Internal Medicine; Visit Provider Internal Medicine
DX: Z00.01 Encounter for general adult medical examination with abnormal findings (principal); I10 Essential (primary) hypertension; N28.1 Cyst of kidney, acquired; E78.2 Mixed hyperlipidemia; R10.9 Unspecified abdominal pain
CPT/HCPCS: 36415; 80048; 80061; 82150; 83690; 84450; 84460; 85025; 86140

== ENCOUNTER 2025-05-29 09:01 | Outpatient (AMB) | payer MEDICARE, SELFPAY ==
--- OUTSIDE RECORDS SUMMARY | 2025-05-29 09:37 | XMS_ITS | Encounter Summary ---
Author Organization [employer] Address [address] [place] [address] [address] [place] [address] Care Team Providers Care Zinc Plate Cutter Name Role Phone Unavailable Primary Care Provider Unavailabl e Encounter Details Date Type Department Care Team (Latest Contact Info) Description 09/23/2021 Abstract [facility] CONVERSIONS Dental, Provider, DDS Social [...]
--- OUTSIDE RECORDS SUMMARY | 2025-05-29 09:37 | XMS_ITS | Encounter Summary ---
Author Organization [employer] Address [address] [place] [address] [address] [place] [address] Care Team Providers Care Veteran Appeals Reviewer Name Role Phone Unavailable Primary Care Provider Unavailabl e Encounter Details Date Type Department Care Team (Latest Contact Info) Description 10/10/2020 Abstract [facility] CONVERSIONS Dental, Provider, DDS Social [...]
--- OUTSIDE RECORDS SUMMARY | 2025-05-29 09:37 | XMS_ITS | Clinical Summary ---
Author Organization [employer] Address [address] [place] [address] [address] [place] [address] Care Team Providers Care Itinerant Teacher Assistant Name Role Phone Unavailable Primary Care Provider [...]
--- OUTSIDE RECORDS SUMMARY | 2025-05-29 09:37 | XMS_ITS | Encounter Summary ---
Author Organization [employer] Address [address] [place] [address] [address] [place] [address] Care Team Providers Care Preform Plate Maker Name Role Phone Unavailable Primary Care Provider Unavailabl e Encounter Details Date Type Department Care Team (Latest Contact Info) Description 09/29/2018 Abstract [facility] CONVERSIONS Dental, Provider, DDS Social History [...]
--- NOTE | 2025-05-29 09:57 | MHC.PC.OV ---
Vital Signs 05/29/25 09:59 Height 4 ft 11 in Weight 131 lb BMI 26.5 BP 122/72 Blood Pressure Location Lt brachial Position Sitting Respiration 16 Pulse 60 Pulse Source Pulse Oximeter Temp 98.3 F Temp Source Oral Pulse Oximetry (%) 95 Oxygen Delivery Method Room Air Intake Visit Reasons: 6m follow up Intake Note: Pt is here today for her 6mo. f/u Veterinarian Poultry Required: No Allergies sulfamethoxazole (From Bactrim) Allergy (Mild, Verified 05/29/25 10:17) upset stomach trimethoprim (From Bactrim) Allergy (Mild, Verified 05/29/25 10:17) upset stomach Medication List - Last Reconciled 05/29/25 by Tri Richter MD metoprolol tartrate 25 mg PO BID 90 days naproxen 500 mg PO DAILY PRN omeprazole 40 mg PO DAILY pravastatin 80 mg PO BEDTIME triamterene-hydrochlorothiazid 75-50 mg 1 tab PO DAILY Tobacco use date assessed: 05/29/25 Last assessed Fall Risk: 05/29/25 Dental Screening Dental Screen Date: 05/29/25 Did you have a dental visit in the last 12 months?: Yes Did you have a dental problem in the last 6 months where you did not have access to dental care?: No Was dental information given to patient?: Patient has dentist HPI 6m follow up HPI Details 79-year-old lady with mixed dyslipidemia and hypertension, here today for follow-up. Has been taking her medications regularly, but admits to having dietary inconsistencies and not getting any regular moderate intensity exercise Her hypertension is stable and controlled on triamterene hydrochlorothiazide and metoprolol tartrate, continue on same dose. Latest fasting lipid levels showed elevated triglycerides with LDL cholesterol at 130 mg/dL despite being on pravastatin 80 mg at bedtime.. [facility] Medical History Bone density scan declined Mammogram declined History of basal cell cancer Gastritis Stomach ulcer Cricopharyngeal achalasia Difficulty swallowing solids Intermittent palpitations GERD (gastroesophageal reflux disease) Chronic pain of both shoulders Vaccination declined Compound nevus Abnormal MRI of abdomen IBS (irritable bowel syndrome) Mixed dyslipidemia Osteoporosis Essential hypertension Anxiety disorder Surgical History History of esophagogastroduodenoscopy (EGD) Hx of colonoscopy History of laparoscopic cholecystectomy History of tonsillectomy History of section History of partial colectomy Family History Father No problems noted. Mother Depression HTN (hypertension) CHF (congestive heart failure) CVD (cardiovascular disease) Sister No problems noted. Sister No problems noted. Daughter No problems noted. Social History Household Members: Family Housing: House Do you presently have visiting nurse or other home services: No Alcohol intake: never Patient Tobacco Use Status: Former Tobacco user e-Cigarette/Vaping Use: Never Used service: No Current occupational status: retired Cognitive needs: No Hearing needs: No Vision needs: Yes Questionnaire PHQ-9 Over the last 2 weeks, how often have you been bothered by any of the following problems? 1. Little interest or pleasure in doing things: not at all 2. Feeling down, depressed, or hopeless: not at all 3. Trouble falling or staying asleep, or sleeping too much: not at all 4. Feeling tired or having little energy: not at all 5. Poor appetite or overeating: not at all 6. Feeling bad about yourself - or that you are a failure or have let yourself or your family down: not at all 7. Trouble concentrating on things, such as reading the newspaper or watching television: not at all 8. Moving or speaking so slowly that other people could have noticed. Or the opposite - being so fidgety or restless that you have been moving around a lot more than usual: not at all 9. Thoughts that you would be better off or of hurting yourself in some way: not at all Total score: 0 Depression Screening Interpretation: Negative Depression Screening Done: Yes Source: Developed by Drs. Wally Ryan, Ashwini Tovar, Fransisco Munroe and colleagues, with an educational beto from [employer]. Thrive Questionnaire Date Thrive assessed: 11/24/24 I am a: Patient What is your living situation today?: I have a steady place to live Within the past 12 months, did the food you bought not last and you didn't have the money to get more?: Never true Within the past 12 months, did you worry whether your food would run out before you got money to buy more?: Never true Do you have trouble paying for medicines?: No Do you have trouble getting transportation to medical appointments?: No Do you have trouble paying your heating and electricity bill?: No Do you have trouble taking care of your child, family member or friend?: No Do you have trouble with day-to-day activities such as bathing, preparing meals, shopping, managing finances, etc.?: No Are you currently unemployed and looking for a job?: No Are you interested in more education?: No THRIVE Score: 0 AUDIT C Alcohol Use Questionnaire (AUDIT-C) 1. How often do you have a drink containing alcohol?: Never Total Score: 0 Score Reviewed/Action Taken: Yes MARGUERITE-7 AMB Questionnaire MARGUERITE-7 Date MARGUERITE - 7 assessed: 11/27/24 Feeling nervous, anxious, or on edge: 0 = Not at all Not being able to stop or control worryin = Not at all Worrying too much about different things: 1 = Several days Trouble relaxin = Not at all Being so restless that it is hard to sit still: 0 = Not at all Becoming easily annoyed or irritable: 0 = Not at all Feeling afraid as if something awful might happen: 0 = Not at all Total MARGUERITE-7 score (0-4 normal; 5-9 mild; 10-14 moderate; 15-21 severe): 1 Source: Developed by Drs. Wally Ryan, Ashwini Tovar, Fransisco Munroe and colleagues, with an educational beto from [employer]. Review of Systems Const All systems reviewed & are unremarkable except as noted in HPI and below Physical exam (Primary Care) Vital Signs: Last Vital Signs Temp 98.3 F 05/29/25 09:59 Pulse 60 05/29/25 09:59 Resp 16 05/29/25 09:59 BP 122/72 05/29/25 09:59 Pulse Ox 95 05/29/25 09:59 Oxygen Delivery Method Room Air 05/29/25 09:59 BMI result Body Mass Index 26.5 Tobacco/Smoking Status: Tobacco use Status Tobacco use date assessed 05/29/25 05/29/25 10:03 Patient Tobacco Use Status Former Tobacco user 05/29/25 10:03 e-Cigarette/Vaping Use Never Used 05/29/25 10:03 PHQ-9: PHQ-9 Score PHQ-9: Total score 0 05/29/25 10:17 Depression Screening Interpretation: Negative Thrive Assessment: Date of Thrive Assessment Date Thrive assessed 11/24/24 05/29/25 10:03 Const Other: Alert oriented x3, no acute distress noted ambulatory normal gait HENMT Face and sinus: Yes face symmetric Mouth: moist mucous membranes Eyes General: appearance normal, both eyes and all related structures Neck Neck: Yes full ROM, Yes no lymphadenopathy and Yes supple Chest Other: Patient declined exam Resp Auscultation: clear to auscultation bilaterally Cardio Rate: regular rate Rhythm: regular rhythm Heart sounds: S1 normal heart sound present and S2 normal heart sound present GI Palpation (GI): Soft to palpation, nontender, no guarding and no masses Auscultation: normal bowel sounds General: Yes no CVA tenderness Back/Spine/Pelvis Back: no CVA tenderness and No back tenderness Skin General skin exam: no rashes or lesions noted Neuro General: gait normal, tone normal, moves all extremities, Normal light touch and pain sensation and no focal motor deficits Extrem General: Yes full ROM, Yes no joint enlargement and Yes no clubbing, cyanosis or edema Psych Appearance: grossly normal and well kempt Mental Status: mental status grossly normal Speech and movement: Normal speech and movement present Affect: normal affect Results Reviewed Results Reviewed: Name: Marva Davison Age/Sex: 79/F : 1945 Unit#: [id number] Attend Dr: Tri Richter MD Re05/25/25 Status: DEP [facility] Disch: SPEC : [id number] GEMMA: 05/25/25 STATUS: COMP REQ : [id number] RECD: 05/25/[address]: Coy Benson MD COMP: 05/25/25 ENTERED: 05/25/[address]: Tri Richter MD ORDERED: CBC Auto Diff Test Result Flag Reference WBC 6.4 4.8-10.8 X10*3/uL RBC 4.84 4.20-5.50 X10*6/uL HGB 14.4 12.0-16.0 g/dl HCT 44.4 37.0-47.0 % MCV 91.7 80.0-98.0 fL MCH 29.8 27.0-33.0 pg MCHC 32.4 31.0-35.0 g/dl RDW 13.2 11.0-16.0 % PLT 254 160-400 X10*3/uL MPV 10.9 9.4-12.3 fL Neut Pct Auto 64.2 45-73 % ImGran Pct Auto 0.3 0.0-0.4 % Lymp Pct Auto 20.9 20-40 % [place] Pct Auto 9.5 2-11 % Eos Pct Auto 4.5 H 0-4 % Baso Pct Auto 0.6 0-2 % NRBC Pct Auto 0.0 0.0-0.2 /100WBC ANC Neut Abs # 4.1 2.0-8.3 x10*3/uL ImGran Abs Auto 0.02 0.00-0.03 X10*3/uL Lymph Abs Auto 1.3 1.2-4.9 X10*3/uL [place] Abs Auto 0.6 0.1-1.2 X10*3/uL Eos Abs Auto 0.3 0.0-0.4 X10*3/uL Baso Abs Auto 0.0 0.0-0.2 X10*3/uL NRBC Abs Auto 0.000 0.0-0.012 X10*3/uL Name: Marva Davison Age/Sex: 79/F : 1945 Unit#: [id number] Attend Dr: Tri Richter MD Re05/25/25 Status: DEP REF Location: [facility] Disch: SPEC : [id number] GEMMA: 05/25/25 STATUS: COMP REQ : [id number] RECD: 05/25/[address]: Tri Richter MD COMP: 05/25/25 ENTERED: 05/25/25 [facility] DR: Coy Benson MD ORDERED: Met Prof Fast, AST, ALT, C Reactive Prot, Lipid Panel, Lip Test Result Flag Reference Sodium 140 135-145 mmol/L Potassium 4.1 3.3-5.1 mmol/L CL 102 96-108 mmol/L CO2 30 H 22-29 mmol/L Gap 12 12-20 BUN 16 9-16 mg/dL Creat 0.84 0.5-1.4 mg/dL eGFR > 60 Chronic Kidney Disease: Estimated GFR < 60 mL/min/1.73m2 Severe Kidney Disease: Estimated GFR < 15 mL/min/1.73m2 FBS 101 H 60-99 mg/dL A fasting glucose from 100-125 mg/dl is considered impaired (pre-diabetes). CA 9.7 8.4-10.2 mg/dL AST (GOT) 27 5-31 U/L ALT (GPT) 16 0-31 U/L CRP 0.16 < or = 0.50 mg/dL Triglyceride 189 H <150 mg/dL Desirable Triglyceride: less than 150 mg/dL Borderline High Triglyceride 150-199 mg/dL High Triglyceride: 200-499 mg/dL Very High Triglyceride: greater than or equal to 5OO mg/dL Cholesterol 217 H <200 mg/dL Desirable Cholesterol: less than 200 mg/dL Borderline High Cholesterol: 200-239 mg/dL High Cholesterol: greater than 239 mg/dL LDL Calculated 130 H <100 mg/dL Desirable LDL: less than 100 mg/dL Near Optimal/Above Optimal LDL: 110-129 mg/dL Borderline High LDL: 130-159 mg/dL High LDL: 160-189 mg/dL Very High LDL: greater than or equal to 190 mg/dL HDL 50 >40 mg/dL Desirable HDL: greater than 40 mg/dL Note: This HDL assay may give artificially low results in patients with liver disease. Lipase 34 8-78 U/L Coding Level of Care Code Est Pt Level 4 (56441) Complex EM visit Add On G2211 Diagnoses Mixed dyslipidemia E78.2 Essential hypertension I10 Assessment & Plan Assessment & Plan (1) Mixed dyslipidemia: Comment: Code(s): E78.2 - Mixed hyperlipidemia Category: Medical Plan: Stopped pravastatin, switched to rosuvastatin 5 mg to take initially 1 tablet every other day and may increase it to once a day if tolerating medication. Will recheck again another fasting lipid panel in 3, reinforced importance of adhering to a healthy diet and getting regular exercise (2) Essential hypertension: Code(s): I10 - Essential (primary) hypertension Category: Medical Plan: Blood pressure at goal of less than 130/80. Continue with triamterene-hydrochlorothiazide and metoprolol tartrate has a same dose. Reinforced importance of following a low sodium diet, getting regular exercise, and lowering stress levels. Medications: New rosuvastatin 5 mg PO DAILY 90 tabs 0RF Discontinued pravastatin Discontinued Reason: Doctor's Order 80 mg PO BEDTIME 90 tabs 1RF
[2025-05-29 09:59] VITALS: BP 122/72; PULSE 60; RESP 16; TEMP 36.8; O2SAT 95; BMI 26.5
== END 2025-05-29 10:43 | disposition home or self-care (01) ==
LOC: HO.HMCC 09:02
PROVIDERS: PCP Internal Medicine; Visit Provider Internal Medicine
DX: E78.2 Mixed hyperlipidemia (principal); I10 Essential (primary) hypertension

== ENCOUNTER → 2025-05-29 09:01 | Outpatient (BNVA) | payer MEDICARE, SELFPAY | PROVIDERS: PCP Internal Medicine; Visit Provider Internal Medicine | DX: I10 Essential (primary) hypertension (principal); E78.2 Mixed hyperlipidemia | CPT/HCPCS: 96127; 99212 ==